=== PATIENT | male | born 1965 | race Caucasian/White ===

== ENCOUNTER → 2016-09-24 | Outpatient (CLI) | payer BC, OTHER ==
[~2016-09-24] VITALS: Ht 182.9 cm; Wt 119.1 kg
[~2016-09-24] MED LIST: ACET-1138 PO; ACET325T82; AMAN100T PO; AMB5 PO; BUPR-79 PO; CALC-393 PO; CARB25TA12 PO; CARB25TA12 SL; CARB50TA3 PO; CHOL1CHW10 PO; CLC100 PO; CLON0.5T3 PO; CLON1TAB3 PO; DIPH25CA50 PO; DLCS PR; DULO60CA44 PO; ENTA200T PO; FESO4TAB PO; MOMLX PO; MULT-589 PO; PRT40 PO; RXC5 PO; SYM100 PO; [UNRECOGNIZED DRUG - CODE] PO
[2016-09-24 11:28] VITALS: BP 143/88; PULSE 101; Ht 182.9 cm; Wt 119.1 kg
== END | disposition home or self-care (01) ==
LOC: C.NEUR 10:52
PROVIDERS: ATTEND Internal Medicine Pulmonary Disease
DX: G47.30 Sleep apnea, unspecified (principal); G20 Parkinson's disease; G47.61 Periodic limb movement disorder

== ENCOUNTER → 2016-09-26 | Outpatient (CLI) | payer BC ==
--- NOTE | 2016-09-26 15:22 | DIAGNOSTIC IMAGING REPORT ---
ULTRASOUND LEFT VENOUS DOPP LOWER EXT UNILAT CLINICAL HISTORY: ECCHYMOSIS EDEMA COMPARISON STUDY: No previous studies for comparison. FINDINGS: Real-time and color flow Doppler imaging were performed. Flow was seen within the femoral, popliteal and calf veins with no intraluminal thrombus demonstrated. The saphenous vein is patent. Multiple patent varicosities were visualized. IMPRESSION: No evidence of left lower extremity DVT. Electronically signed by: Toribio Bernal M.D. 09/26/2016 3:20 PM
[2016-09-26 16:57] LABS: BASO % 1.1 %; BASO ABS # 0.07 K/uL (0-0.2); COMPLETE YES; HEMATOCRIT 41.7 % (42-52); IG% 0.2 %; LYMPH % 19.9 %; LYMPH ABS # 1.24 K/uL (1.2-3.4); MEAN CORPUSCULAR HEMOGLOBIN 30.8 pg (25-34); MEAN CORPUSCULAR HGB CONC 33.8 g/dl (32-36); MEAN PLATELET VOLUME 9.4 fL (7.4-10.4); MONO % 9.1 %; NEUT % 64.7 %; PLATELET COUNT 279 K/uL (130-400); RED BLOOD COUNT 4.58 M/uL (4.7-6.1); WHITE BLOOD COUNT 6.24 K/uL (4.8-10.8)
[2016-09-26 17:22] LABS: BLOOD UREA NITROGEN 14 mg/dl (7-18); CALCIUM 8.8 mg/dl (8.5-10.1); CARBON DIOXIDE 27 mmol/L (21-32); CHLORIDE 106 mmol/L (98-107); CREATININE 0.77 mg/dl (0.60-1.40); GLUCOSE 87 mg/dl (70-99); SODIUM 141 mmol/L (136-145)
== END | disposition home or self-care (01) ==
LOC: C.ULTRBC 14:44
PROVIDERS: ATTEND Internal Medicine Geriatric Medicine
DX: R58 Hemorrhage, not elsewhere classified (principal); E55.9 Vitamin D deficiency, unspecified

== ENCOUNTER 2016-12-04 21:02 | Emergency (ER) | payer BC, OTHER ==
[~2016-12-04 21:02] MED LIST changes: -ACET325T82; +BND25X PO; -CALC-393 PO; -CHOL1CHW10 PO; -CLON1TAB3 PO; -DIPH25CA50 PO; -FESO4TAB PO; -[UNRECOGNIZED DRUG - CODE] PO
[2016-12-04 21:12] VITALS: TEMP 37.1; Ht 180.3 cm
[2016-12-04] MEDS ORDERED: CLON1TAB3 PO (21:48)
[2016-12-04] MEDS ORDERED: [UNRECOGNIZED DRUG - CODE] PO (21:48)
[2016-12-04] MEDS ORDERED: FESO4TAB PO (21:48)
[2016-12-04] MEDS ORDERED: CHOL1CHW10 PO (21:48)
[2016-12-04] MEDS ORDERED: CALC-393 PO (21:48)
[2016-12-04 21:53] LABS: URINE APPEARANCE CLOUDY (CLEAR); URINE BILIRUBIN NEG (NEG); URINE COLOR DK YELLOW; URINE EPITHELIAL CELL AUTO 20-30 /lpf (0-5); URINE NITRITE NEG (NEG); URINE SPECIFIC GRAVITY 1.029 (1.000-1.030); UROBILINOGEN NEG (NEG)
[2016-12-04 21:55] LABS: MANUAL MICROSCOPIC REQUIRED? NO; REVIEW REQ? YES
[2016-12-04 22:02] LABS: URINE MUCUS PRESENT (NONE PRSENT)
[2016-12-04 22:17] LABS: BENZODIAZEPINE, URINE NEG (NEG); COCAINE,URINE NEG (NEG); PHENCYCLIDINE, URINE NEG (NEG)
[2016-12-04 22:19] LABS: BASO ABS # 0.08 K/uL (0-0.2); COMPLETE YES; EOS % 2.8 %; HEMATOCRIT 44.1 % (42-52); IG% 0.2 %; LYMPH % 14.5 %; LYMPH ABS # 1.18 K/uL (1.2-3.4); MEAN CELL VOLUME 91.7 fL (80-100); MEAN CORPUSCULAR HEMOGLOBIN 30.1 pg (25-34); MEAN CORPUSCULAR HGB CONC 32.9 g/dl (32-36); MEAN PLATELET VOLUME 9.8 fL (7.4-10.4); MONO % 8.1 %; NEUT % 73.4 %; PLATELET COUNT 261 K/uL (130-400); RED BLOOD COUNT 4.81 M/uL (4.7-6.1); WHITE BLOOD COUNT 8.11 K/uL (4.8-10.8)
[2016-12-04 22:41] LABS: ALT/SGPT 10 U/L (12-78); BLOOD UREA NITROGEN 18 mg/dl (7-18); BUN/CREATININE RATIO 17.6 (10-20); CALCIUM 8.7 mg/dl (8.5-10.1); CARBON DIOXIDE 24 mmol/L (21-32); CHLORIDE 107 mmol/L (98-107); GLUCOSE 116 mg/dl (70-99); POTASSIUM 3.9 mmol/L (3.5-5.1); SODIUM 141 mmol/L (136-145)
[2016-12-04 22:52] LABS: ALKALINE PHOSPHATASE 63 U/L (45-117); AST/SGOT 24 U/L (15-37)
[2016-12-04 22:55] LABS: ACETAMINOPHEN < 2 ug/ml (10-30)
--- NOTE | 2016-12-04 23:47 | EMERGENCY ROOM VISIT NOTE ---
History Report prepared by Lavern: Dahlia Pope Under the Supervision of: Dr. Laney Nicolas D.O. First contact with patient: 21:16 Chief Complaint: MENTAL HEALTH EVALUATION Stated Complaint: MENTAL HEALTH ISSUES History of Present Illness The patient is a 51 year old male who presents to the Emergency Room with complaints of worsening mental health issues starting 4 days ago. He has Parkinson's disease. He has depression and anxiety and takes medications. He has been under increased stress recently, which makes him more depressed. He began having mental health problems after his Parkinson's diagnosis 13 years ago. He has previously been hospitalized 3 times for suicidal ideation. His last inpatient stay for psychiatric issues was 3.5 years ago. He reports that he was angry at himself and considered hurting himself, but he has never hurt himself before. He does fall often, but his reports that his falls have become more frequent and severe than before, leading to more injury. She also reports that he pretended to take pills and hid them under his pillow, which is behavior he has not exhibited before. They do not have a firearm at home, but he has also made threats about a gun. He is diaphoretic, but states that that is normal. He denies any abdominal pain, chest pain, nausea, vomiting, urinary symptoms, appetite loss, or changes in bowel movements. He goes to therapy weekly, but has not gone in 3 weeks. Source of History: patient, spouse/significant other Onset: 4 days ago Position: other (global) Timing: other (persistent) Associated Symptoms: + diaphoresis, No abdominal pain, No chest pain, No nausea, No urinary symptoms, No vomiting Note: Pt denies decrease in appetite or changes in bowel movement. Review of Systems See HPI for pertinent positives & negatives. A total of 10 systems reviewed and were otherwise negative. Past Medical & Surgical Medical Problems: (1) Bipol I, Rec Epis (Or Current) Depressed, Unspecified (2) DJD of left shoulder (3) Hypertension Nos (4) Parkinson disease Family History Diabetes mellitus Heart disease Hypertension Kidney disease Kidney stones Social History Smoking Status: Never Smoker Alcohol Use: none Drug Use: none Marital Status: Housing Status: lives with family, lives with significant other Occupation Status: disabled Current/Historical Medications Scheduled Amantadine Hcl (Symmetrel), 100 MG PO BID Bupropion (Wellbutrin Sr), 150 MG PO QAM Calcium Carbonate (Calcium), 600 MG PO QAM Carbidopa/Levodopa (Sinemet 25MG/100MG), 1 TAB SL QID Carbidopa/Levodopa (Sinemet Cr 50MG/200MG), 1 TAB PO QID Cholecalciferol (Vitamin D3), 1,000 UNIT PO QAM Clonazepam (Klonopin), 1 MG PO HS Duloxetine Hcl (Cymbalta), 60 MG PO QAM Entacapone (Comtan), 200 MG PO QID Fesoterodine Fumarate (Toviaz), 4 MG PO BID Multivitamins (Daily Paulette), 1 TAB PO DAILY Allergies Coded Allergies: Morphine (Verified Allergy, Mild, Itching, 12/04/16) Physical Exam Vital Signs Date Time Temp Pulse Resp B/P Pulse Ox O2 Delivery O2 Flow Rate FiO2 12/04/16 22:49 102 22 113/67 92 Room Air 12/04/16 21:12 37.1 118 18 126/78 92 Room Air Physical Exam General: Tearful, tremulous with Parkinson's disease. HEENT: Head - normocephalic and atraumatic Pupils are equal, round, and reactive to light. Extraocular eye muscles are intact, and sclera are anicteric. Nose - moist nasal mucosa without discharge. Mouth - moist buccal mucosa. Oropharynx is nonerythematous and there is no tonsillar exudate or edema noted. Neck: Supple; no JVD, nuchal rigidity, cervical lymphadenopathy. Heart: Regular rate and rhythm. There is a normal S1 and S2 with no murmurs, clicks, or gallops appreciated. Lungs: Clear to auscultation bilaterally with no wheezes, rales, or rhonchi. Abdomen: Soft, completely nontender, nondistended, with good bowel sounds. There are no palpable pulsatile masses or hepatosplenomegaly. There is no guarding, rigidity, or rebound noted. Extremities: No evidence of cyanosis, clubbing, or edema. There are easily palpable peripheral pulses. Skin: warm and diaphoretic with good turgor and no rashes. Psych: depressed and making suicidal threats to family. Medical Decision & Procedures Laboratory Results 12/04/16 21:56 Red Blood Count 4.81, Mean Corpuscular Volume 91.7, Mean Corpuscular Hemoglobin 30.1, Mean Corpuscular Hemoglobin Concent 32.9, Mean Platelet Volume 9.8, Neutrophils (%) (Auto) 73.4, Lymphocytes (%) (Auto) 14.5, Monocytes (%) (Auto) 8.1, Eosinophils (%) (Auto) 2.8, Basophils (%) (Auto) 1.0, Neutrophils # (Auto) 5.94, Lymphocytes # (Auto) 1.18, Monocytes # (Auto) 0.66, Eosinophils # (Auto) 0.23, Basophils # (Auto) 0.08 12/04/16 21:56 Test 12/04/16 21:20 12/04/16 21:56 Urine Color DK YELLOW Urine Appearance CLOUDY (CLEAR) Urine pH 5.0 (4.5-7.5) Urine Specific [place] 1.029 (1.000-1.030) Urine Protein NEG (NEG) Urine Glucose (UA) NEG (NEG) Urine Ketones TRACE (NEG) Urine Occult Blood NEG (NEG) Urine Nitrite NEG (NEG) Urine Bilirubin NEG (NEG) Urine Urobilinogen NEG (NEG) Urine Leukocyte Esterase NEG (NEG) Urine WBC (Auto) 1-5 /hpf (0-5) Urine RBC (Auto) 0-4 /hpf (0-4) Urine Hyaline Casts (Auto) 5-10 /lpf (0-5) Urine Epithelial Cells (Auto) 20-30 /lpf (0-5) Urine Bacteria (Auto) NEG (NEG) Urine Crystals CALCIUM OXALATE (NONE Urine Mucus PRESENT (NONE PRSENT) Urine Opiates Screen NEG (NEG) Urine Methadone, Qualitative NEG (NEG) Urine Barbiturates NEG (NEG) Urine Phencyclidine (PCP) Level NEG (NEG) Ur Amphetamine/Methamphetamine NEG (NEG) MDMA (Ecstasy) Screen POS (NEG) Urine Benzodiazepines Screen NEG (NEG) Urine Cocaine Metabolite NEG (NEG) Urine Marijuana (THC) NEG (NEG) White Blood Count 8.11 K/uL (4.8-10.8) Red Blood Count 4.81 M/uL (4.7-6.1) Hemoglobin 14.5 g/dL (14.0-18.0) Hematocrit 44.1 % (42-52) Mean Corpuscular Volume 91.7 fL (80-100) Mean Corpuscular Hemoglobin 30.1 pg (25-34) Mean Corpuscular Hemoglobin Concent 32.9 g/dl (32-36) Platelet Count 261 K/uL (130-400) Mean Platelet Volume 9.8 fL (7.4-10.4) Neutrophils (%) (Auto) 73.4 % Lymphocytes (%) (Auto) 14.5 % Monocytes (%) (Auto) 8.1 % Eosinophils (%) (Auto) 2.8 % Basophils (%) (Auto) 1.0 % Neutrophils # (Auto) 5.94 K/uL (1.4-6.5) Lymphocytes # (Auto) 1.18 K/uL (1.2-3.4) Monocytes # (Auto) 0.66 K/uL (0.11-0.59) Eosinophils # (Auto) 0.23 K/uL (0-0.5) Basophils # (Auto) 0.08 K/uL (0-0.2) RDW Standard Deviation 47.6 fL (36.4-46.3) RDW Coefficient of Variation 14.1 % (11.5-14.5) Immature Granulocyte % (Auto) 0.2 % Immature Granulocyte # (Auto) 0.02 K/uL (0.00-0.02) Anion Gap 10.0 mmol/L (3-11) Estimated GFR () 100.6 Estimated GFR (Non- 86.8 BUN/Creatinine Ratio 17.6 (10-20) Calcium Level 8.7 mg/dl (8.5-10.1) Total Bilirubin 0.4 mg/dl (0.2-1) Direct Bilirubin 0.1 mg/dl (0-0.2) Aspartate Amino Transf (AST/SGOT) 24 U/L (15-37) Alanine Aminotransferase (ALT/SGPT) 10 U/L (12-78) Alkaline Phosphatase 63 U/L (45-117) Total Protein 7.1 gm/dl (6.4-8.2) Albumin 3.4 gm/dl (3.4-5.0) Thyroid Stimulating Hormone (TSH) 1.280 uIu/ml (0.300-4.500) Salicylates Level 3.8 mg/dl (2.8-20) Acetaminophen Level < 2 ug/ml (10-30) Laboratory results per my review. ED Course 2120: The patient was evaluated in room A8. A complete history and physical examination were performed. Nursing notes and previous electronic medical records were reviewed. Labs were drawn as above. The patient was also evaluated by the ED psychiatric block and case maker. 2306: I reevaluated the patient. The market relationship manager talked to the patient. Mobile crisis will come to do an evaluation because there are no beds available here. When he heard that there were no beds, he expressed a desire to go home. The convinced him to stay here in the emergency department to have the formal evaluation done and possible placement at another facility. The patient was cooperative throughout his stay. 2345: the patient is resting comfortably at this time. He will be signed out to Dr. Elise at change of shift. Medical Decision The patient is a 51 year old male who presents to the ED with mental health issues. Differential diagnosis includes worsening depression, suicidal ideation , thought disorder. Labs: normal WBC count, stable H&H, normal THS and LFTs, normal renal function, glucose 116, aspirin 3.8, Tylenol <2, tox screen positive for MDMA. Urinalysis positive for trace ketones, mucus and calcium oxylate crystals. This is a 51-year-old male patient with a history of Parkinson's disease who presents to the emergency department with his with complaints of suicidal ideation. The patient has been making suicidal statements to the family. He does not believe that he has the intent to act upon these because of his face. However, the states that she is somewhat concerned about his situation believes that he needs inpatient psychiatric care to get help. [facility] will evaluate the patient and helped determine if he requires inpatient psychiatric care. Final disposition will be determined by Dr. Elise. Impression Primary Impression: Suicidal ideation Scribe Attestation The scribe's documentation has been prepared under my direction and personally reviewed by me in its entirety. I confirm that the note above accurately reflects all work, treatment, procedures, and medical decision making performed by me. Departure Information Referrals Yanick Lara M.D. (PCP) Patient Instructions My [facility]
[2016-12-05] MEDS ORDERED: ACET325T82 (00:42)
[2016-12-05] MEDS ORDERED: CLONAZEPAM 1 MG TAB PO STA (01:02)
[2016-12-05] MEDS ORDERED: CLONAZEPAM 0.5 MG TAB PO SCH (01:30)
--- NOTE | 2016-12-05 02:05 | EMERGENCY ROOM VISIT NOTE ---
ED Visit Note First contact with patient: 23:42 Patient signed over to me pending disposition from crisis counselor. Patient contracts for safety. The family will take the patient home and will follow up with outpatient crisis evaluation. Patient will be discharged 205am ' Disposition is to home Diagnosis is depression Discharged stable
[2016-12-05 02:10] VITALS: BP 119/79; PULSE 97; O2SAT 93
[2016-12-05] MEDS ORDERED: CARBIDOPA/LEVODOPA 50/200MG EXT REL TAB PO SCH (09:00)
[2016-12-05] MEDS ORDERED: CARBIDOPA/LEVODOPA 25/100MG TAB PO SCH (09:00)
== END 2016-12-05 02:14 | disposition home or self-care (01) ==
LOC: C.EDB 21:04 → C.EDA 12-05 02:14
DX: R45.851 Suicidal ideations (principal); F32.9 Major depressive disorder, single episode, unspecified; I10 Essential (primary) hypertension; G20 Parkinson's disease; F31.9 Bipolar disorder, unspecified; Z79.899 Other long term (current) drug therapy; Z88.5 Allergy status to narcotic agent; Z83.3 Family history of diabetes mellitus; Z82.49 Family history of ischemic heart disease and other diseases of the circulatory system

== ENCOUNTER → 2017-10-07 | Outpatient (CLI) | payer OTHER, MEDICARE ==
[~2017-10-07] MED LIST changes: -ACET-1138 PO; -AMB5 PO; -BND25X PO; +CALC-393 PO; -CARB25TA12 PO; +CHOL1CHW10 PO; -CLC100 PO; -DLCS PR; +FESO4TAB PO; -MOMLX PO; -PRT40 PO; -RXC5 PO; -SYM100 PO
== END | disposition home or self-care (01) ==
LOC: C.RDSM 13:40
PROVIDERS: ATTEND Family Medicine Sports Medicine
DX: M25.511 Pain in right shoulder (principal)

== ENCOUNTER 2019-09-09 10:03 | Inpatient (IN) ==
[2019-08-26 15:45] LABS: Basophils # (auto) 0.07 K/uL (0-0.2); Eosinophils % (auto) 4.4 %; Hematocrit (blood only) 46.1 % (42-52); Hemoglobin 15.1 g/dL (14.0-18.0); Immature Granulocytes # (auto) 0.02 K/uL (0.00-0.02); Immature Granulocytes % (auto) 0.3 %; Lymphocytes % (auto) 17.5 %; Mean Corpuscular Hemoglobin 30.8 pg (25-34); Mean Corpuscular Hgb Conc 32.8 g/dL (32-36); Mean Corpuscular Volume 94.1 fL (80-100); Mean Platelet Volume 9.2 fL (7.4-10.4); Monocytes # (auto) 0.54 K/uL (0.11-0.59); Monocytes % (auto) 7.9 %; Neutrophils # (auto) 4.71 K/uL (1.4-6.5); Neutrophils % (auto) 68.9 %; Platelet Count 236 K/uL (130-400); RDW Standard Deviation 47.6 fL (36.4-46.3); White Blood Count 6.84 K/uL (4.8-10.8)
--- NOTE | 2019-08-26 15:46 | XRay Report ---
XR chest 2V PA/lateral HISTORY: 54 years-old Male Z01.818 PREOP preoperative exam. No acute chest complaints COMPARISON: Chest radiograph 02/08/2016 and 02/21/2018 TECHNIQUE: PA and lateral views of the chest FINDINGS: Cardiomediastinal and hilar silhouettes are within normal limits. Bilateral stimulators with electrod es are noted projecting superiorly along the neck, outside the [id number]. Bilateral shoulder arth roplasties. Degenerative changes of the spine. No pneumothorax, pleural effusion, focal airspace cons olidation or overt pulmonary edema. Moderate gaseous distention of the stomach. IMPRESSION: No acute process. The above report was generated using voice recognition software. It may contain grammatical, syntax o r spelling errors. Electronically signed by: Guy Branham M.D. 08/26/2019 3:45 PM
[2019-08-26 15:57] LABS: Partial Thromboplastin Time 28.2 Seconds (21.0-31.0); Prothrombin Time 10.5 Seconds (9.0-12.0)
[2019-08-26 16:04] LABS: Albumin Level 3.6 gm/dl (3.4-5.0); BUN Creatinine Ratio 25.8 (10-20); Blood Urea Nitrogen 21 mg/dl (7-18); C Reactive Protein 1.26 mg/dl (0-0.29); Calcium 9.2 mg/dl (8.5-10.1); Carbon Dioxide 24 mmol/L (21-32); Chloride 106 mmol/L (98-107); Est GFR (African American) 115.6; Est GFR (Non-African American) 99.8; Glucose 84 mg/dl (70-99); Potassium 3.9 mmol/L (3.5-5.1); Sodium 136 mmol/L (136-145)
[2019-08-26 16:38] LABS: Appearance Urine Clear (Clear); Bilirubin Urine Negative (Negative); Blood Urine Negative (Negative); Color Urine Dark Yellow; Glucose Urine UA Negative (Negative); Ketones Urine Trace (Negative); Leukocyte Esterase Urine Negative (Negative); Nitrite Urine Negative (Negative); Protein Urine Negative (Negative); Specific Gravity Urine 1.021 (1.000-1.030); Urobilinogen Urine Negative (Negative); pH Urine 5.5 (4.5-7.5)
[2019-08-27 06:04] LABS: Estimated Average Glucose 114 mg/dl; Hemoglobin A1C 5.6 % (4.5-5.6)
--- NOTE | 2019-08-31 11:06 | PAT Medication Instructions ---
Medication Instructions Date of Service August 31, 2019 Home Medications amantadine HCl 100 mg tablet 100 mg PO BID bupropion HCl 150 mg tablet,12 hr sustained-release 150 mg PO QAM carbidopa 25 mg-levodopa 100 mg tablet 1 tab PO QID carbidopa ER 50 mg-levodopa 200 mg tablet,extended release 1 tab PO QID entacapone 200 mg tablet 200 mg PO QID duloxetine 60 mg capsule,delayed release 90 mg PO QAM carbidopa-levodopa 1 tab PO QID PRN loratadine [Claritin] 10 mg PO QAM solifenacin [Vesicare] 10 mg PO QPM ASK your prescriber and surgeon entacapone 200 mg tablet 200 mg PO QID DO NOT take the morning of surgery loratadine [Claritin] 10 mg PO QAM Take morning of surgery With a small sip of water, OTHERWISE NOTHING TO EAT OR DRINK AFTER MIDNIGHT: amantadine HCl 100 mg tablet 100 mg PO BID bupropion HCl 150 mg tablet,12 hr sustained-release 150 mg PO QAM carbidopa 25 mg-levodopa 100 mg tablet 1 tab PO QID carbidopa ER 50 mg-levodopa 200 mg tablet,extended release 1 tab PO QID duloxetine 60 mg capsule,delayed release 90 mg PO QAM carbidopa-levodopa 1 tab PO QID PRN (if needed) Take evening before surgery amantadine HCl 100 mg tablet 100 mg PO BID carbidopa 25 mg-levodopa 100 mg tablet 1 tab PO QID carbidopa ER 50 mg-levodopa 200 mg tablet,extended release 1 tab PO QID carbidopa-levodopa 1 tab PO QID PRN (if needed) solifenacin [Vesicare] 10 mg PO QPM Other Notes If you have any questions please call us at [phone] or [phone] or [phone] or [phone]
--- NOTE | 2019-08-31 14:01 | Anesthesiology Consultation ---
Date of Service August 31, 2019 Assessment & Plan (1) Encounter for pre-operative examination: - Deep brain stimulator: Previous left TKA revision done 04/11/15 at [facility] under SAB/patient did have deep brain stimulator at this time as well (SAB x 1 at L3- L4 at [facility]). For most recent surgery/right shoulder hemiarthroplasty done 03/10/18 at [facility], [employer] rep turned off device prior to surgery. Discussed with Dr. Balderas): will have [employer] rep present to turn off device prior to knee revision/patient aware to bring remote AM DOS. OR made aware of the above. - Medication instructions: Patient takes entacapone (comtan) for parkinson's (COMT inhibitor/Synldpes-S-Talwcqqkdukytvvnm Inhibitor). Patient continued medication perioperatively with prior knee replacement under SAB and partial shoulder replacement under GA at [facility]. Medication reviewed with Dr. Mcallister/Dr. Balderas as medication shows potential for issues of hypertensive response when continued if ephedrine/vasoactive medications given perioperatively in previous case studies. Given patient had taken medication perioperatively previously without issue, will defer preop medication instructions to the prescriber (neurology: Dr. Josie Back/[facility]). Patient advised to contact neurologist to discuss preop medication recommendations. - S/P right shoulder hemiarthroplasty: 03/10/18: MAC#4, ETT 7.5 at [facility]. Per anesthesia report, Patient had emesis, oropharyngeal suctioned and patient intubated with #4 MAC (7.5 ETT). Tube suctioned/small amount yellow liquid. Tube was secured. Stomach suctioned and small amount (5-10) cc orange/red liquid. Per port-op anesthesia progress note: "Anesthetic Complications: no major complications apparent" - PCP: 08/24/19: 06/2019 EKG reviewed and feel no significant changes compared to previous. "Using the revised cardiac index, he is at low risk for adverse outcome with non-cardiac surgery. He is acceptable risk for surgery. Perioperative pulmonary risk factors are low to moderate - higher risk due to Parkinson's disease." Chart Review Chart Review: Acceptable Risk for Surgery and Patient seen in Pre Admission T esting Teaching & Discussion Pre-Anesthesia Teaching/Discussion Notes: Instructed NPO after midnight before surgery,except medications with 15 cc of water. Medication instructions provided according to the PAT guidelines. History Surgery Operation Date: 09/09/19 11:30 Proposed Procedures p Left Total Knee Revision Arthroplasty - Ray Child MD Height/Weight Height: 6 ft Weight: 120.202 kg (*per verbal from patient/wheelchair bound*) Allergies Allergy/AdvReac Type Severity Reaction Status Date / Time morphine Allergy Mild Itching Verified 08/28/19 15:20 Medications Home Medications Medication Instructions Recorded Confirmed Last Taken amantadine HCl 100 mg tablet 100 mg PO BID 06/30/19 08/28/19 Unknown bupropion HCl 150 mg tablet,12 hr 150 mg PO QAM ea 06/30/19 08/28/19 Unknown sustained-release carbidopa 25 mg-levodopa 100 mg 1 tab PO QID 06/30/19 08/28/19 Unknown tablet carbidopa ER 50 mg-levodopa 200 mg 1 tab PO QID 06/30/19 08/28/19 Unknown tablet,extended release entacapone 200 mg tablet 200 mg PO QID 06/30/19 08/28/19 Unknown duloxetine 60 mg capsule,delayed 90 mg PO QAM cap 08/24/19 08/28/19 Unknown release carbidopa-levodopa 1 tab PO QID PRN 08/28/19 08/28/19 Unknown loratadine [Claritin] 10 mg PO QAM 08/28/19 08/28/19 Unknown solifenacin [Vesicare] 10 mg PO QPM 08/28/19 08/28/19 Unknown Past Medical History Medical History Anxiety Depression Hearing deficit TEJON left ear Osteoarthritis Parkinson disease s/p deep brain stimulator Sleep apnea does not tolerate device Urinary incontinence Venous stasis of both lower extremities Exercise / Class Metabolic Activity IV < 2 Limit ADL/Bedbound Past Family History Family History Grandmother Family history of diabetes mellitus Past Surgical History Surgical History History of appendectomy History of carpal tunnel release History of colonoscopy History of foot surgery RECONSTRUCTION - RT History of left knee replacement History of revision of total knee arthroplasty LEFT History of shoulder surgery LEFT X 2; RT X 1 S/P deep brain stimulator placement Past Anesthesia History No Family Hx of Anesthesia Complications and Other S/P right shoulder hemiarthroplasty: 03/10/18: MAC#4, ETT 7.5 at [facility]. Per anesthesia report, Patient had emesis, oropharyngeal suctioned and patient intubated with #4 MAC (7.5 ETT). Tube suctioned/small amount yellow liquid. Tube was secured. Stomach suctioned and small amount (5-10) cc orange/red liquid. Per port-op anesthesia progress note: "Anesthetic Complications: no major complications apparent" History of PONV No Hx of PONV and Hx of Motion Sickness (occasional) Social History Smoking Status: Never smoker Do You Dip or Chew Tobacco: No Hx Alcohol Use: No Hx Substance Use: No substance use type: marijuana Substance Use Type Other:: MEDICAL MARIJUANA CARD ([facility] PROTOCOL) Last Used Substance Other:: 6-7 MONTHS AGO Review of Systems Patient denies chest pain, shortness of breath, cough, wheezing, palpitations. Physical Exam Vital Signs VITALS BP 121/79 P 92 TEMP 98.3 SP02 93%RA RESP 20 PHYSICAL Full neck and c-spine range of motion. Full TMJ range of motion. TMD 3.5 finger breaths Mallampati Score 3 Dentition: missing molars Lungs: clear throughout to auscultation Cardiac: regular rate and rhythm, no murmurs noted Spine: normal Carotid arteries: negative bruit + sitting comfortably in wheelchair Testing Laboratory Results 08/26/19 15:22 08/26/19 15:22 PT 10.5 Seconds (9.0-12.0) 08/26/19 15:22 INR 1.0 (0.9-1.1) 08/26/19 15:22 APTT 28.2 Seconds (21.0-31.0) 08/26/19 15:22 Hemoglobin A1c 5.6 % (4.5-5.6) 08/26/19 15:22 Urine Color Dark Yellow 08/26/19 15:22 Urine Appearance Clear (Clear) 08/26/19 15:22 Urine pH 5.5 (4.5-7.5) 08/26/19 15:22 Ur Specific [place] 1.021 (1.000-1.030) 08/26/19 15:22 Urine Protein Negative (Negative) 08/26/19 15:22 Urine Glucose (UA) Negative (Negative) 08/26/19 15:22 Urine Ketones Trace (Negative) H 08/26/19 15:22 Urine Nitrite Negative (Negative) 08/26/19 15:22 Ur Leukocyte Esterase Negative (Negative) 08/26/19 15:22 Urine WBC (Auto) Not Reportable 08/26/19 15:22 Urine RBC (Auto) Not Reportable 08/26/19 15:22 U Hyaline Cast (Auto) Not Reportable 08/26/19 15:22 U Epithel Cells (Auto) Not Reportable 08/26/19 15:22 Urine Bacteria (Auto) Not Reportable 08/26/19 15:22 Blood Type A Positive 08/26/19 15:22 Antibody Screen NEGATIVE 08/26/19 15:22 Electrocardiogram Date: 06/30/19 SR at 88bpm. Possible LAE. Inferior AZ, probably old. Poor data quality (+ deep brain stimulator) Chest X-Ray Date: 08/26/19 Cardiomediastinal and hilar silhouettes are within normal limits. Bilateral stimulators with electrodes are noted projecting superiorly along the neck, outs kayla the [id number]. Bilateral shoulder arthroplasties. Degenerative changes of the spine. No pneumothorax, pleural effusion, focal airspace consolidation or overt pulmonary edema. Moderate gaseous distention of the stomach. No acute process.
--- NOTE | 2019-09-08 18:29 | History and Physical Report ---
DATE OF ADMISSION: 09/09/2019 CHIEF COMPLAINT: Chronic left knee pain. HISTORY OF PRESENT ILLNESS: This is a 54-year-old male patient of Dr. Child'dung complaining of chronic left knee pain, longstanding, now progressively getting worse. The patient had a total knee replacement on the same side on the left in 2014. A bone scan revealed a patella dislocation and fracture as well as x-rays revealed a patella dislocation fracture. Blood work was obtained; it was negative for any type of infection. The patient wishes to proceed with a left total knee revision, primarily patellar revision. PAST MEDICAL HISTORY: Sleep apnea, peripheral neuropathy, cerebral palsy. FAMILY HISTORY: Noncontributory. REVIEW OF SYSTEMS: Chronic left knee pain status post left total knee arthroplasty. Otherwise, denies any shortness of breath, chest pain, nausea, vomiting or any other joint complaints. PAST SURGICAL HISTORY: 1. Appendectomy. 2. Neurostimulators, multiple 3. Left shoulder. 4. Right foot. 5. Again multiple battery replacements for neuro stimulators. 6. Right carpal tunnel syndrome. ALLERGIES: Will be presented on admission. MEDICATIONS: 1. Carbidopa/levodopa extended release 50/200 4 times daily. 2. Carbidopa/levodopa 25/100 four times daily. 3. Comtan 200 mg 4 times daily. 4. Amantadine 2 times daily. 5. Cymbalta 90 mg daily. 6. Wellbutrin 150 mg daily. 7. Claritin as needed. PHYSICAL EXAMINATION: GENERAL: Well-developed, well-nourished 54-year-old male in no acute distress. He is alert and oriented x3 and pleasant. HEENT: Normocephalic, atraumatic. Extraocular motions are intact. Pupils are equal and reactive to light. HEART: Regular rate and rhythm, no murmurs appreciated. LUNGS: Clear. ABDOMEN: Soft and nontender. EXTREMITIES: Right knee range of motion limited to 0-130. He has pain with passive range of motion. He has a well-healed incision from previous surgery. No effusion. DIAGNOSES: Left knee loosening total knee arthroplasty primarily patella. He also has a history of sleep apnea, anxiety, peripheral neuropathy, cerebral palsy. PLAN: The patient was advised of his diagnosis. Indications, risks, benefits, postop course have all been reviewed. The patient wished to proceed with a left total knee revision of a total knee arthroplasty primarily patella. Necessary consent forms, preoperative testing and clearances will be obtained.
[~2019-09-09 10:03] MED LIST changes: +ACETAMINOPHEN 500 MG TAB PO SCH; -AMAN100T PO; +BUPIVACAINE 0.5 % 5 MG/1 ML PF 10ML VIAL ONE; -BUPR-79 PO; -CALC-393 PO; -CARB25TA12 SL; -CARB50TA3 PO; +CEFAZOLIN 3000MG 72.5 ML IV SCH; -CHOL1CHW10 PO; -CLON0.5T3 PO; +CeleBREX 200 MG CAP PO SCH; -DULO60CA44 PO; -ENTA200T PO; +FAMOTIDINE 20 MG TAB PO SCH; -FESO4TAB PO; +GABAPENTIN 300 MG CAP PO SCH; +LR 500ML BOLUS, THEN 15ML/HR IV SCH; +METOCLOPRAMIDE HCL 10 MG TABLET PO SCH; -MULT-589 PO; +ROPIVACAINE 0.5% 5 MG/ML 30 ML VIAL ONE; +ROPIVACAINE 0.5% HCL/PF 150 MG, BUPIVACAINE 0.5% MPF 30 ML, EPINEPHrine 30MG/30ML (OR U... INSTIL SCH; +TRANEXAMIC ACID 1,000 MG **IV Intra-op IV SCH; +TRANEXAMIC ACID 1,000 MG **IV Pre-op IV SCH; +dexAMETHasone 4 MG TAB PO SCH
[2019-09-09] MEDS ORDERED: TRANEXAMIC ACID / 0.7% NACL 1000MG/100ML BAG IV ONE (11:21)
[2019-09-09] MEDS ORDERED: MIDAZOLAM HCL 1 MG/ML 2ML VIAL ONE ×2 (11:43→12:10)
[2019-09-09] MEDS ORDERED: fentaNYL citrate 100 MCG/2 ML VIAL ONE (11:43)
[2019-09-09] MEDS ORDERED: ORTHO JOINT ANESTHETIC ONE (12:42)
[2019-09-09] MEDS ORDERED: BACITRACIN INJ 50,000 UNIT VIAL ONE (12:42)
[2019-09-09] MEDS ORDERED: ePHEDrine sulfate 50 MG/ML AMP IV PRN (12:58)
[2019-09-09] MEDS ORDERED: ATROPINE SULFATE 0.1 MG/ML 10ML SYR IV PRN (12:58)
--- NOTE | 2019-09-09 13:12 | History & Physical Bridge Note ---
Date of Service September 09, 2019 History & Physical Bridge Note I have examined the patient, reviewed the History & Physical and in the interval since the performance of the History & Physical I have noted the following changes of clinical significance: no changes noted
[2019-09-09] MEDS ORDERED: KETAMINE HCL INJ 50 MG/ML 10 ML VIAL ONE (13:54)
[2019-09-09] MEDS ORDERED: ONDANSETRON INJ 2 MG/ML 2 ML VIAL ONE (14:26)
[2019-09-09] MEDS ORDERED: GLYCOPYRROLATE 0.2 MG/ML VIAL ONE (14:26)
[2019-09-09] MEDS ORDERED: LIDOCAINE HCL 2% 2 ML VIAL/AMP(20MG/ML) INFIL ONE (14:26)
[2019-09-09] MEDS ORDERED: PROPOFOL IV EMULSION 10 MG/ML 20 ML VIAL IV ONE ×2 (14:26→15:47)
[2019-09-09] MEDS ORDERED: PHENYLEPHRINE HCL 10 MG/ML VIAL ONE (14:27)
[2019-09-09] MEDS ORDERED: PHENYLEPHRINE 100MCG/ML 5ML SYR ONE (14:27)
--- NOTE | 2019-09-09 16:21 | Post Operative Brief Note ---
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 I identified the patient and participated in the time-out.: Yes Procedure Operation Date: 09/09/19 12:15 Actual Procedures p Left patella revision, Excision of heterotropic bone and patella bone fragments, VMO advancement , and lateral release, synovectomy, application superficial wound VAC (Left) - Ray Child MD Surgeon Ray Child MD It Support Specialist JOSELIN Taylor Estimated Blood Loss 10 Findings Consistent with Post-Op Diagnosis Specimens Bone fragments, patella component, synovium, culture Drains Hemovac Drain Anesthesia Type MAC Spinal Regional Complications none Disposition Accompanied Patient To Recovery: No Disposition: Recovery Room Overlapping Procedure I was immediately available: during the entire case.
--- NOTE | 2019-09-09 16:54 | Operative Report ---
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 I identified the patient and participated in the time-out.: Yes Procedure Operation Date: 09/09/19 12:15 Actual Procedures p Left patella revision, Excision of heterotropic bone , VMO advancement , and lateral release, synovectomy (Left), application of superficial wound VAC- Ray Child MD Surgeon Ray Child MD Miner Assistant JOSELIN Taylor Estimated Blood Loss 10 Findings Consistent with Post-Op Diagnosis Specimens Swabs for culture, synovium for pathology, bone fragments, patella component. Drains 2 Hemovac Anesthesia Type MAC Spinal Regional Complications none Disposition Accompanied Patient To Recovery: No Disposition: Recovery Room Indications 54-year-old male with history of left total knee replacement by Dr. Tran postjono perative patella dislocation and subsequently went on to fragment his patella the patella component became loose and migrated proximal into Cuello patella pouch and patient's had chronic extensor lag and disability. Patient does have a bone fragment centrally in the groove of the femoral component but there is a large fragment laterally lateral retinacular lateral gutter area and multiple other smaller fragments of heterotopic bone. Alpha defensin and testing cultures all negative. Patient has significant Parkinson's disease but quite functional with a brain stimulator. Patient is done well with bilateral shoulder replacements despite Parkinson's. Description of Procedure Patient was taken to the operating room the size under spinal MAC regional anesthetic. Pneumatic tourniquet was placed by his left upper thigh. Thigh was moderately obese. Patient's incision from previous surgery was chronically widened and has some scar tissue. Passive knee motion 0 through 150 degrees. Mild MCL laxity. Large effusion. No erythema. The leg was sterilely prepped and draped with ChloraPrep. The leg was elevated exsanguinated Esmarch bandage and pneumatic tourniquet was raised to 350 mmHg. Longitudinal incision was made through his previous scar and extended slightly proximally more for exposure and suprapatellar pouch. The scarred subcutaneous fat was elevated with flaps off of the extensor mechanism. Medial retinacular VMO type repair area was significantly attenuated but there is still continuity of tissue. Proximal and distal to that area there was good retinacular and quad tendon repair. There was permanent suture material from prior surgery. I made a curvilinear incision through the VMO attenuated tissue extending up into the mid third of the quadriceps tendon and down to the medial tibial tubercle there was very thick scar tissue. Upon entering the joint there was noted to be chronic synovitis with large fronds of inflamed synovial tissue. The polyethylene patella head wear to the patella component was walled off and synovial scar tissue high in the suprapatellar pouch. There was a central patella fragment in the patella tendon and attached to the quad tendon still which was 26 mm wide by 15 mm thick by 35 mm superior to inferior. I felt this fragment was just large enough to do a revision with a symmetrical patella component of small size. Previous knee replacement was a Hernadez & Nephew journey type knee replacement. Previous patella was oval. There was heterotopic bone very large fragment or fracture piece of the patella which was scarred in the lateral retinacular area. There is a very large piece about 35 mm x 25 mm oval irregular piece of bone. The tibial polyethylene was intact there was a constrained component. The tibial and femoral components were both stable. First a thorough electrocautery synovectomy was performed removing all the inflamed synovial tissue throughout the knee. The patella loose component was removed. After measuring the patella bone component I did a slight subperiosteal release along the lateral side and after removing all scar tissue around the patella piece we used the oscillating saw to flatten out the surface try to maintain least 12-13 mm of bone on the patella piece. The large piece of bone in the lateral gutter retinacular area was shelled out from the soft tissue and removed completely along with several other pieces of heterotopic bone. A 26 mm patella component Hernadez & Nephew journey patella was utilized. The guide for the peg holes was adjusted into appropriate position and the drill holes are made into the sclerotic hard bone. Trial was placed. The VMO had to be advanced and a lateral release had to be performed to allow the patella tracked centrally. With a lateral release I tried maintain as much synovium as possible within this central area the synovium had to be released for appropriate tracking. The trial was removed and the knee was copiously irrigated with the pulsed lavage antibiotic solution with bacitracin. The patella was cemented with Simplex cement. After cement cured we used a Betadine soak for 3 minutes while the orthomix was injected into the soft tissues. After copious irrigation 2 Hemovac drains were brought out laterally. The VMO was advanced about 15 mm over the quad tendon and patella using [id number] #2 FiberWire sutures as well as interrupted #1 Vicryl sutures. Good repair was obtained and the patella tracked completely centrally and there is no tension on repair with 0 to 90 degrees range of motion. The skin was then closed with interrupted 2-0 Vicryl sutures and the Alexa superficial wound VAC was applied, sterile dressings and a knee immobilizer in full extension. The patient tolerated the procedure well. JOSELIN Taylor was my administrative sales assistant. He assisted in prepping ,draping ,soft tissue retraction, leg positioning , instrument management and assisted in subcutaneous and skin closure and applied superficial wound VAC will participate in postop care the patient. Thank you I attest to the content of the Intraoperative Record and any orders documented therein. Any exceptions are noted below.
--- NOTE | 2019-09-09 16:54 | Anesthesiology Progress Note ---
Date of Service September 09, 2019 Anesthesia Post Procedure Vital Signs Vital Signs: Temp Pulse Pulse Resp BP BP Pulse Ox 09/09/19 16:45 91 H 16 101/75 93 09/09/19 16:35 94 H 16 110/74 95 09/09/19 16:27 99.7 F H 97 H 16 131/69 98 09/09/19 10:40 99.0 F 88 20 162/90 H 94 Transfer of Care Handoff Completed per policy Notes Mental Status: alert / awake / arousable and participated in evaluation Patient Amnestic to Procedure: Yes Nausea / Vomiting: adequately controlled Pain: adequately controlled Airway Patency, RR, SpO2: stable & adequate BP & HR: stable & adequate Hydration State: stable & adequate Neuraxial Anesthesia: was administered and sensory block is resolving Anesthetic Complications: no major complications apparent and Pt Satisfied with anesthetic care
--- NOTE | 2019-09-09 16:57 | XRay Report ---
XR knee LT 1 or 2V routine CLINICAL HISTORY: Postoperative evaluation. COMPARISON: Left knee radiographs May 22, 2015. FINDINGS: Evaluation is suboptimal given difficulty positioning. Alignment of the left knee arthropl asty is anatomic. There is no periprosthetic fracture or unexpected radiopaque foreign body. Drains a nd skin randy are noted. IMPRESSION: Left knee arthroplasty. No periprosthetic fracture or unexpected radiopaque foreign body. ACT 112: Negative or not required by law. Electronically signed by: Kendall Tello M.D. 09/09/2019 4:56 PM
[2019-09-09] MEDS ORDERED: CETIRIZINE HCL 10 MG TABLET PO PRN (17:41)
[2019-09-09] MEDS ORDERED: CARBIDOPA/LEVODOPA 25/100MG TAB PO PRN (17:41)
[2019-09-09] MEDS ORDERED: HYDROmorphone INJ 0.5 MG/0.5 ML SYR IV PRN (17:41)
[2019-09-09] MEDS ORDERED: MAGNESIUM HYDROXIDE SUSP 30 ML UDC PO PRN (17:41)
[2019-09-09] MEDS ORDERED: NALOXONE HCL 0.4 MG/1 ML VIAL/CARP IV PRN (17:41)
[2019-09-09] MEDS ORDERED: ONDANSETRON INJ 2 MG/ML 2 ML VIAL IV PRN (17:41)
[2019-09-09] MEDS ORDERED: bisacodyL 10 MG SUPP PR PRN (17:41)
[2019-09-09] MEDS: SODIUM CHLORIDE 0.9% 1000ML 1,000 ML IV SCH (18:08)
[2019-09-09] MEDS: ENTACAPONE 200 MG TAB PO SCH ×2 (18:54→21:16)
[2019-09-09] MEDS: CARBIDOPA/LEVODOPA 25/100MG TAB PO SCH ×2 (18:55→21:16)
[2019-09-09] MEDS: CARBIDOPA/LEVODOPA 50/200MG EXT REL TAB PO SCH ×2 (18:55→21:16)
--- NOTE | 2019-09-09 20:08 | Hospitalist Consultation ---
Date of Consultation September 09, 2019 Assessment & Plan (1) History of left knee replacement: Mr. Knox is a 54 year old male with a past medical history of Parkinson's disease, overactive bladder, depression, seasonal allergies and SMITH who underwent a left knee revision arthroplasty with Dr. Child today due to longstanding left knee pain. s/p left knee revision arthroplasty -management per ortho -pain well controlled w/current regimen -bowel regimen already ordered -10mg Xarelto to start tomorrow AM for DVT Prophylaxis, SCDs on right leg -CBC and BMP ordered for tomorrow AM Parkinson's Disease -STN-DBS in place -continue home amantadine, sinemet, and entacapone Overactive Bladder -Solifenacin non-formulary, continue on discharge Depression/Anxiety -continue home bupropion and duloxetine SMITH -patient has a history of sleep apnea, however is intolerant to CPAP Hx of Allergies -continue home claritin Code status: FULL DVT Prophylaxis: Per ortho, Xarelto 10mg daily and SCDs Disposition: remains on med/surg. Thank you for involving us in the care of Mr. Knox. Please do not hesitate to call with questions or concerns. (2) Post-operative state: (3) Depression: (4) Anxiety: (5) Parkinson disease: Supervising Physician Co-Signing Physician Notes Patient seen and examined, chart reviewed, case discussed with Dr. Whelan and I agree with her assessment and plan as documented above. Briefly, patient is a 54yo C male with h/o PD s/p revision of left knee for ongoing pain. Surgery well tolerated. Patient doing well. Home medications have been resumed. On exam he is afebrile, HD stable, NAD +S1/S2, regular, no m/r/g Lungs- CTA Abd - +BS Ext - dressing in place, c/d/i Labs and images reviewed Plan as above. Xarelto to be resumed tomorrow History of Present Illness Reason for Consultation: Post operative medical management Requesting Physician: Dr. Child Attending Physician: Dr. Adams History of Present Illness Mr. Knox is a 54 year old male with a past medical history of Parkinson's disease, overactive bladder, depression, and SMITH who underwent a left knee revision arthroplasty with Dr. Child today due to longstanding left knee pain. He states that this is his 2nd revision of his left knee, as his bone scan revealed he had a patella dislocation and fracture. He reports he currently feels well. He states the pain in his left knee is minimal at rest, but sharp if he tries to move it. He denies any fever, chills, chest pain, or shortness of breath. Last BM was this AM prior to his surgery. He did have an episode of urinary incontinence after returning to the med/surg floor, however he does state he has a history of the same, for which he takes vesicare. With regards to his Parkinson's disease, he follows with [facility] neurology and has had b/l STN DBS placed, which he reports improved his symptoms. Allergies Allergy/AdvReac Type Severity Reaction Status Date / Time morphine Allergy Mild Itching Verified 09/09/19 10:27 Home Medications Home Medications Medication Instructions Recorded Confirmed Type amantadine HCl 100 mg tablet 100 mg PO BID 06/30/19 09/09/19 History bupropion HCl 150 mg tablet,12 hr 150 mg PO QAM ea 06/30/19 09/09/19 History sustained-release carbidopa 25 mg-levodopa 100 mg 1 tab PO QID 06/30/19 09/09/19 History tablet carbidopa ER 50 mg-levodopa 200 mg 1 tab PO QID 06/30/19 09/09/19 History tablet,extended release entacapone 200 mg tablet 200 mg PO QID 06/30/19 09/09/19 History duloxetine 60 mg capsule,delayed 90 mg PO QAM cap 08/24/19 09/09/19 History release carbidopa-levodopa 1 tab PO QID PRN 08/28/19 09/09/19 History loratadine [Claritin] 10 mg PO QAM 08/28/19 09/09/19 History solifenacin [Vesicare] 10 mg PO QPM 08/28/19 09/09/19 History acetaminophen [Tylenol Arthritis 650 mg PO Q12H PRN 09/09/19 09/09/19 History Pain] cetirizine [Zyrtec] 10 mg PO DAILY PRN 09/09/19 09/09/19 History Patient History Medical History Anxiety Depression Hearing deficit NINILCHIK left ear Osteoarthritis Parkinson disease s/p deep brain stimulator Sleep apnea does not tolerate device Urinary incontinence Venous stasis of both lower extremities Surgical History History of appendectomy History of carpal tunnel release History of colonoscopy History of foot surgery RECONSTRUCTION - RT History of left knee replacement History of revision of total knee arthroplasty LEFT History of shoulder surgery LEFT X 2; RT X 1 S/P deep brain stimulator placement Family History Grandmother Family history of diabetes mellitus Social History Preferred Language: Wolof Communication Ability: Effective Consultant Teacher Required: No Beliefs That Will Affect Care: Uatsdin Uatsdin Beliefs: SABIANISM Current Living Situation: Spouse Other Information That Helps Us Care for You: No Feels Safe at Home: Yes Safety Concerns: Feels Safe At This Time Smoking Status: Never smoker Do You Dip or Chew Tobacco: No ; Second Hand Exposure: No ; Hx Alcohol Use: No Hx Substance Use: No Review of Systems Constitutional: no fever, no chills and no anorexia Respiratory: no cough, no dyspnea and no wheezing Cardiovascular: no chest pain, no palpitations and no edema Gastrointestinal: no abdominal pain, no nausea, no vomiting and no change in bowel habits Genitourinary: + urinary incontinence; no dysuria Physical Exam Constitutional: WD/WN, vitals as above + well hydrated; no acute distress Eyes: PERRL, conjunctivae normal, anicteric sclerae Respiratory: normal respiratory effort, lungs clear to auscultation Cardiovascular: RRR, no murmur, no edema Chest (Breasts): Additional Comments: b/l batteries in place subcutaneously over anterior chest. Site appears clean and dry. Gastrointestinal (Abdomen): Percussion/Palpation: abdomen soft; abdomen nontender, no guarding and abdomen not rigid Musculoskeletal: Left leg in brace. Sensation present in toes, able to wiggle toes. Cap refill <2 sec Right leg in SCDs Skin: no rashes, warm and dry Neurologic: PERRL, EOMI, accommodation nl, no face palsy, no dysarthria Psychiatric: A+Ox3, euthymic affect Results & Data Vital Signs (Past 12 Hours) Vital Signs Temp Pulse Pulse Pulse Resp BP BP 09/09/19 19:22 36.5 C 95 H 18 121/79 09/09/19 18:50 36.8 C 89 18 101/67 09/09/19 18:18 36.6 C 89 18 131/84 09/09/19 18:00 18 119/80 09/09/19 17:20 36.7 C 93 H 16 123/72 09/09/19 17:05 37.2 C 92 H 18 102/74 09/09/19 16:55 37.2 C 92 H 16 108/84 09/09/19 16:45 91 H 16 101/75 09/09/19 16:35 94 H 16 110/74 09/09/19 16:27 37.6 C H 97 H 16 131/69 09/09/19 10:40 37.2 C 88 20 162/90 H Pulse Ox 09/09/19 19:22 94 09/09/19 18:50 96 09/09/19 18:18 94 09/09/19 18:00 95 09/09/19 17:20 93 09/09/19 17:05 95 09/09/19 16:55 94 09/09/19 16:45 93 09/09/19 16:35 95 09/09/19 16:27 98 09/09/19 10:40 94 Resident Activity Tracking Resident Involvement: Resident Care Provided Care Provided: Adult Hospital Medicine
[2019-09-09] MEDS: DOCUSATE SODIUM 100 MG CAP PO SCH (21:16)
[2019-09-09] MEDS: SENNA 8.6 MG TAB PO SCH (21:16)
[2019-09-09] MEDS: AMANTADINE HCL 100 MG CAPSULE PO SCH (21:17)
[2019-09-09] MEDS: CEFAZOLIN 2000MG 2,000 MG/15 ML SYR IV SCH (21:19)
[2019-09-09] MEDS: ACETAMINOPHEN 500 MG TAB PO SCH (21:19)
[2019-09-09] MEDS: OXYCODONE HCL IR 5 MG TAB (IMMEDIATE RELEASE) PO PRN (23:54)
[2019-09-10] MEDS: SODIUM CHLORIDE 0.9% 1000ML 1,000 ML IV SCH (03:45)
--- NOTE | 2019-09-10 04:48 | Billing Data ---
Date of Service September 09, 2019 Coding Level of Care Code 90622 Inpt Consult Level 3
[2019-09-10] MEDS: CEFAZOLIN 2000MG 2,000 MG/15 ML SYR IV SCH ×2 (05:37→06:36)
[2019-09-10] MEDS: ACETAMINOPHEN 500 MG TAB PO SCH ×3 (05:37→21:17)
[2019-09-10 07:12] LABS: Hematocrit (blood only) 41.1 % (42-52); Hemoglobin 13.5 g/dL (14.0-18.0); Mean Corpuscular Hemoglobin 30.2 pg (25-34); Mean Corpuscular Hgb Conc 32.8 g/dL (32-36); Mean Corpuscular Volume 91.9 fL (80-100); Mean Platelet Volume 9.5 fL (7.4-10.4); Platelet Count 231 K/uL (130-400); RDW Coefficient of Variation 13.8 % (11.5-14.5); RDW Standard Deviation 46.8 fL (36.4-46.3); Red Blood Count 4.47 M/uL (4.7-6.1); White Blood Count 11.71 K/uL (4.8-10.8)
[2019-09-10 07:42] LABS: Calcium 8.2 mg/dl (8.5-10.1); Creatinine Clr Calc Pharmacy 116.9 ml/min; Est GFR (African American) 103.4; Est GFR (Non-African American) 89.3; Potassium 3.9 mmol/L (3.5-5.1)
[2019-09-10] MEDS ORDERED: BuPROPion XL 150 MG TABCR PO SCH (09:00)
--- NOTE | 2019-09-10 09:25 | Orthopedic Progress Note ---
Date of Service September 10, 2019 Assessment & Plan (1) History of left knee replacement: POD #1 Left Knee revision patella component TKA, synovectomy, lateral release, VMO advancement PT/ OT- [place] brace ROM 0-45 NWB, Locked at zero w WB, WBAT. DVT proph- Xarelto D/C plans- Rehab/ SNF As per medicine. Subjective POD #1, Feeling well. Denies SOB, CP, N/V. Pain controlled well. Wishes rehab/ SNF placement. Physical Exam Physical Exam: Left knee dressings/ brace c/d/i. Toes/ ankle mobile. No calf tenderness. A&Ox3. Results & Data Vital Signs (Past 12 Hours) Vital Signs Temp Pulse Resp BP Pulse Ox 09/10/19 03:58 36.5 C 90 18 128/71 91 09/09/19 23:12 36.8 C 87 18 123/74 94
[2019-09-10] MEDS: DOCUSATE SODIUM 100 MG CAP PO SCH ×2 (09:58→21:17)
[2019-09-10] MEDS: LORATADINE 10 MG TAB PO SCH (09:58)
[2019-09-10] MEDS: ENTACAPONE 200 MG TAB PO SCH ×4 (09:59→21:17)
[2019-09-10] MEDS: MULTIVITAMIN TAB PO SCH (09:59)
[2019-09-10] MEDS: DULOXETINE HCL 30 MG CAP PO SCH (09:59)
[2019-09-10] MEDS: CARBIDOPA/LEVODOPA 25/100MG TAB PO SCH ×4 (09:59→21:17)
[2019-09-10] MEDS: AMANTADINE HCL 100 MG CAPSULE PO SCH ×2 (10:00→21:17)
[2019-09-10] MEDS: RIVAROXABAN 10 MG TABLET PO SCH (10:00)
[2019-09-10] MEDS: CARBIDOPA/LEVODOPA 50/200MG EXT REL TAB PO SCH ×4 (10:00→21:17)
--- NOTE | 2019-09-10 14:19 | Hospitalist Progress Note ---
Date of Service September 10, 2019 Assessment & Plan (1) History of left knee replacement: * POD #1 s/p LEFT revision arthroplasty with Dr. Child. EBL 10mL. Pre-op h/h 15.1/46.1. * Pain management/bowel regimen/PT/OT/DVT proph per primary * Drain removed this morning -- output 315mL * H/h today 13.5/41.1 -- secondary to surgery/dilution from IVF. WBC 11.7k today -- did receive 4mg dexamethasone pre-op -- patient remains afebrile, no s/sx of infection * Management per ortho * Monitor CBC (2) Post-operative state: * As above (3) Depression: * Continue home duloxetine * Per patient, he has not taken bupropion in some time -- ok to d/c (4) Anxiety: * As above -- continue home duloxetine (5) Parkinson disease: * Stable * STN-DBS in place -- placed >10 years ago * continue home amantadine, sinemet, and entacapone (6) Urinary incontinence: * Patient without complaints of incontinence. Voiding in urinal without difficulty * Vesicare not on formulary -- ok to hold while inpatient unless patient with concerns --> want to avoid sedation with alternative agents oxybutynin/tolterodine given patient to participate in therapy and possible d/c to [facility] (7) Sleep apnea: * patient has a history of sleep apnea, however is intolerant to CPAP --?could he tolerate nasal pillow -- will re-address tomorrow (8) Acute blood loss anemia: * As above -- secondary to surgery/drain output/dilution from IVF (9) DVT prophylaxis: * Per primary -- Xarelto * SCD, Ezequiel sierra Thank you for allowing medicine team to participate in the care of Mr. Knox. Medicine will follow along. Dispo: patient from home -- wishes to go to [facility] for inpatient rehab (concerns about release to see [employer] while at rehab...?) -- possible discharge tomorrow per primary team Supervising Physician Co-Signing Physician Notes PA Supervision Note: I did not personally see or examine the patient today, but I verified all ignacio points of JOSELIN Arreaga's assessment and plan with the following exceptions/additions: None Subjective Patient evaluated up in chair this afternoon. Patient denies need for any pain medication, as pain is tolerable. Patient tolerating regular diet without difficulty or dysphagia. Appetite good. Passing gas, but no BM. Voiding in urinal. Hopeful for d/c to [facility] for rehab. Only concern patient brings up today is that he would like to be allowed to leave inpatient rehab for a short period of time in order to watch the [employer] movie coming out tomorrow. Otherwise no other concerns at this time. Review of Systems Review of Systems: All systems reviewed & are unremarkable except as noted in HPI & below Constitutional: no fever and no chills Ear, Nose, Mouth, Throat: no sore throat and no dysphagia Respiratory: no cough and no dyspnea Cardiovascular: no chest pain, no palpitations and no edema Gastrointestinal: no abdominal pain, no nausea and no vomiting Genitourinary: no dysuria and no hematuria Musculoskeletal: no myalgia and no muscle weakness Integumentary: no rash and no lesions Physical Exam Physical Exam: Neurologic PERRL, EOMI, accommodation nl, no face palsy, no dysarthria Psychiatric A+Ox3, euthymic affect Constitutional: WD/WN, vitals as above no acute distress Eyes: + anicteric sclerae and PERRL Neck: trachea midline, no thyromegaly Respiratory: normal respiratory effort, lungs clear to auscultation Cardiovascular: RRR, no murmur, no edema Vessels: no JVD Extremities: normal capillary refill; no edema Chest (Breasts): Additional Comments: SQ devices b/l anterior chest wall Gastrointestinal (Abdomen): normal bowel sounds, soft, nontender, no hepatosp lenomegaly Musculoskeletal: Head/Neck/Chest: normocephalic and head atraumatic Brace to left leg NVI, adelso to wiggle toes/ankle 2+ dp/pt pulses b/l LE Skin: NAVNEET to left knee-- sanguinous saturated approx 3.5 cm diameter at site of drain removal No evidence of infection, purulent drainage No calf tenderness Neurologic: awake Motor/Sensory: + tremor Psychiatric: Orientation: alert and oriented x 3 Results & Data Vital Signs (Past 12 Hours) Vital Signs Temp Pulse Resp BP Pulse Ox 09/10/19 12:24 36.5 C 98 H 18 142/82 H 94 09/10/19 03:58 36.5 C 90 18 128/71 91 Laboratory Results 09/10/19 09/10/19 Range/Units 07:00 07:00 WBC 11.71 H (4.8-10.8) K/uL RBC 4.47 L (4.7-6.1) M/uL Hgb 13.5 L (14.0-18.0) g/dL Hct 41.1 L (42-52) % MCV 91.9 (80-100) fL MCH 30.2 (25-34) pg MCHC 32.8 (32-36) g/dL RDW Std Deviation 46.8 H (36.4-46.3) fL RDW Coeff of Travis 13.8 (11.5-14.5) % Plt Count 231 (130-400) K/uL MPV 9.5 (7.4-10.4) fL Sodium 137 (136-145) mmol/L Potassium 3.9 (3.5-5.1) mmol/L Chloride 107 (98-107) mmol/L Carbon Dioxide 25 (21-32) mmol/L Anion Gap 5.0 (3-11) BUN 16 (7-18) mg/dl Creatinine 0.96 (0.6-1.4) mg/dl Est Cr Clr Drug Dosing 116.9 ml/min Est GFR ( Amer) 103.4 Est GFR (Non-Af Amer) 89.3 BUN/Creatinine Ratio 17.0 (10-20) Glucose 121 H (70-99) mg/dl Calcium 8.2 L (8.5-10.1) mg/dl PG Care Time/CCT Total # of Minutes Spent Total Time Spent with Patient: Total time spent is greater than 50% in coordination of care (as documented) at patient's floor/unit and/or counseling patient:
[2019-09-10] MEDS: OXYCODONE HCL IR 5 MG TAB (IMMEDIATE RELEASE) PO PRN (16:33)
[2019-09-10] MEDS: SENNA 8.6 MG TAB PO SCH (21:17)
[2019-09-11] MEDS: ACETAMINOPHEN 500 MG TAB PO SCH ×3 (06:19→21:14)
[2019-09-11 07:23] LABS: Hematocrit (blood only) 38.5 % (42-52); Hemoglobin 12.5 g/dL (14.0-18.0); Mean Corpuscular Hemoglobin 30.1 pg (25-34); Mean Corpuscular Hgb Conc 32.5 g/dL (32-36); Mean Corpuscular Volume 92.8 fL (80-100); Mean Platelet Volume 9.5 fL (7.4-10.4); Platelet Count 220 K/uL (130-400); RDW Standard Deviation 47.3 fL (36.4-46.3); Red Blood Count 4.15 M/uL (4.7-6.1); White Blood Count 9.89 K/uL (4.8-10.8)
[2019-09-11 07:56] LABS: BUN Creatinine Ratio 24.3 (10-20); Calcium 8.2 mg/dl (8.5-10.1); Creatinine Clr Calc Pharmacy 133.6 ml/min; Est GFR (Non-African American) 99.3; Potassium 3.7 mmol/L (3.5-5.1)
[2019-09-11] MEDS: RIVAROXABAN 10 MG TABLET PO SCH (08:23)
[2019-09-11] MEDS: DOCUSATE SODIUM 100 MG CAP PO SCH ×2 (08:23→21:15)
[2019-09-11] MEDS: AMANTADINE HCL 100 MG CAPSULE PO SCH ×2 (08:24→21:15)
[2019-09-11] MEDS: MULTIVITAMIN TAB PO SCH (08:24)
[2019-09-11] MEDS: DULOXETINE HCL 30 MG CAP PO SCH (08:24)
[2019-09-11] MEDS: CARBIDOPA/LEVODOPA 50/200MG EXT REL TAB PO SCH ×4 (08:24→21:15)
[2019-09-11] MEDS: LORATADINE 10 MG TAB PO SCH (08:24)
[2019-09-11] MEDS: ENTACAPONE 200 MG TAB PO SCH ×4 (08:25→21:15)
[2019-09-11] MEDS: CARBIDOPA/LEVODOPA 25/100MG TAB PO SCH ×4 (08:26→21:15)
[2019-09-11] MEDS: OXYCODONE HCL IR 5 MG TAB (IMMEDIATE RELEASE) PO PRN (08:51)
--- NOTE | 2019-09-11 10:21 | Orthopedic Progress Note ---
Date of Service September 11, 2019 Assessment & Plan (1) History of left knee replacement: POD #2 Left Knee revision patella component TKA, synovectomy, lateral release, VMO advancement PT/ OT- [place] brace ROM 0-45 NWB, Locked at zero w WB, WBAT. Brace was applied and fitted to patient by me. DVT proph- Xarelto D/C plans- Rehab/ SNF per SS. As per medicine. Disposition is still pending acceptance to either [facility] or SNF Subjective POD #2, Feeling well. Denies SOB, CP, N/V. Pain controlled well. Wishes rehab/ SNF placement. Brace and/ or immobilizer were not on leg. Physical Exam 2 Physical Exam: Left knee prevena wound vac was bleeding through. No calf tenderness. Toes/ ankle mobile. A&Ox3. Results & Data Vital Signs (Past 12 Hours) Vital Signs Temp Pulse Resp BP BP Pulse Ox 09/11/19 07:32 36.7 C 83 17 143/79 H 98 09/10/19 22:55 36.7 C 93 H 20 123/77 94
--- NOTE | 2019-09-11 14:08 | Psychiatric Consultation ---
Date of Consultation September 11, 2019 Impression / Recommendations Impression 54-year-old male admitted medically on 09/08/2019, with planned operative procedure to occur on 09/09/2019. Patient is now recovering from surgical revision of left knee prosthetic, due to mechanical loosening. Psychiatric consultation was requested to evaluate the patient for reports of exacerbated anxiety. It was reported that patient's clonazepam and Adderall had been tapered to discontinuation about 2 months ago, which was believed to be associated with increased anxious symptoms. Patient is a rather limited historian, and it would be beneficial to gather collateral information from his as well as other outpatient providers. Psychiatric hospitalizations from our unit in 2010 and 2012 were reviewed. At those times, patient was diagnosed with major depressive disorder, and even carried a diagnosis of Parkinson's disease at that time. Although hospital documentation indicates that patient tolerated medication adjustments, patient is rather hesitant about medications as "I never found a medication that I liked." This provider attempted to review several medications with the patient, all of which he declined with somewhat vague concerns reported. Due to reports of activation and concerns for bipolar presentation on various antidepressant agents, it would be concerning to further titrate duloxetine due to concerns for destabilization of mood. Patient is unwilling for further titration regardless. Quetiapine was offered to the patient, who reports side effects with the medication in the past, though cannot clearly describe what these may have been. Until further information can be gathered, would suggest utilization of low-dose risperidone (0.5mg BID prn) off label for treatment of anxiety, as he is indicating that more appropriate agents have not been effective for him in the past. Would suggest utilization of the medication only as needed, and we will plan to refer patient for outpatient psychiatric follow-up. Patient denies suicidal ideation, homicidal ideation, signs of acute psychosis, and other acute safety concerns. At this time, there is no indication that inpatient psychiatric treatment is warranted. Would suggest discharge planning per primary team, with further psychiatric evaluation on an outpatient basis. Dr. Jose Rendon was directly involved in review and discussion of the patient's case and participated in medical decision making regarding treatment recommendations. Risk Factors Assessment Do You Have Access To A Gun?: No Psych History Identifying Data 54-year-old male admitted medically on 09/08/19 for chronic knee pain with planned surgical revision of left knee prosthetic. Psychiatric consultation was requested to evaluate patient for increased anxiety, reportedly having been tapered off clonazepam about 2 months prior to this admission. Chief Complaint "Oh I'm feeling fine. I was here to get my knee fixed." History of Present Illness Al Knox is a 54-year-old male admitted medically on 09/08/2019 for chronic knee pain, having been admitted for surgical revision for mechanical loosening of internal left knee prosthetic. Pt also has a longstanding diagnosis of Parkinson's disease. Psychiatric consultation was requested to evaluate the patient for worsening anxiety, reportedly having been tapered off of his clonazepam and Adderall about 2 months ago. Patient's case was reviewed and discussed with psychiatric nurse liaison and supervising psychiatrist. Patient was cooperative with psychiatric evaluation, though history with past medication trials and response to various agents is rather limited. Overall, patient admits to increase in anxiety within the past several weeks. He states "the anxiety hits and weird little places, like when I wake up, or when I am sitting down." Patient reports associated symptoms of shortness of breath, and a "hollow feeling" in his chest. Patient states "it feels like a pinball machine, like I am just being hit in different directions." Patient reports exacerbation of anxiety symptoms about 3 times a week, without clear cause. 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 He states that it has been observed that he has had increased spending, has "drawn over every wall in our house", "spends all of our money on wine" during these phases. Patient states that overall there are no acute concerns. He denies suicidal ideation, thoughts to physically harm himself, or homicidal ideation. Patient denies history of auditory or visual hallucinations, or other signs of acute psychosis. Patient denies significant safety concerns, and at this time believes that he is being discharged to [facility] once insurance has been arranged. Patient does verbalize an interest in an outpatient psychiatric prescriber as well as a therapist. He is agreeable with medication adjustments, although he does state "I have been on a lot, and I have never found a medication that I like." He denies other specific needs from our service at this time. Past Psychiatric History Outpatient Services: PCP manages psychiatric medications Previous Psych Admissions: Admitted to [facility] - 2011 & 2012. Reported admitted to [facility]. Do You Have Access To A Gun?: No History of Previous Suicide Attempt: No Past Medication Trials: Per patient reports: 1. Zoloft 2. Mirapex 3. Trazodone 4. Paxil 5. Prozac 6. Lexapro 7. Cymbalta 8. Wellbutrin 9. Seroquel 10.Adderall 11.Klonopin Allergies Allergy/AdvReac Type Severity Reaction Status Date / Time morphine Allergy Mild Itching Verified 09/09/19 10:27 Home Medications Home Medications Medication Instructions Recorded Confirmed Type amantadine HCl 100 mg tablet 100 mg PO BID 06/30/19 09/09/19 History bupropion HCl 150 mg tablet,12 hr 150 mg PO QAM ea 06/30/19 09/09/19 History sustained-release carbidopa 25 mg-levodopa 100 mg 1 tab PO QID 06/30/19 09/09/19 History tablet carbidopa ER 50 mg-levodopa 200 mg 1 tab PO QID 06/30/19 09/09/19 History tablet,extended release entacapone 200 mg tablet 200 mg PO QID 06/30/19 09/09/19 History duloxetine 60 mg capsule,delayed 90 mg PO QAM cap 08/24/19 09/09/19 History release carbidopa-levodopa 1 tab PO QID PRN 08/28/19 09/09/19 History loratadine [Claritin] 10 mg PO QAM 08/28/19 09/09/19 History solifenacin [Vesicare] 10 mg PO QPM 08/28/19 09/09/19 History acetaminophen [Tylenol Arthritis 650 mg PO Q12H PRN 09/09/19 09/09/19 History Pain] cetirizine [Zyrtec] 10 mg PO DAILY PRN 09/09/19 09/09/19 History Family History Reports father was diagnosed with depression. Reports grandfather with alcoholism. Substance Abuse History Pt denies significant alcohol consumption. Denies use of illicit substances. 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) Marital Status: Number Of Children: 2 children Beliefs That Will Affect Care: Spiritual History of Legal Problems: Denies Psychological Trauma History Comment: Denies Patient History Medical History Anxiety Depression Hearing deficit [place] left ear Osteoarthritis Parkinson disease s/p deep brain stimulator Sleep apnea does not tolerate device Urinary incontinence Venous stasis of both lower extremities Surgical History History of appendectomy History of carpal tunnel release History of colonoscopy History of foot surgery RECONSTRUCTION - RT History of left knee replacement History of revision of total knee arthroplasty LEFT History of shoulder surgery LEFT X 2; RT X 1 S/P deep brain stimulator placement Family History Grandmother Family history of diabetes mellitus Social History Preferred Language: Upper Sorbian Communication Ability: Effective Field Agronomist Required: No Beliefs That Will Affect Care: Mormon Mormon Beliefs: PRESYBETERIAN marital status: Current Living Situation: Spouse Other Information That Helps Us Care for You: No Feels Safe at Home: Yes Safety Concerns: Feels Safe At This Time Smoking Status: Never smoker Do You Dip or Chew Tobacco: No ; Second Hand Exposure: No ; Hx Alcohol Use: No Hx Substance Use: No Physical Exam Psychiatric: Orientation: alert, oriented x 3 and cooperative Apperance: appropriately dressed (in hospital gown), appropriately groomed and appeared stated age Eye Contact: good eye contact Motor Behavior: + psychomotor agitation (appearing restless) Speech: + abnormal rate/rhythm/volume of speech (speech is rapid and rather muffled/slurred; unintelligible at times) Affect: euthymic affect; no anxious affect Mood: + anxious mood (denies significant concerns presently, states "the anxiety has been higher") Thought Process: goal directed thought process, clear/coherent thought process (though is a rather poor historian) and thought association intact Thought Content: reality based without delusions; no hopelessness Suicidal Thoughts: denies suicidal thoughts Homicidal Thoughts: denies homicidal thoughts Hallucinations: no auditory hallucinations and no visual hallucinations Cognition: attention grossly intact and language grossly intact Insight: + limited insight Judgement: + fair judgement Vital Signs (Past 24 Hours): Last Vital Signs Temp 36.7 C 09/11/19 07:32 Pulse 83 09/11/19 07:32 Resp 17 09/11/19 07:32 BP 143/79 H 09/11/19 07:32 Pulse Ox 98 09/11/19 07:32 Review of Systems Constitutional: denied Cardiovascular: denied Respiratory: denied Gastrointestinal: denied Neurological: denied Musculoskeletal: reports left knee pain, s/p surgical procedure Psychiatric: denies symptoms other than stated above Total of at least 10 systems reviewed, pertinent positives as above and in HPI. Results & Data Medications Administered Acetaminophen (Tylenol) 1,000 mg PO Q8 [facility] Stop: 10/09/19 21:59 Last Admin: 09/11/19 12:51 Dose: 1,000 mg Documented by: [id number] Admin: 09/11/19 06:19 Dose: 1,000 mg Documented by: [id number] Admin: 09/10/19 21:17 Dose: 1,000 mg Documented by: [id number] Admin: 09/10/19 13:26 Dose: 1,000 mg Documented by: [id number] Admin: 09/10/19 05:37 Dose: 1,000 mg Documented by: [id number] Admin: 09/09/19 21:19 Dose: 1,000 mg Documented by: [id number] Amantadine HCl (Symmetrel) 100 mg PO BID [facility] Stop: 10/09/19 20:59 Last Admin: 09/11/19 08:24 Dose: 100 mg Documented by: [id number] Admin: 09/10/19 21:17 Dose: 100 mg Documented by: [id number] Admin: 09/10/19 10:00 Dose: 100 mg Documented by: [id number] Admin: 09/09/19 21:17 Dose: 100 mg Documented by: [id number] Carbidopa/Levodopa (Sinemet Cr 50/200mg) 1 tab PO QID [facility] Stop: 10/09/19 17:59 Last Admin: 09/11/19 12:51 Dose: 1 tab Documented by: [id number] Admin: 09/11/19 08:24 Dose: 1 tab Documented by: [id number] Admin: 09/10/19 21:17 Dose: 1 tab Documented by: [id number] Admin: 09/10/19 16:31 Dose: 1 tab Documented by: [id number] Admin: 09/10/19 12:05 Dose: 1 tab Documented by: [id number] Admin: 09/10/19 10:00 Dose: 1 tab Documented by: [id number] Admin: 09/09/19 21:16 Dose: 1 tab Documented by: [id number] Admin: 09/09/19 18:55 Dose: 1 tab Documented by: [id number] Carbidopa/Levodopa (Sinemet 25/100 Mg) 1 tab PO QID [facility] Stop: 10/09/19 17:59 Last Admin: 09/11/19 12:51 Dose: 1 tab Documented by: [id number] Admin: 09/11/19 08:26 Dose: 1 tab Documented by: [id number] Admin: 09/10/19 21:17 Dose: 1 tab Documented by: [id number] Admin: 09/10/19 16:31 Dose: 1 tab Documented by: [id number] Admin: 09/10/19 12:05 Dose: 1 tab Documented by: [id number] Admin: 09/10/19 09:59 Dose: 1 tab Documented by: [id number] Admin: 09/09/19 21:16 Dose: 1 tab Documented by: [id number] Admin: 09/09/19 18:55 Dose: 1 tab Documented by: [id number] Carbidopa/Levodopa (Sinemet 25/100 Mg) 1 tab PO QID PRN PRN Reason: PARKINSONS Stop: 10/09/19 17:40 Last Admin: 09/10/19 00:27 Dose: 1 tab Documented by: [id number] Docusate Sodium (Colace) 100 mg PO BID [facility] Stop: 10/09/19 20:59 Last Admin: 09/11/19 08:23 Dose: 100 mg Documented by: [id number] Admin: 09/10/19 21:17 Dose: 100 mg Documented by: [id number] Admin: 09/10/19 09:58 Dose: 100 mg Documented by: [id number] Admin: 09/09/19 21:16 Dose: 100 mg Documented by: [id number] Duloxetine HCl (Cymbalta) 90 mg PO QAM [facility] Stop: 10/10/19 08:59 Last Admin: 09/11/19 08:24 Dose: 90 mg Documented by: [id number] Admin: 09/10/19 09:59 Dose: 90 mg Documented by: [id number] Entacapone (Comtan) 200 mg PO QID [facility] Stop: 10/09/19 17:59 Last Admin: 09/11/19 12:51 Dose: 200 mg Documented by: [id number] Admin: 09/11/19 08:25 Dose: 200 mg Documented by: [id number] Admin: 09/10/19 21:17 Dose: 200 mg Documented by: [id number] Admin: 09/10/19 16:31 Dose: 200 mg Documented by: [id number] Admin: 09/10/19 12:04 Dose: 200 mg Documented by: [id number] Admin: 09/10/19 09:59 Dose: 200 mg Documented by: [id number] Admin: 09/09/19 21:16 Dose: 200 mg Documented by: [id number] Admin: 09/09/19 18:54 Dose: 200 mg Documented by: [id number] [facility]atad[facility] (Claritin) [facility] Stop: 10/10/19 08:59 Last Admin: 09/11/19 08:24 Dose: 10 mg Documented by: [id number] Admin: 09/10/19 09:58 Dose: 10 mg Documented by: [id number] Multivitamins (Multivitamin Tab) 1 [facility] Stop: 10/10/19 08:59 Last Admin: 09/11/19 08:24 Dose: 1 tab Documented by: [id number] Admin: 09/10/19 09:59 Dose: 1 tab Documented by: [id number] Oxycodone HCl (Roxicodone Immediate Rel) 5 - 10 mg PO Q4H PRN PRN Reason: Pain Stop: 09/23/19 17:40 Last Admin: 09/11/19 08:51 Dose: 5 mg Documented by: [id number] Admin: 09/10/19 16:33 Dose: 5 mg Documented by: [id number] Admin: 09/09/19 23:54 Dose: 5 mg Documented by: [id number] Rivaroxaban (Xarelto) 10 mg PO DAILY [facility] Stop: 10/10/19 08:59 Last Admin: 09/11/19 08:23 Dose: 10 mg Documented by: [id number] Admin: 09/10/19 10:00 Dose: 10 mg Documented by: [id number] Sennosides (Senokot) 17.2 mg PO [facility] Stop: 10/09/19 20:59 Last Admin: 09/10/19 21:17 Dose: 17.2 mg Documented by: [id number] Admin: 09/09/19 21:16 Dose: 17.2 mg Documented by: [id number] Coding Level of Care Code 49512 U Intl Hosp Care Lvl 3
[2019-09-11] MEDS ORDERED: risperiDONE 0.5 MG TABLET PO PRN (17:04)
--- NOTE | 2019-09-11 18:04 | Hospitalist Progress Note ---
Date of Service September 11, 2019 Assessment & Plan (1) History of left knee replacement: * POD #2 s/p LEFT revision arthroplasty with Dr. Child. EBL 10mL. Pre-op h/h 15.1/46.1. * Pain management/bowel regimen/PT/OT/DVT proph per primary * Drain removed 09/10 -- output 315mL * H/h today 12.5/38.5 -- secondary to surgery/dilution from IVF as well as continued drainage from site. WBC down to 9.8k today * Management per ortho * Monitor CBC (2) Post-operative state: * As above (3) Anxiety: * continue home duloxetine * Consult psych -- appreciate input -- recent inpatient psychiatric stay [facility] for Klonopin OD * TSH checked -- wnl at 2.360 (4) Depression: * As above * Continue home duloxetine * Per patient, he has not taken bupropion in some time -- ok to d/c (5) Parkinson disease: * Stable * STN-DBS in place -- placed >10 years ago * continue home amantadine, sinemet, and entacapone (6) Urinary incontinence: * Patient without complaints of incontinence. Voiding in urinal without difficulty * Vesicare not on formulary -- ok to hold while inpatient unless patient with concerns (7) Sleep apnea: * patient has a history of sleep apnea, however is intolerant to CPAP (8) Acute blood loss anemia: * As above -- secondary to surgery/drainage/dilution from IVF (9) DVT prophylaxis: * Per primary -- Xarelto * SCD, Ezequiel sierra Thank you for allowing medicine team to participate in the care of Mr. Knox. Medicine will follow along. Dispo: patient from home -- wishes to go to [facility] for inpatient rehab -- discharge per primary team Supervising Physician Co-Signing Physician Notes PA Supervision Note: I did not personally see or examine the patient today, but I verified all ignacio points of JOSELIN Arreaga's assessment and plan with the following exceptions/additions: None Subjective Patient evaluated this morning. Increased anxiety. States he had a panic attack this morning and that his daughter was brought in last night for intractable vomiting. [place] like a hollow sensation in his chest and that he was unable to move air. States that he had previously been on klonopin until recently. Confirms recent inpatient psych stay for "putting 10 Klonopin on tongue but not swallowing". Denies any current SI, but states he has a lot of stressors going on at home. States his parents do not believe he and his are able to manage their house. Would like to speak to [facility]. Tried zoloft and prozac in the past without success. States he was on adderrall and klonopin prior to most recent inpatient psychiatric stay, and was discontinue over the course of three days. Would like to be provided with other options and is agreeable for psych evaluation. He states he gets frustrated because he "doesn't think anyone is listening to him" over the past several months. With regarding to knee, patient denies any increased pain. States there has been several saturated bandages and that he was seen by ortho this morning. Tolerating diet without difficulty. +BM. Voiding without difficulty, and states his normal amount. Denies any fever, chills, chest pain, abdominal pain, n/v/d, dysuria. Review of Systems Review of Systems: All systems reviewed & are unremarkable except as noted in HPI & below no fever and no chills no sore throat and no dysphagia no cough no chest pain, no palpitations and no edema no abdominal pain, no nausea and no vomiting no dysuria and no hematuria no myalgia and no muscle weakness no rash and no lesions +panic attack + anxiety Physical Exam Constitutional: WD/WN, vitals as above no acute distress Eyes: + anicteric sclerae and PERRL Neck: trachea midline, no thyromegaly Respiratory: normal respiratory effort, lungs clear to auscultation Cardiovascular: RRR, no murmur, no edema Vessels: no JVD Extremities: normal capillary refill; no edema Chest (Breasts): Additional Comments: battery packs to bilateral anterior chest Gastrointestinal (Abdomen): normal bowel sounds, soft, nontender, no hepatosplenomegaly Musculoskeletal: Head/Neck/Chest: normocephalic and head atraumatic dressing to left knee, bloody drainage present Skin: no rashes, warm and dry Neurologic: awake Motor/Sensory: + tremor Psychiatric: Orientation: alert and oriented x 3 Affect: + anxious affect Results & Data Vital Signs (Past 12 Hours) Vital Signs Temp Pulse Resp BP BP Pulse Ox 09/11/19 15:26 36.5 C 88 19 149/81 H 94 09/11/19 07:32 36.7 C 83 17 143/79 H 98 Laboratory Results 09/11/19 09/11/19 09/11/19 Range/Units 07:00 07:00 07:00 WBC 9.89 (4.8-10.8) K/uL RBC 4.15 L (4.7-6.1) M/uL Hgb 12.5 L (14.0-18.0) g/dL Hct 38.5 L (42-52) % MCV 92.8 (80-100) fL MCH 30.1 (25-34) pg MCHC 32.5 (32-36) g/dL RDW Std Deviation 47.3 H (36.4-46.3) fL RDW Coeff of Travis 14.0 (11.5-14.5) % Plt Count 220 (130-400) K/uL MPV 9.5 (7.4-10.4) fL Sodium 141 (136-145) mmol/L Potassium 3.7 (3.5-5.1) mmol/L Chloride 112 H (98-107) mmol/L Carbon Dioxide 27 (21-32) mmol/L Anion Gap 3.0 (3-11) BUN 21 H (7-18) mg/dl Creatinine 0.84 (0.6-1.4) mg/dl Est Cr Clr Drug Dosing 133.6 ml/min Est GFR ( Amer) 115.0 Est GFR (Non-Af Amer) 99.3 BUN/Creatinine Ratio 24.3 H (10-20) Glucose 86 (70-99) mg/dl Calcium 8.2 L (8.5-10.1) mg/dl TSH 2.360 (0.300-4.500) uIu/ml Crossmatch 09/09/19 Range/Units 10:42 WBC (4.8-10.8) K/uL RBC (4.7-6.1) M/uL Hgb (14.0-18.0) g/dL Hct (42-52) % MCV (80-100) fL MCH (25-34) pg MCHC (32-36) g/dL RDW Std Deviation (36.4-46.3) fL RDW Coeff of Travis (11.5-14.5) % Plt Count (130-400) K/uL MPV (7.4-10.4) fL Sodium (136-145) mmol/L Potassium (3.5-5.1) mmol/L Chloride (98-107) mmol/L Carbon Dioxide (21-32) mmol/L Anion Gap (3-11) BUN (7-18) mg/dl Creatinine (0.6-1.4) mg/dl Est Cr Clr Drug Dosing ml/min Est GFR ( Amer) Est GFR (Non-Af Amer) BUN/Creatinine Ratio (10-20) Glucose (70-99) mg/dl Calcium (8.5-10.1) mg/dl TSH (0.300-4.500) uIu/ml Crossmatch See Detail PG Care Time/CCT Total # of Minutes Spent Total Time Spent with Patient: Total time spent is greater than 50% in coordination of care (as documented) at patient's floor/unit and/or counseling patient:
[2019-09-11] MEDS: SENNA 8.6 MG TAB PO SCH (21:15)
[2019-09-12] MEDS: OXYCODONE HCL IR 5 MG TAB (IMMEDIATE RELEASE) PO PRN (04:57)
[2019-09-12] MEDS: ACETAMINOPHEN 500 MG TAB PO SCH (06:00)
[2019-09-12 07:42] LABS: Hematocrit (blood only) 37.3 % (42-52); Mean Corpuscular Hemoglobin 30.2 pg (25-34); Mean Corpuscular Hgb Conc 32.2 g/dL (32-36); Mean Corpuscular Volume 93.7 fL (80-100); Mean Platelet Volume 9.4 fL (7.4-10.4); Platelet Count 215 K/uL (130-400); RDW Coefficient of Variation 13.7 % (11.5-14.5); RDW Standard Deviation 47.2 fL (36.4-46.3); Red Blood Count 3.98 M/uL (4.7-6.1); White Blood Count 8.53 K/uL (4.8-10.8)
--- NOTE | 2019-09-12 07:59 | Orthopedic Progress Note ---
Date of Service September 12, 2019 Assessment & Plan (1) Recurrent dislocation of left patella: POD #3 s/p Left patella revision, Excision of heterotropic bone , VMO advancement , and lateral release, synovectomy (Left), application of superficial wound VAC PT/ OT- Carol brace ROM 0-45 NWB, Locked at zero w WB, WBAT. Brace in place today DVT proph- Xarelto D/C plans- [facility] today. 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 Denies SOB, CP, N/V. Pain controlled well. Feels he would be ready to go to rehab today. Physical Exam Constitutional: WD/WN, vitals as above no acute distress Musculoskeletal: Knee: + surgical incision (left knee: incision well approximated. Katherine in place. ) and + limited ROM of knee (left knee); knee normal to inspection, no deformity, no skin erythema and no ecchymosis Left knee: T scope brace in place. Results & Data Vital Signs (Past 12 Hours) Vital Signs Temp Pulse Resp BP Pulse Ox 09/11/ 23:40 36.8 C 88 18 143/89 H 91
[2019-09-12 08:00] LABS: Calcium 8.1 mg/dl (8.5-10.1); Creatinine Clr Calc Pharmacy 127.5 ml/min; Est GFR (African American) 112.9; Est GFR (Non-African American) 97.4; Potassium 3.9 mmol/L (3.5-5.1)
--- NOTE | 2019-09-12 08:17 | Communication Note ---
Date of Service: September 12, 2019 54-year-old male admitted medically on 09/08/2019, with planned operative procedure to occur on 09/09/2019. Patient is now recovering from surgical r evision of left knee prosthetic, due to mechanical loosening. Psychiatric consultation was requested to evaluate the patient for reports of exacerbated anxiety. It was reported that patient's clonazepam and Adderall had been tapered to discontinuation about 2 months ago, which was believed to be associated with increased anxious symptoms. Pt was seen for initial psychiatric consultation on 09/11/19. Not formally seen in follow-up today, but his case was reviewed with psychiatric nurse liaison and supervising psychiatrist during morning report. Available psychiatric information is rather limited as most recent documentation is from 2013. As we continue to gather information from prior documentation and outpatient supports, we have attempted to offer prn medication that may be helpful to manage anxiety symptoms. Quetiapine was initially suggested to the patient, who verbalized adverse effects with the medication in the past. Low-dose risperidone was then added for acute anxiety d uring admission while collateral information was being obtained. Upon further review today, we would suggest utilization of buspirone for management of anxiety - as it does not appear from 2013 records that patient has taken the medication in the past. Will initiate the medication at 5mg TID, with titration on an outpatient basis to effective dosing based on tolerability.
[2019-09-12] MEDS: RIVAROXABAN 10 MG TABLET PO SCH (08:26)
[2019-09-12] MEDS: DULOXETINE HCL 30 MG CAP PO SCH (08:27)
[2019-09-12] MEDS: MULTIVITAMIN TAB PO SCH (08:27)
[2019-09-12] MEDS: CARBIDOPA/LEVODOPA 50/200MG EXT REL TAB PO SCH ×2 (08:27→12:28)
[2019-09-12] MEDS: LORATADINE 10 MG TAB PO SCH (08:27)
[2019-09-12] MEDS: DOCUSATE SODIUM 100 MG CAP PO SCH (08:27)
[2019-09-12] MEDS: CARBIDOPA/LEVODOPA 25/100MG TAB PO SCH ×2 (08:27→12:29)
[2019-09-12] MEDS: ENTACAPONE 200 MG TAB PO SCH ×2 (08:27→12:29)
[2019-09-12] MEDS: AMANTADINE HCL 100 MG CAPSULE PO SCH (08:28)
--- NOTE | 2019-09-12 13:38 | Hospitalist Progress Note ---
Date of Service September 12, 2019 Assessment & Plan (1) History of left knee replacement: * POD #3 s/p LEFT revision arthroplasty with Dr. Child. EBL 10mL. Pre-op h/h 15.1/46.1. * Pain management/bowel regimen/PT/OT/DVT proph per primary * H/h today 12.5/38.5 -- secondary to surgery/dilution from IVF as well as continued drainage from site. WBC down to 8.5k today * Management per ortho * Patient mildly HTN last evening/this morning -- likely secondary to pain/some component of anxiety, but will give 1x amlodipine -- if not resolved, could consider adding low dose diuretic, but would defer to PCP -- possible addition of anxiolytic with outpatient psych * Note--> patient did not receive dose of amlodipine prior to being discharged by nursing (2) Post-operative state: * As above (3) Anxiety: * continue home duloxetine * Consult psych -- appreciate input -- recent inpatient psychiatric stay [facility] for Yehuda OD -- they will arrange outpatient follow up * TSH checked -- wnl at 2.360 (4) Depression: * As above * Continue home duloxetine * Per patient, he has not taken bupropion in some time -- ok to d/c (5) Parkinson disease: * Stable * STN-DBS in place -- placed >10 years ago * continue home amantadine, sinemet, and entacapone (6) Urinary incontinence: * Patient without complaints of incontinence. Voiding in urinal without difficulty * Vesicare not on formulary -- ok to hold while inpatient unless patient with concerns (7) Sleep apnea: * patient has a history of sleep apnea, however is intolerant to CPAP -- likely contributing to elevated BP -- could benefit from nasal pillows -- follow up with PCP (8) Acute blood loss anemia: * As above -- secondary to surgery/drainage/dilution from IVF (9) DVT prophylaxis: * Per primary -- Xarelto * Ezequiel SO Dispo: d/c to [facility] this afternoon per primary Supervising Physician Co-Signing Physician Notes PA Supervision Note: I did not personally see or examine the patient today, but I verified all ignacio points of JOSELIN Arreaga's assessment and plan with the following exceptions/additions: It appears that psychiatry recommended the addition of buspirone 5 mg p.o. 3 times daily to the patient's medication list for his anxiety on the day of discharge. Unfortunately, this recommendation was not added to the medication list prior to discharge. Also of importance, the patient was discontinued from bupropion while he was here as he was not taking this prior to admission and it was mistakenly placed on his home medication reconciliation list. This also should be discontinued at the rehab facility. I will forward a copy of these recommendations to [facility] and follow-up on it tomorrow so that they have the proper medication list. Subjective Patient evaluated this morning. Doing well. Minimal knee pain. Bleeding decreased. Appreciated discussion with psych yesterday and willing to follow up with outpatient psych for further treatment. Denies any shortness of breath or "hollow" feeling in his chest that he had felt yesterday. No further panic attacks outside of isolated incident yesterday. Eating without difficulty. Voiding without difficulty. Moving bowels. Plans for discharge this afternoon to [facility]. Review of Systems Review of Systems: no fever and no chills no sore throat and no dysphagia no cough no chest pain, no palpitations and no edema no abdominal pain, no nausea and no vomiting no dysuria and no hematuria no myalgia and no muscle weakness no rash and no lesions Physical Exam Constitutional: WD/WN, vitals as above no acute distress Eyes: + anicteric sclerae and PERRL Neck: trachea midline, no thyromegaly Respiratory: normal respiratory effort, lungs clear to auscultation Cardiovascular: RRR, no murmur, no edema Vessels: no JVD Extremities: normal capillary refill; no edema Gastrointestinal (Abdomen): normal bowel sounds, soft, nontender, no hepatosplenomegaly Musculoskeletal: Head/Neck/Chest: normocephalic and head atraumatic Skin: no rashes, warm and dry Neurologic: awake Motor/Sensory: + tremor Psychiatric: Orientation: alert and oriented x 3 Results & Data Vital Signs (Past 12 Hours) Vital Signs Temp Pulse Pulse Pulse Resp BP BP 09/12/19 10:34 36.7 C 93 H 81 89 16 149/81 H 155/75 H 09/12/19 09:44 36.7 C 93 H 81 89 16 149/81 H 155/75 H 09/12/19 07:31 36.7 C 81 16 155/75 H Pulse Ox 09/12/19 10:34 97 09/12/19 09:44 97 09/12/19 07:31 97 Laboratory Results 09/12/19 09/12/19 09/11/19 Range/Units 07:16 07:16 19:29 WBC 8.53 (4.8-10.8) K/uL RBC 3.98 L (4.7-6.1) M/uL Hgb 12.0 L (14.0-18.0) g/dL Hct 37.3 L (42-52) % MCV 93.7 (80-100) fL MCH 30.2 (25-34) pg MCHC 32.2 (32-36) g/dL RDW Std Deviation 47.2 H (36.4-46.3) fL RDW Coeff of Travis 13.7 (11.5-14.5) % Plt Count 215 (130-400) K/uL MPV 9.4 (7.4-10.4) fL Sodium 141 (136-145) mmol/L Potassium 3.9 (3.5-5.1) mmol/L Chloride 108 H (98-107) mmol/L Carbon Dioxide 30 (21-32) mmol/L Anion Gap 3.0 (3-11) BUN 19 H (7-18) mg/dl Creatinine 0.88 (0.6-1.4) mg/dl Est Cr Clr Drug Dosing 127.5 ml/min Est GFR ( Amer) 112.9 Est GFR (Non-Af Amer) 97.4 BUN/Creatinine Ratio 21.0 H (10-20) Glucose 86 (70-99) mg/dl POC Glucose 109 H (70-99) Calcium 8.1 L (8.5-10.1) mg/dl TSH (0.300-4.500) uIu/ml Specimen Hemolysis 09/11/19 Range/Units 07:00 WBC (4.8-10.8) K/uL RBC (4.7-6.1) M/uL Hgb (14.0-18.0) g/dL Hct (42-52) % MCV (80-100) fL MCH (25-34) pg MCHC (32-36) g/dL RDW Std Deviation (36.4-46.3) fL RDW Coeff of Travis (11.5-14.5) % Plt Count (130-400) K/uL MPV (7.4-10.4) fL Sodium (136-145) mmol/L Potassium (3.5-5.1) mmol/L Chloride (98-107) mmol/L Carbon Dioxide (21-32) mmol/L Anion Gap (3-11) BUN (7-18) mg/dl Creatinine (0.6-1.4) mg/dl Est Cr Clr Drug Dosing ml/min Est GFR ( Amer) Est GFR (Non-Af Amer) BUN/Creatinine Ratio (10-20) Glucose (70-99) mg/dl POC Glucose (70-99) Calcium (8.5-10.1) mg/dl TSH 2.360 (0.300-4.500) uIu/ml Specimen Hemolysis PG Care Time/CCT Total # of Minutes Spent Total Time Spent with Patient: Total time spent is greater than 50% in coordination of care (as documented) at patient's floor/unit and/or counseling patient:
[2019-09-12] MEDS ORDERED: AMLODIPINE BESYLATE 5 MG TAB PO ONE (13:41)
== END 2019-09-12 13:30 | DRG 467 ==
LOC: ASU 10:03 → 3W 16:31

== ENCOUNTER 2020-01-21 09:49 | Inpatient (IN) ==
[2020-01-21] MEDS ORDERED: ACETAMINOPHEN 325 MG TAB PO PRN (10:19)
[2020-01-21] MEDS ORDERED: OXYCODONE/ACETAMINOPHEN 5mg/325mg TAB PO PRN (10:19)
[2020-01-21] MEDS ORDERED: VANCOMYCIN CONSULT ACTIVE PRN (10:29)
[2020-01-21] MEDS ORDERED: PATIENT'S HEIGHT AND/OR WEIGHT NEEDED SCH (11:45)
--- NOTE | 2020-01-21 12:05 | History and Physical Report ---
DATE OF ADMISSION: 01/21/2020 NOTICE TO RECEIVING REPUBLICAN/AGENCY This information is strictly Confidential and protected under [place] law. [place] law prohibits you from making any further disclosure of this information unless further disclosure is expressly permitted by the written consent of the person to whom it pertains or is authorized by law. A general authorization for the release of medical or other information is not sufficient for this purpose. Hospital accepts no responsibility if the information is made available to any other person, INCLUDING THE PATIENT. CHIEF COMPLAINT: Increased left knee pain and swelling. HISTORY OF PRESENT ILLNESS: This is a 54-year-old male patient of Dr. Child'dung complaining of a 2 to 3-day history of increased left knee pain and swelling. He states that he did bump his knee; however, this was unwitnessed. He did sustain approximately 2 scratches over the knee area anteriorly. These are healing and scarring over per history by his . Initially, they appeared to look like the top of a pimple, it was pus filled. This was approximately 2 days ago. The patient's then proceeded to give the patient 3 doses of Keflex that were at their home. This was not directed by our office. He presents today in the office for evaluation. The patient has a history of a left total knee replacement in 2015 and then a revision of the patella in 2019 of the same knee. PAST MEDICAL HISTORY: Snoring, anxiety, depression, peripheral neuropathy, Parkinson's disease. SOCIAL HISTORY: Nonsmoker, nondrinker, lives at home with his . FAMILY HISTORY: Noncontributory. REVIEW OF SYSTEMS: Increased left knee pain and swelling, decreased ambulation. Otherwise, denies any shortness of breath, chest pain, nausea, vomiting or any other joint complaints. PAST SURGICAL HISTORY: Appendectomy, neurostimulator placement, left shoulder surgery, right foot surgery, multiple battery replacements for this neurostimulator, left knee total knee arthroplasty and a revision, left shoulder, right carpal tunnel, right shoulder, left carpal tunnel. MEDICATIONS: Carbidopa/levodopa 50/200 four times daily, Carbidopa/levodopa 25/100 four times daily, Comtan 200 mg 4 times daily, amantadine 100 mg twice daily, Cymbalta 30 mg daily, Claritin as needed and VESIcare as needed. ALLERGIES: INCLUDE MORPHINE, BUSPAR, HALDOL, MIRAPEX, SEROQUEL. Please note the patient may not have any anxiety or depression medications without a neurologist's consult. PHYSICAL EXAMINATION: GENERAL: Well-developed, well-nourished 54-year-old male. He is in no acute distress other than some anxiety. He is alert and oriented x3. He has the usual presentation of Parkinson's tremor which is at baseline and controlled at this point. HEENT: Normocephalic, atraumatic. Extraocular motions are intact. Pupils are equal and reactive to light. HEART: Regular rate and rhythm, no murmurs are appreciated. LUNGS: Clear. ABDOMEN: Soft and nontender. Bowel sounds present. EXTREMITIES: Left knee has a large effusion. There are two small 1-inch cuts very superficial around the anterior knee. These are scabbed over. There is no drainage. There are no open wounds. There is only mild pinkness, no johny cellulitis. He has no calf tenderness. Range of motion he gets to about 45 degrees of extension and about 60 degrees of flexion. He only has mid range of motion at this point. Ankle and toes are mobile. DIAGNOSES: Increased left knee pain and swelling, possible infection s/p TKA and revision. He has a history of snoring, anxiety, depression, peripheral neuropathy, Parkinson's disease. PLAN: The patient will be direct admitted to the hospital. Aspirate from the office today was very cloudy. We got about 120 mL of aspirate from his knee today. We will admit him to the hospital. We will send the specimen for cultures and Gram stain. We will do the usual admitting orders with consults to medicine, infectious disease and neurology. The patient will get the typical blood work including blood cultures. After blood work is done we will start him on vancomycin every 12 hours per pharmacy dosing. Pain medications as needed. Activities as tolerated. Pending cultures and Gram stain the patient may need a left knee I&D with poly exchange per Dr. Child. We will follow with him in the hospital. VENESSA
[2020-01-21 12:56] LABS: Basophils # (auto) 0.03 K/uL (0-0.2); Basophils % (auto) 0.3 %; Eosinophils # (auto) 0.04 K/uL (0-0.5); Eosinophils % (auto) 0.4 %; Hematocrit (blood only) 37.3 % (42-52); Hemoglobin 12.5 g/dL (14.0-18.0); Immature Granulocytes # (auto) 0.02 K/uL (0.00-0.02); Immature Granulocytes % (auto) 0.2 %; Lymphocytes % (auto) 5.8 %; Mean Corpuscular Hemoglobin 29.2 pg (25-34); Mean Corpuscular Hgb Conc 33.5 g/dL (32-36); Mean Corpuscular Volume 87.1 fL (80-100); Mean Platelet Volume 9.5 fL (7.4-10.4); Monocytes # (auto) 1.07 K/uL (0.11-0.59); Monocytes % (auto) 10.3 %; Neutrophils # (auto) 8.58 K/uL (1.4-6.5); Platelet Count 247 K/uL (130-400); RDW Coefficient of Variation 14.6 % (11.5-14.5); RDW Standard Deviation 46.7 fL (36.4-46.3); Red Blood Count 4.28 M/uL (4.7-6.1); White Blood Count 10.34 K/uL (4.8-10.8)
[2020-01-21 13:15] LABS: BUN Creatinine Ratio 15.1 (10-20); Calcium 8.5 mg/dl (8.5-10.1); Creatinine Clr Calc Pharmacy 130.6 ml/min; Est GFR (Non-African American) 99.3; Potassium 3.4 mmol/L (3.5-5.1)
[2020-01-21] MEDS ORDERED: VANCOMYCIN HCL 2,500 MG in SODIUM CHLORIDE 0.9% 500 ML IV ONE (13:15)
[2020-01-21 13:23] LABS: C Reactive Protein 33.7 mg/dl (0-0.29)
[2020-01-21 13:46] LABS: Appearance Synovial Fluid CLOUDY; Color Synovial Fluid YELLOW; Mononuclear WBC Synovial 5.4 %; Polynuclear WBC Synovial 94.6 %; RBC Synovial Fluid (A) 56000 /uL; Source Synovial Fluid KNEE; WBC Synovial Fluid (A) 150194 /ul (0-200)
[2020-01-21] MEDS: SODIUM CHLORIDE 0.9% 1000ML 1,000 ML IV SCH (13:47)
--- NOTE | 2020-01-21 13:54 | Consultation ---
Date of Consultation January 21, 2020 Assessment & Plan (1) Infection of prosthetic left knee joint: Plan is for I&D of the knee Continue IV vancomycin as started by surgical team Mr. Knox is unable to ambulate so his activity tolerance is unknown. He does not have a cardiac history. His RCRI is 3.9%. Would recommend CXR given his wheezing though his lung sounds were pretty clear and EKG if not already obtained. Will replace his potassium today. (2) Anxiety: Continue home duloxetine (3) Depression: As above (4) Parkinson disease: continue home amantadine, sinemet, and entacapone (5) Hypokalemia: Will give 40 mEq po potassium Supervising Physician Co-Signing Physician Notes Attending Attestation & Consult Note: Pt seen/examined, chart reviewed, care plan d/w SHACKLER Josie Lara. I agree w/ the ignacio components of her documentation. 54yo male with PD with deep brain stimulator - prior h/o left TKR, followed by extensive left knee surgery in 08/2019 for patella loosening and hardware issues - presents as direct admission for left septic knee. Gram stain from arthrocentesis with [facility]. During my assessment he only c/o left knee pain. Due to his PD it is difficult to obtain history. PMH, PSH, allergies, meds, sochx, famhx - reviewed vitals - tachy, no fever gen - NAD, PD involuntary movements/tremors neck - no JVD heart - tachy, s1 s2 lungs - CTA b/l, slight crackles bases abd - mildly distended, BS+, NT musculo - left knee with severe/large joint effusion, tender to palpation, very hot to touch and erythematous A/P: 1. septic left knee - 2nd to GPC - await final culture results; agree with IV vanco; follow blood cultures. IV fluids and supportive care. To OR in am for I/D, washout. 2. tachycardia - on previous admission also had tachycardia. This may be 2nd to SIRS. I do not see a recent echo - would obtain one during this admission to ensure intact EF, etc. TSH 09/2019 was normal thus no hyperthyroid state. 3. PD - cont home meds. Etienne Alva MD History of Present Illness Mr. Knox was directly admitted from [facility] for an infected left knee. He is currently feeling well, no complaints beyond some tolerable pain and severe swelling and erythema in the knee. He is also wheezing as he moves around which he says is normal for him. He does not feel short of breath. He denies aches, chills, fever, cough, chest pain, palpitations, n/v/d, dysuria, or hesitancy. Attending Physician: Ray Child MD Allergies Allergy/AdvReac Type Severity Reaction Status Date / Time morphine Allergy Mild Itching Verified 11/24/19 10:22 buspirone [From BuSpar] AdvReac Severe Verified 11/24/19 10:22 haloperidol [From Haldol] AdvReac Severe Verified 11/24/19 10:22 pramipexole [From Mirapex] AdvReac Severe Verified 11/24/19 10:22 quetiapine [From Seroquel] AdvReac Severe Verified 11/24/19 10:22 Home Medications Home Medications Medication Instructions Recorded Confirmed Type amantadine HCl 100 mg tablet 100 mg PO BID 06/30/19 01/21/20 History carbidopa 25 mg-levodopa 100 mg 1 tab PO QID 06/30/19 01/21/20 History tablet carbidopa ER 50 mg-levodopa 200 mg 1 tab PO QID 06/30/19 01/21/20 History tablet,extended release entacapone 200 mg tablet 200 mg PO QID 06/30/19 01/21/20 History carbidopa-levodopa 1 tab PO QID PRN 08/28/19 01/21/20 History solifenacin [Vesicare] 10 mg PO QPM 08/28/19 01/21/20 History acetaminophen 1,000 mg PO Q8 #100 tab 09/12/19 01/21/20 Rx duloxetine 30 mg capsule,delayed 30 mg PO DAILY 11/24/19 01/21/20 History release Patient History Medical History Anxiety Depression Hearing deficit [place] left ear Osteoarthritis Parkinson disease s/p deep brain stimulator Recurrent dislocation of left patella Sleep apnea does not tolerate device Urinary incontinence Venous stasis of both lower extremities Vitamin D deficiency (Inactive) Surgical History (Updated 12/21/19 @ 09:06 by Caron J. 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 Beliefs That Will Affect Care: None marital status: Current Living Situation: Spouse Other Information That Helps Us Care for You: No Feels Safe at Home: Yes Safety Concerns: Feels Safe At This Time Smoking Status: Never smoker Second Hand Exposure: No ; Hx Alcohol Use: No Hx Substance Use: Yes substance use type: marijuana Substance Use Type Other:: medical marijuana Last Used Substance Other:: patient states years since use Review of Systems Review of Systems: All systems reviewed & are unremarkable except as noted in HPI & below Physical Exam Physical Exam: General: no distress Eyes: normal inspection, PERLL Respiratory: chest non tender, clear to auscultation, normal breath sounds, no respiratory distress, no accessory muscle use Cardiac: regular rate and rhythm, no rub or gallop, no murmur, edematous left knee, no jvd GI/: active bowel sounds, no abd pain or tenderness, soft, non distended Extremities: normal range of motion, normal strength, non tender Neuro:oriented x 3, moves all extremities, involuntary Parkinsons motions in all limbs Psych: alert, normal mood and affect Skin: normal color, dry, erythema left knee Results & Data ([facility]) Vital Signs (Past 12 Hours) Vital Signs Temp Pulse Resp BP Pulse Ox 01/21/20 12:50 37.3 C 109 H 17 104/70 90 PG Care Time/CCT Total # of Minutes Spent Total Time Spent with Patient: Total time spent is greater than 50% in coordination of care (as documented) at patient's floor/unit and/or counseling patient: Coding Level of Care Code 49575 Inpt Consult Level 4 Diagnoses Infection of prosthetic left knee joint T84.54XA Anxiety F41.9 Depression F32.9 Parkinson disease G20 Hypokalemia E87.6
--- NOTE | 2020-01-21 14:02 | Pharmacy Report ---
Pharmacy Abx Initial Consult - Date of Service January 21, 2020 - Pharmacy Dosing Scope Date of Consult: 01/20 Consultation requested by: Kane OLIVERA Pharmacy is consulted to initiate vancomycin IV/PO dosing therapy, order appropriate labs and adjust drug dose/frequency. - Subjective The patient is a 54 year old M admitted on 01/21/20 11:23. - Objective Height: 6 ft Weight: 113.126 kg Vital Signs (Past 12hrs): Vital Signs Temp Pulse Resp BP Pulse Ox 01/21/20 12:50 37.3 C 109 H 17 104/70 90 Lab Results (24hrs): Laboratory Tests (24 Hours) 01/21/20 01/21/20 01/21/20 12:27 12:27 12:27 WBC 10.34 Neut # (Auto) 8.58 H ESR > 90 H Creatinine 0.84 Est Cr Clr Drug Dosing 130.6 C-Reactive Protein 33.70 H Micro Results: 01/21/20 11:45 Gram Stain - Final Knee,Left Aerobic and Anaerobic Culture - Pending 01/21/20 12:18 Aerobic Blood Culture - Pending Blood Anaerobic Blood Culture - Pending 01/21/20 12:30 Aerobic Blood Culture - Pending Blood Anaerobic Blood Culture - Pending - Risk Factors for Resistance * Antimicrobial use within the last 90 days- keflex - Assessment & Plan Assessment Patient with increased left knee pain/swelling - concern for infection. Therefore started on vancomycin empirically. Blood cultures and knee cultures are pending. Plan Vancomycin IV * Vancomycin 2500 mg x 1 given (~22 mg/kg) * Patient not candidate for vancomycin dosing nomogram due to weight >100 kg, therefore started on maintenance dose of vancomycin 1500 mg iv q 8 hrs (~13 mg/kg) based upon kinetics * Estimated kinetics: t1/2~ 8 hrs, ke~0.09 hr-1, CrCl >100 * Will plan to obtain a trough prior to the 1400 dose tomorrow to ensure therapeutic - note, level drawn before steady state to assess for accumulation with medication Pharmacy will continue to follow and will adjust dose/frequency as necessary. Thank you.
[2020-01-21] MEDS ORDERED: POTASSIUM CHLORIDE 20 MEQ TABCR PO STA (14:03)
[2020-01-21] MEDS ORDERED: CARBIDOPA/LEVODOPA 25/100MG TAB PO PRN ×2 (14:03→20:26)
--- NOTE | 2020-01-21 14:19 | XRay Report ---
XR chest 2V PA/lateral CLINICAL HISTORY: Preoperative chest COMPARISON STUDY: 10/12/2019 FINDINGS: The cardiac and mediastinal contours are normal. There is no evidence of focal pulmonary co nsolidation. There is no evidence of failure. No pleural effusions are visualized.[There is slight in terstitial prominence, finding which is likely chronic. There are bilateral shoulder hemiarthroplasti es. There are bilateral brain stimulators. IMPRESSION: No active disease in the chest. ACT 112: Negative or not required by law. Electronically signed by: Toribio Bernal M.D. 01/21/2020 2:18 PM
[2020-01-21 14:21] LABS: Creatinine Clr Calc Pharmacy 137.1 ml/min; Est GFR (African American) 117.4; Est GFR (Non-African American) 101.3
--- NOTE | 2020-01-21 14:58 | Electrocardiogram Report ---
Test Reason : Blood Pressure : / mmHG Vent. Rate : 109 BPM Atrial Rate : 109 BPM P-R Int : 128 ms QRS Dur : 094 ms QT Int : 340 ms P-R-T Axes : 034 002 043 degrees QTc Int : 457 ms Poor data quality, interpretation may be adversely affected Sinus tachycardia Nonspecific ST and T wave abnormality Abnormal ECG When compared with ECG of 12-OCT-2019 11:08, No significant change was found Confirmed by Brad Oh ([id number]) on 01/21/2020 2:57:45 PM Referred By: Ray Child Confirmed By:Brad Oh
[2020-01-21] MEDS ORDERED: CARBIDOPA/LEVODOPA 25/100MG TAB PO SCH (17:00)
[2020-01-21] MEDS: VESICARE~ORDER AWAITING ACTION SCH (17:06)
[2020-01-21] MEDS: CARBIDOPA/LEVODOPA 50/200MG EXT REL TAB PO SCH ×2 (17:09→21:12)
[2020-01-21] MEDS: ENTACAPONE 200 MG TAB PO SCH ×2 (17:10→21:12)
[2020-01-21] MEDS ORDERED: VANCOMYCIN HCL 1,000 MG in SODIUM CHLORIDE 0.9% 250 ML IV SCH (18:00)
[2020-01-21] MEDS: CARBIDOPA/LEVODOPA 25/100MG TAB PO SCH (21:10)
[2020-01-21] MEDS: AMANTADINE HCL 100 MG CAPSULE PO SCH (21:12)
[2020-01-21] MEDS ORDERED: ACETAMINOPHEN 500 MG TAB PO SCH (22:00)
[2020-01-21 22:32] LABS: Appearance Urine Cloudy (Clear); Bacteria Urine Automated Negative (Negative); Blood Urine Trace (Negative); Color Urine Dark Yellow; Epithelial Cell Urine Auto 20-30 /lpf (0-5); Glucose Urine UA Negative (Negative); Ketones Urine 1+ (Negative); Leukocyte Esterase Urine Trace (Negative); Nitrite Urine Positive (Negative); Protein Urine 2+ (Negative); Specific Gravity Urine 1.041 (1.000-1.030); Urobilinogen Urine Positive (Negative); pH Urine 5.5 (4.5-7.5)
[2020-01-21 22:33] LABS: Bilirubin Urine Negative (Negative); Ictotest Urine Negative (Negative)
[2020-01-21] MEDS: VANCOMYCIN HCL 1,500 MG in SODIUM CHLORIDE 0.9% 500 ML IV SCH (22:54)
[2020-01-22] MEDS: VESICARE~ORDER AWAITING ACTION SCH ×3 (00:07→20:43)
[2020-01-22] MEDS: SODIUM CHLORIDE 0.9% 1000ML 1,000 ML IV SCH ×3 (04:44→21:00)
[2020-01-22] MEDS: VANCOMYCIN HCL 1,500 MG in SODIUM CHLORIDE 0.9% 500 ML IV SCH ×2 (05:39→18:06)
[2020-01-22 06:35] LABS: Creatinine Clr Calc Pharmacy 171.3 ml/min; Est GFR (African American) 128.7
[2020-01-22] MEDS: ENTACAPONE 200 MG TAB PO SCH ×4 (07:24→21:56)
[2020-01-22] MEDS: CARBIDOPA/LEVODOPA 25/100MG TAB PO SCH ×4 (07:25→23:31)
--- NOTE | 2020-01-22 07:30 | Anesthesiology Consultation ---
Date of Service January 22, 2020 Assessment & Plan (1) Encounter for pre-operative examination: Chart Review Chart Review: Acceptable Risk for Surgery Consults Requested none ASA ASA3 Proposed Anesthesia Anesthesia Type: General Risk / Benefits Reviewed With: PT / POA / Parent / Guardian, Accepts Plan and Informed Consent Obtained Additional Notes Patient and have lost their deep brain stimulator remote. [employer] rep is not in hospital at this time. Patient with infected knee that requires IandD under anesthesia. Knee replacement was done 1 year ago with deep brain stimulator on and without any complications. I called and spoke with Wiley from [employer]. Per Wiley, there is virtually 0 concern with damage to the device if it is left on and the procedure is below the clavicle. Will proceed with device on (bovi pad to be placed on opposite leg per [employer]) and will provide Wiley's number to the patients so that they can get their remote replaced to avoid this concern in the future. History Surgery Operation Date: 01/22/20 07:00 Proposed Procedures p Left Knee Irrigation and Debridement with Poly Exchange - Ray Child MD Height/Weight Height: 6 ft Weight: 113.126 kg Allergies Allergy/AdvReac Type Severity Reaction Status Date / Time morphine Allergy Mild Itching Verified 11/24/19 10:22 buspirone [From BuSpar] AdvReac Severe Verified 11/24/19 10:22 haloperidol [From Haldol] AdvReac Severe Verified 11/24/19 10:22 pramipexole [From Mirapex] AdvReac Severe Verified 11/24/19 10:22 quetiapine [From Seroquel] AdvReac Severe Verified 11/24/19 10:22 Medications Home Medications Medication Instructions Recorded Confirmed Last Taken amantadine HCl 100 mg tablet 100 mg PO BID 06/30/19 01/21/20 01/21/20 carbidopa 25 mg-levodopa 100 mg 1 tab PO QID 06/30/19 01/21/20 01/21/20 tablet carbidopa ER 50 mg-levodopa 200 mg 1 tab PO QID 06/30/19 01/21/20 01/21/20 tablet,extended release entacapone 200 mg tablet 200 mg PO QID 06/30/19 01/21/20 01/21/20 carbidopa-levodopa 1 tab PO QID PRN 08/28/19 01/21/20 01/20/20 solifenacin [Vesicare] 10 mg PO QPM 08/28/19 01/21/20 01/20/20 acetaminophen 1,000 mg PO Q8 #100 tab 09/12/19 01/21/20 01/20/20 duloxetine 30 mg capsule,delayed 30 mg PO DAILY 11/24/19 01/21/20 01/21/20 release Active Medications Generic Name Dose Route Start Last Admin Trade Name Freq PRN Reason Stop Dose Admin Acetaminophen 650 mg 01/21/20 10:01/21/20 14:22 Tylenol PO 02/20/20 10:18 650 mg Q6H PRN Administration Fever or Headache Amantadine HCl 100 mg 01/21/20 21:00 01/21/20 21:12 Symmetrel PO 02/20/20 20:59 100 mg BID RENAN Administration Carbidopa/Levodopa 1 tab 01/21/20 21:00 01/22/20 07:25 Sinemet 25/100 Mg PO 02/20/20 20:59 1 tab QID RENAN Administration Entacapone 200 mg 01/21/20 17:00 01/22/20 07:24 Comtan PO 02/20/20 16:59 200 mg QID RENAN Administration Sodium Chloride 1,000 mls @ 80 mls/hr 01/21/20 10:30 01/22/20 05:39 Nss 1000ml IV 02/20/20 10:29 0 mls/hr .[id number] RENAN Infusion Vancomycin HCl 1,500 mg/ 530 mls @ 200 mls/hr 01/21/20 22:00 01/22/20 05:39 Sodium Chloride IV 03/03/20 21:59 200 mls/hr Q8H RENAN Administration Miscellaneous 1 ea 01/21/20 15:00 01/22/20 00:07 Order Awaiting Action N/A 02/20/20 14:59 Not Given QS RENAN Oxycodone/Acetaminophen 1 - 2 tab 01/21/20 10:19 01/21/20 23:51 Percocet 5mg/325mg PO 02/04/20 10:18 1 tab Q4H PRN Administration Pain NPO Date Last Intake of Fluids: 01/22/20 Time Last Intake of Fluids: 07:00 Date Last Intake of Solids: 01/21/20 Time Last Intake of Solids: 17:30 Past Medical History Medical History Anxiety Depression 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 Osteoarthritis Parkinson disease s/p deep brain stimulator Recurrent dislocation of left patella Sleep apnea does not tolerate device Urinary incontinence Venous stasis of both lower extremities Vitamin D deficiency (Inactive) Exercise / Class Metabolic Activity IV < 2 Limit ADL/Bedbound Past Family History Family History Grandmother Family history of diabetes mellitus Father Hypertension Past Surgical History Surgical History History of appendectomy History of carpal tunnel release History of colonoscopy History of foot surgery RECONSTRUCTION - RT History of left knee replacement History of revision of total knee arthroplasty LEFT History of shoulder surgery LEFT X 2; RT X 1 S/P deep brain stimulator placement Past Anesthesia History No Hx of Anesthesia Complications History of PONV No Hx of PONV Social History Smoking Status: Never smoker Hx Alcohol Use: No Hx Substance Use: Yes substance use type: marijuana Substance Use Type Other:: medical marijuana Last Used Substance Other:: patient states years since use Physical Exam Vital Signs Last Vital Signs Temp 37.3 C 01/22/20 08:20 Pulse 102 H 01/22/20 08:20 Resp 20 01/22/20 08:20 BP 153/92 H 01/22/20 08:20 Pulse Ox 94 01/22/20 08:20 Constitutional + obese ENMT Mouth: no TMJ abnormality and oral opening not small Thyromental Distance: > or= 3.5 Finger Breadths Mallampati Class: IV Neck normal visual inspection, + short neck and + thick neck; neck extension not limited Respiratory normal respiratory effort Auscultation: lungs clear to auscultation bilaterally Cardiovascular Rate/Rhythm: regular rate and regular rhythm Heart Sounds: no murmur Neurologic moves all extremities Psychiatric Orientation: alert and oriented x 3 Testing Laboratory Results 01/21/20 12:27 01/22/20 05:07 Urine Color Dark Yellow 01/21/20 22:23 Urine Appearance Cloudy (Clear) A 01/21/20 22:23 Urine pH 5.5 (4.5-7.5) 01/21/20 22:23 Ur Specific [place] 1.041 (1.000-1.030) H 01/21/20 22:23 Urine Protein 2+ (Negative) H 01/21/20 22:23 Urine Glucose (UA) Negative (Negative) 01/21/20 22:23 Urine Ketones 1+ (Negative) H 01/21/20 22:23 Urine Nitrite Positive (Negative) A 01/21/20 22:23 Ur Leukocyte Esterase Trace (Negative) H 01/21/20 22:23 Urine WBC (Auto) 1-5 /hpf (0-5) 01/21/20 22:23 Urine RBC (Auto) 5-10 /hpf (0-4) H 01/21/20 22:23 U Hyaline Cast (Auto) 10-30 /lpf (0-5) H 01/21/20 22:23 U Epithel Cells (Auto) 20-30 /lpf (0-5) H 01/21/20 22:23 Urine Bacteria (Auto) Negative (Negative) 01/21/20 22:23 Blood Type A Positive 01/21/20 12:30 Antibody Screen NEGATIVE 01/21/20 12:30 01/21/20 11:45 Gram Stain - Final Knee,Left Aerobic and Anaerobic Culture - Preliminary Staphylococcus aureus Electrocardiogram Date: 01/21/20 Findings: + ST @ (109) Nonspecific ST and T wave abnormality, When compared with ECG of 12-OCT-2019 11:08, No significant change was found
[2020-01-22] MEDS ORDERED: BACITRACIN INJ 50,000 UNIT VIAL ONE ×3 (07:39→10:04)
[2020-01-22] MEDS ORDERED: VANCOMYCIN HCL 1000MG/20ML VIAL ONE (08:13)
[2020-01-22] MEDS ORDERED: fentaNYL citrate 100 MCG/2 ML VIAL ONE ×4 (08:35→12:43)
[2020-01-22] MEDS ORDERED: MIDAZOLAM HCL 1 MG/ML 2ML VIAL ONE (08:35)
--- NOTE | 2020-01-22 08:40 | Orthopedic Progress Note ---
Date of Service January 22, 2020 Assessment & Plan (1) Infection of prosthetic left knee joint: acute infection5 days of symptoms,patella loose again with fragmentation patella likely avn. plan i&d poly exchange tibia and excision patella poly antibiotic beads wound vac Admission and Anticipated Discharge Date Admission Date: January 21, 2020 Subjective no c/o Review of Systems Review of Systems: no new findings Physical Exam Physical Exam: erythema faint diffuse pink knee large effusion small skin separation anterior knee but no drainage from it Results & Data ([facility]) Vital Signs (Past 12 Hours) Vital Signs Temp Pulse Resp BP BP Pulse Ox 01/22/20 08:20 37.3 C 102 H 20 153/92 H 94 01/22/20 07:25 37.1 C 105 H 20 143/77 H 98 01/21/20 23:40 37.1 C 107 H 16 155/90 H 95
[2020-01-22] MEDS ORDERED: ONDANSETRON INJ 2 MG/ML 2 ML VIAL IV PRN ×2 (09:06→14:24)
[2020-01-22] MEDS ORDERED: ATROPINE SULFATE 0.1 MG/ML 10ML SYR IV PRN (09:06)
[2020-01-22] MEDS ORDERED: ePHEDrine sulfate 50 MG/ML AMP IV PRN (09:06)
[2020-01-22] MEDS ORDERED: fentaNYL citrate 100 MCG/2 ML VIAL IV PRN ×2 (09:06→13:13)
[2020-01-22 09:10] LABS: Basophils # (auto) 0.03 K/uL (0-0.2); Basophils % (auto) 0.3 %; Eosinophils # (auto) 0.15 K/uL (0-0.5); Eosinophils % (auto) 1.5 %; Hemoglobin 11.3 g/dL (14.0-18.0); Immature Granulocytes # (auto) 0.03 K/uL (0.00-0.02); Immature Granulocytes % (auto) 0.3 %; Mean Corpuscular Hemoglobin 29.6 pg (25-34); Mean Corpuscular Hgb Conc 33.2 g/dL (32-36); Mean Platelet Volume 9.5 fL (7.4-10.4); Neutrophils # (auto) 7.62 K/uL (1.4-6.5); Neutrophils % (auto) 75.9 %; Platelet Count 277 K/uL (130-400); RDW Coefficient of Variation 14.7 % (11.5-14.5); RDW Standard Deviation 48.2 fL (36.4-46.3); Red Blood Count 3.82 M/uL (4.7-6.1); White Blood Count 10.03 K/uL (4.8-10.8)
[2020-01-22 09:25] LABS: BUN Creatinine Ratio 19.5 (10-20); Calcium 8.2 mg/dl (8.5-10.1); Creatinine Clr Calc Pharmacy 171.3 ml/min; Est GFR (African American) 128.7; Potassium 3.5 mmol/L (3.5-5.1)
[2020-01-22] MEDS ORDERED: PROPOFOL IV EMULSION 10 MG/ML 20 ML VIAL IV ONE (09:35)
[2020-01-22] MEDS ORDERED: LIDOCAINE HCL 2% 2 ML VIAL/AMP(20MG/ML) INFIL ONE (09:35)
[2020-01-22] MEDS ORDERED: ACETAMINOPHEN 1000 MG/100 ML IV IV ONE (09:47)
[2020-01-22] MEDS ORDERED: ONDANSETRON INJ 2 MG/ML 2 ML VIAL ONE (10:39)
--- NOTE | 2020-01-22 11:57 | Post Operative Brief Note ---
Immediate Post Op Note v1 Date of Surgery January 22, 2020 Pre & Post Diagnosis Operation Date: 01/22/20 07:00 Pre-Op Diagnosis: Infection of prosthetic left knee joint, patella loosening avascular necrosis patella Post-Op Diagnosis: Infection of prosthetic left knee joint, same I identified the patient and participated in the time-out.: Yes Procedure Operation Date: 01/22/20 07:00 Actual Procedures p Left Knee Incision and Drainage, Irrigation and Debridment with Tibial Polyethylne Exchange, Excision of Loose Patella polyethylene, Patellectomy, placement of antibiotic Beads closure over drains and superficial wound VAC application (Left) - Ray Child MD Surgeon Ray Child MD Top Polisher Alberto OLIVERA Estimated Blood Loss 25 Findings Consistent with Post-Op Diagnosis Specimens Cultures x2 and patella bone fragments and polyethylene patella and tibia Drains Hemovac Drain Anesthesia Type General Complications none Disposition Accompanied Patient To Recovery: No Disposition: Recovery Room Overlapping Procedure I was immediately available: during the entire case.
[2020-01-22] MEDS ORDERED: HYDROmorphone INJ 1 MG/ML SYRINGE IV PRN (13:13)
[2020-01-22] MEDS ORDERED: HYDROmorphone INJ 1 MG/ML SYRINGE ONE (13:15)
[2020-01-22] MEDS ORDERED: VANCOMYCIN TROUGH ONE (13:30)
--- NOTE | 2020-01-22 13:35 | XRay Report ---
XR knee LT 1 or 2V routine CLINICAL HISTORY: Surgical Post Op COMPARISON STUDY: Left knee 09/09/2019. FINDINGS: Skin randy and surgical drains are in place. There is a left total knee arthroplasty. The hardware appears intact. Interval placement of multiple antibiotic beads seen within the left knee j oint. No fracture or dislocation. IMPRESSION: Postoperative changes consistent with antibiotic bead placement within the left knee keshav nt. ACT 112: Negative or not required by law. Electronically signed by: Vikram Gutierrez M.D. 01/22/2020 1:34 PM
--- NOTE | 2020-01-22 13:41 | Infectious Disease Consult ---
Date of Consultation January 22, 2020 Assessment & Plan (1) Infection of prosthetic left knee joint: Initial cultures growing S. aurues, OR cultures done, pending. Will continue vanco for now pending additional culture data, will likely need 6 weeks IV abx, final recs will depend on culture results. History of Present Illness Attending Physician: Ray Child MD pt admitted with left knee pain, swelling, wound after outpatient trauma.h/o tkr in 1014 with revision in 2019. 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 evaluated by ortho, knee aspirated, 150,194 wbc, 95% N, culture growing S. aureus. He is on vanco and tolerating well. afebrile. wbc 10. ESR >90. OR currently. creat 0.64 Allergies Allergy/AdvReac Type Severity Reaction Status Date / Time morphine Allergy Mild Itching Verified 11/24/19 10:22 buspirone [From BuSpar] AdvReac Severe Verified 11/24/19 10:22 haloperidol [From Haldol] AdvReac Severe Verified 11/24/19 10:22 pramipexole [From Mirapex] AdvReac Severe Verified 11/24/19 10:22 quetiapine [From Seroquel] AdvReac Severe Verified 11/24/19 10:22 Home Medications Home Medications Medication Instructions Recorded Confirmed Type amantadine HCl 100 mg tablet 100 mg PO BID 06/30/19 01/21/20 History carbidopa 25 mg-levodopa 100 mg 1 tab PO QID 06/30/19 01/21/20 History tablet carbidopa ER 50 mg-levodopa 200 mg 1 tab PO QID 06/30/19 01/21/20 History tablet,extended release entacapone 200 mg tablet 200 mg PO QID 06/30/19 01/21/20 History carbidopa-levodopa 1 tab PO QID PRN 08/28/19 01/21/20 History solifenacin [Vesicare] 10 mg PO QPM 08/28/19 01/21/20 History acetaminophen 1,000 mg PO Q8 #100 tab 09/12/19 01/21/20 Rx duloxetine 30 mg capsule,delayed 30 mg PO DAILY 11/24/19 01/21/20 History release Patient History Medical History Anxiety Depression 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 Osteoarthritis Parkinson disease s/p deep brain stimulator Recurrent dislocation of left patella Sleep apnea does not tolerate device Urinary incontinence Venous stasis of both lower extremities Vitamin D deficiency (Inactive) Surgical History History of appendectomy History of carpal tunnel release History of colonoscopy History of foot surgery RECONSTRUCTION - RT History of left knee replacement History of revision of total knee arthroplasty LEFT History of shoulder surgery LEFT X 2; RT X 1 S/P deep brain stimulator placement Family History Grandmother Family history of diabetes mellitus Father Hypertension Social History Preferred Language: Frisian Communication Ability: Effective Pesticide Applicator Required: No Beliefs That Will Affect Care: None marital status: Current Living Situation: Spouse Other Information That Helps Us Care for You: No Feels Safe at Home: Yes Safety Concerns: Feels Safe At This Time Smoking Status: Never smoker Second Hand Exposure: No ; Hx Alcohol Use: No Hx Substance Use: Yes substance use type: marijuana Substance Use Type Other:: medical marijuana Last Used Substance Other:: patient states years since use Review of Systems Review of Systems: per H&P Results & Data ([facility] [place]) Vital Signs (Past 12 Hours) Vital Signs Temp Pulse Pulse Resp BP Pulse Ox 01/22/20 13:35 36.7 C 94 H 16 158/89 H 97 01/22/20 13:25 36.7 C 96 H 16 141/91 H 99 01/22/20 13:15 98 H 22 148/112 H 98 01/22/20 13:05 100 H 28 H 140/118 H 10 L 01/22/20 12:55 95 H 10 L 179/106 H 95 01/22/20 12:45 100 H 30 H 139/90 100 01/22/20 12:35 36.4 C L 99 H 20 171/80 H 100 01/22/20 08:20 37.3 C 102 H 20 153/92 H 94 01/22/20 07:25 37.1 C 105 H 20 143/77 H 98 Laboratory Results Microbiology 01/22/20 09:57 Knee,Left Gram Stain - Final 01/21/20 11:45 Knee,Left Gram Stain - Final 01/21/20 11:45 Knee,Left Aerobic and Anaerobic Culture - Preliminary Staphylococcus aureus PG Care Time/CCT Total # of Minutes Spent Total Time Spent with Patient: Total time spent is greater than 50% in coordination of care (as documented) at patient's floor/unit and/or counseling patient: Coding Level of Care Code 52442 Inpt Consult Level 2 Diagnoses Infection of prosthetic left knee joint T84.54XA
[2020-01-22] MEDS ORDERED: HYDROmorphone INJ 0.5 MG/0.5 ML SYR IV PRN (14:24)
[2020-01-22] MEDS ORDERED: bisacodyL 10 MG SUPP PR PRN (14:24)
[2020-01-22] MEDS ORDERED: NALOXONE HCL 0.4 MG/1 ML VIAL/CARP IV PRN (14:24)
[2020-01-22] MEDS: CARBIDOPA/LEVODOPA 50/200MG EXT REL TAB PO SCH ×3 (14:43→21:56)
[2020-01-22] MEDS: DULOXETINE HCL 30 MG CAP PO SCH (14:43)
[2020-01-22] MEDS: AMANTADINE HCL 100 MG CAPSULE PO SCH ×2 (14:44→21:56)
--- NOTE | 2020-01-22 14:44 | Anesthesiology Progress Note ---
Date of Service January 22, 2020 Anesthesia Post Procedure Vital Signs Vital Signs: Temp Pulse Pulse Resp BP BP Pulse Ox 01/22/20 14:24 98 H 20 157/84 H 97 01/22/20 13:45 36.7 C 103 H 19 155/92 H 98 01/22/20 13:35 36.7 C 94 H 16 158/89 H 97 01/22/20 13:25 36.7 C 96 H 16 141/91 H 99 01/22/20 13:15 98 H 22 148/112 H 98 01/22/20 13:05 100 H 28 H 140/118 H 10 L 01/22/20 12:55 95 H 10 L 179/106 H 95 01/22/20 12:45 100 H 30 H 139/90 100 01/22/20 12:35 36.4 C L 99 H 20 171/80 H 100 01/22/20 08:20 37.3 C 102 H 20 153/92 H 94 01/22/20 07:25 37.1 C 105 H 20 143/77 H 98 01/21/20 23:40 37.1 C 107 H 16 155/90 H 95 01/21/20 14:54 37 C 112 H 20 146/87 H 94 Pain Intensity Left Knee: Pain Intensity: 3 Transfer of Care Handoff Completed per policy Notes Mental Status: alert / awake / arousable and participated in evaluation Patient Amnestic to Procedure: Yes Nausea / Vomiting: adequately controlled Pain: adequately controlled Airway Patency, RR, SpO2: stable & adequate BP & HR: stable & adequate Hydration State: stable & adequate Anesthetic Complications: no major complications apparent and Pt Satisfied with anesthetic care Notes: Prior to surgical procedure, patient was noted to be tachypnic and diaphoretic. In post op, patient was back to preoperative baseline, but still slightly tachypnic. Ordered overnight continuous pulse oximetry so that patient could be observed more closely overnight.
--- NOTE | 2020-01-22 15:05 | Pharmacy Report ---
Pharmacy Abx Dose Short Note - Date of Service January 22, 2020 - Assessment & Plan Assessment 54 year old M receiving vancomycin for infection of prosthetic left knee joint Day # 2 of antimicrobial therapy. Plan Vancomycin * Trough level came back at ~14.4 mcg/ml (goal 15-20 mcg/ml). Note, level drawn before steady state, anticipate level likely higher * Due to increased BMI, feel that patient will likely accumulate vancomycin * Will plan to adjust vancomycin to 1500 mg iv q 10 hrs to maintain trough ~15- 20 mcg/ml * Will plan to recheck level prior to the 2000 dose tomorrow to ensure therapeutic * Cultures still pending at this time - may be able to deescalate when cx return Pharmacy will continue to follow and will adjust dose/frequency as necessary. Thank you.
--- NOTE | 2020-01-22 15:34 | Hospitalist Progress Note ---
Date of Service January 22, 2020 Assessment & Plan (1) Infection of prosthetic left knee joint: S/p Left Knee Incision and Drainage, Irrigation and Debridment with Tibial Polyethylne Exchange, Excision of Loose Patella polyethylene, Patellectomy, placement of antibiotic Beads closure over drains and superficial wound VAC application (Left) Continue IV vancomycin as started by surgical team, adjustments per infectious disease (2) Anxiety: Continue home duloxetine (3) Depression: As above (4) Parkinson disease: continue home amantadine, sinemet, and entacapone (5) Hypokalemia: Resolved Admission and Anticipated Discharge Date Admission Date: January 21, 2020 Subjective Mr. Knox is post left knee I&D. He is quite drowsy, oriented but his speech is more garbled than his baseline. He denies any discomfort. He is able to follow commands and answer orientation questions. ROS Constitutional: no chills, aches, sweats or fever Respiratory: no sob,cough, sputum, or wheezing Cardiac: no chest pain, palpitations, edema, orthopnea or lightheadedness GI: no abdominal pain, nausea, vomiting, diarrhea or constipation : no dysuria or hesitancy Extremities: no joint pain or weakness Skin: no rash All other systems reviewed and negative Physical Exam Physical Exam: General: no distress Eyes: normal inspection, PERLL Respiratory: chest non tender, clear to auscultation, normal breath sounds, no respiratory distress, no accessory muscle use Cardiac: regular rate and rhythm, no rub or gallop, no murmur, no edema, no jvd GI/: active bowel sounds, no abd pain or tenderness, soft, non distended Extremities: normal range of motion, normal strength, non tender Neuro/Psych: drowsy and oriented x 3, CN II - XII intact, garbled/slurred speech Skin: normal color, dry Results & Data Results & Data ([facility]) Vital Signs (Past 12 Hours) Vital Signs Temp Pulse Pulse Resp BP Pulse Ox 01/22/20 15:12 37 C 96 H 16 147/92 H 98 01/22/20 14:24 98 H 20 157/84 H 97 01/22/20 13:45 36.7 C 103 H 19 155/92 H 98 01/22/20 13:35 36.7 C 94 H 16 158/89 H 97 01/22/20 13:25 36.7 C 96 H 16 141/91 H 99 01/22/20 13:15 98 H 22 148/112 H 98 01/22/20 13:05 100 H 28 H 140/118 H 10 L 01/22/20 12:55 95 H 10 L 179/106 H 95 01/22/20 12:45 100 H 30 H 139/90 100 01/22/20 12:35 36.4 C L 99 H 20 171/80 H 100 01/22/20 08:20 37.3 C 102 H 20 153/92 H 94 01/22/20 07:25 37.1 C 105 H 20 143/77 H 98 PG Care Time/CCT Total # of Minutes Spent Total Time Spent with Patient: Total time spent is greater than 50% in coordination of care (as documented) at patient's floor/unit and/or counseling patient: Coding Level of Care Code 83619 Subseq Hosp Care Lvl 2 Diagnoses Infection of prosthetic left knee joint T84.54XA Anxiety F41.9 Depression F32.9 Parkinson disease G20 Hypokalemia E87.6
--- NOTE | 2020-01-22 15:48 | Operative Report (OR) ---
DATE OF OPERATION: 01/22/2020 INDICATION FOR PROCEDURE: The patient is a 54-year-old male with long history of left knee problems, status post total knee replacement. He has advanced Parkinson's disease with a deep brain stimulator and gait issues. The patient's index surgery was a total knee replacement with Dr. Tran in 2014 and 2015. He had extensor mechanism disruption and required a polyethylene exchange of the tibial component. 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 Due to continued dysfunction and poor ability to walk and chronic pain, synovitis and loose patellar component, they chose to proceed with removing the loose patellar component and either placement of titanium patella or revision patella. At the time of surgery in 08/2019, he had enough patella remaining to place a 26 mm symmetrical patella component. His postoperative course was complicated by mental status changes due to his Parkinson's. This required some prolonged rehabilitation. Then, he was doing okay, walking with assistance. Five days prior to this dictation approximately, he fell out of bed where he had some type of injury trying to get into his wheelchair as he was next to his wheelchair at the base of his bed. He was brought in by his with a laceration across his knee. It appeared to be superficial; it was treated conservatively by the family. I think his knee became more progressively swollen, red and a knee aspiration by my physician phlebotomist lab assistant, JOSELIN Taylor demonstrated cloudy fluid with a greater than 150,000 white blood cells, positive gram-positive cocci on Gram stain and elevated C-reactive protein and erythrocyte sedimentation rate with high normal white blood cell count. 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 PROCEDURE: Left knee incision, drainage, irrigation, debridement, tibial polyethylene exchange and excision of loose patella polyethylene component and a patellectomy including placement of antibiotic beads and closure over drains and a superficial wound VAC application. SURGEON: Ray Child MD. BUSINESS SUPPORT COORDINATOR: JOSELIN Downing. ANESTHESIA: General. ESTIMATED BLOOD LOSS: 25 mL. SPECIMENS: Cultures x2 patellar bone fragments and patella and tibial polyethylene. DRAINS: 2 Hemovacs. COMPLICATIONS: None. OPERATIVE PROCEDURE: The patient taken to the operating room, anesthetized under general anesthetic. Precautions were taken due to COVID-19, prolonging the procedure with 20 minutes waiting before and after intubation contributing to OR time. His left lower extremity had a pneumatic tourniquet placed above the left upper thigh and left lower extremity exam demonstrated he had an abrasion over the anterior knee with no deep drainage, so it was not clearly a sinus tract, but may be some superficial necrosis right over the thin scar in the anterior knee right over the patellar area. There was some sloughing, superficial skin in that area. There was some erythema around the knee and a large effusion. There was good passive range of motion. The leg was sterilely prepped and draped using Betadine scrub and paint. The leg was then elevated. No Esmarch was used. The pneumatic tourniquet was raised to 325 mmHg. An incision was made for the anterior incision through the previous scar, extended slightly proximal and distal, lengthening the incision slightly. Some of the small area of necrotic skin in the area of the laceration was debrided. Upon entering the prepatellar bursa, there was johny purulent fluid consistent with infection. On further dissection into the subcutaneous tissues and raising some subcutaneous flaps, area of the lateral release had an open area about 5 cm and about 3 cm wide entered right into the joint. The area of the vastus medialis oblique advancement demonstrated complete healing of that part of the repair with all sutures intact. Quad tendon mechanism was all intact down to the tibial tubercle. Patella was loosened and the patella was fragmented. Deep cultures were obtained x2. Copious irrigation was performed. Then, the Versajet from [employer] was used to debride the necrotic soft tissues in the subcutaneous and over the fascia. The incision was carried along the medial aspect of the tibial tubercle to the medial retinaculum up into the mid quadriceps tendon. The FiberWire permanent sutures were all removed in the area of closure. The patella component was easily removed as it was grossly loose. The patellar fragments looked to be sclerotic and suggested AVN, and there were several large pieces of the patella noted. Further irrigation was performed with pulsatile lavage antibiotic solution at this time to a total of 6 liters. The Versajet was then used and electrocautery synovectomy was performed and the tibial polyethylene was removed easily with an osteotome and a tenaculum. The tibial polyethylene had a little bit of plastic deformation of the post, otherwise was intact. The patella polyethylene that was removed was completely intact and normal, but loosened from the cement. The Versajet was then used intraarticularly after we did an electrocautery synovectomy. The posterior capsular synovium was partially resected and irrigated copiously. The patellectomy was then performed removing the fragment of patella component, shelling them out from the quadriceps tendon and extensor mechanism tissue leaving that all intact. Trial reduction was performed and we upsized the tibial polyethylene to a 13 posterior stabilized 9 mm thickness. It was a size 6, 13 mm thickness posterior stabilized constrained trial tibial component that was placed and this had good stability through full range of motion. The trial was removed and further irrigation was performed. After 12 liters of irrigation were used, the 2 drains were brought out laterally and the final tibial component was placed, which will be a size 6, 13 mm thickness constrained posterior stabilized Hernadez [employer] left tibial polyethylene. The knee was reduced. The drains were adjusted into the lateral gutter and then the antibiotic beads were placed. Antibiotic beads were Stimulan beads mixed with vancomycin, 10 mL. Then, the quadriceps tendon and medial retinaculum were closed with interrupted [id number] #1 antibiotic resistant Vicryl sutures. Then, the lateral release area was able to be closed completely with interrupted [id number] antibiotic resistant #1 Vicryl sutures. The knee was taken through range of motion and there was 110 degrees of flexion without any tension on the repair. The subcutaneous tissue was then closed with interrupted 2-0 Vicryl sutures. Skin was closed with randy. I did check the drains for mobility and one of the drains appeared to be captured so we had to reopen a small area of the incision, go down to the lateral release incision and released the one suture that was capturing the drain. Verified that the drain was mobile and then repaired the lateral retinacular area again, carefully assessed the drain to be mobile. I repaired the small area of subcutaneous tissue that was reopened with a [id number] 2-0 antibiotic resistant Vicryl and then the skin was reclosed with randy in that area. A Prevena superficial wound VAC was applied. The patient had about 25 mL of blood loss. He tolerated the procedure well. TOURNIQUET TIME: 2 hours. JOSELIN Downing was the wheelchair van operator first responder; he functioned as wheelchair van operator first responder for the entire procedure. He assisted in patient positioning, assisted in leg positioning, soft tissue retraction, assisted in the closure of the deep tissue and subcutaneous and skin, and applied the superficial wound VAC. I attest to the content of the Intraoperative Record and any orders documented therein. Any exception s are noted below.
[2020-01-22] MEDS: ACETAMINOPHEN 500 MG TAB PO SCH ×2 (17:59→21:57)
[2020-01-22] MEDS ORDERED: Nursing to Pharmacy Communication ONE (18:12)
[2020-01-22] MEDS: SENNA 8.6 MG TAB PO SCH (20:50)
[2020-01-22] MEDS: DOCUSATE SODIUM 100 MG CAP PO SCH (20:50)
[2020-01-22] MEDS: OXYCODONE HCL IR 5 MG TAB (IMMEDIATE RELEASE) PO PRN (21:00)
[2020-01-23] MEDS: VESICARE~ORDER AWAITING ACTION SCH ×3 (00:13→22:53)
[2020-01-23] MEDS: VANCOMYCIN HCL 1,500 MG in SODIUM CHLORIDE 0.9% 500 ML IV SCH ×3 (04:07→21:42)
[2020-01-23 05:08] LABS: Hematocrit (blood only) 33.2 % (42-52); Hemoglobin 10.8 g/dL (14.0-18.0); Mean Corpuscular Hemoglobin 29.1 pg (25-34); Mean Corpuscular Hgb Conc 32.5 g/dL (32-36); Mean Corpuscular Volume 89.5 fL (80-100); Mean Platelet Volume 8.8 fL (7.4-10.4); Platelet Count 261 K/uL (130-400); RDW Coefficient of Variation 14.8 % (11.5-14.5); RDW Standard Deviation 48.2 fL (36.4-46.3); Red Blood Count 3.71 M/uL (4.7-6.1); White Blood Count 10.15 K/uL (4.8-10.8)
[2020-01-23 05:36] LABS: BUN Creatinine Ratio 16.6 (10-20); Calcium 8.4 mg/dl (8.5-10.1); Creatinine Clr Calc Pharmacy 182.8 ml/min; Est GFR (African American) 132.1; Potassium 3.5 mmol/L (3.5-5.1)
[2020-01-23] MEDS: OXYCODONE HCL IR 5 MG TAB (IMMEDIATE RELEASE) PO PRN (05:57)
[2020-01-23] MEDS: ACETAMINOPHEN 500 MG TAB PO SCH ×3 (05:58→21:01)
[2020-01-23] MEDS: CARBIDOPA/LEVODOPA 25/100MG TAB PO SCH ×4 (07:16→21:00)
[2020-01-23] MEDS: ENTACAPONE 200 MG TAB PO SCH ×4 (07:16→21:01)
[2020-01-23] MEDS: CARBIDOPA/LEVODOPA 50/200MG EXT REL TAB PO SCH ×4 (07:16→21:00)
[2020-01-23] MEDS: SODIUM CHLORIDE 0.9% 1000ML 1,000 ML IV SCH (07:19)
--- NOTE | 2020-01-23 08:06 | Orthopedic Progress Note ---
Date of Service January 23, 2020 Assessment & Plan (1) Infection of prosthetic left knee joint: POD #1 s/p Left Knee I&D with Tibial Polyethylne Exchange, Excision of Loose Patella, Patellectomy, Antibiotic Beads PT/OT- WBAT with immobilizer ID consult- Initial cultures growing S. aurues, awaiting OR cultures. Will continue vanco for now pending additional culture data, will likely need 6 weeks IV abx, final recs will depend on culture results. Admission and Anticipated Discharge Date Admission Date: January 21, 2020 Subjective POD #1 s/p Left Knee Incision and Drainage, Irrigation and Debridement with Tibial Polyethylne Exchange, Excision of Loose Patella, Patellectomy, Antibiotic Beads Review of Systems Constitutional: no fever, no chills and no sweats Respiratory: no cough and no dyspnea Cardiovascular: no chest pain and no dyspnea Gastrointestinal: no abdominal pain, no nausea and no vomiting Physical Exam Physical Exam: Vital Signs Temp 36.6 C 01/23/20 07:38 Pulse 92 H 01/23/20 07:38 Resp 30 H 01/23/20 07:38 BP 109/68 01/23/20 07:38 Pulse Ox 95 01/23/20 07:38 Intake & Output 01/22/20 01/23/20 01/23/20 18:59 06:59 18:59 Intake Total 1830 / 3601.667 1771.667 / 3601.66 7 533.333 / 533.333 Output Total 185 / 770 585 / 770 Balance 1645 / 2831.667 1186.667 / 2831.66 7 533.333 / 533.333 Weight 113.126 kg Intake: IV 530 / 2422.833 5522.667 / 1776.66 7 533.333 / 533.333 Nss 1000ML 1,0 00 ml @ 100 mls/ 716.667 / 716.667 3.333 / 3.333 hr IV .Q10H SC H Rx#:[id number] Vancomycin HCl 1,500 mg In Nss 530 / 1060 530 / 1060 530 / 530 500 ml @ 200 m ls/hr IV Q10H RENAN Rx#:[id number] IV Perioperative 1300 / 1300 Oral 525 / 525 Output: Urine 150 / 625 475 / 625 Estimated Blood Loss 25 / 25 Drain Output 10 / 120 110 / 120 Left Knee Hemo vac #1 110 / 120 Other: # Unmeasured Voi ds 1 Constitutional: WD/WN, vitals as above no acute distress Musculoskeletal: Left Leg: NVDI, calf SNT, negative toñito sign. DP palpable, able to wiggle toes/ankle movement without difficulty. dressing clean dry and intact. Results & Data ([facility]) Vital Signs (Past 12 Hours) Vital Signs Temp Pulse Resp BP Pulse Ox 01/23/20 07:38 36.6 C 92 H 30 H 109/68 95 01/23/20 06:30 28 H 01/23/20 03:54 36.8 C 91 H 36 H 127/77 94 01/22/20 23:03 36.8 C 98 H 24 136/78 93 Laboratory Results Laboratory Results WBC 10.15 K/uL (4.8-10.8) 01/23/20 04:50 RBC 3.71 M/uL (4.7-6.1) L 01/23/20 04:50 Hgb 10.8 g/dL (14.0-18.0) L 01/23/20 04:50 Hct 33.2 % (42-52) L 01/23/20 04:50 MCV 89.5 fL (80-100) 01/23/20 04:50 MCH 29.1 pg (25-34) 01/23/20 04:50 MCHC 32.5 g/dL (32-36) 01/23/20 04:50 RDW Std Deviation 48.2 fL (36.4-46.3) H 01/23/20 04:50 RDW Coeff of Travis 14.8 % (11.5-14.5) H 01/23/20 04:50 Plt Count 261 K/uL (130-400) 01/23/20 04:50 MPV 8.8 fL (7.4-10.4) 01/23/20 04:50 Immature Gran % (Auto) 0.3 % 01/22/20 05:07 Neut % (Auto) 75.9 % 01/22/20 05:07 Lymph % (Auto) 8.0 % 01/22/20 05:07 Gates % (Auto) 14.0 % 01/22/20 05:07 Eos % (Auto) 1.5 % 01/22/20 05:07 Baso % (Auto) 0.3 % 01/22/20 05:07 Immature Gran # (Auto) 0.03 K/uL (0.00-0.02) H 01/22/20 05:07 Neut # (Auto) 7.62 K/uL (1.4-6.5) H 01/22/20 05:07 Lymph # (Auto) 0.80 K/uL (1.2-3.4) L 01/22/20 05:07 Gates # (Auto) 1.40 K/uL (0.11-0.59) H 01/22/20 05:07 Eos # (Auto) 0.15 K/uL (0-0.5) 01/22/20 05:07 Baso # (Auto) 0.03 K/uL (0-0.2) 01/22/20 05:07 ESR > 90 mm/hr (0-14) H 01/21/20 12:27 Sodium 137 mmol/L (136-145) 01/23/20 04:50 Potassium 3.5 mmol/L (3.5-5.1) 01/23/20 04:50 Chloride 106 mmol/L (98-107) 01/23/20 04:50 Carbon Dioxide 25 mmol/L (21-32) 01/23/20 04:50 Anion Gap 6.0 (3-11) 01/23/20 04:50 BUN 10 mg/dl (7-18) 01/23/20 04:50 Creatinine 0.60 mg/dl (0.6-1.4) 01/23/20 04:50 Est Cr Clr Drug Dosing 182.8 ml/min 01/23/20 04:50 Est GFR ( Amer) 132.1 01/23/20 04:50 Est GFR (Non-Af Amer) 114.0 01/23/20 04:50 BUN/Creatinine Ratio 16.6 (10-20) 01/23/20 04:50 Glucose 95 mg/dl (70-99) 01/23/20 04:50 POC Glucose 92 mg/dl (70-99) 01/22/20 08:47 Calcium 8.4 mg/dl (8.5-10.1) L 01/23/20 04:50 C-Reactive Protein 33.70 mg/dl (0-0.29) H 01/21/20 12:27 Urine Color Dark Yellow 01/21/20 22:23 Urine Appearance Cloudy (Clear) A 01/21/20 22: Urine pH 5.5 (4.5-7.5) 01/21/20 22:23 Ur Specific Issue 1.041 (1.000-1.030) H 01/21/20 22:23 Urine Protein 2+ (Negative) H 01/21/20 22:23 Urine Glucose (UA) Negative (Negative) 01/21/20 22:23 Urine Ketones 1+ (Negative) H 01/21/20 22:23 Urine Blood Trace (Negative) H 01/21/20 22:23 Urine Nitrite Positive (Negative) A 01/21/20 22: Urine Bilirubin Negative (Negative) 01/21/20 22: Urine Urobilinogen Positive (Negative) H 01/21/20 22:23 Ur Leukocyte Esterase Trace (Negative) H 01/21/20 22:23 Urine WBC (Auto) 1-5 /hpf (0-5) 01/21/20 22:23 Urine RBC (Auto) 5-10 /hpf (0-4) H 01/21/20 22:23 U Hyaline Cast (Auto) 10-30 /lpf (0-5) H 01/21/20 22:23 U Epithel Cells (Auto) 20-30 /lpf (0-5) H 01/21/20 22:23 Urine Bacteria (Auto) Negative (Negative) 01/21/20 22:23 Synovial Source KNEE 01/21/20 11:45 Synovial Color YELLOW 01/21/20 11:45 Synovial Appearance CLOUDY 01/21/20 11:45 Synovial WBC 127780 /ul (0-200) H 01/21/20 11:45 Synovial RBC 73974 /uL 01/21/20 11:45 Synovial Polynuclear % 94.6 % 01/21/20 11:45 Synovial Mononuclear % 5.4 % 01/21/20 11:45 Synovial Crystals 01/21/20 11:45 Vancomycin Trough 14.4 mcg/ml (See Comment) 01/22/20 14:07 Blood Type A Positive 01/21/20 12:30 Antibody Screen NEGATIVE 01/21/20 12:30
[2020-01-23] MEDS: AMANTADINE HCL 100 MG CAPSULE PO SCH ×2 (09:00→21:01)
[2020-01-23] MEDS: MULTIVITAMIN TAB PO SCH (09:00)
[2020-01-23] MEDS: DULOXETINE HCL 30 MG CAP PO SCH (09:00)
[2020-01-23] MEDS: DOCUSATE SODIUM 100 MG CAP PO SCH ×2 (09:00→21:01)
--- NOTE | 2020-01-23 09:17 | Neurology Consultation ---
Date of Consultation January 23, 2020 Assessment & Plan (1) Parkinson disease: This patient was diagnosed with Parkinson's disease at the age of 29 which according to the patient initially affected his right upper extremity. His condition has been progressive and he reports undergoing placement of bilateral DBS 10 years ago at [facility]. He continues to follow periodically with his neurologist at [facility] and has not required any recent adjustments to his medication regimen. As far as I can gather from interviewing and examining the patient this morning, his current Parkinson's disease medication regimen is appropriate and does not require any adjusting at this time. He does not appear to have any signs or symptoms suggestive of psychosis or Parkinson's associated hallucinations. He does not report any significant problem with his mood such as escalating depression or anxiety at this time. His behavior appears appropriate. This patient should continue to follow with his neurologist at [facility] as he indicates he has been following with her about once every 6 months for several years. It does not sound like his DBS device has required any adjusting recently. He reports that he had his batteries replaced this past fall. We do not typically adjust DBS devices in our local neurology clinic due to low patient volumes for this particular service. Please contact me if you have any questions regarding the management of this patient's Parkinson's disease in the context of his current hospitalization. Thank you for allowing me to participate in this patient's care. History of Present Illness Reason for Consultation: Assistance with Parkinson's disease medication management Requesting Physician: Kane Davey Attending Physician: Ray Child MD History of Present Illness The patient is a 54-year-old right-handed male who was admitted to the [facility] on January 20 for surgical treatment of an infected prosthetic left knee joint. He underwent surgical treatment yesterday with Dr. Child. There were no complications. This patient's past medical history is notable for Parkinson's disease diagnosed at a relatively young age. The patient indicates that his initial symptoms consisted of tremor and abnormal movement of the right upper extremity that began at age 29. His handwriting was notably affected. His motor symptoms subsequently generalized and affected his gait and balance. He reports that he underwent placement of a bilateral DBS device at [facility] 10 years ago. He has been following with a neurologist at [facility] for many years. He is also prescribed Sinemet, Comtan, and amantadine. He reports that his Parkinson's disease medication regimen has not required adjustment in quite some time. Records from his treating neurologist at [facility] are not available. The patient was seen in the [facility] emergency department on October 12, 2019, 1 month after undergoing surgical revision of a left total knee arthroplasty that was initially placed in 2014. The emergency record department at that time indicates that the patient had been exhibiting an altered mental status for about 1 month characterized by nightmares and hallucinations. The record also indicates he had been treated with Haldol to potentially address this issue. While in the emergency department at that time he was exhibiting worsening Parkinson's type movements and was increasingly agitated. Looks like he required escalating dosages of sedatives and ultimately required mechanical ventilation for airway protection. The record also indicates he was transferred to [facility] at that time for further evaluation and management with neurology at that institution, possibly in a neuro critical care setting. With this history in mind, it looks like neurology was consulted during this most recent hospitalization for repeat surgical revision to the left knee in anticipation of any potential neurological complications that may arise in the context of his Parkinson's disease in the perioperative/postsurgical timeframe. I had attempted to see this patient during rounds yesterday morning. However, he had already been taken to the operating room at that time and I was unable to see him until 1 day postop, this morning. I do note that the patient was seen by the internal medicine/hospitalist service prior to his surgical procedure yesterday. His outpatient Parkinson's disease medication regimen has been continued. At this time, the patient was sitting up in bed comfortably. After identifying myself as a neurologist who had been consulted to potentially assist with his management, the patient indicated that he was doing fine. He inform me that everything was going well with his Parkinson's and he did not have any specific concerns. His speech is somewhat hypophonic and dysarthric sounding which according to the patient has been a chronic issue, potentially related to his DBS placement many years ago. He denies experiencing any hallucinations recently. And in speaking with the patient further, it does not sound like non- distressing visual hallucinations have been a significant feature of his Parkinson's disease. The patient also denies experiencing any significant difficulty with orthostatic dizziness or restless leg syndrome in the context of his Parkinson's disease which was diagnosed 25 years ago. He has many books at bedside and denies experiencing any significant difficulty with memory or overall cognitive functioning. The patient was seen by psychiatry at [facility] on September 11, 2019 for assistance in management of anxiety. The consultation report describes previous admissions to behavioral health many years ago at [facility] as well as at [facility]. It does not look like a specific psychiatric diagnosis was provided in that psychiatric consult although there is mention of major depression and possibly medication induced bipolar type symptoms in the patient provided history at that time. Currently, the patient denies any significant problem with his mood. He denies any feelings of depression, anxiety, or hallucinations. Allergies Allergy/AdvReac Type Severity Reaction Status Date / Time morphine Allergy Mild Itching Verified 11/24/19 10:22 buspirone [From BuSpar] AdvReac Severe Verified 11/24/19 10:22 haloperidol [From Haldol] AdvReac Severe Verified 11/24/19 10:22 pramipexole [From Mirapex] AdvReac Severe Verified 11/24/19 10:22 quetiapine [From Seroquel] AdvReac Severe Verified 11/24/19 10:22 Home Medications Home Medications Medication Instructions Recorded Confirmed Type amantadine HCl 100 mg tablet 100 mg PO BID 06/30/19 01/21/20 History carbidopa 25 mg-levodopa 100 mg 1 tab PO QID 06/30/19 01/21/20 History tablet carbidopa ER 50 mg-levodopa 200 mg 1 tab PO QID 06/30/19 01/21/20 History tablet,extended release entacapone 200 mg tablet 200 mg PO QID 06/30/19 01/21/20 History carbidopa-levodopa 1 tab PO QID PRN 08/28/19 01/21/20 History solifenacin [Vesicare] 10 mg PO QPM 08/28/19 01/21/20 History acetaminophen 1,000 mg PO Q8 #100 tab 09/12/19 01/21/20 Rx duloxetine 30 mg capsule,delayed 30 mg PO DAILY 11/24/19 01/21/20 History release Patient History Medical History Anxiety Depression Hearing deficit KOTLIK left ear Osteoarthritis Parkinson disease s/p deep brain stimulator Recurrent dislocation of left patella Sleep apnea does not tolerate device Urinary incontinence Venous stasis of both lower extremities Vitamin D deficiency (Inactive) Surgical History History of appendectomy History of carpal tunnel release History of colonoscopy History of foot surgery RECONSTRUCTION - RT History of left knee replacement History of revision of total knee arthroplasty LEFT History of shoulder surgery LEFT X 2; RT X 1 S/P deep brain stimulator placement Family History Grandmother Family history of diabetes mellitus Father Hypertension Social History Preferred Language: Omani Communication Ability: Impaired Multiple Slide Operator Required: No Beliefs That Will Affect Care: None marital status: Current Living Situation: Spouse Other Information That Helps Us Care for You: No Feels Safe at Home: Yes Safety Concerns: Feels Safe At This Time Smoking Status: Never smoker Second Hand Exposure: No ; Hx Alcohol Use: No Hx Substance Use: Yes substance use type: marijuana Substance Use Type Other:: medical marijuana Last Used Substance Other:: patient states years since use Review of Systems Constitutional: no fever and no chills Eyes: no blind spots and no diplopia Ear, Nose, Mouth, Throat: no hearing loss Respiratory: no cough and no dyspnea Cardiovascular: no chest pain and no palpitations Gastrointestinal: no nausea and no vomiting Genitourinary: no dysuria Musculoskeletal: no myalgia Integumentary: no rash and no lesions Neurologic: as per Subjective / HPI Psychiatric: no depression and no anxiety Hematologic / Lymphatic: no easy bleeding and no easy bruising Exam (Neuro) Physical Exam: Patient is a well-developed, well-nourished elderly male. He is alert and fully oriented. Recent and remote memory intact. Attention and concentration normal. Patient is able to name objects and repeat phrases. His speech is mildly hypophonic and dysarthric. No stuttering. Patient exhibits an age-appropriate fund of knowledge and normal comprehension of vocabulary. Vis ual gillis full to confrontation. Visual acuity normal. Pupils equal round react to light and accommodation. Eye movements normal. There is no nystagmus, ptosis, or ophthalmoplegia. Facial sensation intact. There is no facial droop or weakness. Hearing intact. Palate elevates to midline. Shoulder shrug intact. Tongue protrudes to midline. Sensation intact all modalities in all 4 limbs. Deep tendon reflexes intact and symmetrical for the arms and legs although unable to assess the left patellar reflex due to postsurgical dressings. Plantar responses downgoing bilaterally. There is no dysdiadochokinesia or dysmetria with the arms bilaterally. No difficulty with [id number] on the right. Unable to test [id number] in the left due to postoperative immobilization. Direct ophthalmoscopic examination deferred due to requirement to wear facial in the context of the COVID-19 pandemic. Carotid pulses normal bilaterally, no bruits to auscultation. Gait and station cannot be tested. Patient exhibits normal muscle strength and tone for the arms and right leg. Unable to test the left leg due to postsurgical immobilization. There is no rigidity. There is no atrophy. The patient does have mild dyskinetic posturing of both hands and impaired facility of movement of the hands bilaterally as well. There are no perioral dyskinesias or tardive dyskinetic type movements of the facial musculature. Results & Data ([facility]) Vital Signs (Past 12 Hours) Vital Signs Temp Pulse Resp BP Pulse Ox 01/23/20 07:38 36.6 C 92 H 30 H 109/68 95 01/23/20 06:30 28 H 01/23/20 03:54 36.8 C 91 H 36 H 127/77 94 01/22/20 23:03 36.8 C 98 H 24 136/78 93 Coding Level of Care Code 58186 Initial Inpt Care Lvl 2 Diagnoses Parkinson disease G20
--- NOTE | 2020-01-23 13:10 | Anesthesiology Progress Note ---
Date of Service January 23, 2020 Anesthesia Post Procedure Vital Signs Vital Signs: Temp Pulse Pulse Resp BP Pulse Ox 01/23/20 07:38 36.6 C 92 H 30 H 109/68 95 01/23/20 06:30 28 H 01/23/20 03:54 36.8 C 91 H 36 H 127/77 94 01/22/20 23:03 36.8 C 98 H 24 136/78 93 01/22/20 20:00 36.6 C 94 H 16 149/89 H 99 01/22/20 17:13 36.4 C L 95 H 16 153/100 H 100 01/22/20 15:12 37 C 96 H 16 147/92 H 98 01/22/20 14:24 98 H 20 157/84 H 97 01/22/20 14:05 36.7 C 97 H 18 152/86 H 97 01/22/20 13:45 36.7 C 103 H 19 155/92 H 98 01/22/20 13:35 36.7 C 94 H 16 158/89 H 97 01/22/20 13:25 36.7 C 96 H 16 141/91 H 99 01/22/20 13:15 98 H 22 148/112 H 98 Pain Intensity Left Knee: Pain Intensity: 7 Transfer of Care Handoff Completed per policy Notes Mental Status: see notes below Patient Amnestic to Procedure: Yes Nausea / Vomiting: adequately controlled Pain: adequately controlled Airway Patency, RR, SpO2: stable & adequate BP & HR: stable & adequate Hydration State: stable & adequate Anesthetic Complications: no major complications apparent Notes: Pt sleeping comfortably in his room.
[2020-01-23] MEDS ORDERED: VANCOMYCIN TROUGH ONE (13:30)
[2020-01-23] MEDS: ENOXAPARIN INJ 40 MG/0.4 ML SYR SQ SCH (13:59)
--- NOTE | 2020-01-23 14:38 | Pharmacy Report ---
Pharmacy Abx Dose Short Note - Date of Service January 23, 2020 - Assessment & Plan Assessment 54 year old M receiving Vancomycin for treatment of L prosthetic joint infection * Day #3 of antimicrobial therapy * L knee culture from 01/20 grew MRSA (Vanc ELISEO = 1). Repeat culture from 01/21 growing S. aureus. Sensitivities pending. * Will recommend to switch patient to daptomycin tomorrow to facilitate discharge. Plan Vancomycin * Trough level of 12.0 mcg/mL is subtherapeutic * Change back to 1500 mg IV every 8 hours given subtherapeutic trough and improvement in renal function * Goal trough level: 15 to 20 mcg/mL * Trough level ordered for: 01/24 @ 0530 prior to 4th dose to represent steady state levels. Pharmacy will continue to follow and will adjust dose/frequency as necessary. Thank you.
--- NOTE | 2020-01-23 15:21 | Hospitalist Progress Note ---
Date of Service January 23, 2020 Assessment & Plan (1) Infection of prosthetic left knee joint: S/p Left Knee Incision and Drainage, Irrigation and Debridment with Tibial Polyethylne Exchange, Excision of Loose Patella polyethylene, Patellectomy, placement of antibiotic Beads closure over drains and superficial wound VAC application (Left) Continue IV vancomycin, culture growing MRSA ID plans for 6 weeks of IV antibiotics will need PICC line will need to determine if he can do home antibiotics vs short term rehab/SNF stay (2) Anxiety: Continue home duloxetine (3) Depression: As above (4) Parkinson disease: continue home amantadine, sinemet, and entacapone yesterday he was a little slow to respond but now improved on his medications (5) Hypokalemia: Resolved (6) Acute blood loss anemia: due to surgery Hb down to 10.8 Admission and Anticipated Discharge Date Admission Date: January 21, 2020 Subjective patient much more alert, sitting up in a chair no fever, has some pain in left knee but not too back no dyspnea, no chest pain/pressure, no nausea eating well reviewed cultures, growing MRSA from the knee, blood cultures negative WBC normal, Hb is 10.8, BMP normal, vanco trough is 12, pharmacy managing Review of Systems Review of Systems: All systems reviewed & are unremarkable except as noted in HPI & below Constitutional: no fever, no chills and no sweats Respiratory: no cough and no dyspnea Cardiovascular: no chest pain and no edema Gastrointestinal: no abdominal pain, no nausea, no vomiting, no constipation and no diarrhea/loose stools Musculoskeletal: + joint pain (left knee) and + swelling (left knee) Physical Exam Constitutional: WD/WN, vitals as above Eyes: PERRL, conjunctivae normal, anicteric sclerae ENMT: external ear and nose normal, oropharynx normal Neck: trachea midline, no thyromegaly Respiratory: normal respiratory effort, lungs clear to auscultation Cardiovascular: RRR, no murmur, no edema Gastrointestinal (Abdomen): normal bowel sounds, soft, nontender, no hepatosplenomegaly Musculoskeletal: Head/Neck/Chest: normocephalic and head atraumatic Extremities: + limited ROM of extremities and + abnormal strength; + extremities abnormal to inspection (left knee swollen, wrapped) Skin: no rashes, warm and dry Neurologic: normal touch/pain/proprioception, CN's II-XI intact bilaterally, deep tendon reflexes 2+ bilaterally and awake; no focal motor deficits and not confused Motor/Sensory: + tremor Psychiatric: A+Ox3, euthymic affect Lymphatic: no cervical or axillary lymphadenopathy Results & Data Results & Data ([facility]) Vital Signs (Past 12 Hours) Vital Signs Temp Pulse Resp BP Pulse Ox 01/23/20 15:05 36.9 C 93 H 25 H 150/79 H 93 01/23/20 07:38 36.6 C 92 H 30 H 109/68 95 01/23/20 06:30 28 H 01/23/20 03:54 36.8 C 91 H 36 H 127/77 94 Laboratory Results Laboratory Results - last 24 hr 01/23/20 01/23/20 01/23/20 04:50 04:50 13:42 WBC 10.15 RBC 3.71 L Hgb 10.8 L Hct 33.2 L MCV 89.5 MCH 29.1 MCHC 32.5 RDW Std Deviation 48.2 H RDW Coeff of Travis 14.8 H Plt Count 261 MPV 8.8 Sodium 137 Potassium 3.5 Chloride 106 Carbon Dioxide 25 Anion Gap 6.0 BUN 10 Creatinine 0.60 Est Cr Clr Drug Dosing 182.8 Est GFR ( Amer) 132.1 Est GFR (Non-Af Amer) 114.0 BUN/Creatinine Ratio 16.6 Glucose 95 Calcium 8.4 L Vancomycin Trough 12.0 Medications Administered Current Inpatient Medications Acetaminophen (Tylenol) 1,000 mg PO Q8 [facility] Stop: 02/21/20 14:23 Last Admin: 01/23/20 13:59 Dose: 1,000 mg Documented by: Amantadine HCl (Symmetrel) 100 mg PO BID [facility] Stop: 02/20/20 20:59 Last Admin: 01/23/20 09:00 Dose: 100 mg Documented by: Bisacodyl (Dulcolax) 10 mg NE DAILY PRN PRN Reason: Constipation Stop: 02/21/20 14:23 Carbidopa/Levodopa (Sinemet 25/100 Mg) 1 tab PO 0700,1000,1700,2200 PRN; Protocol PRN Reason: PARKINSONS Stop: 02/21/20 21:59 Carbidopa/Levodopa (Sinemet 25/100 Mg) 1 tab PO 0700,1000,1700,2200 [facility]; Protocol Stop: 02/21/20 21:59 Last Admin: 01/23/20 10:56 Dose: 1 tab Documented by: Carbidopa/Levodopa (Sinemet Cr 50/200mg) 1 tab PO 0700,1000,1700,2200 [facility] Stop: 02/21/20 21:59 Last Admin: 01/23/20 10:56 Dose: 1 tab Documented by: Diphenhydramine HCl (Benadryl Capsule) 25 mg PO Q8H PRN PRN Reason: Itching Stop: 02/20/20 10:18 Docusate Sodium (Colace) 100 mg PO BID [facility] Stop: 02/21/20 20:59 Last Admin: 01/23/20 09:00 Dose: 100 mg Documented by: Duloxetine HCl (Cymbalta) 30 mg PO DAILY [facility] Stop: 02/21/20 08:59 Last Admin: 01/23/20 09:00 Dose: 30 mg Documented by: Enoxaparin Sodium (Lovenox) 40 mg SQ QAM [facility] Stop: 02/22/20 13:44 Last Admin: 01/23/20 13:59 Dose: 40 mg Documented by: Entacapone (Comtan) 200 mg PO 0700,1000,1700,2200 [facility] Stop: 02/21/20 21:59 Last Admin: 01/23/20 10:56 Dose: 200 mg Documented by: Hydromorphone HCl (Dilaudid) 0.5 mg IV Q4H PRN PRN Reason: Pain or Pre PT Stop: 02/05/20 14:23 Vancomycin HCl 1,500 mg/ (Sodium Chloride) 530 mls @ 200 mls/hr IV Q8H [facility] Stop: 03/05/20 01:59 Magnesium Hydroxide (Milk Of Magnesia) 30 ml PO Q6H PRN PRN Reason: Constipation Stop: 02/21/20 14:23 Miscellaneous (Order Awaiting Action) 1 ea N/A QS [facility] Stop: 02/20/20 14:59 Last Admin: 01/23/20 07:31 Dose: Not Given Documented by: Miscellaneous Information (Consult) 1 ea N/A UD PRN PRN Reason: Consult Stop: 02/20/20 10:28 Multivitamins (Multivitamin Tab) 1 tab PO QAM [facility] Stop: 02/22/20 08:59 Last Admin: 01/23/20 09:00 Dose: 1 tab Documented by: Naloxone HCl (Narcan) 0.1 mg IV Q5M PRN PRN Reason: Oversedation/Resp Depression Stop: 02/21/20 14:23 Ondansetron HCl (Zofran) 4 mg IV Q6H PRN PRN Reason: Nausea And Vomiting Stop: 02/21/20 14:23 Oxycodone HCl (Roxicodone Immediate Rel) 5 - 10 mg PO Q4H PRN PRN Reason: Pain or Pre PT Stop: 02/05/20 14:23 Last Admin: 01/23/20 05:57 Dose: 5 mg Documented by: Sennosides (Senokot) 17.2 mg PO HS [facility] Stop: 02/21/20 20:59 Last Admin: 01/22/20 20:50 Dose: 17.2 mg Documented by: PG Care Time/CCT Total # of Minutes Spent Total Time Spent with Patient: Total time spent is greater than 50% in coordination of care (as documented) at patient's floor/unit and/or counseling patient: Coding Level of Care Code 59940 Subseq Hosp Care Lvl 2 Diagnoses Infection of prosthetic left knee joint T84.54XA Anxiety F41.9 Depression F32.9 Parkinson disease G20 Hypokalemia E87.6 Acute blood loss anemia D62
[2020-01-23] MEDS: SENNA 8.6 MG TAB PO SCH (21:01)
[2020-01-24] MEDS: VESICARE~ORDER AWAITING ACTION SCH ×3 (00:20→17:57)
[2020-01-24 04:41] LABS: Basophils # (auto) 0.05 K/uL (0-0.2); Basophils % (auto) 0.5 %; Eosinophils # (auto) 0.44 K/uL (0-0.5); Eosinophils % (auto) 4.7 %; Hematocrit (blood only) 33.5 % (42-52); Hemoglobin 10.9 g/dL (14.0-18.0); Immature Granulocytes # (auto) 0.03 K/uL (0.00-0.02); Immature Granulocytes % (auto) 0.3 %; Lymphocytes # (auto) 0.94 K/uL (1.2-3.4); Lymphocytes % (auto) 10.1 %; Mean Corpuscular Hgb Conc 32.5 g/dL (32-36); Mean Corpuscular Volume 89.1 fL (80-100); Mean Platelet Volume 8.5 fL (7.4-10.4); Monocytes # (auto) 0.89 K/uL (0.11-0.59); Monocytes % (auto) 9.6 %; Neutrophils # (auto) 6.96 K/uL (1.4-6.5); Neutrophils % (auto) 74.8 %; Platelet Count 300 K/uL (130-400); RDW Coefficient of Variation 14.9 % (11.5-14.5); RDW Standard Deviation 48.4 fL (36.4-46.3); Red Blood Count 3.76 M/uL (4.7-6.1); White Blood Count 9.31 K/uL (4.8-10.8)
[2020-01-24 05:03] LABS: Creatinine Clr Calc Pharmacy 192.4 ml/min; Est GFR (African American) 134.9; Est GFR (Non-African American) 116.4
[2020-01-24] MEDS: VANCOMYCIN HCL 1,500 MG in SODIUM CHLORIDE 0.9% 500 ML IV SCH (05:58)
[2020-01-24] MEDS: ENTACAPONE 200 MG TAB PO SCH ×4 (06:04→21:04)
[2020-01-24] MEDS: CARBIDOPA/LEVODOPA 50/200MG EXT REL TAB PO SCH ×4 (06:04→21:04)
[2020-01-24] MEDS: CARBIDOPA/LEVODOPA 25/100MG TAB PO SCH ×4 (06:04→21:05)
[2020-01-24] MEDS: ACETAMINOPHEN 500 MG TAB PO SCH ×3 (06:04→21:04)
--- NOTE | 2020-01-24 06:17 | Orthopedic Progress Note ---
Date of Service January 24, 2020 Assessment & Plan (1) Infection of prosthetic left knee joint: POD #2 s/p Left Knee I&D with Tibial Polyethylne Exchange, Excision of Loose Patella, Patellectomy, Antibiotic Beads PT/OT- WBAT with immobilizer ID consult- Initial cultures growing S. aurues, awaiting OR cultures. likely switch to Dapto for easier dosing at home. hemovac drain came out last evening, patients legs were restless and loss suction. Prevena reinforced and currently holding suction. Admission and Anticipated Discharge Date Admission Date: January 21, 2020 Subjective POD #2 Review of Systems Constitutional: no fever and no chills Cardiovascular: no chest pain, no dyspnea and no orthopnea Gastrointestinal: no nausea and no vomiting Physical Exam Physical Exam: Vital Signs Temp 36.6 C 01/23/20 23:55 Pulse 101 H 01/23/20 23:55 Resp 30 H 01/23/20 23:55 BP 144/79 H 01/23/20 23:55 Pulse Ox 92 01/23/20 23:55 Intake & Output 01/23/20 01/23/20 01/24/20 06:59 18:59 06:59 Intake Total 1771.667 / 3601.66 7 1063.333 / 1693.33 3 630 / 1693.333 Output Total 585 / 770 200 / 350 150 / 350 Balance 1186.667 / 2831.66 7 863.333 / 1343.333 480 / 1343.333 Intake: IV 1246.667 / 1776.66 7 1063.333 / 1593.33 3 530 / 1593.333 Nss 1000ML 1,0 00 ml @ 100 mls/ 716.667 / 716.667 3.333 / 3.333 hr IV .Q10H SC H Rx#:[id number] Vancomycin HCl 1,500 mg In Nss 530 / 1060 1060 / 1590 530 / 1590 500 ml @ 200 m ls/hr IV Q8H RENAN Rx#:[id number] Oral 525 / 525 100 / 100 Output: Urine 475 / 625 50 / 50 Drain Output 110 / 120 150 / 300 150 / 300 Left Knee Hemo vac #1 110 / 120 150 / 300 150 / 300 Other: # Unmeasured Voi ds 1 3 1 Constitutional: WD/WN, vitals as above no acute distress Musculoskeletal: prevena was not holding suction, dressing was taken down, the top part of the prevena was damp and not holding suction, it was reinforced and currently functioning well. Results & Data ([facility]) Vital Signs (Past 12 Hours) Vital Signs Temp Pulse Resp BP Pulse Ox 01/23/20 23:55 36.6 C 101 H 30 H 144/79 H 92 Laboratory Results Laboratory Results WBC 9.31 K/uL (4.8-10.8) 01/24/20 04:29 RBC 3.76 M/uL (4.7-6.1) L 01/24/20 04:29 Hgb 10.9 g/dL (14.0-18.0) L 01/24/20 04:29 Hct 33.5 % (42-52) L 01/24/20 04:29 MCV 89.1 fL (80-100) 01/24/20 04:29 MCH 29.0 pg (25-34) 01/24/20 04:29 MCHC 32.5 g/dL (32-36) 01/24/20 04:29 RDW Std Deviation 48.4 fL (36.4-46.3) H 01/24/20 04:29 RDW Coeff of Travis 14.9 % (11.5-14.5) H 01/24/20 04:29 Plt Count 300 K/uL (130-400) 01/24/20 04:29 MPV 8.5 fL (7.4-10.4) 01/24/20 04:29 Immature Gran % (Auto) 0.3 % 01/24/20 04:29 Neut % (Auto) 74.8 % 01/24/20 04:29 Lymph % (Auto) 10.1 % 01/24/20 04:29 Sully % (Auto) 9.6 % 01/24/20 04:29 Eos % (Auto) 4.7 % 01/24/20 04:29 Baso % (Auto) 0.5 % 01/24/20 04:29 Immature Gran # (Auto) 0.03 K/uL (0.00-0.02) H 01/24/20 04:29 Neut # (Auto) 6.96 K/uL (1.4-6.5) H 01/24/20 04:29 Lymph # (Auto) 0.94 K/uL (1.2-3.4) L 01/24/20 04:29 Sully # (Auto) 0.89 K/uL (0.11-0.59) H 01/24/20 04:29 Eos # (Auto) 0.44 K/uL (0-0.5) 01/24/20 04:29 Baso # (Auto) 0.05 K/uL (0-0.2) 01/24/20 04:29 ESR > 90 mm/hr (0-14) H 01/21/20 12:27 Sodium 137 mmol/L (136-145) 01/23/20 04:50 Potassium 3.5 mmol/L (3.5-5.1) 01/23/20 04:50 Chloride 106 mmol/L (98-107) 01/23/20 04:50 Carbon Dioxide 25 mmol/L (21-32) 01/23/20 04:50 Anion Gap 6.0 (3-11) 01/23/20 04:50 BUN 10 mg/dl (7-18) 01/23/20 04:50 Creatinine 0.57 mg/dl (0.6-1.4) L 01/24/20 04:29 Est Cr Clr Drug Dosing 192.4 ml/min 01/24/20 04:29 Est GFR ( Amer) 134.9 01/24/20 04:29 Est GFR (Non-Af Amer) 116.4 01/24/20 04:29 BUN/Creatinine Ratio 16.6 (10-20) 01/23/20 04:50 Glucose 95 mg/dl (70-99) 01/23/20 04:50 POC Glucose 92 mg/dl (70-99) 01/22/20 08:47 Calcium 8.4 mg/dl (8.5-10.1) L 01/23/20 04:50 C-Reactive Protein 33.70 mg/dl (0-0.29) H 01/21/20 12:27 Urine Color Dark Yellow 01/21/20 22:23 Urine Appearance Cloudy (Clear) A 01/21/20 22:23 Urine pH 5.5 (4.5-7.5) 01/21/20 22:23 Ur Specific [place] 1.041 (1.000-1.030) H 01/21/20 22:23 Urine Protein 2+ (Negative) H 01/21/20 22:23 Urine Glucose (UA) Negative (Negative) 01/21/20 22:23 Urine Ketones 1+ (Negative) H 01/21/20 22:23 Urine Blood Trace (Negative) H 01/21/20 22:23 Urine Nitrite Positive (Negative) A 01/21/20 22:23 Urine Bilirubin Negative (Negative) 01/21/20 22:23 Urine Urobilinogen Positive (Negative) H 01/21/20 22:23 Ur Leukocyte Esterase Trace (Negative) H 01/21/20 22:23 Urine WBC (Auto) 1-5 /hpf (0-5) 01/21/20 22:23 Urine RBC (Auto) 5-10 /hpf (0-4) H 01/21/20 22:23 U Hyaline Cast (Auto) 10-30 /lpf (0-5) H 01/21/20 22:23 U Epithel Cells (Auto) 20-30 /lpf (0-5) H 01/21/20 22:23 Urine Bacteria (Auto) Negative (Negative) 01/21/20 22:23 Synovial Source KNEE 01/21/20 11:45 Synovial Color YELLOW 01/21/20 11:45 Synovial Appearance CLOUDY 01/21/20 11:45 Synovial WBC 106048 /ul (0-200) H 01/21/20 11:45 Synovial RBC 47217 /uL 01/21/20 11:45 Synovial Polynuclear % 94.6 % 01/21/20 11:45 Synovial Mononuclear % 5.4 % 01/21/20 11:45 Synovial Crystals 01/21/20 11:45 Vancomycin Trough 12.0 mcg/ml (See Comment) 01/23/20 13:42 Blood Type A Positive 01/21/20 12:30 Antibody Screen NEGATIVE 01/21/20 12:30
[2020-01-24] MEDS: AMANTADINE HCL 100 MG CAPSULE PO SCH ×2 (08:46→21:04)
[2020-01-24] MEDS: DULOXETINE HCL 30 MG CAP PO SCH (08:46)
[2020-01-24] MEDS: ENOXAPARIN INJ 40 MG/0.4 ML SYR SQ SCH (08:46)
[2020-01-24] MEDS: DOCUSATE SODIUM 100 MG CAP PO SCH ×2 (08:46→21:04)
[2020-01-24] MEDS: MULTIVITAMIN TAB PO SCH (08:47)
--- NOTE | 2020-01-24 09:24 | Hospitalist Progress Note ---
Date of Service January 24, 2020 Assessment & Plan (1) Infection of prosthetic left knee joint: S/p Left Knee Incision and Drainage, Irrigation and Debridment with Tibial Polyethylne Exchange, Excision of Loose Patella polyethylene, Patellectomy, placement of antibiotic Beads closure over drains and superficial wound VAC application (Left) Continue IV vancomycin initial culture from 01/20 with MRSA and then surgical culture with MRSA ID plans for 6 weeks of IV antibiotics consented for PICC today, will get it later will need to determine if he can do home antibiotics vs short term rehab/SNF stay await final recommendations from ID tomorrow (2) Anxiety: Continue home duloxetine patient's mood is stable had some anxiety last night, concerned about his care, but much better now (3) Depression: As above (4) Parkinson disease: continue home amantadine, sinemet, and entacapone seen by Dr. Vasquez, he feels that he is at baseline has a history of bilateral DBS can follow up with [facility] neurology he had a BM yesterday (5) Hypokalemia: Resolved (6) Acute blood loss anemia: due to surgery Hb stable today at 10.9, no further signs of blood loss Admission and Anticipated Discharge Date Admission Date: January 21, 2020 Subjective patient doing well this morning, no distress ate his entire breakfast, he had a BM yesterday no chest pain, no dyspnea, no cough, no fever/chills left knee pain is well controlled discussed need for PICC line, he signed consent reviewed labs, WBC normal, Hb stable, Cr normal continue on Vancomycin with pharmacy dosing discussed with the patient that he will either need home IV or will need to go to SNF, depends often on insurance and his mobility Review of Systems Review of Systems: All systems reviewed & are unremarkable except as noted in HPI & below Physical Exam Constitutional: WD/WN, vitals as above Eyes: PERRL, conjunctivae normal, anicteric sclerae ENMT: external ear and nose normal, oropharynx normal Neck: trachea midline, no thyromegaly Respiratory: normal respiratory effort, lungs clear to auscultation Cardiovascular: RRR, no murmur, no edema Gastrointestinal (Abdomen): normal bowel sounds, soft, nontender, no hepatosplenomegaly Musculoskeletal: Head/Neck/Chest: normocephalic and head atraumatic Extremities: + limited ROM of extremities and + abnormal strength; + extremities abnormal to inspection (left knee swollen, wrapped) Skin: no rashes, warm and dry Neurologic: normal touch/pain/proprioception, CN's II-XI intact bilaterally, deep tendon reflexes 2+ bilaterally and awake; no focal motor deficits and not confused Motor/Sensory: + tremor Psychiatric: A+Ox3, euthymic affect Lymphatic: no cervical or axillary lymphadenopathy Results & Data Results & Data ([facility]) Vital Signs (Past 12 Hours) Vital Signs Temp Pulse Resp BP Pulse Ox 01/24/20 08:18 36.9 C 102 H 32 H 151/80 H 96 01/23/20 23:55 36.6 C 101 H 30 H 144/79 H 92 Laboratory Results Laboratory Results - last 24 hr 01/23/20 01/24/20 01/24/20 13:42 04:29 04:29 WBC 9.31 RBC 3.76 L Hgb 10.9 L Hct 33.5 L MCV 89.1 MCH 29.0 MCHC 32.5 RDW Std Deviation 48.4 H RDW Coeff of Travis 14.9 H Plt Count 300 MPV 8.5 Immature Gran % (Auto) 0.3 Neut % (Auto) 74.8 Lymph % (Auto) 10.1 [place] % (Auto) 9.6 Eos % (Auto) 4.7 Baso % (Auto) 0.5 Immature Gran # (Auto) 0.03 H Neut # (Auto) 6.96 H Lymph # (Auto) 0.94 L [place] # (Auto) 0.89 H Eos # (Auto) 0.44 Baso # (Auto) 0.05 Creatinine 0.57 L Est Cr Clr Drug Dosing 192.4 Est GFR ( Amer) 134.9 Est GFR (Non-Af Amer) 116.4 Vancomycin Trough 12.0 Medications Administered Current Inpatient Medications Acetaminophen (Tylenol) 1,000 mg PO Q8 [facility] Stop: 02/21/20 14:23 Last Admin: 01/24/20 06:04 Dose: 1,000 mg Documented by: Amantadine HCl (Symmetrel) 100 mg PO BID [facility] Stop: 02/20/20 20:59 Last Admin: 01/24/20 08:46 Dose: 100 mg Documented by: Bisacodyl (Dulcolax) 10 mg FL DAILY PRN PRN Reason: Constipation Stop: 02/21/20 14:23 Carbidopa/Levodopa (Sinemet 25/100 Mg) 1 tab PO 0700,1000,1700,2200 PRN; Protocol PRN Reason: PARKINSONS Stop: 02/21/20 21:59 Carbidopa/Levodopa (Sinemet 25/100 Mg) 1 tab PO 0700,1000,1700,2200 [facility]; Protocol Stop: 02/21/20 21:59 Last Admin: 01/24/20 06:04 Dose: 1 tab Documented by: Carbidopa/Levodopa (Sinemet Cr 50/200mg) 1 tab PO 0700,1000,1700,2200 [facility] Stop: 02/21/20 21:59 Last Admin: 01/24/20 06:04 Dose: 1 tab Documented by: Diphenhydramine HCl (Benadryl Capsule) 25 mg PO Q8H PRN PRN Reason: Itching Stop: 02/20/20 10:18 Docusate Sodium (Colace) 100 mg PO BID [facility] Stop: 02/21/20 20:59 Last Admin: 01/24/20 08:46 Dose: 100 mg Documented by: Duloxetine HCl (Cymbalta) 30 mg PO DAILY [facility] Stop: 02/21/20 08:59 Last Admin: 01/24/20 08:46 Dose: 30 mg Documented by: Enoxaparin Sodium (Lovenox) 40 mg SQ QAM [facility] Stop: 02/22/20 13:44 Last Admin: 01/24/20 08:46 Dose: 40 mg Documented by: Entacapone (Comtan) 200 mg PO 0700,1000,1700,2200 [facility] Stop: 02/21/20 21:59 Last Admin: 01/24/20 06:04 Dose: 200 mg Documented by: Hydromorphone HCl (Dilaudid) 0.5 mg IV Q4H PRN PRN Reason: Pain or Pre PT Stop: 02/05/20 14:23 Vancomycin HCl 1,500 mg/ (Sodium Chloride) 530 mls @ 200 mls/hr IV Q8H [facility] Stop: 03/05/20 01:59 Last Infusion: 01/24/20 08:20 Dose: 0 mls/hr Documented by: Magnesium Hydroxide (Milk Of Magnesia) 30 ml PO Q6H PRN PRN Reason: Constipation Stop: 02/21/20 14:23 Miscellaneous (Order Awaiting Action) 1 ea N/A QS [facility] Stop: 02/20/20 14:59 Last Admin: 01/24/20 08:46 Dose: Not Given Documented by: Miscellaneous Information (Consult) 1 ea N/A UD PRN PRN Reason: Consult Stop: 02/20/20 10:28 Multivitamins (Multivitamin Tab) 1 tab PO QAM [facility] Stop: 02/22/20 08:59 Last Admin: 01/24/20 08:47 Dose: 1 tab Documented by: Naloxone HCl (Narcan) 0.1 mg IV Q5M PRN PRN Reason: Oversedation/Resp Depression Stop: 02/21/20 14:23 Ondansetron HCl (Zofran) 4 mg IV Q6H PRN PRN Reason: Nausea And Vomiting Stop: 02/21/20 14:23 Oxycodone HCl (Roxicodone Immediate Rel) 5 - 10 mg PO Q4H PRN PRN Reason: Pain or Pre PT Stop: 02/05/20 14:23 Last Admin: 01/23/20 05:57 Dose: 5 mg Documented by: Sennosides (Senokot) 17.2 mg PO HS [facility] Stop: 02/21/20 20:59 Last Admin: 01/23/20 21:01 Dose: 17.2 mg Documented by: PG Care Time/CCT Total # of Minutes Spent Total Time Spent with Patient: Total time spent is greater than 50% in coordination of care (as documented) at patient's floor/unit and/or counseling patient: Coding Level of Care Code 45036 Subseq Hosp Care Lvl 2 Diagnoses Infection of prosthetic left knee joint T84.54XA Anxiety F41.9 Depression F32.9 Parkinson disease G20 Hypokalemia E87.6 Acute blood loss anemia D62
[2020-01-24] MEDS ORDERED: HEPARIN 100 UNIT/ML 5ML FLUSH FLUSH PRN (10:47)
[2020-01-24] MEDS: DAPTOmycin 475 MG in SYRINGE 0 ML IV SCH (14:14)
[2020-01-24 16:48] LABS: Appearance Urine Clear (Clear); Bilirubin Urine Negative (Negative); Blood Urine Negative (Negative); Color Urine Dark Yellow; Glucose Urine UA Negative (Negative); Ketones Urine Trace (Negative); Leukocyte Esterase Urine Negative (Negative); Nitrite Urine Negative (Negative); Protein Urine Negative (Negative); Specific Gravity Urine 1.022 (1.000-1.030); Urobilinogen Urine Negative (Negative)
[2020-01-24] MEDS: CEFEPIME 1,000 MG in SYRINGE 0 ML IV SCH (18:27)
[2020-01-24] MEDS: SENNA 8.6 MG TAB PO SCH (21:04)
[2020-01-25] MEDS: VESICARE~ORDER AWAITING ACTION SCH ×3 (01:43→15:34)
[2020-01-25] MEDS: CARBIDOPA/LEVODOPA 25/100MG TAB PO PRN (01:57)
[2020-01-25] MEDS: CEFEPIME 1,000 MG in SYRINGE 0 ML IV SCH (05:09)
[2020-01-25] MEDS: ACETAMINOPHEN 500 MG TAB PO SCH ×3 (05:09→21:30)
[2020-01-25] MEDS ORDERED: VANCOMYCIN TROUGH ONE (05:30)
[2020-01-25] MEDS: CARBIDOPA/LEVODOPA 25/100MG TAB PO SCH ×4 (06:54→21:32)
[2020-01-25] MEDS: CARBIDOPA/LEVODOPA 50/200MG EXT REL TAB PO SCH ×4 (06:54→21:30)
[2020-01-25] MEDS: ENTACAPONE 200 MG TAB PO SCH ×4 (06:55→21:33)
[2020-01-25] MEDS: AMANTADINE HCL 100 MG CAPSULE PO SCH ×2 (09:07→21:31)
[2020-01-25] MEDS: DOCUSATE SODIUM 100 MG CAP PO SCH ×2 (09:07→21:31)
[2020-01-25] MEDS: MULTIVITAMIN TAB PO SCH (09:08)
[2020-01-25] MEDS: ENOXAPARIN INJ 40 MG/0.4 ML SYR SQ SCH (09:08)
[2020-01-25] MEDS: DULOXETINE HCL 30 MG CAP PO SCH (09:08)
--- NOTE | 2020-01-25 09:37 | Orthopedic Progress Note ---
Date of Service January 25, 2020 Assessment & Plan (1) Infection of prosthetic left knee joint: Postop day 3 status post incision drainage irrigation debridement patellectomy excision polyethylene patella component and tibial polyethylene exchange. Patient had compromised skin at the time of surgery in this area necrosis. There is some potential for this to heal by secondary intention but likely will be prolonged healing process. At this time continue on appropriate IV antibiotics and frequent dressing changes. Possible reapplication of the wound VAC if continues have marked drainage. Dressing changes 3 times daily for now. Continue knee immobilizer to help stabilize wound even when patient is in bed. 0 to 90 degrees range of motion only in PT. Will need rehab or [facility] facility type treatment upon discharge. Admission and Anticipated Discharge Date Admission Date: January 21, 2020 Subjective Patient feels knee step does have any pain no complaints otherwise Review of Systems Review of Systems: Mental status stable alert oriented Physical Exam Physical Exam: Left knee with central skin necrosis area of 2-1/2 x 2 cm full- thickness skin loss with loss of fixation of 3 of the randy. No knee effusion. Drains have all been removed including superficial wound VAC which was not holding suction. Results & Data ([facility]) Vital Signs (Past 12 Hours) Vital Signs Temp Pulse Resp BP Pulse Ox 01/25/20 07:16 36.8 C 88 20 151/86 H 93 01/24/20 22:55 36.8 C 95 H 18 128/86 92
--- NOTE | 2020-01-25 10:41 | Infectious Disease Progress Nt ---
Date of Service January 25, 2020 Assessment & Plan (1) Infection of prosthetic left knee joint: cultures growing MRSA. Will continue dapto, will need 6 weeek IV abx, will need weekly cbc, cmp, esr, cpk while on dapto. will stop cefepime. Pt will need alternative ID provider post d/c as I will be leaving area. Admission and Anticipated Discharge Date Admission Date: January 21, 2020 Subjective pt remains on broad spectrum abx, tolerating well. aspiration and OR cultures growing MRSA. remains afebrile. wbc 9 (5/3), creat 0.5. UA negative. blood cultures negative. Results & Data ([facility]) Vital Signs (Past 12 Hours) Vital Signs Temp Pulse Resp BP Pulse Ox 01/25/20 07:16 36.8 C 88 20 151/86 H 93 01/24/20 22:55 36.8 C 95 H 18 128/86 92 Laboratory Results Microbiology 01/22/20 09:57 Knee,Left Gram Stain - Final 01/22/20 09:57 Knee,Left Aerobic and Anaerobic Culture - Preliminary Staph aureus MRSA 01/21/20 12:30 Blood Aerobic Blood Culture - Preliminary No growth in Aerobic bottle after 48 hours. 01/21/20 12:30 Blood Anaerobic Blood Culture - Preliminary No growth in Anaerobic bottle after 48 hours. 01/21/20 12:18 Blood Aerobic Blood Culture - Preliminary No growth in Aerobic bottle after 48 hours. 01/21/20 12:18 Blood Anaerobic Blood Culture - Preliminary No growth in Anaerobic bottle after 48 hours. 01/21/20 11:45 Knee,Left Gram Stain - Final 01/21/20 11:45 Knee,Left Aerobic and Anaerobic Culture - Preliminary Staph aureus MRSA PG Care Time/CCT Total # of Minutes Spent Total Time Spent with Patient: Total time spent is greater than 50% in coordination of care (as documented) at patient's floor/unit and/or counseling patient: Coding Level of Care Code 74533 Subseq Hosp Care Lvl 1 Diagnoses Infection of prosthetic left knee joint T84.54XA
--- NOTE | 2020-01-25 12:04 | Hospitalist Progress Note ---
Date of Service January 25, 2020 Assessment & Plan (1) Infection of prosthetic left knee joint: S/p Left Knee Incision and Drainage, Irrigation and Debridment with Tibial Polyethylne Exchange, Excision of Loose Patella polyethylene, Patellectomy, placement of antibiotic Beads closure over drains and superficial wound VAC application (Left) Continue IV Dapto and dc Cefepime today as per ID recs--> continue for 6 weeks total - needs weekly CBC, CMP, CPK, ESR,CRP while on abx PICC in place RUE initial culture from 01/20 with MRSA and then surgical culture with MRSA resistance to clinda, erythromycin, and of course, oxacillin -having some drainage from knee after slightly opened up from a fall onto his knees yesterday as per RN -dressing changes tid, wear knee immobilizer when in bed PT/OT needs rehab F/u with Ortho as they see fit (2) Anxiety: Continue home duloxetine Very anxious today secondary to encephalopathy worsening underlying Psych issues Discussed with --> absolutely no Haldol or meds to be given unless checked with her and Neuro - requested a Zoom meeting which was helpful at calming him down and a Psych consult for therapy (3) Depression: As above (4) Parkinson disease: continue home amantadine, sinemet, and entacapone seen by Dr. Vasquez, he feels that he is at baseline has a history of bilateral DBS can follow up with [facility] neurology -no BM in several days-advised bowel regimen to RN-use prns (5) Hypokalemia: Resolved (6) Acute blood loss anemia: due to surgery Hb stable at 10.9, no further signs of blood loss -follow CBC in AM (7) Acute encephalopathy: secondary to infection in setting of underlying Parkinson's and Psychiatric issues -see plan as above DVT proph-Lovenox Dispo-to rehab hopefully tomorrow or when ok with Ortho Hospitalist service will follow along due to ongoing anxiety, Parkinson's, and encephalopathy Admission and Anticipated Discharge Date Admission Date: January 21, 2020 Subjective Patient remains still somewhat confused which is a decrease from his baseline mental status as per his . He is able to follow directions. His speech is garbled and rapid which his reports does usually get worse when he is confused. He was able to slow down his speech when I asked him to. He had urinated on the floor when I walked in the room. He has not had a bowel movement in several days. He denies any chest pain or shortness of breath, no abdominal pain. I discussed his care with his on the phone for 17 minutes. Review of Systems Review of Systems: All systems reviewed & are unremarkable except as noted in HPI & below Physical Exam Constitutional: WD/WN, vitals as above Eyes: + anicteric sclerae Neck: trachea midline, no thyromegaly Respiratory: normal respiratory effort, lungs clear to auscultation Cardiovascular: RRR, no murmur, no edema Chest (Breasts): Chest: normal inspection of chest Gastrointestinal (Abdomen): normal bowel sounds, soft, nontender, no h epatosplenomegaly Musculoskeletal: Extremities: + extremities abnormal to inspection (Left knee with dressing and Carlos wrap in place with knee immobilizer), no cyanosis and no clubbing Skin: no rashes, warm and dry Neurologic: moves all extremities, awake and + confused; no focal motor deficits Speech / Cognition: + abnormal speech Psychiatric: Orientation: alert and cooperative Speech: + pressured speech Lymphatic: no lymphedema Results & Data Results & Data ([facility]) Vital Signs (Past 12 Hours) Vital Signs Temp Pulse Resp BP Pulse Ox 01/25/20 07:16 36.8 C 88 20 151/86 H 93 Laboratory Results Wound culture with MRSA Urine culture-no growth PG Care Time/CCT Total # of Minutes Spent Total Time Spent with Patient: Total time spent is greater than 50% in coordination of care (as documented) at patient's floor/unit and/or counseling patient: Coding Level of Care Code 80092 Subseq Hosp Care Lvl 3 Diagnoses Infection of prosthetic left knee joint T84.54XA Anxiety F41.9 Depression F32.9 Parkinson disease G20 Hypokalemia E87.6 Acute blood loss anemia D62 Acute encephalopathy G93.40
[2020-01-25] MEDS: DAPTOmycin 475 MG in SYRINGE 0 ML IV SCH (13:37)
[2020-01-25] MEDS: MAGNESIUM HYDROXIDE SUSP 30 ML UDC PO PRN (13:55)
[2020-01-25] MEDS: SENNA 8.6 MG TAB PO SCH (21:31)
[2020-01-26] MEDS: VESICARE~ORDER AWAITING ACTION SCH ×3 (00:28→17:32)
[2020-01-26 05:16] LABS: Basophils # (auto) 0.05 K/uL (0-0.2); Basophils % (auto) 0.5 %; Eosinophils # (auto) 0.38 K/uL (0-0.5); Eosinophils % (auto) 3.6 %; Hematocrit (blood only) 36.4 % (42-52); Hemoglobin 11.7 g/dL (14.0-18.0); Immature Granulocytes # (auto) 0.04 K/uL (0.00-0.02); Immature Granulocytes % (auto) 0.4 %; Lymphocytes # (auto) 1.17 K/uL (1.2-3.4); Mean Corpuscular Hemoglobin 29.1 pg (25-34); Mean Corpuscular Hgb Conc 32.1 g/dL (32-36); Mean Corpuscular Volume 90.5 fL (80-100); Mean Platelet Volume 8.2 fL (7.4-10.4); Monocytes # (auto) 0.59 K/uL (0.11-0.59); Monocytes % (auto) 5.5 %; Neutrophils # (auto) 8.42 K/uL (1.4-6.5); Platelet Count 380 K/uL (130-400); RDW Coefficient of Variation 14.7 % (11.5-14.5); RDW Standard Deviation 48.4 fL (36.4-46.3); Red Blood Count 4.02 M/uL (4.7-6.1); White Blood Count 10.65 K/uL (4.8-10.8)
[2020-01-26 05:34] LABS: Albumin Level 2.4 gm/dl (3.4-5.0); BUN Creatinine Ratio 16.1 (10-20); Bilirubin Direct 0.2 mg/dl (0-0.2); Calcium 8.3 mg/dl (8.5-10.1); Creatinine Clr Calc Pharmacy 154.5 ml/min; Est GFR (African American) 123.3; Est GFR (Non-African American) 106.4; Potassium 3.6 mmol/L (3.5-5.1)
[2020-01-26 05:37] LABS: Bilirubin,Total 0.4 mg/dl (0.2-1); C Reactive Protein 11.7 mg/dl (0-0.29); Total Protein 6.8 gm/dl (6.4-8.2)
[2020-01-26] MEDS: ACETAMINOPHEN 500 MG TAB PO SCH ×3 (05:45→21:52)
[2020-01-26] MEDS: ENTACAPONE 200 MG TAB PO SCH ×4 (06:14→21:51)
[2020-01-26] MEDS: CARBIDOPA/LEVODOPA 50/200MG EXT REL TAB PO SCH ×4 (06:14→21:51)
[2020-01-26] MEDS: CARBIDOPA/LEVODOPA 25/100MG TAB PO SCH ×4 (06:14→21:51)
[2020-01-26] MEDS: AMANTADINE HCL 100 MG CAPSULE PO SCH ×2 (10:11→21:50)
[2020-01-26] MEDS: MULTIVITAMIN TAB PO SCH (10:11)
[2020-01-26] MEDS: DOCUSATE SODIUM 100 MG CAP PO SCH ×2 (10:11→21:50)
[2020-01-26] MEDS: CARBIDOPA/LEVODOPA 25/100MG TAB PO PRN (10:12)
[2020-01-26] MEDS: DULOXETINE HCL 30 MG CAP PO SCH (10:12)
--- NOTE | 2020-01-26 10:12 | Orthopedic Progress Note ---
Date of Service January 26, 2020 Assessment & Plan (1) Infection of prosthetic left knee joint: Postop day 3 status post incision drainage irrigation debridement patellectomy excision polyethylene patella component and tibial polyethylene exchange. -Patient had compromised skin at the time of surgery in this area necrosis. There is some potential for this to heal by secondary intention but likely will be prolonged healing process. -At this time continue on appropriate IV antibiotics and frequent dressing changes. Dressing changes 3 times daily for now. -Continue knee immobilizer to help stabilize wound even when patient is in bed. 0 to 90 degrees range of motion only in PT. -Will need rehab or senior care facility type treatment upon discharge. -Wound care team consulted for possibility of wound VAC placement. We will see what the recommendations are today. Admission and Anticipated Discharge Date Admission Date: January 21, 2020 Subjective Patient currently lying jail between prone and on his side in his bed. He was sleeping initially but is arousable. Patient understands questions and is difficult to understand with his replies. No apparent discomfort at this time. Pain appears to be controlled. Physical Exam Physical Exam: Dressing is intact. Immobilizer noted. Results & Data ([facility]) Vital Signs (Past 12 Hours) Vital Signs Temp Pulse Pulse Resp BP BP Pulse Ox 01/26/20 07:17 36.7 C 91 H 20 139/83 98 01/25/20 23:15 36.7 C 88 16 161/98 H 94 Diagnostic Findings Name: LEVON SAMANIEGO Acct: [id number] Status: [place] 1965 [facility] [place] 01/21/20 Age: 54 Sex: M Dis Date: Loc: Medical/Surgical/Ortho 3 [facility]/Bed: E300-1 Spec: [id number] Collected: 01/22/20 Received: 01/22/[address]: Ray Child M.D. Source: Knee,Left OV Order: Ordered: Aer/Cynthia Cult/Sm Comments: Reason for Exam left knee incision and drainage, poly exchange Procedure Result Verified Site Gram Stain Final 01/22/20-1044 Gram Stain Result Many Polys No Organisms Seen Aero/Cynthia Cult Preliminary 01/26/200847 Organism 1 Staph aureus MRSA Quantity Few Sens Sensitivities to Follow No Anaerobes Isolated No Anaerobes Isolated MRSA RX M.I.C. --- --------- Clindamycin R <=0.5 Daptomycin S <=0.5 Erythromycin R >4 Oxacillin R >2 Rifampin S <=1 Tetracycline S <=4 Trimeth/Sulfa S <=0.5/9.5 Vancomycin S 2 S = SENSITIVE I = INTERMEDIATE R = RESISTANT
[2020-01-26] MEDS: ENOXAPARIN INJ 40 MG/0.4 ML SYR SQ SCH (10:15)
--- NOTE | 2020-01-26 11:35 | Psychiatric Consultation ---
Date of Consultation January 26, 2020 Impression / Recommendations Impression Dr. Micaela Alexandre was directly involved in review and discussion of the patient's case and participated in medical decision making regarding treatment recommendations. RECOMMENDATIONS: 01/25 - Pt reports feeling as though anxiety is situational and related to his hospitalization specifically. Anxiety is calmed by phone calls to , watching TV, and conversations with staff. - Given complexities of patient's medical diagnoses and neurological history - it seems reasonable to utilize therapeutic treatment for anxiety as opposed to adjusting medications at this time. Coping strategies were reviewed and discussed. It is certainly possible to further titrate his dose of duloxetine if increased anxiety is prolonged or should worsen significantly. Documentation suggests these changes should be reviewed with his neurologist, but again there is no acute indication to titrate the medication at this time. - Staff can offer assistance with anxiety by offering Zoom meeting with patient's , suggesting distraction techniques, or engaging the patient in conversation about the anxiety/stress. Our staff will continue to round on patient and offer support during the remainder of his hospitalization. - At this time, patient is declining referrals for outpatient therapy or outpatient psychiatry. He verbalizes desire to continue to receive prescriptions through his PCP. Pt encouraged to inform our team if he should change his mind. - Appreciate the opportunity to participate in the care of this patient. Please reach out to our team with any additional questions or updates. (1) Anxiety: (2) Parkinson disease: (3) Infection of prosthetic left knee joint: Risk Factors Assessment Do You Have Access To A Gun?: No Psych History Identifying Data 54-year-old male admitted medically on 01/21/2020 after presenting with increased left knee pain and swelling - s/p left TKA in 2014 and revision of the patella in 2019. Pt was admitted by orthopedic service and hospitalist service was consulted for assistance with management of infection of prosthetic left knee join, Parkinson disease, and hypokalemia. Psychiatric consultation was requested to evaluate patient for anxiety. Chief Complaint "Oh, things are definitely better at this point." History of Present Illness Al Knox is a 54-year-old male admitted medically on 01/21/2020 upon direct admission from [facility] for infection of his left knee. Pt is s/p left TKA in 2015, with revision of the patella in 2019. PMH is also significant for Parkinson's disease, urinary incontinence, anxiety, and depression. It is reported Hospitalist service was consulted for assistance with management. Our service was consulted to evaluate patient for anxiety. Pt was last seen on our consult service in 2019 for similar concerns. Pt is cooperative with psychiatric consultation. He is awake and alert, pleasant in conversation. Pt states that he presented to the hospital due to worsening knee pain, but states "things are definitely better at this point." Pt admits to increased anxiety, but does feel it is primarily related to his hospitalization. Pt denies increased anxiety or worsening depressive symptoms prior to his hospitalization. At one point, patient states "I don't know how you all hold it together." Pt does imply that restrictions related to COVID-19 have been influencing his anxiety as well - but does admit to feeling more calm when he is able to speak to his via Zoom. Pt denies SI/HI and other safety concerns at this time. According to the patient, he and his PCP had been taking efforts to reduce the patient's dose of duloxetine. Pt's perception is "things had just been going well, I think we were just stopping it." Pt denies any concerns related to this change. While the patient reports willingness to titrate the dose, he is also agreeable with utilizing coping strategies for the time being. Pt is able to discuss coping strategies including sleep, watching tv, and calling "trusted friends." Pt declines offer to make referrals for outpatient therapy and psychiatry - stating "I'm comfortable with what I currently have." Past Psychiatric History Current Psychiatric Diagnosis: Unspecified anxiety and depression Outpatient Services: PCP manages psychiatric medications. Previous Psych Admissions: Ad[facility] - 2010 and 2012. Reported admission to [facility]. Do You Have Access To A Gun?: No History of Previous Suicide Attempt: No Past Medication Trials: Per 08/2019 Psychiatric Consultation: 1. Zoloft 2. Mirapex 3. Trazodone 4. Paxil 5. Prozac 6. Lexapro 7. Cymbalta 8. Wellbutrin 9. Seroquel 10.Adderall 11.Klonopin Allergies Allergy/AdvReac Type Severity Reaction Status Date / Time morphine Allergy Mild Itching Verified 11/24/19 10:22 buspirone [From BuSpar] AdvReac Severe Verified 11/24/19 10:22 haloperidol [From Haldol] AdvReac Severe Verified 11/24/19 10:22 pramipexole [From Mirapex] AdvReac Severe Verified 11/24/19 10:22 quetiapine [From Seroquel] AdvReac Severe Verified 11/24/19 10:22 Home Medications Home Medications Medication Instructions Recorded Confirmed Type amantadine HCl 100 mg tablet 100 mg PO BID 06/30/19 01/21/20 History carbidopa 25 mg-levodopa 100 mg 1 tab PO QID 06/30/19 01/21/20 History tablet carbidopa ER 50 mg-levodopa 200 mg 1 tab PO QID 06/30/19 01/21/20 History tablet,extended release entacapone 200 mg tablet 200 mg PO QID 06/30/19 01/21/20 History carbidopa-levodopa 1 tab PO QID PRN 08/28/19 01/21/20 History solifenacin [Vesicare] 10 mg PO QPM 08/28/19 01/21/20 History acetaminophen 1,000 mg PO Q8 #100 tab 09/12/19 01/21/20 Rx duloxetine 30 mg capsule,delayed 30 mg PO DAILY 11/24/19 01/21/20 History release Family History Reports father with depression and grandfather with alcoholism. Substance Abuse History Pt denies significant alcohol consumption or use of illicit substances. 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) Marital Status: (to , Milagros) Number Of Children: 2 children Beliefs That Will Affect Care: Spiritual History of Legal Problems: Denied Psychological Trauma History Comment: Denied Patient History Medical History Anxiety Depression Hearing deficit RESIGHINI left ear Osteoarthritis Parkinson disease s/p deep brain stimulator Recurrent dislocation of left patella Sleep apnea does not tolerate device Urinary incontinence Venous stasis of both lower extremities Vitamin D deficiency (Inactive) Surgical History History of appendectomy History of carpal tunnel release History of colonoscopy History of foot surgery RECONSTRUCTION - RT History of left knee replacement History of revision of total knee arthroplasty LEFT History of shoulder surgery LEFT X 2; RT X 1 S/P deep brain stimulator placement Family History Grandmother Family history of diabetes mellitus Father Hypertension Social History Preferred Language: Kinyarwanda Communication Ability: Impaired 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 Architect Required: No Beliefs That Will Affect Care: Spiritual marital status: Current Living Situation: Spouse Other Information That Helps Us Care for You: No Feels Safe at Home: Yes Safety Concerns: Feels Safe At This Time Smoking Status: Never smoker Second Hand Exposure: No ; Hx Alcohol Use: No Hx Substance Use: Yes substance use type: marijuana Substance Use Type Other:: medical marijuana Last Used Substance Other:: patient states years since use Physical Exam Psychiatric: Orientation: alert, oriented x 3 and cooperative Apperance: appropriately dressed and + disheveled Obese-appearing male, seated on edge of bed in no acute distress. Pt is appropriately dressed for setting, wearing hospital gown. Although level of hygiene appears adequate, patient appears mildly disheveled with unkempt hair and stubble on face. Eye Contact: + fair eye contact Motor Behavior: + tremor (full body) Speech: + abnormal rate/rhythm/volume of speech (dysarthric speech, muffled and difficult to understand at times) Affect: + blunted affect Mood: + anxious mood ("I think [the anxiety] is highly related to being in the hospital"); no depressed mood Thought Process: goal directed thought process, clear/coherent thought process and thought association intact Thought Content: reality based without delusions; no hopelessness Suicidal Thoughts: denies suicidal thoughts and denies suicidal intent Homicidal Thoughts: denies homicidal thoughts Hallucinations: no auditory hallucinations and no visual hallucinations Cognition: recent memory grossly intact and attention grossly intact Estimated Intelligence: consistent with education level Insight: + fair insight Judgement: + fair judgement Vital Signs (Past 24 Hours): Last Vital Signs Temp 36.7 C 01/26/20 07:17 Pulse 91 H 01/26/20 07:17 Resp 20 01/26/20 07:17 BP 139/83 01/26/20 07:17 Pulse Ox 98 01/26/20 07:17 Review of Systems Constitutional: reports intermittent difficulty with sleep Cardiovascular: denied Respiratory: denied Gastrointestinal: denied Neurological: denied Psychiatric: denies symptoms other than stated above Total of at least 10 systems reviewed, pertinent positives as above and in HPI. Results & Data (PSY) Medications Administered Acetaminophen (Tylenol) 1,000 mg PO Q8 RENAN Stop: 02/21/20 14:23 Last Admin: 01/26/20 05:45 Dose: 1,000 mg Documented by: [id number] Admin: 01/25/20 21:30 Dose: 1,000 mg Documented by: [id number] Admin: 01/25/20 13:38 Dose: Not Given Documented by: [id number] Admin: 01/25/20 05:09 Dose: 1,000 mg Documented by: [id number] Admin: 01/24/20 21:04 Dose: 1,000 mg Documented by: [id number] Admin: 01/24/20 14:14 Dose: Not Given Documented by: [id number] Admin: 01/24/20 06:04 Dose: 1,000 mg Documented by: [id number] Admin: 01/23/20 21:01 Dose: 1,000 mg Documented by: [id number] Admin: 01/23/20 13:59 Dose: 1,000 mg Documented by: [id number] Admin: 01/23/20 05:58 Dose: 1,000 mg Documented by: [id number] Admin: 01/22/20 21:57 Dose: 1,000 mg Documented by: [id number] Admin: 01/22/20 17:59 Dose: 1,000 mg Documented by: [id number] Amantadine HCl (Symmetrel) 100 mg PO BID RENAN Stop: 02/20/20 20:59 Last Admin: 01/26/20 10:11 Dose: 100 mg Documented by: [id number] Admin: 01/25/20 21:31 Dose: 100 mg Documented by: [id number] Admin: 01/25/20 09:07 Dose: 100 mg Documented by: [id number] Admin: 01/24/20 21:04 Dose: 100 mg Documented by: [id number] Admin: 01/24/20 08:46 Dose: 100 mg Documented by: [id number] Admin: 01/23/20 21:01 Dose: 100 mg Documented by: [id number] Admin: 01/23/20 09:00 Dose: 100 mg Documented by: [id number] Admin: 01/22/20 21:56 Dose: 100 mg Documented by: [id number] Admin: 01/22/20 14:44 Dose: 100 mg Documented by: [id number] Admin: 01/21/20 21:12 Dose: 100 mg Documented by: [id number] Carbidopa/Levodopa (Sinemet 25/100 Mg) 1 tab PO 0700,1000,1700,2200 PRN; Protocol PRN Reason: PARKINSONS Stop: 02/21/20 21:59 Last Admin: 01/26/20 10:12 Dose: 1 tab Documented by: [id number] Admin: 01/25/20 01:57 Dose: 1 tab Documented by: [id number] Carbidopa/Levodopa (Sinemet 25/100 Mg) 1 tab PO 0700,1000,1700,2200 RENAN; Protocol Stop: 02/21/20 21:59 Last Admin: 01/26/20 10:10 Dose: 1 tab Documented by: [id number] Admin: 01/26/20 06:14 Dose: 1 tab Documented by: [id number] Admin: 01/25/20 21:32 Dose: 1 tab Documented by: [id number] Admin: 01/25/20 18:15 Dose: 1 tab Documented by: [id number] Admin: 01/25/20 10:15 Dose: 1 tab Documented by: [id number] Admin: 01/25/20 06:54 Dose: 1 tab Documented by: [id number] Admin: 01/24/20 21:05 Dose: 1 tab Documented by: [id number] Admin: 01/24/20 17:56 Dose: 1 tab Documented by: [id number] Admin: 01/24/20 10:12 Dose: 1 tab Documented by: [id number] Admin: 01/24/20 06:04 Dose: 1 tab Documented by: [id number] Admin: 01/23/20 21:00 Dose: 1 tab Documented by: [id number] Admin: 01/23/20 17:26 Dose: 1 tab Documented by: [id number] Admin: 01/23/20 10:56 Dose: 1 tab Documented by: [id number] Admin: 01/23/20 07:16 Dose: 1 tab Documented by: [id number] Admin: 01/22/20 23:31 Dose: 1 tab Documented by: [id number] Carbidopa/Levodopa (Sinemet Cr 50/200mg) 1 tab PO 0700,1000,1700,2200 RENAN Stop: 02/21/20 21:59 Last Admin: 01/26/20 10:11 Dose: 1 tab Documented by: [id number] Admin: 01/26/20 06:14 Dose: 1 tab Documented by: [id number] Admin: 01/25/20 21:30 Dose: 1 tab Documented by: [id number] Admin: 01/25/20 18:14 Dose: 1 tab Documented by: [id number] Admin: 01/25/20 10:14 Dose: 1 tab Documented by: [id number] Admin: 01/25/20 06:54 Dose: 1 tab Documented by: [id number] Admin: 01/24/20 21:04 Dose: 1 tab Documented by: [id number] Admin: 01/24/20 17:57 Dose: 1 tab Documented by: [id number] Admin: 01/24/20 10:11 Dose: 1 tab Documented by: [id number] Admin: 01/24/20 06:04 Dose: 1 tab Documented by: [id number] Admin: 01/23/20 21:00 Dose: 1 tab Documented by: [id number] Admin: 01/23/20 17:27 Dose: 1 tab Documented by: [id number] Admin: 01/23/20 10:56 Dose: 1 tab Documented by: [id number] Admin: 01/23/20 07:16 Dose: 1 tab Documented by: [id number] Admin: 01/22/20 21:56 Dose: 1 tab Documented by: [id number] Docusate Sodium (Colace) 100 mg PO BID RENAN Stop: 02/21/20 20:59 Last Admin: 01/26/20 10:11 Dose: 100 mg Documented by: [id number] Admin: 01/25/20 21:31 Dose: 100 mg Documented by: [id number] Admin: 01/25/20 09:07 Dose: 100 mg Documented by: [id number] Admin: 01/24/20 21:04 Dose: 100 mg Documented by: [id number] Admin: 01/24/20 08:46 Dose: 100 mg Documented by: [id number] Admin: 01/23/20 21:01 Dose: 100 mg Documented by: [id number] Admin: 01/23/20 09:00 Dose: 100 mg Documented by: [id number] Admin: 01/22/20 20:50 Dose: 100 mg Documented by: [id number] Duloxetine HCl (Cymbalta) 30 mg PO DAILY RENAN Stop: 02/21/20 08:59 Last Admin: 01/26/20 10:12 Dose: 30 mg Documented by: [id number] Admin: 01/25/20 09:08 Dose: 30 mg Documented by: [id number] Admin: 01/24/20 08:46 Dose: 30 mg Documented by: [id number] Admin: 01/23/20 09:00 Dose: 30 mg Documented by: [id number] Admin: 01/22/20 14:43 Dose: 30 mg Documented by: [id number] Enoxaparin Sodium (Lovenox) 40 mg SQ QAM RENAN Stop: 02/22/20 13:44 Last Admin: 01/26/20 10:15 Dose: Not Given Documented by: [id number] Admin: 01/25/20 09:08 Dose: 40 mg Documented by: [id number] Admin: 01/24/20 08:46 Dose: 40 mg Documented by: [id number] Admin: 01/23/20 13:59 Dose: 40 mg Documented by: [id number] Entacapone (Comtan) 200 mg PO 0700,1000,1700,2200 RENAN Stop: 02/21/20 21:59 Last Admin: 01/26/20 10:11 Dose: 200 mg Documented by: [id number] Admin: 01/26/20 06:14 Dose: 200 mg Documented by: [id number] Admin: 01/25/20 21:33 Dose: 200 mg Documented by: [id number] Admin: 01/25/20 18:14 Dose: 200 mg Documented by: [id number] Admin: 01/25/20 10:15 Dose: 200 mg Documented by: [id number] Admin: 01/25/20 06:55 Dose: 200 mg Documented by: [id number] Admin: 01/24/20 21:04 Dose: 200 mg Documented by: [id number] Admin: 01/24/20 17:56 Dose: 200 mg Documented by: [id number] Admin: 01/24/20 10:11 Dose: 200 mg Documented by: [id number] Admin: 01/24/20 06:04 Dose: 200 mg Documented by: [id number] Admin: 01/23/20 21:01 Dose: 200 mg Documented by: [id number] Admin: 01/23/20 17:27 Dose: 200 mg Documented by: [id number] Admin: 01/23/20 10:56 Dose: 200 mg Documented by: [id number] Admin: 01/23/20 07:16 Dose: 200 mg Documented by: [id number] Admin: 01/22/20 21:56 Dose: 200 mg Documented by: [id number] Heparin Sodium (Beef Lung) (Heparin Sod 10 Unit/Ml Flush) 5 ml FLUSH PRN PRN PRN Reason: Flush Stop: 02/23/20 11:08 Last Admin: 01/26/20 04:58 Dose: 5 ml Documented by: [id number] Admin: 01/25/20 13:38 Dose: 5 ml Documented by: [id number] Admin: 01/25/20 11:45 Dose: 5 ml Documented by: [id number] Admin: 01/25/20 05:09 Dose: 5 ml Documented by: [id number] Admin: 01/25/20 02:50 Dose: 5 ml Documented by: [id number] Admin: 01/24/20 18:28 Dose: 5 ml Documented by: [id number] Admin: 01/24/20 14:15 Dose: 5 ml Documented by: [id number] Admin: 01/24/20 11:34 Dose: 5 ml Documented by: [id number] Daptomycin 475 mg/ Syringe 9.5 mls @ 0 mls/min IV Q24H RENAN; Protocol Stop: 03/06/20 13:59 Last Admin: 01/25/20 13:37 Dose: 1 mls/min Documented by: [id number] Admin: 01/24/20 14:14 Dose: 1 mls/min Documented by: [id number] Magnesium Hydroxide (Milk Of Magnesia) 30 ml PO Q6H PRN PRN Reason: Constipation Stop: 02/21/20 14:23 Last Admin: 01/25/20 13:55 Dose: 30 ml Documented by: [id number] Miscellaneous (Order Awaiting Action) 1 ea N/A QS RENAN Stop: 02/20/20 14:59 Last Admin: 01/26/20 10:12 Dose: 1 ea Documented by: [id number] Admin: 01/26/20 00:28 Dose: Not Given Documented by: [id number] Admin: 01/25/20 15:34 Dose: Not Given Documented by: [id number] Admin: 01/25/20 09:08 Dose: Not Given Documented by: [id number] Admin: 01/25/20 01:43 Dose: Not Given Documented by: [id number] Admin: 01/24/20 17:57 Dose: Not Given Documented by: [id number] Admin: 01/24/20 08:46 Dose: Not Given Documented by: [id number] Admin: 01/24/20 00:20 Dose: Not Given Documented by: [id number] Admin: 01/23/20 22:53 Dose: Not Given Documented by: [id number] Admin: 01/23/20 07:31 Dose: Not Given Documented by: [id number] Admin: 01/23/20 00:13 Dose: Not Given Documented by: [id number] Admin: 01/22/20 20:43 Dose: Not Given Documented by: [id number] Admin: 01/22/20 19:09 Dose: Not Given Documented by: [id number] Admin: 01/22/20 00:07 Dose: Not Given Documented by: [id number] Admin: 01/21/20 17:06 Dose: Not Given Documented by: [id number] Admin: 01/21/20 17:06 Dose: Not Given Documented by: [id number] Multivitamins (Multivitamin Tab) 1 tab PO QA RENAN Stop: 02/22/20 08:59 Last Admin: 01/26/20 10:11 Dose: 1 tab Documented by: [id number] Admin: 01/25/20 09:08 Dose: 1 tab Documented by: [id number] Admin: 01/24/20 08:47 Dose: 1 tab Documented by: [id number] Admin: 01/23/20 09:00 Dose: 1 tab Documented by: [id number] Oxycodone HCl (Roxicodone Immediate Rel) 5 - 10 mg PO Q4H PRN PRN Reason: Pain or Pre PT Stop: 02/05/20 14:23 Last Admin: 01/23/20 05:57 Dose: 5 mg Documented by: [id number] Admin: 01/22/20 21:00 Dose: 5 mg Documented by: [id number] Sennosides (Senokot) 17.2 mg PO HS RENAN Stop: 02/21/20 20:59 Last Admin: 01/25/20 21:31 Dose: 17.2 mg Documented by: [id number] Admin: 01/24/20 21:04 Dose: 17.2 mg Documented by: [id number] Admin: 01/23/20 21:01 Dose: 17.2 mg Documented by: [id number] Admin: 01/22/20 20:50 Dose: 17.2 mg Documented by: [id number] Coding Level of Care Code 55754 B[facility] Intl Hosp Care Lvl 2 Diagnoses Anxiety F41.9 Parkinson disease G20 Infection of prosthetic left knee joint T84.54XA
[2020-01-26] MEDS: DAPTOmycin 475 MG in SYRINGE 0 ML IV SCH (13:39)
--- NOTE | 2020-01-26 21:22 | Hospitalist Progress Note ---
Date of Service January 26, 2020 Assessment & Plan (1) Infection of prosthetic left knee joint: S/p Left Knee Incision and Drainage, Irrigation and Debridment with Tibial Polyethylne Exchange, Excision of Loose Patella polyethylene, Patellectomy, placement of antibiotic Beads closure over drains and superficial wound VAC application (Left) ESR and CRP continue to be quite elevated however CRP trending downward to 11.7 while ESR remains greater than 90 Is afebrile CPK normal at 121 and remains on daptomycin initial culture from 01/20 with MRSA and then surgical culture with MRSA resistance to clinda, erythromycin, and of course, oxacillin -having some drainage from knee after slightly opened up from a fall onto his knees yesterday as per RN Continue IV Dapto as per ID recs--> continue for 6 weeks total - needs weekly CBC, CMP, CPK, ESR,CRP while on abx PICC in place RUE -dressing changes tid, wear knee immobilizer when in bed -He may be fitted for a wound VAC as per nursing report-defer to orthopedic surgery for management of this PT/OT needs rehab F/u with Ortho as they see fit (2) Anxiety: Continue home duloxetine Very anxious here secondary to encephalopathy worsening underlying Psych issues- much improved today Discussed with --> absolutely no Haldol or meds to be given unless checked with her and Neuro -has been having Zoom meetings and phone calls with his which was helpful at calming him down and a Psych consult for therapy Overall much improved (3) Depression: As above (4) Parkinson disease: continue home amantadine, sinemet, and entacapone seen by Dr. Vasquez, he feels that he is at baseline has a history of bilateral DBS can follow up with [facility] neurology -Has now had a bowel movement, continue bowel regimen (5) Hypokalemia: Resolved (6) Acute blood loss anemia: due to surgery Hb stable to improved at 11.7, no further signs of blood loss (7) Acute encephalopathy: secondary to infection in setting of underlying Parkinson's and Psychiatric issues Much improved DVT proph-Lovenox Dispo-to rehab when ok with Ortho Hospitalist service will sign off at this time as pt is improving and awaiting placement Admission and Anticipated Discharge Date Admission Date: January 21, 2020 Subjective Pt MUCH improved today from mental status standpoint.Denies any pain in his knee. Denies chest pain, denies SOB. No nausea and is eating today. Review of Systems Review of Systems: All systems reviewed & are unremarkable except as noted in HPI & below Physical Exam Constitutional: WD/WN, vitals as above Eyes: + anicteric sclerae Neck: trachea midline, no thyromegaly Respiratory: normal respiratory effort, lungs clear to auscultation Cardiovascular: RRR, no murmur, no edema Chest (Breasts): Chest: normal inspection of chest Gastrointestinal (Abdomen): normal bowel sounds, soft, nontender, no hepatosplenomegaly Musculoskeletal: Extremities: + extremities abnormal to inspection (Left knee with dressing and Carlos wrap in place with knee immobilizer), no cyanosis and no clubbing Skin: no rashes, warm and dry Neurologic: moves all extremities and awake; no focal motor deficits Speech / Cognition: + abnormal speech (Pressured speech but not as garbled) Psychiatric: Orientation: alert and cooperative Speech: + pressured speech Lymphatic: no lymphedema Results & Data Results & Data ([facility]) Vital Signs (Past 12 Hours) Vital Signs Temp Pulse Resp BP Pulse Ox 01/26/20 15:17 36.6 C 88 18 145/75 H 93 Laboratory Results Labs reviewed PG Care Time/CCT Total # of Minutes Spent Total Time Spent with Patient: Total time spent is greater than 50% in coordination of care (as documented) at patient's floor/unit and/or counseling patient: Coding Level of Care Code 27271 Subseq Hosp Care Lvl 2 Diagnoses Infection of prosthetic left knee joint T84.54XA Anxiety F41.9 Depression F32.9 Parkinson disease G20 Hypokalemia E87.6 Acute blood loss anemia D62 Acute encephalopathy G93.40
[2020-01-26] MEDS: SENNA 8.6 MG TAB PO SCH (21:50)
[2020-01-27] MEDS: VESICARE~ORDER AWAITING ACTION SCH ×4 (00:34→23:47)
[2020-01-27] MEDS: ACETAMINOPHEN 500 MG TAB PO SCH ×3 (06:20→21:13)
[2020-01-27] MEDS: ENTACAPONE 200 MG TAB PO SCH ×4 (06:20→21:14)
[2020-01-27] MEDS: CARBIDOPA/LEVODOPA 50/200MG EXT REL TAB PO SCH ×4 (06:20→21:15)
[2020-01-27] MEDS: CARBIDOPA/LEVODOPA 25/100MG TAB PO SCH ×4 (06:20→21:15)
[2020-01-27] MEDS: DULOXETINE HCL 30 MG CAP PO SCH (09:00)
[2020-01-27] MEDS: MULTIVITAMIN TAB PO SCH (09:00)
[2020-01-27] MEDS: AMANTADINE HCL 100 MG CAPSULE PO SCH ×2 (09:01→21:12)
[2020-01-27] MEDS: DOCUSATE SODIUM 100 MG CAP PO SCH ×2 (09:01→21:12)
[2020-01-27] MEDS: ENOXAPARIN INJ 40 MG/0.4 ML SYR SQ SCH (09:02)
--- NOTE | 2020-01-27 10:06 | Orthopedic Progress Note ---
Date of Service January 27, 2020 Assessment & Plan (1) Infection of prosthetic left knee joint: Postop day 4 status post incision drainage irrigation debridement patellectomy excision polyethylene patella component and tibial polyethylene exchange. -Patient had compromised skin at the time of surgery in this area necrosis/dehiscence. There is some potential for this to heal by secondary intention but likely will be prolonged healing process. -At this time continue on appropriate IV antibiotics and frequent dressing changes. Dressing changes 3 times daily for now. -Continue knee immobilizer to help stabilize wound even when patient is in bed. 0 to 90 degrees range of motion only in PT. -Will need rehab or fdc facility type treatment upon discharge. CM attempting to see if [facility] rehab facilitiy will be able to take him. -Wound care team applying wound vac presently. -Cultures growing MRSA. Currently on daptomycin. Admission and Anticipated Discharge Date Admission Date: January 21, 2020 Subjective Patient lying in bed. Awake and alert. Wound care team is present starting to apply wound VAC. No complaints at the present time. Patient appears comfortable. Physical Exam Physical Exam: On examining his wound over the left knee, he has obvious wound dehiscence due to previous infection and poor skin quality. 2 more randy had come loose and were removed by the wound care team. Rest the staple line is intact. Just area of dehiscence is approximately 1-1/2 cm in width. There is a small bridge of tissue that is held together with staple and then moves into small area of wound dehiscence below that. No purulent drainage. He does have some serous drainage noted. With the Stimulan beads that were implanted, we expect increased drainage from the wound itself. Results & Data ([facility]) Vital Signs (Past 12 Hours) Vital Signs Temp Pulse Pulse Resp BP Pulse Ox 01/27/20 07:35 36.4 C L 86 18 134/83 93 01/26/20 23:50 36.6 C 90 16 144/83 H 91
[2020-01-27] MEDS: DAPTOmycin 475 MG in SYRINGE 0 ML IV SCH (14:26)
--- NOTE | 2020-01-27 17:13 | Communication Note ---
Date of Service: January 27, 2020 requested I call her. I discussed her concerns that his mentation seemed off when she was on the phone with him today. Nursing reports however are that he is very appropriate, is actually urinating into a urinal instead of incontinence, and is oriented x 3. I did not see him today as he was improved yesterday and stable. inquired as to whether he had a UTI causing this. RN reported no foul smelling urine, pt not having abd pain, no frequency or urgency. He is afebrile. I explained his delirium is likely from ongoing bad knee infection, and likely some hospital delirium in setting of underlying neurological disorder, but that overall he is much improved from previous. No need to repeat another UA.
[2020-01-27] MEDS: CARBIDOPA/LEVODOPA 25/100MG TAB PO PRN (17:55)
[2020-01-27] MEDS: SENNA 8.6 MG TAB PO SCH (21:14)
[2020-01-28] MEDS: ACETAMINOPHEN 500 MG TAB PO SCH ×3 (06:12→21:50)
[2020-01-28] MEDS: CARBIDOPA/LEVODOPA 25/100MG TAB PO SCH ×4 (07:25→21:51)
[2020-01-28] MEDS: CARBIDOPA/LEVODOPA 50/200MG EXT REL TAB PO SCH ×4 (07:25→21:47)
[2020-01-28] MEDS: ENTACAPONE 200 MG TAB PO SCH ×4 (07:25→21:50)
[2020-01-28] MEDS: VESICARE~ORDER AWAITING ACTION SCH ×3 (07:26→23:35)
[2020-01-28] MEDS: MULTIVITAMIN TAB PO SCH (08:53)
[2020-01-28] MEDS: AMANTADINE HCL 100 MG CAPSULE PO SCH ×2 (08:53→21:49)
[2020-01-28] MEDS: DULOXETINE HCL 30 MG CAP PO SCH (08:53)
[2020-01-28] MEDS: ENOXAPARIN INJ 40 MG/0.4 ML SYR SQ SCH (08:53)
[2020-01-28] MEDS: DOCUSATE SODIUM 100 MG CAP PO SCH ×2 (08:54→21:56)
[2020-01-28 10:11] LABS: Basophils # (auto) 0.05 K/uL (0-0.2); Basophils % (auto) 0.6 %; Eosinophils # (auto) 0.44 K/uL (0-0.5); Eosinophils % (auto) 5.1 %; Hematocrit (blood only) 37.9 % (42-52); Hemoglobin 12.2 g/dL (14.0-18.0); Immature Granulocytes # (auto) 0.04 K/uL (0.00-0.02); Immature Granulocytes % (auto) 0.5 %; Lymphocytes # (auto) 1.04 K/uL (1.2-3.4); Lymphocytes % (auto) 12.1 %; Mean Corpuscular Hemoglobin 29.6 pg (25-34); Mean Corpuscular Hgb Conc 32.2 g/dL (32-36); Mean Platelet Volume 8.6 fL (7.4-10.4); Monocytes # (auto) 0.47 K/uL (0.11-0.59); Monocytes % (auto) 5.5 %; Neutrophils # (auto) 6.58 K/uL (1.4-6.5); Neutrophils % (auto) 76.2 %; Platelet Count 378 K/uL (130-400); RDW Standard Deviation 50.5 fL (36.4-46.3); Red Blood Count 4.12 M/uL (4.7-6.1); White Blood Count 8.62 K/uL (4.8-10.8)
--- NOTE | 2020-01-28 10:29 | Orthopedic Progress Note ---
Date of Service January 28, 2020 Assessment & Plan (1) Infection of prosthetic left knee joint: Postop day 4 status post incision drainage irrigation debridement patellectomy excision polyethylene patella component and tibial polyethylene exchange. -Patient had compromised skin at the time of surgery in this area necrosis/dehiscence. There is some potential for this to heal by secondary intention but likely will be prolonged healing process. -Continue knee immobilizer to help stabilize wound even when patient is in bed. 0 to 90 degrees range of motion only in PT. -Will need rehab facility. CM stated that [facility] is no longer an option. Attempting for rehab facilities at [facility] or a rehab facility in [place]. -Wound care team applying wound vac presently. -Cultures growing MRSA. Currently on daptomycin. -New disc and suction tubing applied to wound VAC. Plan for full change tomorrow. -Await input from neurology service Admission and Anticipated Discharge Date Admission Date: January 21, 2020 Subjective Postop day 5 status post I&D left septic TKA with polyethylene bearing change Received a qliq notification this morning from the nursing staff stating that the patient was very agitated and almost bit 1 of the nurses. They were attempting to assess his wound VAC and at the time the patient was combative. He apparently had grabbed the arms of 1 of the nursing staff and appeared to be ready to bite her. At that point in time, she pulled away and he grabbed the wound VAC tubing and pulled the wound VAC tubing with the disc on it completely from the wound VAC itself. I contacted Dr. Dennis about his agitation and also contacted Veronica Florian from wound care. Dr. Dennis is in the process of coming to see the patient and also consulting neurology. Veronica Florian is present to look at his wound VAC. Currently the patient is not agitated and follows commands well. Nursing staff states that he is in much better form now that he was a few hours earlier. Physical Exam Physical Exam: Immobilizer is removed. Patient has the wound VAC dressing still intact. No portion of the wound is showing at this time. The area around the wound VAC dressing is without erythema and swelling is minimal. Calves are soft and nontender. Patient is actively flexing and extending the knee at this time. He appears to be comfortable. Results & Data ([facility]) Vital Signs (Past 12 Hours) Vital Signs Temp Pulse Pulse Resp BP Pulse Ox 01/28/20 07:02 36.6 C 82 22 161/99 H 94 01/27/20 23:00 36.8 C 83 18 154/84 H 95
[2020-01-28 10:39] LABS: Albumin Level 2.5 gm/dl (3.4-5.0); BUN Creatinine Ratio 17.5 (10-20); Creatinine Clr Calc Pharmacy 148.2 ml/min; Est GFR (African American) 121.2; Est GFR (Non-African American) 104.6; Potassium 3.7 mmol/L (3.5-5.1)
[2020-01-28 10:50] LABS: Albumin Globulin Ratio 0.5 (0.9-2); Bilirubin,Total 0.3 mg/dl (0.2-1); C Reactive Protein 4.2 mg/dl (0-0.29); Globulin 4.6 gm/dl (2.5-4.0); Thyroid Stimulating Hormone 0.57 uIu/ml (0.300-4.500); Total Protein 7.1 gm/dl (6.4-8.2)
[2020-01-28] MEDS: DAPTOmycin 475 MG in SYRINGE 0 ML IV SCH (14:03)
--- NOTE | 2020-01-28 18:55 | Hospitalist Progress Note ---
Date of Service January 28, 2020 Assessment & Plan (1) Infection of prosthetic left knee joint: S/p Left Knee Incision and Drainage, Irrigation and Debridement with Tibial Polyethylene Exchange, Excision of Loose Patella polyethylene, Patellectomy, placement of antibiotic Beads closure over drains and superficial wound VAC application (Left) ESR and CRP continue to be quite elevated however CRP continues to be trending downward to 4 while ESR remains greater than 90 Remains afebrile, no leukocytosis Wound VAC in place CPK normal at 121 and remains on daptomycin initial culture from 01/20 with MRSA and then surgical culture with MRSA resistance to clinda, erythromycin, and of course, oxacillin Continue IV Dapto as per ID recs--> continue for 6 weeks total - needs weekly CBC, CMP, CPK, ESR,CRP while on abx PICC in place RUE PT/OT needs rehab F/u with Ortho as they see fit (2) Anxiety: Continue home duloxetine at 30 mg daily but could be increased as per as he has tolerated higher doses in the past Neurology suggested stopping duloxetine and trying sertraline instead, but the reports this did not help him in the past Continues to have waxing and waning delirium and variable levels of anxiety here secondary to encephalopathy, however is doing better today Discussed with --> absolutely no Haldol or meds to be given unless checked with her and Neuro -has been having Zoom meetings and phone calls with his which was helpful at calming him down and a Psych consult for therapy - is okay and he has tolerated low doses of Ativan in the past-we will order lorazepam 0.5 mg IV every 4 hours as needed severe agitation -We will give melatonin for sleep tonight to see if this helps during the day Overall much improved (3) Depression: As above (4) Parkinson disease: continue home amantadine, sinemet, and entacapone seen by Dr. Vasquez, he feels that he is at baseline has a history of bilateral DBS can follow up with [facility] neurology -continue bowel regimen -Start melatonin for sleep as above He likely has some sort of sleep disorder associated with his Parkinson's disease (5) Hypokalemia: Resolved (6) Acute blood loss anemia: due to surgery Hb stable to improved at 12, no further signs of blood loss (7) Acute encephalopathy: secondary to infection in setting of underlying Parkinson's and Psychiatric issues Overall improved in last few days but still with periods of delirium -Continue treatment as above DVT proph-Lovenox Dispo-to rehab when ok with Ortho Hospitalist service will follow along given ongoing encephalopathy Admission and Anticipated Discharge Date Admission Date: January 21, 2020 Subjective Patient was noted to be agitated and slightly aggressive with nurses this morning as per nursing notes, was trying to bite a nurse and was gripping the cord of his wound VAC and then ripped it off his knee. By midmorning he was doing much better after receiving his morning medications. When I saw him in the afternoon, he was very pleasant and his speech was the clearest I have heard yet. He was oriented to person place and time and was answering all questions appropriately. He denies any pain in the knee, no chest pain or shortness of breath, no abdominal pains. He has not moved his bowels again in a couple of days. He is eating his food. I did again discussed his care extensively with his on the phone. I also discussed his care with the neurologist who recommended sertraline for his continued agitation in an effort to avoid other things, however his stated that in the past he has done okay with low doses of Ativan as needed for agitation. She also reports that he is taken melatonin in the past for sleep. The patient noted that he has not been getting good sleep and perhaps he suggested that is why he is having delusional thoughts. again brings up the fact that she thinks he might have a UTI as a source of his waxing and waning delirium. I told her I would order it, but I did not see evidence that he had a UTI. I do believe his delirium is ongoing due to his significant left knee MRSA infection especially given that his inflammatory markers are still significantly elevated. Review of Systems Review of Systems: All systems reviewed & are unremarkable except as noted in HPI & below Physical Exam Constitutional: WD/WN, vitals as above Eyes: + anicteric sclerae ENMT: Ears: no hearing impairment Mouth: no oral mucosal abnormality Neck: trachea midline, no thyromegaly Respiratory: normal respiratory effort, lungs clear to auscultation Cardiovascular: RRR, no murmur, no edema Chest (Breasts): Chest: normal inspection of chest Gastrointestinal (Abdomen): normal bowel sounds, soft, nontender, no hepatosplenomegaly Musculoskeletal: Extremities: + extremities abnormal to inspection (Left knee with wound VAC and dressing in place), no cyanosis and no clubbing Skin: no rashes, warm and dry Neurologic: moves all extremities and awake; no focal motor deficits Speech / Cognition: + abnormal speech (Pressured speech but not as garbled) Psychiatric: Orientation: alert, oriented x 3 and cooperative; not guarded Speech: + pressured speech Lymphatic: no lymphedema Results & Data Results & Data ([facility]) Vital Signs (Past 12 Hours) Vital Signs Temp Pulse Pulse Resp BP Pulse Ox 01/28/20 15:11 36.8 C 80 16 130/79 92 01/28/20 07:02 36.6 C 82 22 161/99 H 94 Laboratory Results All labs reviewed PG Care Time/CCT Total # of Minutes Spent Total Time Spent with Patient: Total time spent is greater than 50% in coordination of care (as documented) at patient's floor/unit and/or counseling patient: 60 Coding Level of Care Code 37651 Subseq Hosp Care Lvl 3 Diagnoses Infection of prosthetic left knee joint T84.54XA Anxiety F41.9 Depression F32.9 Parkinson disease G20 Hypokalemia E87.6 Acute blood loss anemia D62 Acute encephalopathy G93.40
[2020-01-28] MEDS ORDERED: MELATONIN 3 MG TAB PO PRN (19:30)
[2020-01-28] MEDS ORDERED: LORazepam 0.5 MG/1 ML VIAL IV PRN (19:31)
[2020-01-28] MEDS: SENNA 8.6 MG TAB PO SCH (21:48)
[2020-01-29 05:09] LABS: Appearance Urine Clear (Clear); Bacteria Urine Automated Negative (Negative); Bilirubin Urine Negative (Negative); Blood Urine Negative (Negative); Cast Urine Automated 0 /lpf (0-5); Color Urine Dark Yellow; Epithelial Cell Urine Auto 20-30 /lpf (0-5); Glucose Urine UA Negative (Negative); Ketones Urine Trace (Negative); Leukocyte Esterase Urine Negative (Negative); Nitrite Urine Negative (Negative); Protein Urine Trace (Negative); RBC Urine Automated 0-4 /hpf (0-4); Specific Gravity Urine 1.028 (1.000-1.030); Urobilinogen Urine Negative (Negative)
[2020-01-29 05:58] LABS: Creatinine Clr Calc Pharmacy 152.3 ml/min; Est GFR (African American) 122.6; Est GFR (Non-African American) 105.8
[2020-01-29] MEDS: ACETAMINOPHEN 500 MG TAB PO SCH ×3 (06:14→22:21)
[2020-01-29] MEDS: CARBIDOPA/LEVODOPA 25/100MG TAB PO SCH ×4 (06:15→21:26)
[2020-01-29] MEDS: CARBIDOPA/LEVODOPA 50/200MG EXT REL TAB PO SCH ×4 (06:16→21:25)
[2020-01-29] MEDS: ENTACAPONE 200 MG TAB PO SCH ×4 (06:16→21:24)
[2020-01-29] MEDS: DULOXETINE HCL 30 MG CAP PO SCH (10:19)
[2020-01-29] MEDS: MULTIVITAMIN TAB PO SCH (10:19)
[2020-01-29] MEDS: AMANTADINE HCL 100 MG CAPSULE PO SCH ×2 (10:19→21:21)
--- NOTE | 2020-01-29 10:27 | Orthopedic Progress Note ---
Date of Service January 29, 2020 Assessment & Plan (1) Infection of prosthetic left knee joint: Postop day 5 status post incision drainage irrigation debridement patellectomy excision polyethylene patella component and tibial polyethylene exchange. -Patient had compromised skin at the time of surgery in this area necrosis/dehiscence. There is some potential for this to heal by secondary intention but likely will be prolonged healing process. -Continue knee immobilizer to help stabilize wound even when patient is in bed. 0 to 90 degrees range of motion only in PT. -Will need rehab facility. Attempting for rehab facilities at [facility] or a rehab facility in [place]. [facility] also a possible choice. -Cultures growing MRSA. Currently on daptomycin. -New wound vac put on. Change q72 hours. -Await input from neurology service Admission and Anticipated Discharge Date Admission Date: January 21, 2020 Subjective Pt somewhat somnolent currently. Wound Care team present and just finished changing wound vac. Discussed with Veronica Flroian. Patient continued to have serous drainage. A small pocket of serous drainage was found proximally. No purulent drainage noted and stated wound appeared unchanged compared to when dressing applied. Physical Exam Physical Exam: New wound vac applied by Wound Care Team. Immobilizer on. Calves soft, NT. Toes mobile. Results & Data ([facility]) Vital Signs (Past 12 Hours) Vital Signs Temp Pulse Resp BP Pulse Ox 01/29/20 07:53 37 C 79 20 124/79 93 01/28/20 23:09 36.8 C 87 18 144/85 H 92
[2020-01-29] MEDS: CARBIDOPA/LEVODOPA 25/100MG TAB PO PRN (12:28)
[2020-01-29] MEDS: DAPTOmycin 475 MG in SYRINGE 0 ML IV SCH (14:02)
[2020-01-29] MEDS: DOCUSATE SODIUM 100 MG CAP PO SCH ×2 (14:03→21:24)
[2020-01-29] MEDS: ENOXAPARIN INJ 40 MG/0.4 ML SYR SQ SCH (14:03)
[2020-01-29] MEDS: VESICARE~ORDER AWAITING ACTION SCH ×2 (14:04→17:31)
--- NOTE | 2020-01-29 15:42 | Hospitalist Progress Note ---
Date of Service January 29, 2020 Assessment & Plan (1) Infection of prosthetic left knee joint: S/p Left Knee Incision and Drainage, Irrigation and Debridement with Tibial Polyethylene Exchange, Excision of Loose Patella polyethylene, Patellectomy, placement of antibiotic Beads closure over drains and superficial wound VAC application (Left) ESR and CRP continue to be quite elevated however CRP continues to be trending downward to 4 while ESR remains greater than 90 Remains afebrile, no leukocytosis Wound VAC in place to be changed q72 hours CPK normal at 121 and remains on daptomycin initial culture from 01/20 with MRSA and then surgical culture with MRSA resistance to clinda, erythromycin, and of course, oxacillin Continue IV Dapto as per ID recs--> continue for 6 weeks total - needs weekly CBC, CMP, CPK, ESR,CRP while on abx PICC in place RUE PT/OT needs rehab F/u with Ortho as they see fit (2) Anxiety: Continue home duloxetine at 30 mg daily but could be increased as per as he has tolerated higher doses in the past Neurology suggested stopping duloxetine and trying sertraline instead, but the reports this did not help him in the past Continues to have waxing and waning delirium and variable levels of anxiety here secondary to encephalopathy, however is doing better the last 48 hours Discussed with --> absolutely no Haldol or meds to be given unless checked with her and Neuro -has been having Zoom meetings and phone calls with his which was helpful at calming him down and a Psych consult for therapy - is okay and he has tolerated low doses of Ativan in the past- lorazepam 0.5 mg IV every 4 hours as needed for severe agitation -added melatonin for sleep prn Overall much improved (3) Depression: As above (4) Parkinson disease: continue home amantadine, sinemet, and entacapone seen by Dr. Vasquez, he feels that he is at baseline has a history of bilateral DBS can follow up with [facility] neurology -continue bowel regimen-add on MOM x 1 and Miralax daily -Started melatonin for sleep as above He likely has some sort of sleep disorder associated with his Parkinson's disease (5) Hypokalemia: Resolved (6) Acute blood loss anemia: due to surgery Hb stable to improved at 12, no further signs of blood loss (7) Acute encephalopathy: secondary to infection in setting of underlying Parkinson's and Psychiatric issues Overall improved in last few days but still with periods of delirium however none in last 24 hours -Continue treatment as above DVT proph-Lovenox Dispo-to rehab when ok with Ortho Hospitalist service will follow along given ongoing encephalopathy Admission and Anticipated Discharge Date Admission Date: January 21, 2020 Subjective Pt reports feeling fine. He does not know if melatonin helped him sleep at all. He denies pain. Denies CP or SOB. RN reports he had a good day, was oriented, recognized her from last weekend, and no agitation at all today. He did get a bit tearful when I asked if he needed anything before I left the room and said he wanted to talk to his kids. Discussed his care with Ortho PA Pt declined to work with PT today Review of Systems Review of Systems: All systems reviewed & are unremarkable except as noted in HPI & below Physical Exam Constitutional: WD/WN, vitals as above Eyes: + anicteric sclerae ENMT: Ears: no hearing impairment Mouth: no oral mucosal abnormality Neck: trachea midline, no thyromegaly Respiratory: normal respiratory effort, lungs clear to auscultation Cardiovascular: RRR, no murmur, no edema Chest (Breasts): Chest: normal inspection of chest Gastrointestinal (Abdomen): normal bowel sounds, soft, nontender, no hepatosplenomegaly Musculoskeletal: Extremities: + extremities abnormal to inspection (Left knee with wound VAC and dressing in place), no cyanosis and no clubbing Skin: no rashes, warm and dry Neurologic: moves all extremities and awake; no focal motor deficits Speech / Cognition: + abnormal speech (Pressured speech but not as garbled) Psychiatric: Orientation: alert, oriented x 3 and cooperative; not guarded Speech: + pressured speech Lymphatic: no lymphedema Results & Data Results & Data ([facility]) Vital Signs (Past 12 Hours) Vital Signs Temp Pulse Resp BP Pulse Ox 01/29/20 07:53 37 C 79 20 124/79 93 Laboratory Results 01/29/20 01/29/20 Range/Units 04:53 04:53 Creatinine 0.72 (0.6-1.4) mg/dl Est Cr Clr Drug Dosing 152.3 ml/min Est GFR ( Amer) 122.6 Est GFR (Non-Af Amer) 105.8 Urine Color Dark Yellow Urine Appearance Clear (Clear) Urine pH 6.0 (4.5-7.5) Ur Specific [place] 1.028 (1.000-1.030) Urine Protein Trace H (Negative) Urine Glucose (UA) Negative (Negative) Urine Ketones Trace H (Negative) Urine Blood Negative (Negative) Urine Nitrite Negative (Negative) Urine Bilirubin Negative (Negative) Urine Urobilinogen Negative (Negative) Ur Leukocyte Esterase Negative (Negative) Urine WBC (Auto) 1-5 (0-5) /hpf Urine RBC (Auto) 0-4 (0-4) /hpf U Hyaline Cast (Auto) 0 (0-5) /lpf U Epithel Cells (Auto) 20-30 H (0-5) /lpf Urine Bacteria (Auto) Negative (Negative) PG Care Time/CCT Total # of Minutes Spent Total Time Spent with Patient: Total time spent is greater than 50% in coordination of care (as documented) at patient's floor/unit and/or counseling patient: Coding Level of Care Code 20554 Subseq Hosp Care Lvl 2 Diagnoses Infection of prosthetic left knee joint T84.54XA Anxiety F41.9 Depression F32.9 Parkinson disease G20 Hypokalemia E87.6 Acute blood loss anemia D62 Acute encephalopathy G93.40
[2020-01-29] MEDS ORDERED: MAGNESIUM HYDROXIDE SUSP 30 ML UDC PO ONE (15:44)
[2020-01-29] MEDS: SENNA 8.6 MG TAB PO SCH (21:21)
[2020-01-30] MEDS: VESICARE~ORDER AWAITING ACTION SCH ×3 (00:20→17:32)
[2020-01-30 06:04] LABS: Basophils # (auto) 0.04 K/uL (0-0.2); Basophils % (auto) 0.5 %; Eosinophils % (auto) 3.5 %; Hemoglobin 12.8 g/dL (14.0-18.0); Immature Granulocytes # (auto) 0.02 K/uL (0.00-0.02); Immature Granulocytes % (auto) 0.2 %; Lymphocytes # (auto) 1.27 K/uL (1.2-3.4); Lymphocytes % (auto) 14.9 %; Mean Corpuscular Hemoglobin 29.3 pg (25-34); Mean Corpuscular Volume 91.5 fL (80-100); Mean Platelet Volume 8.9 fL (7.4-10.4); Monocytes # (auto) 0.55 K/uL (0.11-0.59); Monocytes % (auto) 6.4 %; Neutrophils # (auto) 6.36 K/uL (1.4-6.5); Neutrophils % (auto) 74.5 %; Platelet Count 364 K/uL (130-400); RDW Standard Deviation 50.4 fL (36.4-46.3); Red Blood Count 4.37 M/uL (4.7-6.1); White Blood Count 8.54 K/uL (4.8-10.8)
[2020-01-30 06:21] LABS: Albumin Level 2.7 gm/dl (3.4-5.0); BUN Creatinine Ratio 20.6 (10-20); C Reactive Protein 2.46 mg/dl (0-0.29); Calcium 8.3 mg/dl (8.5-10.1); Creatinine Clr Calc Pharmacy 158.9 ml/min; Est GFR (African American) 124.7; Est GFR (Non-African American) 107.6; Potassium 3.7 mmol/L (3.5-5.1)
[2020-01-30 06:24] LABS: Albumin Globulin Ratio 0.6 (0.9-2); Bilirubin,Total 0.3 mg/dl (0.2-1); Globulin 4.6 gm/dl (2.5-4.0); Total Protein 7.3 gm/dl (6.4-8.2)
[2020-01-30] MEDS: ACETAMINOPHEN 500 MG TAB PO SCH ×3 (06:38→21:23)
[2020-01-30] MEDS: ENTACAPONE 200 MG TAB PO SCH ×4 (06:39→21:22)
[2020-01-30] MEDS: CARBIDOPA/LEVODOPA 50/200MG EXT REL TAB PO SCH ×4 (06:39→21:22)
[2020-01-30] MEDS: CARBIDOPA/LEVODOPA 25/100MG TAB PO SCH ×4 (06:40→21:25)
--- NOTE | 2020-01-30 10:11 | Orthopedic Progress Note ---
Date of Service January 30, 2020 Assessment & Plan (1) Infection of prosthetic left knee joint: Postop day 8 status post incision drainage irrigation debridement patellectomy excision polyethylene patella component and tibial polyethylene exchange. -Patient had compromised skin at the time of surgery in this area necrosis/dehiscence. There is some potential for this to heal by secondary intention but likely will be prolonged healing process. -Continue knee immobilizer to help stabilize wound even when patient is in bed. 0 to 90 degrees range of motion only in PT. -Will need rehab facility. Attempting for rehab facilities at [facility] or a rehab facility in [place]. [facility] also a possible choice. -Cultures growing MRSA. Currently on daptomycin. -Wound vac in place. Change q72 hours. -Await input from neurology service -Lovenox 40mg daily Admission and Anticipated Discharge Date Admission Date: January 21, 2020 Subjective Post Operative Progress Note Patient seen laying in bed, arousable to verbal stimulus, comfortable, denies complaints, pain well controlled, no acute issues. Review of Systems Review of Systems: All systems reviewed & are unremarkable except as noted in HPI & below Constitutional: as per Subjective / HPI Physical Exam Physical Exam: RLE NVSI +EHL/FHL/TA/GS SILT grossly, +2 DP pulse, compartments soft NT, dressing cdi. KI in place, Constitutional: WD/WN, vitals as above Results & Data ([facility]) Vital Signs (Past 12 Hours) Vital Signs Temp Pulse Resp BP BP Pulse Ox 01/30/20 07:27 36.5 C 80 16 131/84 94 01/30/20 03:01 36.7 C 100 H 18 131/81 93 01/29/20 23:26 36.7 C 86 18 138/94 92 Laboratory Results 01/30/20 01/30/20 01/30/20 Range/Units 05:28 05:28 05:28 WBC 8.54 (4.8-10.8) K/uL RBC 4.37 L (4.7-6.1) M/uL Hgb 12.8 L (14.0-18.0) g/dL Hct 40.0 L (42-52) % MCV 91.5 (80-100) fL MCH 29.3 (25-34) pg MCHC 32.0 (32-36) g/dL RDW Std Deviation 50.4 H (36.4-46.3) fL RDW Coeff of [place] 15.0 H (11.5-14.5) % Plt Count 364 (130-400) K/uL MPV 8.9 (7.4-10.4) fL Immature Gran % (Auto) 0.2 % Neut % (Auto) 74.5 % Lymph % (Auto) 14.9 % [place] % (Auto) 6.4 % Eos % (Auto) 3.5 % Baso % (Auto) 0.5 % Immature Gran # (Auto) 0.02 (0.00-0.02) K/uL Neut # (Auto) 6.36 (1.4-6.5) K/uL Lymph # (Auto) 1.27 (1.2-3.4) K/uL [place] # (Auto) 0.55 (0.11-0.59) K/uL Eos # (Auto) 0.30 (0-0.5) K/uL Baso # (Auto) 0.04 (0-0.2) K/uL ESR > 90 H (0-14) mm/hr Sodium 138 (136-145) mmol/L Potassium 3.7 (3.5-5.1) mmol/L Chloride 108 H (98-107) mmol/L Carbon Dioxide 26 (21-32) mmol/L Anion Gap 4.0 (3-11) BUN 14 (7-18) mg/dl Creatinine 0.69 (0.6-1.4) mg/dl Est Cr Clr Drug Dosing 158.9 ml/min Est GFR ( Amer) 124.7 Est GFR (Non-Af Amer) 107.6 BUN/Creatinine Ratio 20.6 H (10-20) Glucose 90 (70-99) mg/dl Calcium 8.3 L (8.5-10.1) mg/dl Total Bilirubin 0.3 (0.2-1) mg/dl AST 21 (15-37) U/L ALT 9 L (12-78) U/L Alkaline Phosphatase 45 (45-117) U/L C-Reactive Protein 2.46 H (0-0.29) mg/dl Total Protein 7.3 (6.4-8.2) gm/dl Albumin 2.7 L (3.4-5.0) gm/dl Globulin 4.6 H (2.5-4.0) gm/dl Albumin/Globulin Ratio 0.6 L (0.9-2)
[2020-01-30] MEDS: DULOXETINE HCL 30 MG CAP PO SCH (11:43)
[2020-01-30] MEDS: POLYETHYLENE (MIRALAX) 17 GM PACK PO SCH (11:43)
[2020-01-30] MEDS: AMANTADINE HCL 100 MG CAPSULE PO SCH ×2 (11:44→21:23)
[2020-01-30] MEDS: MULTIVITAMIN TAB PO SCH (11:44)
[2020-01-30] MEDS: DOCUSATE SODIUM 100 MG CAP PO SCH ×2 (11:44→21:22)
[2020-01-30] MEDS: ENOXAPARIN INJ 40 MG/0.4 ML SYR SQ SCH (11:46)
[2020-01-30] MEDS: DAPTOmycin 475 MG in SYRINGE 0 ML IV SCH (13:32)
[2020-01-30] MEDS: CARBIDOPA/LEVODOPA 25/100MG TAB PO PRN (14:20)
--- NOTE | 2020-01-30 14:30 | Hospitalist Progress Note ---
Date of Service January 30, 2020 Assessment & Plan (1) Infection of prosthetic left knee joint: S/p Left Knee Incision and Drainage, Irrigation and Debridement with Tibial Polyethylene Exchange, Excision of Loose Patella polyethylene, Patellectomy, placement of antibiotic Beads closure over drains and superficial wound VAC application (Left) on 01/22/2020 ESR and CRP continue to be quite elevated however CRP continues to be trending downward to 2 while ESR remains greater than 90-expect this will take many weeks on antibiotic therapy to return to normal Remains afebrile, no leukocytosis Wound VAC in place to be changed q72 hours CPK normal at 121 and remains on daptomycin initial culture from 01/20 with MRSA and then surgical culture with MRSA resistance to clinda, erythromycin, and of course, oxacillin Continue IV Dapto as per ID recs--> continue for 6 weeks total-stop date would be tentatively March 04 - needs weekly CBC, CMP, CPK, ESR,CRP while on abx PICC in place RUE PT/OT needs rehab F/u with Ortho as they see fit (2) Anxiety: Continue home duloxetine at 30 mg daily but could be increased as per as he has tolerated higher doses in the past Neurology suggested stopping duloxetine and trying sertraline instead, but the reports this did not help him in the past Was having waxing and waning delirium and variable levels of anxiety here secondary to encephalopathy, however is doing significantly better the last 72 hours, having his best day yet today on 01/29 Discussed previously with --> absolutely no Haldol or meds to be given unless checked with her and Neuro -has been having Zoom meetings and phone calls with his which was helpful at calming him down and a Psych consult for therapy - is okay and he has tolerated low doses of Ativan in the past- lorazepam 0.5 mg IV every 4 hours as needed for severe agitation-have not had to use this yet -added melatonin for sleep prn-he took 1 dose and did not seem to make a difference Overall much improved (3) Depression: As above (4) Parkinson disease: continue home amantadine, sinemet, and entacapone seen by Dr. Vasquez, he feels that he is at baseline has a history of bilateral DBS can follow up with [facility] neurology -continue bowel regimen-we will give another dose of MOM x 1 and continue Miralax daily, docusate twice daily -Started melatonin for sleep as above He likely has some sort of sleep disorder associated with his Parkinson's disease (5) Hypokalemia: Resolved (6) Acute blood loss anemia: due to surgery Hb stable to improved at 12, no further signs of blood loss (7) Acute encephalopathy: secondary to infection in setting of underlying Parkinson's and Psychiatric issues Significantly improved in last few days as above -Continue treatment as above DVT proph-Lovenox Dispo-to rehab when ok with Ortho Hospitalist service will sign off as he is much improved-please feel free to reconsult if new or acute issues arise Admission and Anticipated Discharge Date Admission Date: January 21, 2020 Subjective Patient having his best day yet of week. He has been calm today, no agitation. He is eating all his meals. He still has not moved his bowels in 4 days which is concerning him. He urinated in the urinal without spilling it which is an improvement for him. He is willing to work with physical therapy is in the room with him. He denies any chest pains or shortness of breath. He did not take any melatonin or Ativan in the last 48 hours. I called his and did not get an answer but left a voicemail with an update that his condition was improved. Review of Systems Review of Systems: All systems reviewed & are unremarkable except as noted in HPI & below Physical Exam Constitutional: WD/WN, vitals as above Eyes: + anicteric sclerae ENMT: Ears: no hearing impairment Mouth: no oral mucosal abnormality Neck: trachea midline, no thyromegaly Respiratory: normal respiratory effort, lungs clear to auscultation Cardiovascular: RRR, no murmur, no edema Chest (Breasts): Chest: normal inspection of chest Gastrointestinal (Abdomen): normal bowel sounds, soft, nontender, no hepatosplenomegaly Musculoskeletal: Extremities: + extremities abnormal to inspection (Left knee with wound VAC and dressing in place), no cyanosis and no clubbing Skin: no rashes, warm and dry Neurologic: moves all extremities and awake; no focal motor deficits Speech / Cognition: + abnormal speech (Pressured speech but not as garbled) Psychiatric: Orientation: alert, oriented x 3 and cooperative; not guarded Speech: + pressured speech Lymphatic: no lymphedema Results & Data Results & Data ([facility]) Vital Signs (Past 12 Hours) Vital Signs Temp Pulse Resp BP BP Pulse Ox 01/30/20 07:27 36.5 C 80 16 131/84 94 01/30/20 03:01 36.7 C 100 H 18 131/81 93 Laboratory Results 01/30/20 01/30/20 01/30/20 Range/Units 05:28 05:28 05:28 WBC 8.54 (4.8-10.8) K/uL RBC 4.37 L (4.7-6.1) M/uL Hgb 12.8 L (14.0-18.0) g/dL Hct 40.0 L (42-52) % MCV 91.5 (80-100) fL MCH 29.3 (25-34) pg MCHC 32.0 (32-36) g/dL RDW Std Deviation 50.4 H (36.4-46.3) fL RDW Coeff of Travis 15.0 H (11.5-14.5) % Plt Count 364 (130-400) K/uL MPV 8.9 (7.4-10.4) fL Immature Gran % (Auto) 0.2 % Neut % (Auto) 74.5 % Lymph % (Auto) 14.9 % Ob[place] % (Auto) 6.4 % Eos % (Auto) 3.5 % Baso % (Auto) 0.5 % Immature Gran # (Auto) 0.02 (0.00-0.02) K/uL Neut # (Auto) 6.36 (1.4-6.5) K/uL Lymph # (Auto) 1.27 (1.2-3.4) K/uL [place] # (Auto) 0.55 (0.11-0.59) K/uL Eos # (Auto) 0.30 (0-0.5) K/uL Baso # (Auto) 0.04 (0-0.2) K/uL ESR > 90 H (0-14) mm/hr Sodium 138 (136-145) mmol/L Potassium 3.7 (3.5-5.1) mmol/L Chloride 108 H (98-107) mmol/L Carbon Dioxide 26 (21-32) mmol/L Anion Gap 4.0 (3-11) BUN 14 (7-18) mg/dl Creatinine 0.69 (0.6-1.4) mg/dl Est Cr Clr Drug Dosing 158.9 ml/min Est GFR ( Amer) 124.7 Est GFR (Non-Af Amer) 107.6 BUN/Creatinine Ratio 20.6 H (10-20) Glucose 90 (70-99) mg/dl Calcium 8.3 L (8.5-10.1) mg/dl Total Bilirubin 0.3 (0.2-1) mg/dl AST 21 (15-37) U/L ALT 9 L (12-78) U/L Alkaline Phosphatase 45 (45-117) U/L C-Reactive Protein 2.46 H (0-0.29) mg/dl Total Protein 7.3 (6.4-8.2) gm/dl Albumin 2.7 L (3.4-5.0) gm/dl Globulin 4.6 H (2.5-4.0) gm/dl Albumin/Globulin Ratio 0.6 L (0.9-2) PG Care Time/CCT Total # of Minutes Spent Total Time Spent with Patient: Total time spent is greater than 50% in coordination of care (as documented) at patient's floor/unit and/or counseling patient: Coding Level of Care Code 20384 Subseq Hosp Care Lvl 2 Diagnoses Infection of prosthetic left knee joint T84.54XA Anxiety F41.9 Depression F32.9 Parkinson disease G20 Hypokalemia E87.6 Acute blood loss anemia D62 Acute encephalopathy G93.40
[2020-01-30] MEDS: MAGNESIUM HYDROXIDE SUSP 30 ML UDC PO PRN (15:11)
[2020-01-30] MEDS: SENNA 8.6 MG TAB PO SCH (21:23)
[2020-01-31] MEDS: VESICARE~ORDER AWAITING ACTION SCH ×3 (00:04→15:35)
[2020-01-31] MEDS: ENTACAPONE 200 MG TAB PO SCH ×4 (06:28→21:17)
[2020-01-31] MEDS: CARBIDOPA/LEVODOPA 50/200MG EXT REL TAB PO SCH ×4 (06:28→21:16)
[2020-01-31] MEDS: ACETAMINOPHEN 500 MG TAB PO SCH ×3 (06:28→21:17)
[2020-01-31] MEDS: CARBIDOPA/LEVODOPA 25/100MG TAB PO SCH ×4 (06:29→21:17)
[2020-01-31] MEDS: POLYETHYLENE (MIRALAX) 17 GM PACK PO SCH (08:35)
[2020-01-31] MEDS: DOCUSATE SODIUM 100 MG CAP PO SCH ×2 (08:36→21:15)
[2020-01-31] MEDS: DULOXETINE HCL 30 MG CAP PO SCH (08:37)
[2020-01-31] MEDS: MULTIVITAMIN TAB PO SCH (08:38)
[2020-01-31] MEDS: AMANTADINE HCL 100 MG CAPSULE PO SCH ×2 (08:38→21:15)
[2020-01-31] MEDS: ENOXAPARIN INJ 40 MG/0.4 ML SYR SQ SCH (08:39)
[2020-01-31] MEDS: DAPTOmycin 475 MG in SYRINGE 0 ML IV SCH (14:15)
--- NOTE | 2020-01-31 15:42 | Orthopedic Progress Note ---
Date of Service January 31, 2020 Assessment & Plan (1) Infection of prosthetic left knee joint: Postop day 9 status post incision drainage irrigation debridement patellectomy excision polyethylene patella component and tibial polyethylene exchange. -Patient had compromised skin at the time of surgery in this area necrosis/dehiscence. There is some potential for this to heal by secondary intention but likely will be prolonged healing process. -Continue knee immobilizer to help stabilize wound even when patient is in bed. 0 to 90 degrees range of motion only in PT. -Will need rehab facility. Attempting for rehab facilities at [facility] or a rehab facility in [place]. [facility] also a possible choice. -Cultures growing MRSA. Currently on daptomycin. -Wound vac in place. Change q72 hours. -Await input from neurology service -Lovenox 40mg daily Admission and Anticipated Discharge Date Admission Date: January 21, 2020 Subjective Post Operative Progress Note Patient seen sitting up in chair at bedside, comfortable, denies complaints, pain well controlled, no acute issues. Review of Systems Review of Systems: All systems reviewed & are unremarkable except as noted in HPI & below Constitutional: as per Subjective / HPI Physical Exam Physical Exam: LLE NVSI +EHL/FHL/TA/GS SILT grossly, +2 DP pulse, compartments soft NT, dressing cdi. Constitutional: WD/WN, vitals as above Results & Data ([facility]) Vital Signs (Past 12 Hours) Vital Signs Temp Pulse Resp BP Pulse Ox 01/31/20 15:20 36.5 C 85 16 121/74 94 01/31/20 07:15 36.8 C 76 16 104/67 92
[2020-01-31] MEDS: SENNA 8.6 MG TAB PO SCH (21:15)
[2020-02-01] MEDS: VESICARE~ORDER AWAITING ACTION SCH ×3 (01:10→16:41)
[2020-02-01] MEDS: ACETAMINOPHEN 500 MG TAB PO SCH ×3 (05:51→22:22)
[2020-02-01] MEDS: CARBIDOPA/LEVODOPA 25/100MG TAB PO SCH ×4 (06:02→22:20)
[2020-02-01] MEDS: ENTACAPONE 200 MG TAB PO SCH ×4 (06:02→22:20)
[2020-02-01] MEDS: CARBIDOPA/LEVODOPA 50/200MG EXT REL TAB PO SCH ×4 (06:02→22:20)
[2020-02-01 07:10] LABS: Creatinine Clr Calc Pharmacy 146.2 ml/min; Est GFR (African American) 120.5
[2020-02-01] MEDS: POLYETHYLENE (MIRALAX) 17 GM PACK PO SCH (08:59)
[2020-02-01] MEDS: DOCUSATE SODIUM 100 MG CAP PO SCH ×2 (09:00→20:44)
[2020-02-01] MEDS: DULOXETINE HCL 30 MG CAP PO SCH (09:00)
[2020-02-01] MEDS: MULTIVITAMIN TAB PO SCH (09:00)
[2020-02-01] MEDS: AMANTADINE HCL 100 MG CAPSULE PO SCH ×2 (09:01→20:45)
[2020-02-01] MEDS: ENOXAPARIN INJ 40 MG/0.4 ML SYR SQ SCH (09:02)
--- NOTE | 2020-02-01 12:10 | Orthopedic Progress Note ---
Date of Service February 01, 2020 Assessment & Plan (1) Infection of prosthetic left knee joint: Postop day 10 status post incision drainage irrigation debridement patellectomy excision polyethylene patella component and tibial polyethylene exchange. -Patient had compromised skin at the time of surgery in this area necrosis/dehiscence. There is some potential for this to heal by secondary intention but likely will be prolonged healing process. -Continue knee immobilizer to help stabilize wound even when patient is in bed. 0 to 90 degrees range of motion only in PT. -Will need rehab facility. Attempting for rehab facilities at [facility] or [facility] also a possible choice. Authorization is placed for both. -Cultures growing MRSA. Currently on daptomycin. -Wound vac in place. Change q72 hours. -Lovenox 40mg daily -Patient remaining stable and awaiting approval for rehab versus skilled facility. Admission and Anticipated Discharge Date Admission Date: January 21, 2020 Subjective Patient currently sitting up in bed. Nursing is present and states that he was up in his chair eating breakfast this morning. He is doing very well this morning and cognitive function is much better. Able to hold a conversation well this morning. Understands that we are continuing to put authorizations in for rehab and skilled facilities. Nursing states that the wound care team was in this morning and change the patient's wound VAC. Physical Exam Physical Exam: Wound VAC in place. Appears to be functioning well. Use of immobilizer continuing. Neurovascular appears intact. Actively moving the knee, ankles, and toes. Results & Data ([facility]) Vital Signs (Past 12 Hours) Vital Signs Temp Pulse Resp BP Pulse Ox 02/01/20 07:00 36.7 C 79 16 127/78 94
[2020-02-01] MEDS: DAPTOmycin 475 MG in SYRINGE 0 ML IV SCH (14:00)
[2020-02-01] MEDS: SENNA 8.6 MG TAB PO SCH (20:44)
[2020-02-02] MEDS: VESICARE~ORDER AWAITING ACTION SCH ×3 (00:40→16:17)
[2020-02-02] MEDS: ACETAMINOPHEN 500 MG TAB PO SCH ×3 (06:15→22:00)
[2020-02-02] MEDS: CARBIDOPA/LEVODOPA 25/100MG TAB PO SCH ×4 (06:16→22:00)
[2020-02-02] MEDS: CARBIDOPA/LEVODOPA 50/200MG EXT REL TAB PO SCH ×4 (06:16→22:01)
[2020-02-02] MEDS: ENTACAPONE 200 MG TAB PO SCH ×4 (06:16→22:01)
[2020-02-02] MEDS: MULTIVITAMIN TAB PO SCH (08:47)
[2020-02-02] MEDS: AMANTADINE HCL 100 MG CAPSULE PO SCH ×2 (08:47→20:34)
[2020-02-02] MEDS: DULOXETINE HCL 30 MG CAP PO SCH (08:47)
[2020-02-02] MEDS: ENOXAPARIN INJ 40 MG/0.4 ML SYR SQ SCH (08:48)
[2020-02-02] MEDS: POLYETHYLENE (MIRALAX) 17 GM PACK PO SCH (09:45)
[2020-02-02] MEDS: DOCUSATE SODIUM 100 MG CAP PO SCH ×2 (09:45→20:34)
[2020-02-02 12:20] LABS: Basophils # (auto) 0.06 K/uL (0-0.2); Basophils % (auto) 0.7 %; Eosinophils # (auto) 0.23 K/uL (0-0.5); Eosinophils % (auto) 2.5 %; Hematocrit (blood only) 41.8 % (42-52); Hemoglobin 13.6 g/dL (14.0-18.0); Immature Granulocytes # (auto) 0.02 K/uL (0.00-0.02); Immature Granulocytes % (auto) 0.2 %; Lymphocytes # (auto) 1.29 K/uL (1.2-3.4); Lymphocytes % (auto) 14.1 %; Mean Corpuscular Hemoglobin 30.1 pg (25-34); Mean Corpuscular Hgb Conc 32.5 g/dL (32-36); Mean Corpuscular Volume 92.5 fL (80-100); Mean Platelet Volume 9.2 fL (7.4-10.4); Monocytes # (auto) 0.56 K/uL (0.11-0.59); Monocytes % (auto) 6.1 %; Neutrophils # (auto) 6.99 K/uL (1.4-6.5); Neutrophils % (auto) 76.4 %; Platelet Count 437 K/uL (130-400); RDW Coefficient of Variation 15.2 % (11.5-14.5); RDW Standard Deviation 51.4 fL (36.4-46.3); Red Blood Count 4.52 M/uL (4.7-6.1); White Blood Count 9.15 K/uL (4.8-10.8)
[2020-02-02 12:34] LABS: BUN Creatinine Ratio 24.1 (10-20); Creatinine Clr Calc Pharmacy 150.2 ml/min; Est GFR (African American) 121.9; Est GFR (Non-African American) 105.2; Potassium 4.1 mmol/L (3.5-5.1)
--- NOTE | 2020-02-02 14:29 | Orthopedic Progress Note ---
Date of Service February 02, 2020 Assessment & Plan (1) Infection of prosthetic left knee joint: Postop day 11 status post incision drainage irrigation debridement patellectomy excision polyethylene patella component and tibial polyethylene exchange. -Patient had compromised skin at the time of surgery in this area necrosis/dehiscence. There is some potential for this to heal by secondary intention but likely will be prolonged healing process. -Continue knee immobilizer to help stabilize wound even when patient is in bed. 0 to 90 degrees range of motion only in PT. -Will need rehab facility. Attempting for rehab facilities at [facility] or [facility] also a possible choice. Authorization is placed for both. -Cultures growing MRSA. Currently on daptomycin. -Wound vac in place. Change q72 hours. -Lovenox 40mg daily -Patient remaining stable and awaiting approval for rehab versus skilled facility. Admission and Anticipated Discharge Date Admission Date: January 21, 2020 Subjective Post Operative Progress Note Patient seen sitting in chair at bedside, comfortable, denies complaints, pain well controlled, no acute issues. Review of Systems Review of Systems: All systems reviewed & are unremarkable except as noted in HPI & below Physical Exam Physical Exam: LLE NVSI +EHL/FHL/TA/GS SILT grossly, +2 DP pulse, compartments soft NT, dressing cdi. Wound vac and KI in place Constitutional: WD/WN, vitals as above Results & Data ([facility]) Vital Signs (Past 12 Hours) Vital Signs Temp Pulse Resp BP Pulse Ox 02/02/20 07:34 36.8 C 72 16 123/83 94 Laboratory Results 02/02/20 02/02/20 02/02/20 Range/Units 11:58 11:58 11:58 WBC 9.15 (4.8-10.8) K/uL RBC 4.52 L (4.7-6.1) M/uL Hgb 13.6 L (14.0-18.0) g/dL Hct 41.8 L (42-52) % MCV 92.5 (80-100) fL MCH 30.1 (25-34) pg MCHC 32.5 (32-36) g/dL RDW Std Deviation 51.4 H (36.4-46.3) fL RDW Coeff of Travis 15.2 H (11.5-14.5) % Plt Count 437 H (130-400) K/uL MPV 9.2 (7.4-10.4) fL Immature Gran % (Auto) 0.2 % Neut % (Auto) 76.4 % Lymph % (Auto) 14.1 % Thayer % (Auto) 6.1 % Eos % (Auto) 2.5 % Baso % (Auto) 0.7 % Immature Gran # (Auto) 0.02 (0.00-0.02) K/uL Neut # (Auto) 6.99 H (1.4-6.5) K/uL Lymph # (Auto) 1.29 (1.2-3.4) K/uL Thayer # (Auto) 0.56 (0.11-0.59) K/uL Eos # (Auto) 0.23 (0-0.5) K/uL Baso # (Auto) 0.06 (0-0.2) K/uL ESR > 90 H (0-14) mm/hr Sodium 138 (136-145) mmol/L Potassium 4.1 (3.5-5.1) mmol/L Chloride 106 (98-107) mmol/L Carbon Dioxide 27 (21-32) mmol/L Anion Gap 5.0 (3-11) BUN 18 (7-18) mg/dl Creatinine 0.73 (0.6-1.4) mg/dl Est Cr Clr Drug Dosing 150.2 ml/min Est GFR ( Amer) 121.9 Est GFR (Non-Af Amer) 105.2 BUN/Creatinine Ratio 24.1 H (10-20) Glucose 101 H (70-99) mg/dl Calcium 9.0 (8.5-10.1) mg/dl
[2020-02-02] MEDS: DAPTOmycin 475 MG in SYRINGE 0 ML IV SCH (14:30)
[2020-02-02] MEDS: CARBIDOPA/LEVODOPA 25/100MG TAB PO PRN (14:31)
[2020-02-02] MEDS: SENNA 8.6 MG TAB PO SCH (20:34)
[2020-02-03] MEDS: VESICARE~ORDER AWAITING ACTION SCH ×4 (00:05→23:55)
[2020-02-03] MEDS: ACETAMINOPHEN 500 MG TAB PO SCH ×3 (06:31→20:57)
[2020-02-03] MEDS: CARBIDOPA/LEVODOPA 50/200MG EXT REL TAB PO SCH ×4 (06:32→20:37)
[2020-02-03] MEDS: ENTACAPONE 200 MG TAB PO SCH ×4 (06:32→20:36)
[2020-02-03] MEDS: CARBIDOPA/LEVODOPA 25/100MG TAB PO SCH ×4 (06:32→20:39)
[2020-02-03] MEDS: DULOXETINE HCL 30 MG CAP PO SCH (08:11)
[2020-02-03] MEDS: AMANTADINE HCL 100 MG CAPSULE PO SCH ×2 (08:11→20:37)
[2020-02-03] MEDS: ENOXAPARIN INJ 40 MG/0.4 ML SYR SQ SCH (08:12)
[2020-02-03] MEDS: MULTIVITAMIN TAB PO SCH (08:12)
--- NOTE | 2020-02-03 10:23 | Orthopedic Progress Note ---
Date of Service February 03, 2020 Assessment & Plan (1) Infection of prosthetic left knee joint: Postop day 12 status post incision drainage irrigation debridement patellectomy excision polyethylene patella component and tibial polyethylene exchange. -Patient had compromised skin at the time of surgery in this area necrosis/dehiscence. There is some potential for this to heal by secondary intention but likely will be prolonged healing process. -Case discussed with Dr. Child this morning. Wound discussed. Continue wound VAC at this time. -Change from immobilizer to hinged knee brace when patient is in bed locked in extension. 0 to 90 degrees range of motion only in PT or when sitting at the chair. -Will need rehab facility. Case management working on placement which is proving to be difficult. -COVID test ordered per requirements for sending patient to a rehab versus [place] facility. -Cultures growing MRSA. Currently on daptomycin. -Continue wound vac. Change q72 hours. -Lovenox 40mg daily -Patient remaining stable and awaiting approval for rehab versus skilled facility. Admission and Anticipated Discharge Date Admission Date: January 21, 2020 Subjective Patient awake and alert. Wound care nursing staff currently present removing the wound VAC. Continues to have moderate drainage noted in the canister. Pain control appears adequate. Patient was somewhat depressed this morning per nursing staff and someone from mental health staff was going to see the patient this morning. Currently he is not tearful as we talk about his wound. No complaints at this time. Physical Exam Physical Exam: Wound VAC has been removed. The area that is open has opened a little bit further into place where I knew it would. No purulent drainage. There is a good pink base to the wound. He does have some yellow slough at the distal portion of the open wound. Remainder of the staple line is intact proximally and distally. Results & Data ([facility]) Vital Signs (Past 12 Hours) Vital Signs Temp Pulse Resp BP Pulse Ox 02/03/20 07:30 36.8 C 86 16 127/74 92 02/02/20 22:52 36.8 C 87 16 129/75 95
[2020-02-03] MEDS: POLYETHYLENE (MIRALAX) 17 GM PACK PO SCH (10:32)
[2020-02-03] MEDS: DOCUSATE SODIUM 100 MG CAP PO SCH ×2 (10:32→20:42)
[2020-02-03] MEDS: DAPTOmycin 475 MG in SYRINGE 0 ML IV SCH (13:41)
[2020-02-03] MEDS: SENNA 8.6 MG TAB PO SCH (20:37)
[2020-02-04] MEDS: ACETAMINOPHEN 500 MG TAB PO SCH (05:24)
[2020-02-04] MEDS: CARBIDOPA/LEVODOPA 25/100MG TAB PO PRN (05:57)
[2020-02-04] MEDS: CARBIDOPA/LEVODOPA 25/100MG TAB PO SCH ×2 (05:58→08:41)
[2020-02-04] MEDS: ENTACAPONE 200 MG TAB PO SCH ×2 (05:58→08:41)
[2020-02-04] MEDS: CARBIDOPA/LEVODOPA 50/200MG EXT REL TAB PO SCH ×2 (05:59→08:41)
[2020-02-04 06:38] LABS: Creatinine Clr Calc Pharmacy 161.3 ml/min; Est GFR (African American) 125.5; Est GFR (Non-African American) 108.3
[2020-02-04] MEDS: AMANTADINE HCL 100 MG CAPSULE PO SCH (08:41)
[2020-02-04] MEDS: DOCUSATE SODIUM 100 MG CAP PO SCH (08:41)
[2020-02-04] MEDS: VESICARE~ORDER AWAITING ACTION SCH (08:42)
[2020-02-04] MEDS: DULOXETINE HCL 30 MG CAP PO SCH (08:42)
[2020-02-04] MEDS: MULTIVITAMIN TAB PO SCH (08:42)
[2020-02-04] MEDS: ENOXAPARIN INJ 40 MG/0.4 ML SYR SQ SCH (08:42)
[2020-02-04] MEDS: POLYETHYLENE (MIRALAX) 17 GM PACK PO SCH (09:12)
--- NOTE | 2020-02-04 10:10 | Orthopedic Progress Note ---
Date of Service February 04, 2020 Assessment & Plan (1) Infection of prosthetic left knee joint: Postop day 13 status post incision drainage irrigation debridement patellectomy excision polyethylene patella component and tibial polyethylene exchange. -Patient had compromised skin at the time of surgery in this area necrosis/dehiscence. There is some potential for this to heal by secondary intention but likely will be prolonged healing process. -Case discussed with Dr. Child this morning. Plan for patient to return to his office next Saturday for wound check and staple removal. -Hinged knee brace when patient is in bed locked in extension. 0 to 90 degrees range of motion only in PT or when sitting at the chair. -Will need rehab facility. Case management working on placement which is proving to be difficult. -COVID test ordered per requirements for sending patient to a rehab versus long-term facility. NEGATIVE. -Cultures growing MRSA. Currently on daptomycin. -Continue wound vac. Change q72 hours. -Lovenox 40mg daily for 2 more weeks -Patient remaining stable and awaiting approval for rehab versus skilled facility. Will draw CBC, BMP, and ESR today per Dr. Child's request for baseline labs at discharge. -Plan for discharge today to [facility] long-term facility. Admission and Anticipated Discharge Date Admission Date: January 21, 2020 Subjective Patient sitting up in chair. No complaints today. Comfortable. Pain controlled. Discussed that he would likely be going to long-term facility today. Patient was very happy to hear this. We talked about having him follow- up with Dr. Child next week for staple removal. Physical Exam Physical Exam: Wound VAC in place and functioning. No overt erythema around the edges of the wound VAC at this time. Continues to have some drainage in the collection unit. Patient actively flexing and extending the knee without difficulty. Hinged knee brace currently on. Neurovascular appears intact. Toes are mobile. Results & Data ([facility]) Vital Signs (Past 12 Hours) Vital Signs Temp Pulse Resp BP Pulse Ox 02/04/20 07:10 36.9 C 75 18 111/69 97 02/03/20 23:04 36.5 C 84 16 102/66 96
[2020-02-04 10:32] LABS: Basophils # (auto) 0.07 K/uL (0-0.2); Eosinophils # (auto) 0.27 K/uL (0-0.5); Hematocrit (blood only) 41.8 % (42-52); Hemoglobin 13.4 g/dL (14.0-18.0); Immature Granulocytes # (auto) 0.01 K/uL (0.00-0.02); Immature Granulocytes % (auto) 0.1 %; Lymphocytes # (auto) 0.86 K/uL (1.2-3.4); Lymphocytes % (auto) 12.8 %; Mean Corpuscular Hemoglobin 29.5 pg (25-34); Mean Corpuscular Hgb Conc 32.1 g/dL (32-36); Mean Corpuscular Volume 92.1 fL (80-100); Mean Platelet Volume 9.6 fL (7.4-10.4); Monocytes # (auto) 0.37 K/uL (0.11-0.59); Monocytes % (auto) 5.5 %; Neutrophils # (auto) 5.13 K/uL (1.4-6.5); Neutrophils % (auto) 76.6 %; Platelet Count 432 K/uL (130-400); RDW Coefficient of Variation 14.9 % (11.5-14.5); RDW Standard Deviation 50.4 fL (36.4-46.3); Red Blood Count 4.54 M/uL (4.7-6.1); White Blood Count 6.71 K/uL (4.8-10.8)
[2020-02-04 10:44] LABS: BUN Creatinine Ratio 20.8 (10-20); Calcium 8.8 mg/dl (8.5-10.1); Creatinine Clr Calc Pharmacy 140.6 ml/min; Est GFR (African American) 118.6; Est GFR (Non-African American) 102.3
--- NOTE | 2020-02-10 08:25 | Discharge Summary ---
Date of Service February 10, 2020 Discharge Data Allergies Allergy/AdvReac Type Severity Reaction Status Date / Time morphine Allergy Mild Itching Verified 11/24/19 10:22 buspirone [From BuSpar] AdvReac Severe Verified 11/24/19 10:22 haloperidol [From Haldol] AdvReac Severe Verified 11/24/19 10:22 pramipexole [From Mirapex] AdvReac Severe Verified 11/24/19 10:22 quetiapine [From Seroquel] AdvReac Severe Verified 11/24/19 10:22 Consultations 01/21/20 10:24 Consult Case Management - Discharge Planning Routine Consult Internal Medicine Routine 01/21/20 10:29 Consult Infectious Diseases Routine 01/21/20 10:44 Consult Neurology Routine 01/25/20 14:16 Consult Psychiatry Routine Procedures Performed Operation Date: 01/22/20 07:00 Actual Procedures p Left Knee Incision and Drainage, Irrigation and Debridment with Tibial Polyethylne Exchange, Excision of Loose Patella, Paddilectomy, Antibiotic Beads( Left) - Ray Child MD Discharge Plan Discharge Items Patient Disposition: Transfer Detention Fac Reason For Visit: INFECTED LEFT TOTAL KNEE Discharge Diagnosis: Infected left total knee arthroplasty Postoperative wound dehiscence Activity: Per Instructions section Weightbearing: Left weightbearing Weightbearing Comment: Weightbear as tolerated with brace on locked in extension. Non-emergency contact: Surgeon Call non-emergency contact if: your pain is not controlled, your temperature is above 101.5, your wound has increased redness and your wound has increased drainage Follow-up/Referrals: Jose Martin, [Primary Care Provider] - Diet: Regular Addtl Attending Provider Instructions: Patient may be weightbearing as tolerated on the left lower extremity with brace in place locked in extension. Brace can be unlocked for gentle range of motion with physical therapy and Occupational Therapy. Brace must left on any other time. It can be removed for dressing changes and checking on the wound VAC. Patient to have PT/OT protocols. Weightbearing as noted above with brace with gentle range of motion of the left knee. Wound care team to do wound VAC changes every 72 hours. Discontinue Lovenox in 2 weeks. Patient to receive daptomycin once daily for 4 weeks. Patient will need weekly labs drawn with copies sent to Dr. Webb and to Dr. Child Please call Dr. Webb's office (or Dr Child's office if Dr Webb not available) for any need for changes of antibiotics or concerns with the antibiotics the patient is receiving. *Follow-up with Dr Child next 02/09/20 at 12:10PM. (Pt must have a mask to come into the building.) Please call his office with any concerns of wound changes as well. [phone]* Addtl Brokerage Coordinator Provider Instructions: Continue IV Daptomycin x 4 weeks-through 03/05/20. Needs once weekly CBC, CMP, ESR, CRP, and CPK while on IV Daptomycin Continue all other medications from home as before. Pending Studies at Discharge: No Stand-Alone Forms: My [facility] Skilled Items Patient informed of condition?: Yes DNR: No Discharge Level of Care: Skilled Communicable Disease: Yes Discharge Prognosis: Stable Lines: PICC Urinary Catheter: No Medications and DC Order Prescriptions: New bisacodyl 10 mg Suppository 10 mg ND DAILY PRN (Reason: constipation) Qty: 5 RF: 0 enoxaparin 40 mg/0.4 mL Syringe 40 mg subcut QAM 28 Days Qty: 11.2 RF: 0 daptomycin 500 mg recon soln 475 mg IV DAILY Qty: 10 RF: 0 oxycodone 5 mg Tablet 5 mg PO Q4H MDD 6 tabs PRN (Reason: pain) Qty: 18 RF: 0 polyethylene glycol 3350 [Miralax] 17 gram Powder In Packet 17 g PO DAILY 10 Days Qty: 10 RF: 0 melatonin 3 mg Tablet 3 mg PO HS PRN (Reason: sleep) Qty: 10 RF: 0 Continued amantadine HCl 100 mg tablet 100 mg PO BID RF: 0 carbidopa-levodopa 25-100 mg tablet 1 tab PO QID RF: 0 carbidopa-levodopa 50-200 mg tablet extended release 1 tab PO QID RF: 0 entacapone [Comtan] 200 mg tablet 200 mg PO QID RF: 0 duloxetine [Cymbalta] 30 mg capsule,delayed release(DR/EC) 30 mg PO DAILY RF: 0 carbidopa-levodopa 25-100 mg Tablet 1 tab PO QID PRN (Reason: PARKINSONS) RF: 0 solifenacin [Vesicare] 10 mg tablet 10 mg PO QPM RF: 0 acetaminophen 500 mg Tablet 1,000 mg PO Q8 Qty: 100 RF: 0 Discharge Orders: Discharge Order (Routine); Ordered 02/04/20 Ordered By: Alberto Gold Admission Data Admit Date/Time: 01/21/20 11:23 Attending Provider: Ray Child Admit Provider: Ray Child Primary Care Provider: Jose Martin Other Providers: Marlena Dennis ; Kaye Webb ; Jose Vasquez ; Micaela Alexandre ; Lyndsey Olvera at [facility] Other Interventions: Discharge Summary Assessment (RN) Last Done: 02/04/20 10:47 DC Date/Time DO NOT enter until pt leaves facility: 02/04/20 12:22
--- NOTE | 2020-02-10 11:53 | Discharge Summary (DS) ---
DISCHARGE DIAGNOSIS: Septic left total knee arthroplasty. SECONDARY DIAGNOSES: Anxiety, depression, hearing loss in the left ear, osteoarthritis, Parkinson's disease, status post implantation of deep brain stimulator, sleep apnea, urinary incontinence, venous stasis, vitamin D deficiency. CONSULTS: LOUIS Monteiro; Yfn Alva MD. COMPLICATIONS: None. PROCEDURES: Left knee incision and drainage with debridement and tibial polyethylene bearing change, excision of loose patellar polyethylene patellectomy, placement of antibiotic beads and closure over drains, superficial wound VAC application by Dr. Child on 01/22/2020. BRIEF HISTORY: As dictated in the history and physical. HOSPITAL SUMMARY: The patient was admitted on the above-noted date and was then taken to the operating room on 01/22/2020 after medical clearance and had the above-noted procedure performed, which the patient tolerated well. Dr. Webb had been consulted from infectious disease and continued to follow the patient during his stay. Vancomycin was chosen initially, and a neurology consult has been placed as well due to the patient's Parkinson's disease. Dr. Vasquez had seen the patient and put in his consultation accordingly. On his first postoperative day, he was stable without complaints. Vital signs were stable and he was afebrile. Hemoglobin was 10.8, white count was 10.1, and he was started on PT and OT protocols with use of immobilizer for ambulation. Cultures were growing Staph aureus and we were awaiting final cultures. It was planned that he would likely need 6 weeks of IV antibiotics and a PICC line. By the second postoperative day, he was doing well that morning and had no distress, was eating well and moving his bowels. A PICC line consent had been obtained and PICC line was ordered, and he was continued on his IV antibiotics. By 01/25/2020, it was noted to be MRSA, and for proper coverage and ease of giving antibiotics in the outpatient setting, he was switched to daptomycin daily by Dr. Webb. Case management had been consulted to arrange for patient to go to a rehab type facility. The patient had developed some confusion. He was following directions. His speech was somewhat garbled and rapid. It was felt that his confusion was acute encephalopathy secondary to infection in the setting of underlying Parkinson's and psychiatric issues. A consult for psychiatry was placed and the patient was seen by Marlena Santamaria, of which she had placed her recommendations. Dr. Dennis continued to follow the patient through a portion near the end of his stay and continued to be in contact with the patient's on a regular basis. By 01/25, on his third postoperative day, I had seen the patient and he was sleeping but arousable. He was difficult to understand with his quick replies, but he appeared to have no discomfort and pain appeared to be controlled. His dressing was intact. The immobilizer was on and he was continued on his protocol. The patient had difficulty with keeping the immobilizer on with repetitive motion of flexion of his knee. The immobilizer would slide down and nursing had changed the dressing, it was noted that the patient had an area of a slight wound dehiscence with a few randy that had come out. Dr. Child had reviewed the wound and we had asked wound care to see the patient for the possibility of placing a wound VAC. The wound care team did examine the wound and it was found that he would be a candidate for wound VAC. By his fourth postoperative day, he was noted to have some serous drainage, but nothing purulent and the wound VAC was applied by the wound care team. By his fifth postoperative day, I had been notified by nursing staff that the patient had become somewhat combative earlier that morning to the point where he almost had bitten one of the nurses. Once they released him, he ended up tearing out his wound VAC tubing and the disc that was applied to the wound VAC itself. The dressing remained intact. I was met at the room with the wound care team and assessed the wound. The body of the wound vac had remained intact. No erythema around the wound edges. At that time, the patient was not combative and was not agitated and followed commands well, and nursing staff had stated he was much better from the time he was a few hours earlier. I discussed the case with Dr. Dennis who was going to see him as well. A new wound VAC disc was applied to the dressing and the VAC was restarted. The patient went through regular wound VAC changes during the week per wound care team and as his time progressed. The wound remained without significant erthema. The wound bed was pink with some slight slough at the distal end of the wound . He continued to have some serous drainage collected int the wound vac cannister. He became much more alert and oriented to the point that by 01/30/2020, the medicine service had signed off with plans to recheck the patient as needed. Case management was having difficulty getting placement for the patient, which took quite some time due to ambulatory status, and need for IV antibiotics. Some facilities were had no beds available at the time needed. However, he continued to remain stable through the rest of his stay, and a senior living facility was found that the patient's was agreeable to have him sent to for his initial therapy and treatment with antibiotics and PT before returning home. By 02/04/2020, he was sitting up in his chair. He had no complaints. He was comfortable. Pain was controlled. Discussed that he would likely be going to a senior living facility that day, he was very happy to hear this. We talked about him having follow up with Dr. Child in the following week for staple removal. His wound VAC was in place and functioning. He had no overt erythema around the edge of the wound VAC at that time and continued to have some drainage in the collection unit. The patient was actively flexing and extending the knee without difficulty, and his knee brace was currently on. Neurovascular appears intact. Toes were mobile. He was afebrile. Vital signs were stable. Plans were for a hinged knee brace to remain on when the patient was in bed locked in extension. He could unlock at 0-90 degrees of motion only in PT or when sitting at the chair. A COVID test for transferring the patient to a skilled facility was performed and was negative. He was thusly remaining stable and it was felt he could be transferred to a skilled facility, which was [facility] on 02/04/2020. For further review, please see chart. LABORATORY AND X-RAY DATA: As per chart. DISCHARGE INSTRUCTIONS: The patient was discharged to [facility] on 02/04/2020. Weightbearing as tolerated with brace on locked in extension. Call the surgeon if pain is not controlled, temperature above 101.5 or greater, if wound has increased redness or increased drainage. Regular diet. ADDITIONAL INSTRUCTIONS: The patient may be weightbearing as tolerated on the left lower extremity with brace in place, locked in extension. Brace can be unlocked for gentle range of motion with physical therapy and occupational therapy, bracing is to be left on at any other time and can be removed for dressing changes and checking on the wound VAC. The patient to have PT, OT protocols, weightbearing as noted above with a brace for gentle range of motion of the left knee. Wound care team to do wound VAC changes every 72 hours. Discontinue Lovenox in 2 weeks. The patient to receive daptomycin once daily for 4 weeks. The patient will need weekly labs drawn with copies sent to Dr. Webb and Dr. Child. Please call Dr. Webb's office or Dr. Child's office if Dr. Webb is not available for any need for changes of antibiotics or concerns with the antibiotics that the patient is receiving. Follow up with Dr. Child next 02/09/2020 at 12:10 p.m. The patient must have a mask to come into the building. Please call the office with any concerns of wound changes as well. Additional instructions from Dr. Webb showed the daptomycin through 03/05/2020 with weekly CBC, CMP, ESR, CRP and CPK while on IV daptomycin. DISCHARGE MEDICATIONS: Bisacodyl 10 mg W[place] daily, daptomycin 475 mg IV daily, enoxaparin 40 mg subcu q.a.m., melatonin 3 mg p.o. at bedtime, oxycodone 5 mg p.o. q.4 hours p.r.n., MiraLax 17 grams p.o. daily. Resume home meds as listed. MTDD
--- NOTE | 2020-02-11 06:13 | Coding Query ---
CODING QUERY To promote full compliance with coding requirements relating to patient care, provider participation is requested in all cases of label coder uncertainty. Please assist us with the question(s) below: Coding Question(s): There is documentation of, "It was felt that his confusion was acute encephalopathy secondary to infection in the setting of underlying Parkinson's and psychiatric issues" in the record and Discharge Summary. Please specify below, in your clinical opinion, regarding the Acute Encephalopathy. ( ) Acute Metabolic Encephalopathy ( ) Acute Encephalopathy, Unspecified ( x) Acute Encephalopathy, Other: Please Specify____parkinsons Physician's Response(s): Thank you Radha Kwong Principal Diagnosis: "that condition established after study, to be chiefly responsible for occasioning the admission of the patient to the hospital for care." Co-Existing Principal Diagnosis: "when two or more diagnoses equally meet the criteria for principal diagnosis as determined by the circumstances of admission, diagnostic work up, and/or therapy provided, and the Alphabetic Index, Tabular List, or another coding guideline does not provide sequencing direction, any one of the diagnoses may be sequenced first." "When the physician has documented what appears to be a current diagnosis in the body of the record, but has not included the diagnosis in the final diagnostic statement, the physician should be asked whether the diagnosis should be added." ([facility] 2 QTR90. p3-4) VENESSA
--- NOTE | 2020-02-11 06:26 | Coding Query ---
CODING QUERY To promote full compliance with coding requirements relating to patient care, provider participation is requested in all cases of brick layer uncertainty. Please assist us with the question(s) below: Coding Question(s): The Operative Report documents removal and replacement of the tibial polyethylene liner and removal of patella polyethylene liner and there is documentation that describes patellar component. Please clarify below, to be sure of correct coding of the procedure, regarding the tibial and patellar areas. TIBIAL area - please choose procedures that were performed: ( x ) Tibial Polyethylene Liner Removed ( x) New Tibial Polyethylene Liner Placed ( ) Tibial Component of the TKA Removed ( ) Tibial Component of the TKA Replaced with new one ( ) Other: Please Specify PATELLA area - please choose procedures that were performed: ( x ) Patella Polyethylene Liner Removed ( ) New Patella Polyethylene Liner Placed ( ) Patellar Component of the TKA Removed ( ) Patellar Component of the TKA Replaced with new one ( ) Loose Patella Bone fragments removed ( ) Other: Please Specify Physician's Response(s): Thank you Radha Kwong Principal Diagnosis: "that condition established after study, to be chiefly responsible for occasioning the admission of the patient to the hospital for care." Co-Existing Principal Diagnosis: "when two or more diagnoses equally meet the criteria for principal diagnosis as determined by the circumstances of admission, diagnostic work up, and/or therapy provided, and the Alphabetic Index, Tabular List, or another coding guideline does not provide sequencing direction, any one of the diagnoses may be sequenced first." "When the physician has documented what appears to be a current diagnosis in the body of the record, but has not included the diagnosis in the final diagnostic statement, the physician should be asked whether the diagnosis should be added." ([facility] 2 QTR90. p3-4) VENESSA
== END 2020-02-04 12:22 | DRG 486 ==
LOC: 3E 11:23

== ENCOUNTER 2022-06-10 21:52 | Inpatient (IN) ==
[2022-06-11 01:47] LABS: Basophils % (auto) 1.4 %; Eosinophils # (auto) 0.34 K/uL (0-0.50); Eosinophils % (auto) 4.6 %; Hematocrit (blood only) 40.8 % (40.1-51.0); Hemoglobin 13.1 g/dl (14.0-18.0); Immature Granulocytes # (auto) 0.02 K/uL (0.00-0.02); Immature Granulocytes % (auto) 0.3 %; Lymphocytes # (auto) 0.94 K/uL (1.2-3.4); Lymphocytes % (auto) 12.8 %; Mean Corpuscular Hemoglobin 29.5 pg (25.0-34.0); Mean Corpuscular Hgb Conc 32.1 g/dL (32.0-36.0); Mean Corpuscular Volume 91.9 fL (80.0-100.0); Mean Platelet Volume 9.6 fL (9.4-12.4); Monocytes # (auto) 0.62 K/uL (0.24-0.82); Monocytes % (auto) 8.5 %; Neutrophils # (auto) 5.31 K/uL (1.4-6.5); Neutrophils % (auto) 72.4 %; Platelet Count 243 K/uL (130-400); RDW Coefficient of Variation 13.7 % (11.5-14.5); RDW Standard Deviation 46.5 fL (36.4-46.3); Red Blood Count 4.44 M/uL (4.63-6.08); White Blood Count 7.33 K/ul (4.8-10.8)
[2022-06-11 01:59] LABS: INR 1.1 (0.9-1.1); Partial Thromboplastin Ratio 1.1; Partial Thromboplastin Time 29.1 Seconds (21.0-31.0); Prothrombin Time 11.2 Seconds (9.0-12.0)
[2022-06-11 02:10] LABS: Alanine Aminotransferase 3 U/L (7-52); Albumin Globulin Ratio 1.4 (0.9-2); Albumin Level 4.2 gm/dl (3.4-5.0); Alkaline Phosphatase 64 U/L (34-104); Anion Gap 9 (3-11); Aspartate Aminotransferase 15 U/L (13-39); Bilirubin,Total 0.8 mg/dl (0.2-1.0); Blood Urea Nitrogen 17 mg/dl (6-23); Calcium 9.3 mg/dl (8.5-10.1); Carbon Dioxide 24 mmol/L (21-32); Chloride 104 mmol/L (98-107); Est GFR (African American) 112.9 ml/min; Est GFR (Non-African American) 97.4 ml/min; Globulin 3.1 gm/dl (2.5-4.0); Glucose 80 mg/dl (70-99(Fasting)); Magnesium 2.3 mg/dl (1.7-2.4); Potassium 3.6 mmol/L (3.5-5.1); Sodium 137 mmol/L (136-145); Total Protein 7.3 gm/dl (6.0-8.3)
[2022-06-11 02:13] LABS: Troponin I High Sensitivity 4.8 pg/ml (0-20)
[2022-06-11 02:54] LABS: Appearance Urine Clear (Clear); Bacteria Urine Automated Negative (Negative); Blood Urine Negative (Negative); Color Urine Dark Yellow; Glucose Urine UA Negative (Negative); Ketones Urine 1+ (Negative); Leukocyte Esterase Urine Trace (Negative); Nitrite Urine Positive (Negative); Protein Urine Trace (Negative); RBC Urine Automated 0-4 /hpf (0-4); Specific Gravity Urine 1.036 (1.000-1.030); Urobilinogen Urine Negative (Negative); pH Urine 5.5 (4.5-7.5)
[2022-06-11 03:04] LABS: Bilirubin Urine 1+ (Negative)
[2022-06-11] MEDS ORDERED: diphenhydrAMINE 50 MG/ML VIAL IV STA (03:14)
[2022-06-11] MEDS ORDERED: ERYTHROMYCIN OP OINT 5 MG/GM 3.5 GM TUBE OP ONE (03:14)
[2022-06-11 03:36] LABS: Amphetamines+Metham, Urine Neg (Neg); Barbiturates, Urine Neg (Neg); Benzodiazepine, Urine Neg (Neg); Cocaine, Urine Neg (Neg); MDMA (Ecstacy), Urine Neg (Neg); Methadone, Urine Neg (Neg); Opiate, Urine Neg (Neg); Phencyclidine, Urine Neg (Neg)
[2022-06-11] MEDS ORDERED: MELATONIN 3 MG TAB PO STA (04:06)
[2022-06-11] MEDS ORDERED: LORazepam 2 MG/2 ML SYR IV STA ×2 (04:56→06:18)
[2022-06-11] MEDS ORDERED: cefTRIAXone SODIUM 2,000 MG/70 ML BAG IV STA (06:21)
--- NOTE | 2022-06-11 07:13 | CT Scan Report ---
HEAD CT NONCONTRAST CT DOSE: 1228.53 mGy.cm HISTORY: Altered mental status TECHNIQUE: Multiaxial CT images of the head were performed without the use of intravenous contrast. A utomated exposure control was utilized for this study. A dose lowering technique was utilized adheri ng to the principles of ALARA. Comparison: Head CT 10/12/2019. Findings: The paranasal sinuses and mastoid air cells are clear. The calvarium and skull base are int act. The ventricles and sulci are within normal limits. There is no mass, hematoma, midline shift, or acute infarct. The deep brain stimulator are in place and result in streak artifact. Impression: No significant change compared to the prior study. No acute intracranial abnormality. ACT 112: Negative or not required by law. Electronically signed by: Vikram Gutierrez M.D. 06/11/2022 7:10 AM
[2022-06-11] MEDS ORDERED: CARBIDOPA/LEVODOPA 25/100MG TAB PO SCH (09:00)
[2022-06-11] MEDS ORDERED: CARBIDOPA/LEVODOPA 50/200MG EXT REL TAB PO SCH (09:00)
[2022-06-11] MEDS ORDERED: ONDANSETRON INJ 2 MG/ML 2 ML VIAL IV PRN (09:56)
[2022-06-11] MEDS ORDERED: LORazepam 2 MG/2 ML SYR IV PRN (09:56)
[2022-06-11] MEDS ORDERED: ACETAMINOPHEN 500 MG TAB PO PRN (09:56)
[2022-06-11] MEDS ORDERED: LORazepam 1 MG in SYRINGE 0.5 ML IV PRN (10:22)
[2022-06-11] MEDS ORDERED: Patient's HEIGHT &/or WEIGHT Needed SCH (10:30)
--- NOTE | 2022-06-11 12:39 | Neurology Consultation ---
Date of Consultation June 11, 2022 Assessment & Plan (1) Encephalopathy: (2) Parkinson disease: (3) REM sleep behavior disorder: Plan 56-year-old male who was diagnosed with Parkinson's disease 26 years ago, at the age of 30. He underwent placement of bilateral DBS 12 years ago. His Parkinson's disease has been well controlled. He continues with Sinemet, amantadine, and entacapone as well. Patient's Parkinson's disease has been characterized by clumsiness of the right hand, rigidity, bradykinesia, and gait impairment. He has had some complications related to multiple left total knee arthroplasties as well which has affected his ambulatory function. According to his spouse, he is a total assist for ADLs. He also has symptoms suggestive of REM sleep behavior disorder which has been a chronic issue, and predates his diagnosis of Parkinson's disease. He is currently encephalopathic, in the context of a urinary tract infection. I do not suspect encephalitis, seizures, or stroke at this point in time. Would resume patient's Parkinson's medication regimen when he is able to reliably swallow and take pills. I would not recommend clonazepam or other pharmacologic intervention for REM sleep behavior disorder or nocturnal agitation at this point in time. He does use a melatonin/CBD gummy according to his spouse. I do not object to this particular treatment/remedy. May utilize as needed lorazepam for the time being, to address significant agitation, insomnia. Try to minimize usage of lorazepam, if possible, as this medication will likely contribute to encephalopathy. I did discuss the potential to utilize quetiapine in the event of significant n octurnal agitation. According to his spouse, quetiapine has caused significant agitation, for about 10 minutes or so, followed by fairly good sleep. She would not be completely averse to utilizing this type of medication, if necessary, depending on his clinical status going forward, but she would like to be notified in the event of any particular medication change. EEG to be completed this afternoon. I will review results when available. Again, my clinical suspicion for seizures is low. Continue with current medical management for urinary tract infection. Consider additional evaluation going forward as well, chest x-ray, cultures, etc. History of Present Illness Reason for Consultation: Change in mental status, Parkinson's disease Requesting Physician: Clifford Alvarado MD Attending Physician: Clifford Alvarado MD History of Present Illness The patient is a 56-year-old male who was diagnosed with Parkinson's disease 26 years ago, at the age of 30. He had presented with motor symptoms to the right hand, clumsiness, followed by rigidity, bradykinesia, and difficulty with balance. He did not display a classic pill-rolling resting tremor. He underwent bilateral DBS placement about 12 years ago which according to his spouse, resulted in significant improvement in his symptoms. He has continued with both instant and extended release Sinemet, Comtan, and amantadine. His Sinemet dosage was reduced after DBS placement. His medication regimen has not been adjusted in many years as his Parkinson's disease has been felt to be well controlled. He follows with Dr. Josie Back at the [facility] comprehensive movement disorder clinic. He has developed some additional difficulty with ambulation due to complications related to a left total knee arthroplasty requiring multiple revisions. He was seen by psychiatry during a hospitalization at [facility] in January 2020 for anxiety. According to his spouse, he has exhibited hallucinations previously that were felt to be related to an adverse reaction to BuSpar. He is currently admitted to the [facility] with a urinary tract infection. He has been persistently encephalopathic for the past few days. He is also exhibited significant movement and sleep, kicking type movement, mumbling, consistent with REM sleep behavior disorder. Spouse indicates that he has exhibited this type of behavior for at least as long as he has had Parkinson's disease. He has received lorazepam earlier this morning due to agitation. He is currently sonorous and unarousable. The above history was provided largely by his spouse, Milagros, over the telephone. I have also discussed his case with Dr. Alvarado, attending hospitalist. The patient did have a CT of the head completed earlier today which was negative for hemorrhage or acute process. There is artifact related to bilateral DBS placement. No significant change compared with the previous CT of the head done in September 2019. Urinalysis was suggestive of UTI. He is afebrile. He was given a dose of Rocephin. Allergies Allergy/AdvReac Type Severity Reaction Status Date / Time morphine Allergy Mild Itching Verified 12/26/20 22:02 buspirone [From BuSpar] AdvReac Severe SCHIZOPHRENIA Verified 12/26/20 22:02 LIKE ACTIONS haloperidol [From Haldol] AdvReac Severe CONTRAINDICATED Verified 12/26/20 22:02 IN PARKINSON'S DISEASE pramipexole [From Mirapex] AdvReac Severe BECAME OCD Verified 12/26/20 22:02 FOR WEEKS quetiapine [From Seroquel] AdvReac Severe PT BECAME Verified 12/26/20 22:02 VIOLENT THEN DEEP SLEEP Home Medications Medication Instructions Recorded Confirmed Type amantadine HCl 100 mg tablet 100 mg PO BID 06/30/19 06/11/22 History carbidopa 25 mg-levodopa 100 mg 1 tab PO QID 06/30/19 06/11/22 History tablet carbidopa ER 50 mg-levodopa 200 mg 1 tab PO QID 06/30/19 06/11/22 History tablet,extended release entacapone 200 mg tablet (Comtan) 200 mg PO QID 06/30/19 06/11/22 History carbidopa 25 mg-levodopa 100 mg 1 tab PO QID PRN PARKINSONS 08/28/19 06/11/22 History tablet solifenacin 10 mg tablet (Vesicare) 10 mg PO QAM 08/28/19 12/26/20 History acetaminophen 500 mg tablet 1,000 mg PO BID PRN Pain 04/29/20 06/11/22 History doxycycline hyclate 100 mg tablet 100 mg PO BID 04/29/20 06/11/22 History melatonin 5 mg capsule 5 mg PO HS PRN Sleep 04/29/20 12/26/20 History ibuprofen 200 mg tablet (Advil) 200 mg PO Q6H PRN Pain 07/15/20 06/11/22 History duloxetine 30 mg capsule,delayed 30 mg PO DAILY #30 caps 03/29/21 06/11/22 Rx release duloxetine 60 mg capsule,delayed 60 mg PO DAILY #30 caps 03/29/21 06/11/22 Rx release melatonin 3 mg tablet 6 - 9 mg PO HS PRN Sleep 06/11/22 06/11/22 History Patient History Medical History Anxiety Depression Hearing deficit Osteoarthritis Parkinson disease Sleep apnea Urinary incontinence Venous stasis of both lower extremities Vitamin D deficiency Surgical History History of appendectomy History of carpal tunnel release History of colonoscopy History of foot surgery History of left knee replacement History of revision of total knee arthroplasty History of shoulder surgery S/P deep brain stimulator placement (~2008) Family History Grandmother Family history of diabetes mellitus Father Hypertension Denies family history of Ovarian cancer Osteoporosis Myocardial infarction Breast cancer Colorectal cancer Cancer Social History Smoking Status: Never smoker Second Hand Exposure: No; Hx Alcohol Use: Yes Alcohol type: beer Hx Substance Use: No Preferred Language: German Communication Ability: Unable Visual Impairment: No Limitations Hearing Ability: Normal 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 Beliefs That Will Affect Care: None marital status: Current Living Situation: Spouse and Family Feels Safe at Home: Yes Safety Concerns: Feels Safe At This Time Assistive Devices: Brace/Splint/Immobilizer, Walker and Wheelchair Review of Systems Review of Systems: Unobtainable due to reduced consciousness Exam (Neuro) Constitutional: well developed and + altered mental status Eyes: + eyelid abnormality (Left, injected, edematous), + scleral abnormality (Left, injected), PERRL, EOM intact bilaterally and + pinpoint pupils Cardiovascular: Vessels: normal carotid upstroke; no carotid bruit Neurologic: Details: Limited neurological examination as patient is sonorous, unarousable. Does not withdraw or localize to painful stimulation. Pupils 2 mm, round and reactive to light. No gaze preference or nystagmus. There is no gross facial asymmetry or facial droop. Muscle tone is diffusely normal, no rigidity or spasticity. No resting tremor. Patient does exhibit occasional irregular kicking movements of the legs in the context of sleep. Deep tendon reflexes are diffusely diminished, plantar responses downgoing. Testing of strength, sensation, coordination, and gait cannot be completed in the context of patient's current mental status. Results & Data ([facility]) Vital Signs (Past 12 Hours) Vital Signs Temp Pulse Pulse Resp BP BP Pulse Ox 06/11/22 12:03 06/11/22 09:59 36.8 C 98 H 20 137/75 93 06/11/22 08:32 102 H 25 H 172/121 H 92 06/11/22 07:31 105 H 31 H 145/94 H 93 06/11/22 09:03 101 H 21 166/89 H 94 06/11/22 07:02 98 H 20 94 06/11/22 07:02 192/102 H 06/11/22 07:00 105 H 20 89 L 06/11/22 06:30 106 H 19 89 L 06/11/22 06:29 147/120 H 06/11/22 06:29 105 H 26 H 87 L 06/11/22 06:00 102 H 21 91 06/11/22 05:30 95 06/11/22 05:05 93 06/11/22 04:34 106 H 06/11/22 04:34 138/84 06/11/22 04:32 107 H 24 06/11/22 04:00 100 H 19 06/11/22 04:00 149/114 H 06/11/22 03:47 97 H 25 H 06/11/22 03:00 100 H 21 91 06/11/22 03:00 136/109 H 06/11/22 02:50 92 H 24 133/82 97 06/11/22 01:23 36.7 C 06/11/22 02:00 96 H 20 169/100 H 98 06/11/22 02:00 06/11/22 01:53 88 20 98 06/11/22 01:53 O2 Del Method O2 Flow Rate 06/11/22 12:03 Nasal Cannula 2 06/11/22 09:59 Oxymask 2 06/11/22 08:32 Room Air 06/11/22 07:31 06/11/22 09:03 Room Air 06/11/22 07:02 06/11/22 07:02 06/11/22 07:00 06/11/22 06:30 06/11/22 06:29 06/11/22 06:29 06/11/22 06:00 06/11/22 05:30 06/11/22 05:05 06/11/22 04:34 06/11/22 04:34 06/11/22 04:32 06/11/22 04:00 06/11/22 04:00 06/11/22 03:47 06/11/22 03:00 06/11/22 03:00 06/11/22 02:50 Room Air 06/11/22 01:23 06/11/22 02:00 Room Air 06/11/22 02:00 Room Air 06/11/22 01:53 Room Air 06/11/22 01:53 Room Air Laboratory Results WBC 7.33, hemoglobin 13.1, hematocrit 40.8, MCV 91.9, platelet count 243, sodium 137, potassium 3.6, BUN 17, creatinine 0.85, glucose 80, calcium 9.3, magnesium 2.3, AST 15, ALT 3, TSH 1.[address] of the head is as described in the history of present illness, I reviewed the images as well as the radiologist interpretation of this test. No hemorrhage or acute process, no hydrocephalus, artifact related to bilateral DBS noted. PG Care Time/CCT Total # of Minutes Spent Total Time Spent with Patient: Total time spent is greater than 50% in coordination of care (as documented) at patient's floor/unit and/or counseling patient: 80 minutes Coding Level of Care Code 79703 Initial Inpt Care Lvl 3 Diagnoses Encephalopathy G93.40 Parkinson disease G20 REM sleep behavior disorder G47.52
--- NOTE | 2022-06-11 13:01 | Electroencephalogram ---
EEG Procedure Note Date of Service June 11, 2022 Start / End Times Start Time: 12:31 PM End Time: 12:51 PM Referring Physician Clifford Alvarado History Encephalopathy, Parkinson's disease, urinary tract infection Home Medication List Medication Instructions Recorded Confirmed Type amantadine HCl 100 mg tablet 100 mg PO BID 06/30/19 06/11/22 History carbidopa 25 mg-levodopa 100 mg 1 tab PO QID 06/30/19 06/11/22 History tablet carbidopa ER 50 mg-levodopa 200 mg 1 tab PO QID 06/30/19 06/11/22 History tablet,extended release entacapone 200 mg tablet (Comtan) 200 mg PO QID 06/30/19 06/11/22 History carbidopa 25 mg-levodopa 100 mg 1 tab PO QID PRN PARKINSONS 08/28/19 06/11/22 History tablet solifenacin 10 mg tablet (Vesicare) 10 mg PO QAM 08/28/19 12/26/20 History acetaminophen 500 mg tablet 1,000 mg PO BID PRN Pain 04/29/20 06/11/22 History doxycycline hyclate 100 mg tablet 100 mg PO BID 04/29/20 06/11/22 History melatonin 5 mg capsule 5 mg PO HS PRN Sleep 04/29/20 12/26/20 History ibuprofen 200 mg tablet (Advil) 200 mg PO Q6H PRN Pain 07/15/20 06/11/22 History duloxetine 30 mg capsule,delayed 30 mg PO DAILY #30 caps 03/29/21 06/11/22 Rx release duloxetine 60 mg capsule,delayed 60 mg PO DAILY #30 caps 03/29/21 06/11/22 Rx release melatonin 3 mg tablet 6 - 9 mg PO HS PRN Sleep 06/11/22 06/11/22 History Inpatient Medication List Discontinued Medications Carbidopa/Levodopa (Carbidopa/Levodopa 50/200mg Ext Rel Tab) 1 tab PO QID RENAN Stop: 07/11/22 08:59 Last Admin: 06/11/22 06:52 Dose: 1 tab Documented By: CHRISTINE Carbidopa/Levodopa (Carbidopa/Levodopa 25/100mg Tab) 1 tab PO QID RENAN Stop: 07/11/22 08:59 Last Admin: 06/11/22 06:52 Dose: 1 tab Documented By: MWS Diphenhydramine HCl (Diphenhydramine 50 Mg/Ml Vial) 25 mg IV NOW STA Stop: 06/11/22 03:15 Last Admin: 06/11/22 03:21 Dose: 25 mg Documented By: CHRISTINE Erythromycin (Erythromycin Op Oint 5 Mg/Gm 3.5 Gm Tube) 1 appln OP NOW ONE Stop: 06/11/22 03:15 Last Admin: 06/11/22 03:21 Dose: 1 appln Documented By: CHRISTINE Ceftriaxone Sodium (Rocephin) 2,000 mg in 70 mls @ 140 mls/hr IV NOW STA Stop: 06/11/22 06:50 Last Infusion: 06/11/22 07:43 Dose: 0 mls/hr Documented By: Admin: 06/11/22 06:32 Dose: 140 mls/hr Documented By: CHRISTINE Lorazepam (Lorazepam 2 Mg/1 Ml Vial) 2 mg IV NOW STA; Protocol Stop: 06/11/22 04:57 Last Admin: 06/11/22 05:01 Dose: 2 mg Documented By: CHRISTINE Lorazepam (Lorazepam 2 Mg/1 Ml Vial) 2 mg IV NOW STA; Protocol Stop: 06/11/22 06:19 Last Admin: 06/11/22 06:27 Dose: 2 mg Documented By: CHRISTINE Melatonin (Melatonin 3 Mg Tab) 6 mg PO NOW STA Stop: 06/11/22 04:07 Last Admin: 06/11/22 04:42 Dose: 6 mg Documented By: CHRISTINE Description This is a 21 electrode EEG with a single channel dedicated to limited EKG. The electrodes were placed in accordance with the International 10-20 system. There is a posterior dominant rhythm of 12 Hz which is symmetrically distributed. There is a normal anterior to posterior organization. Photic stimulation is unremarkable. There is a symmetric frontal beta rhythm. There is admixed generalized polymorphic theta activity throughout the study. There is no focal slowing. There are no epileptiform abnormalities. Patient unable to follow commands for this EEG. Exhibited intermittent movement artifact throughout the study. Interpretation Abnormal awake/drowsy EEG revealing evidence of a mild to moderate nonspecific encephalopathy. No epileptiform abnormalities observed. [facility] EEG Procedure Codes Indication for Procedure (1) Encephalopathy: Neurology Neurology: 66195 EEG include record awake & drowsy
--- NOTE | 2022-06-11 13:16 | Electrocardiogram Report ---
Test Reason : Blood Pressure : / mmHG Vent. Rate : 090 BPM Atrial Rate : 090 BPM P-R Int : 160 ms QRS Dur : 092 ms QT Int : 372 ms P-R-T Axes : 046 -08 006 degrees QTc Int : 455 ms Poor data quality, interpretation may be adversely affected Sinus rhythm Inferior infarct , age undetermined Abnormal ECG When compared with ECG of 21-JAN-2020 11:51, No significant change Confirmed by Zander Tafoya ([id number]) on 06/11/2022 1:16:13 PM Referred By: REFERRED SELF Confirmed By:Zander Tafoya
[2022-06-11] MEDS: DULoxetine HCL 60 MG CAP PO SCH (14:11)
[2022-06-11] MEDS: AMANTADINE HCL 100 MG CAPSULE PO SCH (14:11)
[2022-06-11] MEDS: ENTACAPONE 200 MG TAB PO SCH ×3 (14:11→22:18)
[2022-06-11] MEDS: DULoxetine HCL 30 MG CAP PO SCH (14:11)
[2022-06-11] MEDS: CARBIDOPA/LEVODOPA 50/200MG EXT REL TAB PO SCH ×3 (14:11→20:56)
--- NOTE | 2022-06-11 14:32 | History & Physical Report ---
Date of Service June 11, 2022 Assessment & Plan (1) Encephalopathy: Plan: Presumed due to UTI as this is what reports previously. Will attempt to get CXR as well to help further r/o infectious causes. No neck stiffness, but would consider encephalitis/meningitis as well. Last occurrence was in 2019, and thought to be due to medication effects as well as possible UTI. EEG negative for seizure on 06/11. - Continue ceftriaxone - Follow urine and blood cxs - Can use Ativan and low-dose olanzapine PRN for agitation/restlessness (2) Parkinson disease: Plan: Diagnosed at 30 years old. Bilateral DBS implanted in 2009. - Continue home meds as able (3) REM sleep behavior disorder: Plan: Pre-dates his Parkinson's disease. With lots of movements, some shouting, and myoclonus during sleep. 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 Follows with [facility] ID. - Continue home duloxetine (5) Depression: Plan: Follows with [facility] Psychiatry. - Continue amantadine & duloxetine (6) Urinary incontinence: Plan: Follows with PCP for this. - Continue solifenacin as able (7) DVT prophylaxis: Plan: SCDs - Low DVT risk per admission calculator Admission and Anticipated Discharge Date Admission Date: June 11, 2022 History of Present Illness Primary Care Provider: Jose Martin DO 56yo M w/ hx of Parkinson's disease s/p DBS in 2009 who presents with altered mental status. The patient's provides the full history as he cannot respond to my questions. He was very agitated in the ER and was given Ativan 4 mg IV. The patient's notes that he is usually in a fairly good baseline of health and is responsive, recognizes and converses with family, and is up to date with current events such as [employer] football. However, over the last 2 weeks, she reports increasing periods of unresponsiveness. First, she notes that it was fairly transient (ie only 20-30 minutes). He would be unarousable. He has REM sleep disorder, so he does have a lot of movement and myoclonus while sleeping. He would have some mild confusion afterward, but appear to be mostly himself. However, over the last 2 weeks, it seems like these episodes have been more frequent, and longer in duration (last now several hours). He has also been more verbal and agitated with sleep, to the point where he is waking up his [id number] (the patient's 's mother). He was moved to a different room in the house to avoid this, but has fallen out of bed several times now as the new bed does not have guardrails. Additionally, he has been acting more odd, like asking to lie down on the floor when he knows that this is not a usual behavior for him. His reports he has not had any fevers, chills, sweats, or dysuria at home. In 2019, he came to the ER with a similar issue. The reports he was intubated for agitation at that time and flown to [facility] where he was intubated for about 24 hours, then extubated and gradually returned to himself. Reviewing that note, it appears it was thought to be from Buspar as well as duloxetine, with possible UTI contributing. Allergies Allergy/AdvReac Type Severity Reaction Status Date / Time morphine Allergy Mild Itching Verified 12/26/20 22:02 buspirone [From BuSpar] AdvReac Severe SCHIZOPHRENIA Verified 12/26/20 22:02 LIKE ACTIONS haloperidol [From Haldol] AdvReac Severe CONTRAINDICATED Verified 12/26/20 22:02 IN PARKINSON'S DISEASE pramipexole [From Mirapex] AdvReac Severe BECAME OCD Verified 12/26/20 22:02 FOR WEEKS quetiapine [From Seroquel] AdvReac Severe PT BECAME Verified 12/26/20 22:02 VIOLENT THEN DEEP SLEEP Home Medications Medication Instructions Recorded Confirmed Type amantadine HCl 100 mg tablet 100 mg PO BID 06/30/19 06/11/22 History carbidopa 25 mg-levodopa 100 mg 1 tab PO QID 06/30/19 06/11/22 History tablet carbidopa ER 50 mg-levodopa 200 mg 1 tab PO QID 06/30/19 06/11/22 History tablet,extended release entacapone 200 mg tablet (Comtan) 200 mg PO QID 06/30/19 06/11/22 History carbidopa 25 mg-levodopa 100 mg 1 tab PO QID PRN PARKINSONS 08/28/19 06/11/22 History tablet solifenacin 10 mg tablet (Vesicare) 10 mg PO QAM 08/28/19 12/26/20 History acetaminophen 500 mg tablet 1,000 mg PO BID PRN Pain 04/29/20 06/11/22 History doxycycline hyclate 100 mg tablet 100 mg PO BID 04/29/20 06/11/22 History melatonin 5 mg capsule 5 mg PO HS PRN Sleep 04/29/20 12/26/20 History ibuprofen 200 mg tablet (Advil) 200 mg PO Q6H PRN Pain 07/15/20 06/11/22 History duloxetine 30 mg capsule,delayed 30 mg PO DAILY #30 caps 03/29/21 06/11/22 Rx release duloxetine 60 mg capsule,delayed 60 mg PO DAILY #30 caps 03/29/21 06/11/22 Rx release melatonin 3 mg tablet 6 - 9 mg PO HS PRN Sleep 06/11/22 06/11/22 History Past Med/Surg History Medical History Anxiety Depression Hearing deficit CROW left ear Osteoarthritis Parkinson disease s/p deep brain stimulator. Dr. Linda Back, [facility] Sleep apnea does not tolerate device Urinary incontinence Managed at primary care Venous stasis of both lower extremities Vitamin D deficiency Surgical History History of appendectomy History of carpal tunnel release History of colonoscopy History of foot surgery RECONSTRUCTION - RT History of left knee replacement History of revision of total knee arthroplasty LEFT History of shoulder surgery LEFT X 2; RT X 1 S/P deep brain stimulator placement (~2008) Family History Grandmother Family history of diabetes mellitus Father Hypertension Denies family history of Ovarian cancer Osteoporosis Myocardial infarction Breast cancer Colorectal cancer Cancer Social History Smoking Status: Never smoker Second Hand Exposure: No; Hx Alcohol Use: Yes Alcohol type: beer Hx Substance Use: No Preferred Language: Bhutanese Communication Ability: Unable Visual Impairment: No Limitations Hearing Ability: Normal It Infrastructure Consultant Required: No Beliefs That Will Affect Care: None marital status: Current Living Situation: Spouse and Family Feels Safe at Home: Yes Safety Concerns: Feels Safe At This Time Assistive Devices: Brace/Splint/Immobilizer, Walker and Wheelchair Review of Systems Review of Systems: Unobtainable due to cognitive status and Unobtainable due to reduced consciousness Physical Exam Constitutional: + acute distress and + ill appearing Agitated and restless Eyes: no conjunctival abnormality and + EOM not intact (Not able to participate) ENMT: external ear and nose normal, oropharynx normal Neck: trachea midline, no thyromegaly normal visual inspection Respiratory: normal respiratory effort, lungs clear to auscultation no respiratory distress Cardiovascular: RRR, no murmur, no edema Gastrointestinal (Abdomen): Inspection/Auscultation: abdomen normal to inspection; abdomen not distended Musculoskeletal: no cyanosis or clubbing, extremities motor strength 5/5 Skin: no rashes, warm and dry Neurologic: moves all extremities, + confused and + obtunded Patient with significant thrashing and myoclonic jerks. Results & Data Results & Data ([facility]) Vital Signs (Past 12 Hours) Vital Signs Temp Pulse Pulse Resp BP BP Pulse Ox 06/11/22 12:03 06/11/22 09:59 36.8 C 98 H 20 137/75 93 06/11/22 08:32 102 H 25 H 172/121 H 92 06/11/22 07:31 105 H 31 H 145/94 H 93 06/11/22 09:03 101 H 21 166/89 H 94 06/11/22 07:02 98 H 20 94 06/11/22 07:02 192/102 H 06/11/22 07:00 105 H 20 89 L 06/11/22 06:30 106 H 19 89 L 06/11/22 06:29 147/120 H 06/11/22 06:29 105 H 26 H 87 L 06/11/22 06:00 102 H 21 91 06/11/22 05:30 95 06/11/22 05:05 93 06/11/22 04:34 106 H 06/11/22 04:34 138/84 06/11/22 04:32 107 H 24 06/11/22 04:00 100 H 19 06/11/22 04:00 149/114 H 06/11/22 03:47 97 H 25 H 06/11/22 03:00 100 H 21 91 06/11/22 03:00 136/109 H 06/11/22 02:50 92 H 24 133/82 97 O2 Del Method O2 Flow Rate 06/11/22 12:03 Nasal Cannula 2 06/11/22 09:59 Oxymask 2 06/11/22 08:32 Room Air 06/11/22 07:31 06/11/22 09:03 Room Air 06/11/22 07:02 06/11/22 07:02 06/11/22 07:00 06/11/22 06:30 06/11/22 06:29 06/11/22 06:29 06/11/22 06:00 06/11/22 05:30 06/11/22 05:05 06/11/22 04:34 06/11/22 04:34 06/11/22 04:32 06/11/22 04:00 06/11/22 04:00 06/11/22 03:47 06/11/22 03:00 06/11/22 03:00 06/11/22 02:50 Room Air Code Status & VTE Plan VTE Prophylaxis Plan VTE Prophylaxis will be ordered: Yes PG Care Time/CCT Total # of Minutes Spent Total Time Spent with Patient: Total time spent is greater than 50% in coordination of care (as documented) at patient's floor/unit and/or counseling patient: Coding Level of Care Code 92415 Initial Inpt Care Lvl 3 Diagnoses Encephalopathy G93.40 Parkinson disease G20 REM sleep behavior disorder G47.52 Infection of prosthetic left knee joint T84.54XA Depression F32.9 Urinary incontinence R32 DVT prophylaxis Z29.9
--- NOTE | 2022-06-11 16:27 | XRay Report ---
XR chest 1V portable CLINICAL HISTORY: Hypoxia, possible aspiration TECHNIQUE: Single frontal radiograph of the chest was obtained. Comparison: Comparison is made to chest radiograph 12/25/2019 FINDINGS: Battery-powered device is are seen. There are bilateral shoulder arthroplasties. The cardiomediastina l silhouette is normal. Lungs are underinflated but clear. No evidence of pleural effusion or pneumot horax. IMPRESSION: Lungs are underinflated but there is no airspace opacity to suggest aspiration. ACT 112: Negative or not required by law. Electronically signed by: Jmi Cox M.D. 06/11/2022 4:26 PM
[2022-06-11] MEDS: CARBIDOPA/LEVODOPA 25/100MG TAB PO SCH ×2 (16:49→22:18)
[2022-06-11] MEDS: DOXYCYCLINE HYCLATE 100 MG CAP PO SCH (16:49)
--- NOTE | 2022-06-11 19:00 | Emergency Department Note ---
Impression & Plan Altered mental status, Acute UTI, Conjunctivitis Admit to the hospitalist ED Provider Note NAME: LEVON SAMANIEGO AGE: 56 SEX: M ARRIVES VIA: Walk-In INFORMANT: Patient and his ED PROVIDER(S): Laney Nicolas DO CHIEF COMPLAINT: Altered mental status PLAN: [facility] MEDICAL DECISION MAKING: This is a 56-year-old male patient with Parkinson's disease who presents to the emergency department with his with an altered mental status. Patient has had significant sleep disturbance in the past couple weeks. Patient lost his glasses and has had some increasing psychosis possibly secondary to this. H owever the glasses were found and the psychosis and mental status changes have not improved. Of note, the patient does have a urinary tract infection. He was given a dose of Rocephin for this. The UTI could be contributing to his altered mental status as it has in the past. Patient became increasingly agitated here in the emergency department despite receiving doses of melatonin and Ativan. Dominga cobb has significant subconjunctival edema and scleral injection to the left eye which was treated with Benadryl here in the ER. The explains that this is happening repeatedly and more frequently over the past couple weeks. Also at this time it appears that the patient has developed an infection in that left eye. The patient is extremely unkempt as he has stool about his hands and feet. Patient went for CT scan of the brain which was unremarkable. Case was discussed with the [facility] Hospitalist and they will evaluate for further management. Triage Nursing notes reviewed and agree with them. Additional history obtained from the patient's is at the bedside Prior medical records reviewed Vital Signs: reviewed and unremarkable Differential diagnosis: Encephalopathy, UTI, exacerbation of Parkinson's disease, hyponatremia, hypoglycemia, acute thought disorder, worsening mood disorder, insomnia ER treatment provided: Erythromycin ointment to the left eye IV Benadryl IV Ativan x2 Oral melatonin IV ceftriaxone Diagnostics interpreted by me: ECG: Normal sinus rhythm at a rate of [address] segment elevation or signs of ischemia. There is no ectopy. Cardiac Monitoring: Normal sinus rhythm at a rate of 82 Laboratory studies: See below Imaging studies: Per stat rad CT head: No acute abnormality. The sensitivity of this evaluation is limited by the extensive streak artifact from the deep brain stimulators HPI: 56/M arrives for evaluation of disorientation. Patient presents to the emergency department with worsening altered mental status. The is concerned the patient has had worsening mental status changes over the past couple of weeks. She describes that the patient lost his glasses 2 weeks ago and began to have worsening psychosis. They found the glasses or got them repla jazmyne but the mental status changes did not improve. The patient has had increased loss of sleep which could be contributing to the mental status changes. Patient has significant edema and erythema to the left eye which has been happening more frequently and typically improves after taking Benadryl. Patient has had a history of urinary tract infection for which he has been on a couple of different antibiotics but has not yet been improving. ROS: See above HPI for pertinent positives & negatives. A total of 10 systems reviewed and were otherwise negative. PAST MEDICAL HISTORY:See Below PAST SURGICAL HISTORY:See Below FAMILY HISTORY:See Below SOCIAL HISTORY:See Below HOME MEDICATIONS:See list ALLERGIES:See list VITALS:See Below PHYSICAL EXAMINATION: HEENT: Head - normocephalic and atraumatic. Left eye significantly erythematous and edematous with subconjunctival edema. The right eyes normal. Nnose - moist nasal mucosa without discharge. Mouth - moist buccal mucosa. Oropharynx is nonerythematous and there is no tonsillar exudate or edema noted. Neck: Supple; no lymphadenopathy appreciated. Heart: Regular rate and rhythm. There is a normal S1 and S2 with no murmurs, clicks, or gallops appreciated. Lungs: Clear to auscultation bilaterally with no wheezes, rales, or rhonchi. Abdomen: Soft, completely nontender, nondistended, with good bowel sounds. There are no palpable pulsatile masses or hepatosplenomegaly. There is no guarding, rigidity, or rebound noted. Extremities: No evidence of cyanosis, clubbing, or edema. There are easily palpable peripheral pulses. Skin: warm and dry with good turgor and no rashes. Neuro: The patient will follow commands but it is very difficult to understand him when he tries to answer questions as he speaks so quickly. He is moving all 4 extremities. Muscle strength appears to be normal. ED COURSE: Times/Reassessments: 245: The patient was evaluated in room C 12. A complete history and physical was performed. An IV lock was initiated and labs were drawn as above. A urine specimen was obtained. An order was placed for continuous cardiac monitoring. The patient was in a normal sinus rhythm at a rate of 82. A twelve-lead EKG was obtained as described above. Erythromycin ointment was placed into the left eye. She was given a dose of IV Benadryl for the edema and erythema in the left eye. He was also given a dose of melatonin to help with his agitation but this was not helpful. Patient's agitation seem to increase. He was given a dose of IV Ativan. I reviewed some laboratory studies with the patient's . He remained agitated and was given a second dose of IV Ativan. Patient was noted to have a urinary tract infection was started on IV ceftriaxone. I discussed the case with the [facility] Hospitalist and they will evaluate for further management. Laney Nicolas, DO Past Med/Surg History Medical History Anxiety Depression Hearing deficit LUMMI left ear Osteoarthritis Parkinson disease s/p deep brain stimulator. Dr. Linda Back, [facility] Sleep apnea does not tolerate device Urinary incontinence Managed at primary care Venous stasis of both lower extremities Vitamin D deficiency Surgical History History of appendectomy History of carpal tunnel release History of colonoscopy History of foot surgery RECONSTRUCTION - RT History of left knee replacement History of revision of total knee arthroplasty LEFT History of shoulder surgery LEFT X 2; RT X 1 S/P deep brain stimulator placement (~2008) Family History Grandmother Family history of diabetes mellitus Father Hypertension Denies family history of Ovarian cancer Osteoporosis Myocardial infarction Breast cancer Colorectal cancer Cancer Social History Smoking Status: Never smoker Second Hand Exposure: No; Hx Alcohol Use: Yes Alcohol type: beer Hx Substance Use: No Preferred Language: Croatian Communication Ability: Unable Visual Impairment: No Limitations Hearing Ability: Normal Factory Representative Required: No Beliefs That Will Affect Care: None marital status: Current Living Situation: Spouse and Family Feels Safe at Home: Yes Safety Concerns: Feels Safe At This Time Assistive Devices: Bedside Commode, Scooter/Electric Scooter and Walker Allergies Allergies Allergy/AdvReac Type Severity Reaction Status Date / Time morphine Allergy Mild Itching Verified 12/26/20 22:02 buspirone [From BuSpar] AdvReac Severe SCHIZOPHRENIA Verified 12/26/20 22:02 LIKE ACTIONS haloperidol [From Haldol] AdvReac Severe CONTRAINDICATED Verified 12/26/20 22:02 IN PARKINSON'S DISEASE pramipexole [From Mirapex] AdvReac Severe BECAME OCD Verified 12/26/20 22:02 FOR WEEKS quetiapine [From Seroquel] AdvReac Severe PT BECAME Verified 12/26/20 22:02 VIOLENT THEN DEEP SLEEP Home Meds Home Medications Medication Instructions Recorded Confirmed amantadine HCl 100 mg tablet 100 mg PO BID 06/30/19 06/11/22 carbidopa 25 mg-levodopa 100 mg 1 tab PO QID 06/30/19 06/11/22 tablet carbidopa ER 50 mg-levodopa 200 mg 1 tab PO QID 06/30/19 06/11/22 tablet,extended release entacapone 200 mg tablet (Comtan) 200 mg PO QID 06/30/19 06/11/22 carbidopa 25 mg-levodopa 100 mg 1 tab PO QID PRN PARKINSONS 08/28/19 06/11/22 tablet solifenacin 10 mg tablet (Vesicare) 10 mg PO QAM 08/28/19 12/26/20 acetaminophen 500 mg tablet 1,000 mg PO BID PRN Pain 04/29/20 06/11/22 doxycycline hyclate 100 mg tablet 100 mg PO BID 04/29/20 06/11/22 melatonin 5 mg capsule 5 mg PO HS PRN Sleep 04/29/20 12/26/20 ibuprofen 200 mg tablet (Advil) 200 mg PO Q6H PRN Pain 07/15/20 06/11/22 melatonin 3 mg tablet 6 - 9 mg PO HS PRN Sleep 06/11/22 06/11/22 Previous Rx's Medication Instructions Recorded duloxetine 30 mg capsule,delayed 30 mg PO DAILY #30 caps 03/29/21 release duloxetine 60 mg capsule,delayed 60 mg PO DAILY #30 caps 03/29/21 release Results & Data (ED) Vital Signs Vital Signs - 24 hr 06/10/22 21:53 06/11/22 01:53 06/11/22 01:53 Temperature 36.4 C L Temperature Source Temporal Artery Scan Pulse Rate 90 88 Pulse Rate [Apical] Pulse Rate from SpO2 Sensor Pulse Rhythm [Apical] Pulse Strength [Apical] Respiratory Rate 20 20 Respiratory Effort / Characteristics Non-Labored Spontaneous Respiratory Depth Normal Respiratory Pattern Blood Pressure 119/52 L Blood Pressure [Right Arm] Blood Pressure Mean 74 Blood Pressure Mean [Right Arm] Blood Pressure Position [Right Arm] Pulse Oximetry 99 98 Oxygen Delivery Method Room Air Room Air Room Air Sepsis Recent Fever Within 48 Hours No Sepsis New/Unexplained Change in Mental Status N/A Sepsis Action Taken by Nursing No Action Required 06/11/22 02:00 06/11/22 02:00 06/11/22 01:23 Temperature 36.7 C Temperature Source Rectal Pulse Rate Pulse Rate [Apical] 96 H Pulse Rate from SpO2 Sensor Pulse Rhythm [Apical] Regular Pulse Strength [Apical] Normal Respiratory Rate 20 Respiratory Effort / Characteristics Non-Labored Respiratory Depth Normal Respiratory Pattern Regular Blood Pressure Blood Pressure [Right Arm] 169/100 H Blood Pressure Mean Blood Pressure Mean [Right Arm] 123 Blood Pressure Position [Right Arm] Lying Pulse Oximetry 98 Oxygen Delivery Method Room Air Room Air Sepsis Recent Fever Within 48 Hours Sepsis New/Unexplained Change in Mental Status Sepsis Action Taken by Nursing 06/11/22 02:50 06/11/22 03:00 06/11/22 03:00 Temperature Temperature Source Pulse Rate 100 H Pulse Rate [Apical] 92 H Pulse Rate from SpO2 Sensor 90 Pulse Rhythm [Apical] Regular Pulse Strength [Apical] Normal Respiratory Rate 24 21 Respiratory Effort / Characteristics Labored Respiratory Depth Shallow Respiratory Pattern Tachypnea Blood Pressure 136/109 H Blood Pressure [Right Arm] 133/82 Blood Pressure Mean 118 Blood Pressure Mean [Right Arm] 99 Blood Pressure Position [Right Arm] Lying Pulse Oximetry 97 91 Oxygen Delivery Method Room Air Sepsis Recent Fever Within 48 Hours Sepsis New/Unexplained Change in Mental Status Sepsis Action Taken by Nursing 06/11/22 03:47 06/11/22 04:00 06/11/22 04:00 Temperature Temperature Source Pulse Rate 97 H 100 H Pulse Rate [Apical] Pulse Rate from SpO2 Sensor Pulse Rhythm [Apical] Pulse Strength [Apical] Respiratory Rate 25 H 19 Respiratory Effort / Characteristics Respiratory Depth Respiratory Pattern Blood Pressure 149/114 H Blood Pressure [Right Arm] Blood Pressure Mean 125 Blood Pressure Mean [Right Arm] Blood Pressure Position [Right Arm] Pulse Oximetry Oxygen Delivery Method Sepsis Recent Fever Within 48 Hours Sepsis New/Unexplained Change in Mental Status Sepsis Action Taken by Nursing 06/11/22 04:32 06/11/22 04:34 06/11/22 04:34 Temperature Temperature Source Pulse Rate 107 H 106 H Pulse Rate [Apical] Pulse Rate from SpO2 Sensor Pulse Rhythm [Apical] Pulse Strength [Apical] Respiratory Rate 24 Respiratory Effort / Characteristics Respiratory Depth Respiratory Pattern Blood Pressure 138/84 Blood Pressure [Right Arm] Blood Pressure Mean 102 Blood Pressure Mean [Right Arm] Blood Pressure Position [Right Arm] Pulse Oximetry Oxygen Delivery Method Sepsis Recent Fever Within 48 Hours Sepsis New/Unexplained Change in Mental Status Sepsis Action Taken by Nursing 06/11/22 05:05 06/11/22 05:30 06/11/22 06:00 Temperature Temperature Source Pulse Rate 102 H Pulse Rate [Apical] Pulse Rate from SpO2 Sensor 105 H 106 H 101 H Pulse Rhythm [Apical] Pulse Strength [Apical] Respiratory Rate 21 Respiratory Effort / Characteristics Respiratory Depth Respiratory Pattern Blood Pressure Blood Pressure [Right Arm] Blood Pressure Mean Blood Pressure Mean [Right Arm] Blood Pressure Position [Right Arm] Pulse Oximetry 93 95 91 Oxygen Delivery Method Sepsis Recent Fever Within 48 Hours Sepsis New/Unexplained Change in Mental Status Sepsis Action Taken by Nursing 06/11/22 06:29 06/11/22 06:29 06/11/22 06:30 Temperature Temperature Source Pulse Rate 105 H 106 H Pulse Rate [Apical] Pulse Rate from SpO2 Sensor 105 H 106 H Pulse Rhythm [Apical] Pulse Strength [Apical] Respiratory Rate 26 H 19 Respiratory Effort / Characteristics Respiratory Depth Respiratory Pattern Blood Pressure 147/120 H Blood Pressure [Right Arm] Blood Pressure Mean 129 Blood Pressure Mean [Right Arm] Blood Pressure Position [Right Arm] Pulse Oximetry 87 L 89 L Oxygen Delivery Method Sepsis Recent Fever Within 48 Hours Sepsis New/Unexplained Change in Mental Status Sepsis Action Taken by Nursing 06/11/22 07:00 06/11/22 07:02 06/11/22 07:02 Temperature Temperature Source Pulse Rate 105 H 98 H Pulse Rate [Apical] Pulse Rate from SpO2 Sensor 103 H 101 H Pulse Rhythm [Apical] Pulse Strength [Apical] Respiratory Rate 20 20 Respiratory Effort / Characteristics Respiratory Depth Respiratory Pattern Blood Pressure 192/102 H Blood Pressure [Right Arm] Blood Pressure Mean 132 Blood Pressure Mean [Right Arm] Blood Pressure Position [Right Arm] Pulse Oximetry 89 L 94 Oxygen Delivery Method Sepsis Recent Fever Within 48 Hours Sepsis New/Unexplained Change in Mental Status Sepsis Action Taken by Nursing 06/11/22 07:31 Temperature Temperature Source Pulse Rate 105 H Pulse Rate [Apical] Pulse Rate from SpO2 Sensor 106 H Pulse Rhythm [Apical] Pulse Strength [Apical] Respiratory Rate 31 H Respiratory Effort / Characteristics Respiratory Depth Respiratory Pattern Blood Pressure 145/94 H Blood Pressure [Right Arm] Blood Pressure Mean 111 Blood Pressure Mean [Right Arm] Blood Pressure Position [Right Arm] Pulse Oximetry 93 Oxygen Delivery Method Sepsis Recent Fever Within 48 Hours Sepsis New/Unexplained Change in Mental Status Sepsis Action Taken by Nursing Laboratory Data Result diagrams: 06/12/22 05:48 06/12/22 05:48 Lab Results 06/11/22 06/11/22 06/11/22 Range/Units 01:31 01:31 01:31 WBC 7.33 (4.8-10.8) K/ul RBC 4.44 L (4.63-6.08) M/uL Hgb 13.1 L (14.0-18.0) g/dl Hct 40.8 (40.1-51.0) % MCV 91.9 (80.0-100.0) fL MCH 29.5 (25.0-34.0) pg MCHC 32.1 (32.0-36.0) g/dL RDW Std Deviation 46.5 H (36.4-46.3) fL RDW Coeff of Travis 13.7 (11.5-14.5) % Plt Count 243 (130-400) K/uL MPV 9.6 (9.4-12.4) fL Immature Gran % (Auto) 0.3 % Neut % (Auto) 72.4 % Lymph % (Auto) 12.8 % [place] % (Auto) 8.5 % Eos % (Auto) 4.6 % Baso % (Auto) 1.4 % Neut # (Auto) 5.31 (1.4-6.5) K/uL Lymph # (Auto) 0.94 L (1.2-3.4) K/uL [place] # (Auto) 0.62 (0.24-0.82) K/uL Eos # (Auto) 0.34 (0-0.50) K/uL Baso # (Auto) 0.10 (0-0.2) K/uL Immature Gran # (Auto) 0.02 (0.00-0.02) K/uL PT 11.2 (9.0-12.0) Seconds INR 1.1 (0.9-1.1) APTT 29.1 (21.0-31.0) Seconds PTT Ratio 1.1 Sodium 137 (136-145) mmol/L Potassium 3.6 (3.5-5.1) mmol/L Chloride 104 (98-107) mmol/L Carbon Dioxide 24 (21-32) mmol/L Anion Gap 9 (3-11) BUN 17 (6-23) mg/dl Creatinine 0.85 (0.6-1.4) mg/dl Est Cr Clr Drug Dosing Not Reportable Est GFR ( Amer) 112.9 ml/min Est GFR (Non-Af Amer) 97.4 ml/min BUN/Creatinine Ratio 20.0 (10-20) Glucose 80 (70-99(Fasting)) mg/dl POC Glucose (70-99) mg/dl Calcium 9.3 (8.5-10.1) mg/dl Magnesium 2.3 (1.7-2.4) mg/dl Total Bilirubin 0.8 (0.2-1.0) mg/dl AST 15 (13-39) U/L ALT 3 L (7-52) U/L Alkaline Phosphatase 64 (34-104) U/L Lactate Dehydrogenase (86-244) U/L Troponin I High Sens 4.8 (0-20) pg/ml Total Protein 7.3 (6.0-8.3) gm/dl Albumin 4.2 (3.4-5.0) gm/dl Globulin 3.1 (2.5-4.0) gm/dl Albumin/Globulin Ratio 1.4 (0.9-2) TSH (0.300-4.500) uIu/ml Urine Color Urine Appearance (Clear) Urine pH (4.5-7.5) Ur Specific [place] (1.000-1.030) Urine Protein (Negative) Urine Glucose (UA) (Negative) Urine Ketones (Negative) Urine Blood (Negative) Urine Nitrite (Negative) Urine Bilirubin (Negative) Urine Urobilinogen (Negative) Ur Leukocyte Esterase (Negative) Urine WBC (Auto) (0-5) /hpf Urine RBC (Auto) (0-4) /hpf U Hyaline Cast (Auto) (0-5) /lpf U Epithel Cells (Auto) (0-5) /lpf Urine Bacteria (Auto) (Negative) Urine Opiates Screen (Neg) Ur Methadone, Qual (Neg) Urine Barbiturates (Neg) Ur Phencyclidine (PCP) (Neg) U Amphetamin/Meth Scrn (Neg) MDMA (Ecstasy) Screen (Neg) U Benzodiazepines Scrn (Neg) Ur Cocaine Metabolite (Neg) U Marijuana (THC) Screen (Neg) SARS-CoV-2, RNA, NAAT (NEGATIVE) 06/11/22 06/11/22 06/11/22 Range/Units 01:31 01:31 01:35 WBC (4.8-10.8) K/ul RBC (4.63-6.08) M/uL Hgb (14.0-18.0) g/dl Hct (40.1-51.0) % MCV (80.0-100.0) fL MCH (25.0-34.0) pg MCHC (32.0-36.0) g/dL RDW Std Deviation (36.4-46.3) fL RDW Coeff of Travis (11.5-14.5) % Plt Count (130-400) K/uL MPV (9.4-12.4) fL Immature Gran % (Auto) % Neut % (Auto) % Lymph % (Auto) % [place] % (Auto) % Eos % (Auto) % Baso % (Auto) % Neut # (Auto) (1.4-6.5) K/uL Lymph # (Auto) (1.2-3.4) K/uL [place] # (Auto) (0.24-0.82) K/uL Eos # (Auto) (0-0.50) K/uL Baso # (Auto) (0-0.2) K/uL Immature Gran # (Auto) (0.00-0.02) K/uL PT (9.0-12.0) Seconds INR (0.9-1.1) APTT (21.0-31.0) Seconds PTT Ratio Sodium (136-145) mmol/L Potassium (3.5-5.1) mmol/L Chloride (98-107) mmol/L Carbon Dioxide (21-32) mmol/L Anion Gap (3-11) BUN (6-23) mg/dl Creatinine (0.6-1.4) mg/dl Est Cr Clr Drug Dosing Est GFR ( Amer) ml/min Est GFR (Non-Af Amer) ml/min BUN/Creatinine Ratio (10-20) Glucose (70-99(Fasting)) mg/dl POC Glucose 81 (70-99) mg/dl Calcium (8.5-10.1) mg/dl Magnesium (1.7-2.4) mg/dl Total Bilirubin (0.2-1.0) mg/dl AST (13-39) U/L ALT (7-52) U/L Alkaline Phosphatase (34-104) U/L Lactate Dehydrogenase 236 (86-244) U/L Troponin I High Sens (0-20) pg/ml Total Protein (6.0-8.3) gm/dl Albumin (3.4-5.0) gm/dl Globulin (2.5-4.0) gm/dl Albumin/Globulin Ratio (0.9-2) TSH 1.803 (0.300-4.500) uIu/ml Urine Color Urine Appearance (Clear) Urine pH (4.5-7.5) Ur Specific [place] (1.000-1.030) Urine Protein (Negative) Urine Glucose (UA) (Negative) Urine Ketones (Negative) Urine Blood (Negative) Urine Nitrite (Negative) Urine Bilirubin (Negative) Urine Urobilinogen (Negative) Ur Leukocyte Esterase (Negative) Urine WBC (Auto) (0-5) /hpf Urine RBC (Auto) (0-4) /hpf U Hyaline Cast (Auto) (0-5) /lpf U Epithel Cells (Auto) (0-5) /lpf Urine Bacteria (Auto) (Negative) Urine Opiates Screen (Neg) Ur Methadone, Qual (Neg) Urine Barbiturates (Neg) Ur Phencyclidine (PCP) (Neg) U Amphetamin/Meth Scrn (Neg) MDMA (Ecstasy) Screen (Neg) U Benzodiazepines Scrn (Neg) Ur Cocaine Metabolite (Neg) U Marijuana (THC) Screen (Neg) SARS-CoV-2, RNA, NAAT (NEGATIVE) 06/11/22 06/11/22 06/11/22 Range/Units 02:39 02:39 04:12 WBC (4.8-10.8) K/ul RBC (4.63-6.08) M/uL Hgb (14.0-18.0) g/dl Hct (40.1-51.0) % MCV (80.0-100.0) fL MCH (25.0-34.0) pg MCHC (32.0-36.0) g/dL RDW Std Deviation (36.4-46.3) fL RDW Coeff of Travis (11.5-14.5) % Plt Count (130-400) K/uL MPV (9.4-12.4) fL Immature Gran % (Auto) % Neut % (Auto) % Lymph % (Auto) % [place] % (Auto) % Eos % (Auto) % Baso % (Auto) % Neut # (Auto) (1.4-6.5) K/uL Lymph # (Auto) (1.2-3.4) K/uL [place] # (Auto) (0.24-0.82) K/uL Eos # (Auto) (0-0.50) K/uL Baso # (Auto) (0-0.2) K/uL Immature Gran # (Auto) (0.00-0.02) K/uL PT (9.0-12.0) Seconds INR (0.9-1.1) APTT (21.0-31.0) Seconds PTT Ratio Sodium (136-145) mmol/L Potassium (3.5-5.1) mmol/L Chloride (98-107) mmol/L Carbon Dioxide (21-32) mmol/L Anion Gap (3-11) BUN (6-23) mg/dl Creatinine (0.6-1.4) mg/dl Est Cr Clr Drug Dosing Est GFR ( Amer) ml/min Est GFR (Non-Af Amer) ml/min BUN/Creatinine Ratio (10-20) Glucose (70-99(Fasting)) mg/dl POC Glucose (70-99) mg/dl Calcium (8.5-10.1) mg/dl Magnesium (1.7-2.4) mg/dl Total Bilirubin (0.2-1.0) mg/dl AST (13-39) U/L ALT (7-52) U/L Alkaline Phosphatase (34-104) U/L Lactate Dehydrogenase (86-244) U/L Troponin I High Sens (0-20) pg/ml Total Protein (6.0-8.3) gm/dl Albumin (3.4-5.0) gm/dl Globulin (2.5-4.0) gm/dl Albumin/Globulin Ratio (0.9-2) TSH (0.300-4.500) uIu/ml Urine Color Dark Yellow Urine Appearance Clear (Clear) Urine pH 5.5 (4.5-7.5) Ur Specific [place] 1.036 H (1.000-1.030) Urine Protein Trace H (Negative) Urine Glucose (UA) Negative (Negative) Urine Ketones 1+ H (Negative) Urine Blood Negative (Negative) Urine Nitrite Positive A (Negative) Urine Bilirubin 1+ H (Negative) Urine Urobilinogen Negative (Negative) Ur Leukocyte Esterase Trace H (Negative) Urine WBC (Auto) 1-5 (0-5) /hpf Urine RBC (Auto) 0-4 (0-4) /hpf U Hyaline Cast (Auto) 5-10 H (0-5) /lpf U Epithel Cells (Auto) 10-20 H (0-5) /lpf Urine Bacteria (Auto) Negative (Negative) Urine Opiates Screen Neg (Neg) Ur Methadone, Qual Neg (Neg) Urine Barbiturates Neg (Neg) Ur Phencyclidine (PCP) Neg (Neg) U Amphetamin/Meth Scrn Neg (Neg) MDMA (Ecstasy) Screen Neg (Neg) U Benzodiazepines Scrn Neg (Neg) Ur Cocaine Metabolite Neg (Neg) U Marijuana (THC) Screen Pos H (Neg) SARS-CoV-2, RNA, NAAT NEGATIVE (NEGATIVE) Administered Medications Amantadine HCl (Amantadine Hcl 100 Mg Capsule) 100 mg PO 0700,1100 RENAN Stop: 07/11/22 10:59 Last Admin: 06/12/22 10:47 Dose: 100 mg Documented By: Admin: 06/12/22 06:43 Dose: 100 mg Documented By: Admin: 06/11/22 14:11 Dose: Not Given Documented By: MP Carbidopa/Levodopa (Carbidopa/Levodopa 50/200mg Ext Rel Tab) 1 tab PO 0700,1100,1600,2100 RENAN Stop: 07/11/22 08:59 Last Admin: 06/12/22 10:47 Dose: 1 tab Documented By: Admin: 06/12/22 06:44 Dose: 1 tab Documented By: Admin: 06/11/22 20:56 Dose: 1 tab Documented By: Admin: 06/11/22 16:49 Dose: Not Given Documented By: Admin: 06/11/22 14:11 Dose: Not Given Documented By: HENRY Carbidopa/Levodopa (Carbidopa/Levodopa 25/100mg Tab) 1 tab PO 0700,1000,1700,2200 RENAN Stop: 07/11/22 08:59 Last Admin: 06/12/22 09:26 Dose: 1 tab Documented By: Admin: 06/12/22 06:44 Dose: 1 tab Documented By: Admin: 06/11/22 22:18 Dose: 1 tab Documented By: Admin: 06/11/22 16:49 Dose: Not Given Documented By: HENRY Doxycycline Hyclate (Doxycycline Hyclate 100 Mg Cap) 100 mg PO BID@0700,1600 RENAN Stop: 07/11/22 15:59 Last Admin: 06/12/22 06:45 Dose: 100 mg Documented By: Admin: 06/11/22 16:49 Dose: Not Given Documented By: HENRY Duloxetine HCl (Duloxetine Hcl 30 Mg Cap) 30 mg PO DAILY RENAN Stop: 07/11/22 09:55 Last Admin: 06/12/22 09:25 Dose: 30 mg Documented By: Admin: 06/11/22 14:11 Dose: Not Given Documented By: HENRY Duloxetine HCl (Duloxetine Hcl 60 Mg Cap) 60 mg PO DAILY RENAN Stop: 07/11/22 09:55 Last Admin: 06/12/22 09:25 Dose: 60 mg Documented By: Admin: 06/11/22 14:11 Dose: Not Given Documented By: HENRY Entacapone (Entacapone 200 Mg Tab) 200 mg PO 0700,1000,1700,2200 RENAN Stop: 07/11/22 12:59 Last Admin: 06/12/22 10:46 Dose: 200 mg Documented By: Admin: 06/12/22 06:45 Dose: 200 mg Documented By: Admin: 06/11/22 22:18 Dose: 200 mg Documented By: Admin: 06/11/22 16:49 Dose: Not Given Documented By: Admin: 06/11/22 14:11 Dose: Not Given Documented By: HENRY Ceftriaxone Sodium 2,000 mg/ (Dextrose) 70 mls @ 140 mls/hr IV Q24H RENAN; Protocol Stop: 06/22/22 05:59 Last Infusion: 06/12/22 07:38 Dose: 0 mls/hr Documented By: Admin: 06/12/22 06:42 Dose: 140 mls/hr Documented By: ROSE Tobramycin/Dexamethasone (Tobramycin/Dexamethasone Oph Susp 2.5 Ml Btl) 5 drops OPL QID RENAN Stop: 06/19/22 08:59 Last Admin: 06/12/22 13:19 Dose: 5 drops Documented By: Admin: 06/12/22 10:46 Dose: 5 drops Documented By: DOMINGUEZ Discontinued Medications Carbidopa/Levodopa (Carbidopa/Levodopa 50/200mg Ext Rel Tab) 1 tab PO QID RENAN Stop: 07/11/22 08:59 Last Admin: 06/11/22 06:52 Dose: 1 tab Documented By: CHRISTINE Carbidopa/Levodopa (Carbidopa/Levodopa 25/100mg Tab) 1 tab PO QID RENAN Stop: 07/11/22 08:59 Last Admin: 06/11/22 06:52 Dose: 1 tab Documented By: CHRISTINE Diphenhydramine HCl (Diphenhydramine 50 Mg/Ml Vial) 25 mg IV NOW STA Stop: 06/11/22 03:15 Last Admin: 06/11/22 03:21 Dose: 25 mg Documented By: CHRISTINE Erythromycin (Erythromycin Op Oint 5 Mg/Gm 3.5 Gm Tube) 1 appln OP NOW ONE Stop: 06/11/22 03:15 Last Admin: 06/11/22 03:21 Dose: 1 appln Documented By: CHRISTINE Ceftriaxone Sodium (Rocephin) 2,000 mg in 70 mls @ 140 mls/hr IV NOW STA Stop: 06/11/22 06:50 Last Infusion: 06/11/22 07:43 Dose: 0 mls/hr Documented By: Admin: 06/11/22 06:32 Dose: 140 mls/hr Documented By: CHRISTINE Lorazepam (Lorazepam 2 Mg/1 Ml Vial) 2 mg IV NOW STA; Protocol Stop: 06/11/22 04:57 Last Admin: 06/11/22 05:01 Dose: 2 mg Documented By: CHRISTINE Lorazepam (Lorazepam 2 Mg/1 Ml Vial) 2 mg IV NOW STA; Protocol Stop: 06/11/22 06:19 Last Admin: 06/11/22 06:27 Dose: 2 mg Documented By: CHRISTINE Melatonin (Melatonin 3 Mg Tab) 6 mg PO NOW STA Stop: 06/11/22 04:07 Last Admin: 06/11/22 04:42 Dose: 6 mg Documented By: CHRISTINE Imaging Data Radiologist's Impression: Head CT 06/11/22 03:[address] DOSE: 1228.53 mGy.cm HISTORY: Altered mental status TECHNIQUE: Multiaxial CT images of the head were performed without the use of intravenous contrast. Automated exposure control was utilized for this study. A dose lowering technique was utilized adhering to the principles of ALARA. Comparison: Head CT 10/12/2019. Findings: The paranasal sinuses and mastoid air cells are clear. The calvarium and skull base are intact. The ventricles and sulci are within normal limits. There is no mass, hematoma, midline shift, or acute infarct. The deep brain stimulator are in place and result in streak artifact. Impression: No significant change compared to the prior study. No acute intracranial abn ormality. ACT 112: Negative or not required by law. Electronically signed by: Vikram Gutierrez M.D. 06/11/2022 7:10 AM Discharge Plan Visit Data Chief Complaint: Altered Mental Status Stated Complaint: PARKINSONS, ALTERED MENTAL STATUS, L EYE ISSUE ED Provider: Laney Nicolas Discharge Problem: Altered mental status, Acute UTI, Conjunctivitis Patient Disposition: Admitted As Inpatient Discharge Instructions Interventions: ED Discharge Assessment Last Done: 06/11/22 09:27 : Altered mental status Qualifiers: Altered mental status type: delirium Qualified Code(s): R41.0 - Disorientation, unspecified Conjunctivitis Qualifiers: Conjunctivitis type: acute Acute conjunctivitis type: bacterial Laterality: left Qualified Code(s): H10.32 - Unspecified acute conjunctivitis, left eye
[2022-06-12] MEDS ORDERED: cefTRIAXone SODIUM 1,000 MG in DEXTROSE 5% 50 ML IV SCH (06:00)
[2022-06-12 06:10] LABS: Hematocrit (blood only) 42.3 % (40.1-51.0); Hemoglobin 13.7 g/dl (14.0-18.0); Mean Corpuscular Hemoglobin 29.3 pg (25.0-34.0); Mean Corpuscular Hgb Conc 32.4 g/dL (32.0-36.0); Mean Corpuscular Volume 90.6 fL (80.0-100.0); Mean Platelet Volume 9.5 fL (9.4-12.4); Platelet Count 248 K/uL (130-400); RDW Coefficient of Variation 13.5 % (11.5-14.5); RDW Standard Deviation 45.3 fL (36.4-46.3); Red Blood Count 4.67 M/uL (4.63-6.08); White Blood Count 8.15 K/ul (4.8-10.8)
[2022-06-12 06:39] LABS: Calcium 9.1 mg/dl (8.5-10.1); Creatinine Clr Calc Pharmacy 139.9 ml/min; Est GFR (African American) 120.2 ml/min; Est GFR (Non-African American) 103.7 ml/min; Magnesium 2.3 mg/dl (1.7-2.4); Potassium 3.8 mmol/L (3.5-5.1)
[2022-06-12] MEDS: cefTRIAXone SODIUM 2,000 MG in DEXTROSE 5% 50 ML IV SCH (06:42)
[2022-06-12] MEDS: AMANTADINE HCL 100 MG CAPSULE PO SCH ×2 (06:43→10:47)
[2022-06-12] MEDS: CARBIDOPA/LEVODOPA 50/200MG EXT REL TAB PO SCH ×4 (06:44→20:53)
[2022-06-12] MEDS: CARBIDOPA/LEVODOPA 25/100MG TAB PO SCH ×4 (06:44→20:53)
[2022-06-12] MEDS: DOXYCYCLINE HYCLATE 100 MG CAP PO SCH ×2 (06:45→16:24)
[2022-06-12] MEDS: ENTACAPONE 200 MG TAB PO SCH ×4 (06:45→20:54)
[2022-06-12] MEDS: DULoxetine HCL 30 MG CAP PO SCH (09:25)
[2022-06-12] MEDS: DULoxetine HCL 60 MG CAP PO SCH (09:25)
[2022-06-12] MEDS: TOBRAMYCIN/DEXAMETHASONE OPH SUSP 2.5 ML BTL OPL SCH ×4 (10:46→20:54)
--- NOTE | 2022-06-12 11:43 | Hospitalist Progress Note ---
Date of Service June 12, 2022 Assessment & Plan (1) Encephalopathy: Plan: Metabolic encephalopathy in the setting of UTI. Presumed due to UTI as this is what reports previously. CXR on 06/11 was clear. No neck stiffness. Last occurrence was in 2019, and thought to be due to medication effects as well as possible UTI. EEG negative for seizure on 06/11. - Continue ceftriaxone - Follow urine and blood cxs - Can use Ativan and low-dose olanzapine PRN for agitation/restlessness - Improving today: Still with rapid speech, but actually alert and responding. (2) Parkinson disease: Plan: Diagnosed at 30 years old. Bilateral DBS implanted in 2009. - Continue home meds as able (3) REM sleep behavior disorder: Plan: Pre-dates his Parkinson's disease. With lots of movements, some shouting, and myoclonus during sleep. 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 Follows with [facility] ID. - Continue home doxycycline (5) Depression: Plan: Follows with [facility] Psychiatry. - Continue amantadine & duloxetine (6) Urinary incontinence: Plan: Follows with PCP for this. - Continue solifenacin as able (7) DVT prophylaxis: Plan: SCDs - Low DVT risk per admission calculator FULL CODE - Per discussion with . Admission and Anticipated Discharge Date Admission Date: June 11, 2022 Subjective Substantially improved today. Able to speak to me. Speaks quickly and sometimes unintelligibly, but overall, much better. Reports no fevers/chills, chest pain, shortness of breath, abdominal pain, nausea, or vomiting. Physical Exam Constitutional: + acute distress and + ill appearing Eyes: + eyelid abnormality (Lower eyelid edema) and + conjunctival abnormality (Scleral injection); + EOM not intact (Not able to participate) ENMT: external ear and nose normal, oropharynx normal Neck: trachea midline, no thyromegaly normal visual inspection Respiratory: normal respiratory effort, lungs clear to auscultation no respiratory distress Cardiovascular: RRR, no murmur, no edema Gastrointestinal (Abdomen): Inspection/Auscultation: abdomen normal to inspection; abdomen not distended Musculoskeletal: no cyanosis or clubbing, extremities motor strength 5/5 Skin: no rashes, warm and dry Neurologic: moves all extremities and awake Psychiatric: Orientation: alert, oriented to person and cooperative Results & Data Results & Data ([facility]) Vital Signs (Past 12 Hours) Vital Signs Temp Pulse Resp BP BP Pulse Ox O2 Del Method 06/12/22 08:07 36.9 C 89 20 129/83 93 Nasal Cannula 06/12/22 03:00 37.2 C 97 H 20 142/84 H 97 Room Air O2 Flow Rate 06/12/22 08:07 2 06/12/22 03:00 PG Care Time/CCT Total # of Minutes Spent Total Time Spent with Patient: Total time spent is greater than 50% in coordination of care (as documented) at patient's floor/unit and/or counseling patient: Coding Level of Care Code 38547 Subseq Hosp Care Lvl 2 Diagnoses Encephalopathy G93.40 Parkinson disease G20 REM sleep behavior disorder G47.52 Infection of prosthetic left knee joint T84.54XA Depression F32.9 Urinary incontinence R32 DVT prophylaxis Z29.9
[2022-06-13 06:35] LABS: Hematocrit (blood only) 39.6 % (40.1-51.0); Hemoglobin 12.9 g/dl (14.0-18.0); Mean Corpuscular Hemoglobin 30.3 pg (25.0-34.0); Mean Corpuscular Hgb Conc 32.6 g/dL (32.0-36.0); Mean Platelet Volume 9.6 fL (9.4-12.4); Platelet Count 227 K/uL (130-400); RDW Coefficient of Variation 13.5 % (11.5-14.5); RDW Standard Deviation 46.2 fL (36.4-46.3); Red Blood Count 4.26 M/uL (4.63-6.08); White Blood Count 5.86 K/ul (4.8-10.8)
[2022-06-13 06:37] LABS: Calcium 8.4 mg/dl (8.5-10.1); Creatinine Clr Calc Pharmacy 162.2 ml/min; Est GFR (African American) 127.7 ml/min; Est GFR (Non-African American) 110.2 ml/min; Magnesium 2.1 mg/dl (1.7-2.4); Potassium 3.6 mmol/L (3.5-5.1)
[2022-06-13 06:56] LABS: Marijuana Quant, GCMS Urine 13 ng/mL (<5)
[2022-06-13] MEDS: cefTRIAXone SODIUM 2,000 MG in DEXTROSE 5% 50 ML IV SCH (07:22)
[2022-06-13] MEDS: DOXYCYCLINE HYCLATE 100 MG CAP PO SCH ×2 (07:45→15:46)
[2022-06-13] MEDS: AMANTADINE HCL 100 MG CAPSULE PO SCH ×2 (07:45→10:38)
[2022-06-13] MEDS: CARBIDOPA/LEVODOPA 25/100MG TAB PO SCH ×4 (07:46→21:17)
[2022-06-13] MEDS: CARBIDOPA/LEVODOPA 50/200MG EXT REL TAB PO SCH ×4 (07:46→21:17)
[2022-06-13] MEDS: ENTACAPONE 200 MG TAB PO SCH ×4 (07:46→21:17)
[2022-06-13] MEDS: TOBRAMYCIN/DEXAMETHASONE OPH SUSP 2.5 ML BTL OPL SCH ×4 (08:05→21:18)
[2022-06-13] MEDS: DULoxetine HCL 30 MG CAP PO SCH (08:14)
[2022-06-13] MEDS: DULoxetine HCL 60 MG CAP PO SCH (08:14)
--- NOTE | 2022-06-13 13:16 | Hospitalist Progress Note ---
Date of Service June 13, 2022 Assessment & Plan (1) Encephalopathy: Plan: Metabolic encephalopathy in the setting of UTI. Presumed due to UTI as this is what reports previously. CXR on 06/11 was clear. No neck stiffness. Last occurrence was in 2019, and thought to be due to medication effects as well as possible UTI. EEG negative for seizure on 06/11. - Continue ceftriaxone - Follow urine and blood cxs - Can use Ativan and low-dose olanzapine PRN for agitation/restlessness - Improving today: alert and responding. Does not remember anything about his admission date. (2) Conjunctivitis: Plan: Left eye conjunctivitis, POA. had reported this has happened before. Cultured with no result yet. - Continue tobra-Dex drops. Improving substantially. (3) Parkinson disease: Plan: Diagnosed at 30 years old. Bilateral DBS implanted in 2009. - Continue home meds as able (4) REM sleep behavior disorder: Plan: Pre-dates his Parkinson's disease. With lots of movements, some shouting, and myoclonus during sleep. - Monitor (5) Infection of prosthetic left knee joint: Plan: Hx of. Follows with [facility] ID. - Continue home doxycycline (6) Depression: Plan: Follows with [facility] Psychiatry. - Continue amantadine & duloxetine (7) Urinary incontinence: Plan: Follows with PCP for this. - Continue solifenacin as able (8) DVT prophylaxis: Plan: SCDs - Low DVT risk per admission calculator FULL CODE - Per discussion with . Admission and Anticipated Discharge Date Admission Date: June 11, 2022 Subjective Better today. Speaks quickly, but improved. Reports no fevers/chills, chest pain, shortness of breath, abdominal pain, nausea, or vomiting. Physical Exam Constitutional: + acute distress and + ill appearing Eyes: + eyelid abnormality (Lower eyelid edema), + conjunctival abnormality (Scleral injection) and EOM intact bilaterally ENMT: external ear and nose normal, oropharynx normal Neck: trachea midline, no thyromegaly normal visual inspection Respiratory: normal respiratory effort, lungs clear to auscultation no respiratory distress Cardiovascular: RRR, no murmur, no edema Gastrointestinal (Abdomen): Inspection/Auscultation: abdomen normal to inspection; abdomen not distended Skin: no rashes, warm and dry Neurologic: moves all extremities and awake Psychiatric: Orientation: alert, oriented to person and cooperative Results & Data Results & Data ([facility]) Vital Signs (Past 12 Hours) Vital Signs Temp Pulse Pulse Resp BP Pulse Ox O2 Del Method 06/13/22 11:55 78 06/13/22 11:00 36.9 C 86 22 120/78 93 Room Air 06/13/22 11:17 36.9 C 86 22 120/78 93 Room Air 06/13/22 08:17 36.6 C 85 18 144/101 H 95 Room Air 06/13/22 03:25 36.6 C 82 22 131/84 92 Nasal Cannula O2 Flow Rate 06/13/22 11:55 06/13/22 11:00 06/13/22 11:17 06/13/22 08:17 06/13/22 03:25 2.0 PG Care Time/CCT Total # of Minutes Spent Total Time Spent with Patient: Total time spent is greater than 50% in coordination of care (as documented) at patient's floor/unit and/or counseling patient: Coding Level of Care Code 37964 Subseq Hosp Care Lvl 3 Diagnoses Encephalopathy G93.40 Conjunctivitis H10.32 Acute conjunctivitis type: bacterial Conjunctivitis type: acute Laterality: left Parkinson disease G20 REM sleep behavior disorder G47.52 Infection of prosthetic left knee joint T84.54XA Depression F32.9 Urinary incontinence R32 DVT prophylaxis Z29.9 (1) Conjunctivitis Acute conjunctivitis type: bacterial Conjunctivitis type: acute Laterality: left Qualified Code(s): H10.32 - Unspecified acute conjunctivitis, left eye
[2022-06-14] MEDS: cefTRIAXone SODIUM 2,000 MG in DEXTROSE 5% 50 ML IV SCH (05:42)
[2022-06-14] MEDS: AMANTADINE HCL 100 MG CAPSULE PO SCH ×2 (07:18→09:37)
[2022-06-14] MEDS: CARBIDOPA/LEVODOPA 50/200MG EXT REL TAB PO SCH ×4 (07:18→20:21)
[2022-06-14] MEDS: ENTACAPONE 200 MG TAB PO SCH ×4 (07:18→21:34)
[2022-06-14] MEDS: DOXYCYCLINE HYCLATE 100 MG CAP PO SCH ×2 (07:18→17:29)
[2022-06-14] MEDS: CARBIDOPA/LEVODOPA 25/100MG TAB PO SCH ×4 (07:19→21:35)
[2022-06-14 07:52] LABS: Hematocrit (blood only) 39.6 % (40.1-51.0); Hemoglobin 13.1 g/dl (14.0-18.0); Mean Corpuscular Hemoglobin 30.1 pg (25.0-34.0); Mean Corpuscular Hgb Conc 33.1 g/dL (32.0-36.0); Mean Platelet Volume 9.2 fL (9.4-12.4); Platelet Count 239 K/uL (130-400); RDW Coefficient of Variation 13.4 % (11.5-14.5); RDW Standard Deviation 44.7 fL (36.4-46.3); Red Blood Count 4.35 M/uL (4.63-6.08)
[2022-06-14 08:21] LABS: BUN Creatinine Ratio 19.1 (10-20); Calcium 8.6 mg/dl (8.5-10.1); Est GFR (African American) 123.7 ml/min; Est GFR (Non-African American) 106.8 ml/min; Magnesium 2.1 mg/dl (1.7-2.4); Potassium 3.6 mmol/L (3.5-5.1)
[2022-06-14] MEDS: DULoxetine HCL 30 MG CAP PO SCH (09:36)
[2022-06-14] MEDS: TOBRAMYCIN/DEXAMETHASONE OPH SUSP 2.5 ML BTL OPL SCH ×4 (09:36→20:20)
[2022-06-14] MEDS: DULoxetine HCL 60 MG CAP PO SCH (09:36)
--- NOTE | 2022-06-14 18:09 | Hospitalist Progress Note ---
Date of Service June 14, 2022 Assessment & Plan (1) Encephalopathy: Plan: Presumed due to UTI - CXR on 06/11 was clear. No neck stiffness. Last occurrence was in 2019, and thought to be due to medication effects as well as possible UTI. EEG negative for seizure on 06/11. - Continue ceftriaxone - Follow urine and blood cxs - Can use Ativan PRN for agitation/restlessness, however, we should try to avoid if possible since Ativan may worsen confusion (2) Conjunctivitis: Plan: Left eye conjunctivitis, POA. had reported this has happened before. Cultured growing staph - Continue tobra-Dex drops. Improving substantially. (3) Parkinson disease: Plan: Diagnosed at 30 years old. Bilateral DBS implanted in 2009. - Continue home meds as able (4) REM sleep behavior disorder: Plan: Pre-dates his Parkinson's disease. With lots of movements, some shouting, and myoclonus during sleep. - Monitor, can use Melatonin per neurology (5) Infection of prosthetic left knee joint: Plan: Hx of. Follows with [facility] ID. - Continue home doxycycline (6) Depression: Plan: Follows with [facility] Psychiatry. - Continue amantadine & duloxetine (7) Urinary incontinence: Plan: Follows with PCP for this. - Continue solifenacin as able (8) DVT prophylaxis: Plan: SCDs - Low DVT risk per admission calculator FULL CODE - Per discussion with . Admission and Anticipated Discharge Date Admission Date: June 11, 2022 Subjective patient seen and examined, appeared to be a bit confused and agitated Review of Systems Review of Systems: All systems reviewed are negative, apart from the ones contained in the history. Physical Exam Physical Exam: The patient is awake, alert and oriented 3, well developed and well nourished, normocephalic and atraumatic, lying in bed and in no acute distress. HEENT--PERRL, EOMI, mucous membranes and oropharynx mildly dry Neck--supple. No JVD. No bruits. Thyroid normal, trachea midline, no adenopathy. Heart--normal S1 and S2. No murmurs, rubs or gallops. Lungs--clear bilaterally, no respiratory distress, no accessory muscle use. Abdomen--normal bowel sounds and soft. Mild epigastric and left sided abdominal pain Extremities--no cyanosis or clubbing. No edema. Dermatologic--normal skin turgor, normal color, no abnormal lymph nodes, no fabienne h. Neurologic--cranial nerves II through XII grossly intact. Rheumatologic--normal range of motion. Psychiatric--normal affect. Results & Data Results & Data ([facility]) Vital Signs (Past 12 Hours) Vital Signs Temp Pulse Pulse Resp BP Pulse Ox O2 Del Method 06/14/22 08:30 Room Air 06/14/22 11:00 81 22 125/80 94 Room Air 06/14/22 11:00 81 06/14/22 08:48 98.4 F 79 20 136/75 PG Care Time/CCT Total # of Minutes Spent Total Time Spent with Patient: Total time spent is greater than 50% in coordination of care (as documented) at patient's floor/unit and/or counseling patient: Coding Level of Care Code 35851 Subseq Hosp Care Lvl 2 Diagnoses Encephalopathy G93.40 Conjunctivitis H10.32 Acute conjunctivitis type: bacterial Conjunctivitis type: acute Laterality: left Parkinson disease G20 REM sleep behavior disorder G47.52 Infection of prosthetic left knee joint T84.54XA Depression F32.9 Urinary incontinence R32 DVT prophylaxis Z29.9 Time Spent (min) 35 (1) Conjunctivitis Acute conjunctivitis type: bacterial Conjunctivitis type: acute Laterality: left Qualified Code(s): H10.32 - Unspecified acute conjunctivitis, left eye
[2022-06-15] MEDS: cefTRIAXone SODIUM 2,000 MG in DEXTROSE 5% 50 ML IV SCH (06:36)
[2022-06-15] MEDS: AMANTADINE HCL 100 MG CAPSULE PO SCH ×2 (07:17→11:08)
[2022-06-15] MEDS: DOXYCYCLINE HYCLATE 100 MG CAP PO SCH ×2 (07:17→16:37)
[2022-06-15] MEDS: CARBIDOPA/LEVODOPA 25/100MG TAB PO SCH ×4 (07:17→21:42)
[2022-06-15] MEDS: CARBIDOPA/LEVODOPA 50/200MG EXT REL TAB PO SCH ×4 (07:18→20:23)
[2022-06-15] MEDS: ENTACAPONE 200 MG TAB PO SCH ×4 (07:18→21:42)
[2022-06-15] MEDS: DULoxetine HCL 60 MG CAP PO SCH (09:12)
[2022-06-15] MEDS: TOBRAMYCIN/DEXAMETHASONE OPH SUSP 2.5 ML BTL OPL SCH ×4 (09:12→20:20)
[2022-06-15] MEDS: DULoxetine HCL 30 MG CAP PO SCH (09:12)
[2022-06-15] MEDS ORDERED: MELATONIN 3 MG TAB PO PRN (15:06)
--- NOTE | 2022-06-15 15:13 | Hospitalist Progress Note ---
Date of Service June 15, 2022 Assessment & Plan (1) Encephalopathy: Plan: Presumed due to UTI -Resolved, patient was able to communicate with me better today - CXR on 06/11 was clear. No neck stiffness. Last occurrence was in 2019, and thought to be due to medication effects as well as possible UTI. EEG negative for seizure on 06/11. - Continue ceftriaxone - Follow urine and blood cxs - Can use Ativan PRN for agitation/restlessness, however, we should try to avoid if possible since Ativan may worsen confusion (2) Conjunctivitis: Plan: Left eye conjunctivitis, POA. had reported this has happened before. Cultured growing staph - Continue tobra-Dex drops. Improving substantially. (3) Parkinson disease: Plan: Diagnosed at 30 years old. Bilateral DBS implanted in 2009. - Continue home meds as able (4) REM sleep behavior disorder: Plan: Pre-dates his Parkinson's disease. With lots of movements, some shouting, and myoclonus during sleep. - Monitor, can use Melatonin per neurology -I spoke to the and she said that Ativan made him sleep better and consequently more lucid and interactive in the morning -Will give a one time dose of Ativan at night to assess his function tomorrow morning (5) Infection of prosthetic left knee joint: Plan: Hx of. Follows with [facility] ID. - Continue home doxycycline (6) Depression: Plan: Follows with [facility] Psychiatry. - Continue amantadine & duloxetine (7) Urinary incontinence: Plan: Follows with PCP for this. - Continue solifenacin as able (8) DVT prophylaxis: Plan: SCDs - Low DVT risk per admission calculator FULL CODE - Per discussion with . Admission and Anticipated Discharge Date Admission Date: June 11, 2022 Subjective patient seen and examined,was able to communicate with me better today Review of Systems Review of Systems: All systems reviewed are negative, apart from the ones contained in the history. Physical Exam Physical Exam: The patient is awake, alert and oriented 3, well developed and well nourished, normocephalic and atraumatic, lying in bed and in no acute distress. HEENT--PERRL, EOMI, mucous membranes and oropharynx mildly dry Neck--supple. No JVD. No bruits. Thyroid normal, trachea midline, no adenopathy. Heart--normal S1 and S2. No murmurs, rubs or gallops. Lungs--clear bilaterally, no respiratory distress, no accessory muscle use. Abdomen--normal bowel sounds and soft. Mild epigastric and left sided abdominal pain Extremities--no cyanosis or clubbing. No edema. Dermatologic--normal skin turgor, normal color, no abnormal lymph nodes, no rash. Neurologic--cranial nerves II through XII grossly intact. Rheumatologic--normal range of motion. Psychiatric--normal affect. Results & Data Results & Data ([facility]) Vital Signs (Past 12 Hours) Vital Signs Temp Pulse Pulse Resp BP BP Pulse Ox 06/15/22 11:25 98.6 F 82 21 121/74 92 06/15/22 08:15 83 06/15/22 08:10 06/15/22 07:45 97.9 F 83 19 134/88 91 06/15/22 04:59 91 H 06/15/22 03:41 97.7 F 89 22 146/82 H 91 O2 Del Method 06/15/22 11:25 Room Air 06/15/22 08:15 06/15/22 08:10 Room Air 06/15/22 07:45 Room Air 06/15/22 04:59 06/15/22 03:41 Room Air PG Care Time/CCT Total # of Minutes Spent Total Time Spent with Patient: Total time spent is greater than 50% in coordination of care (as documented) at patient's floor/unit and/or counseling patient: Coding Level of Care Code 81914 Subseq Hosp Care Lvl 2 Diagnoses Encephalopathy G93.40 Conjunctivitis H10.32 Acute conjunctivitis type: bacterial Conjunctivitis type: acute Laterality: left Parkinson disease G20 REM sleep behavior disorder G47.52 Infection of prosthetic left knee joint T84.54XA Depression F32.9 Urinary incontinence R32 DVT prophylaxis Z29.9 Time Spent (min) 35 (1) Conjunctivitis Acute conjunctivitis type: bacterial Conjunctivitis type: acute Laterality: left Qualified Code(s): H10.32 - Unspecified acute conjunctivitis, left eye
[2022-06-15] MEDS ORDERED: LORazepam 2 MG in SYRINGE 1 ML IV ONE (21:05)
[2022-06-15] MEDS ORDERED: LORazepam 1 MG in SYRINGE 0.5 ML IV PRN (21:18)
--- NOTE | 2022-06-15 21:23 | Communication Note ---
Date of Service: June 15, 2022 Messaged about order for 1 time ativan 2mg order for sleep. I reviewed chart and will not be ordering for this indication. I have assessed patient; he is calm and conversation; does have pressured speech. I called patient's (w/ patient's permission) to update on the reason for not ordering the ativan. Her point of view was that patient has had chronic insomnia and mentation was notably improved after ativan provided earlier in this admission and improved sleep. She wanted to provide another dose of Ativan to trial if the sleep was h elping his mentation. I expressed that the Ativan may precipitate delirium (which can persist for prolonged period of time) and recommended against using it for sleep purposes. Patient's plans to follow up w/ sleep specialist as outpatient and asked if I had ideas. Given that patient has had polypharmacy concerns and Klonopin use in past (required tapering off of), recommended against benzo class and against non benzo class (Ambien type) sleep meds. Patient trialed trazodone in distant past, but would need to review if there are contraindications; polypharmacy concerns is still present. Recommended against long-term use of benadryl for sleep. I have placed a prn order for 1mg prn ativan for severe violent agitation. instructed nurse to message MD first for agitation if possible
[2022-06-16] MEDS: cefTRIAXone SODIUM 2,000 MG in DEXTROSE 5% 50 ML IV SCH (06:26)
[2022-06-16] MEDS: ENTACAPONE 200 MG TAB PO SCH ×4 (08:00→20:47)
[2022-06-16] MEDS: DOXYCYCLINE HYCLATE 100 MG CAP PO SCH ×2 (08:00→16:05)
[2022-06-16] MEDS: CARBIDOPA/LEVODOPA 50/200MG EXT REL TAB PO SCH ×4 (08:00→20:48)
[2022-06-16] MEDS: DULoxetine HCL 30 MG CAP PO SCH (08:00)
[2022-06-16] MEDS: AMANTADINE HCL 100 MG CAPSULE PO SCH ×2 (08:01→11:14)
[2022-06-16] MEDS: DULoxetine HCL 60 MG CAP PO SCH (08:02)
[2022-06-16] MEDS: TOBRAMYCIN/DEXAMETHASONE OPH SUSP 2.5 ML BTL OPL SCH ×4 (08:06→20:48)
[2022-06-16] MEDS: CARBIDOPA/LEVODOPA 25/100MG TAB PO SCH ×4 (08:06→20:47)
--- NOTE | 2022-06-16 15:31 | Hospitalist Progress Note ---
Date of Service June 16, 2022 Assessment & Plan (1) Encephalopathy: Plan: Presumed due to UTI -Resolved, patient was able to communicate with me better today - CXR on 06/11 was clear. No neck stiffness. Last occurrence was in 2019, and thought to be due to medication effects as well as possible UTI. EEG negative for seizure on 06/11. - Continue ceftriaxone - cultures negative so far - Can use Ativan PRN for agitation/restlessness, however, we should try to avoid if possible since Ativan may worsen confusion (2) Conjunctivitis: Plan: Left eye conjunctivitis, POA. had reported this has happened before. Cultured growing staph - Continue tobra-Dex drops. Improving substantially. (3) Parkinson disease: Plan: Diagnosed at 30 years old. Bilateral DBS implanted in 2009. - Continue home meds as able (4) REM sleep behavior disorder: Plan: Pre-dates his Parkinson's disease. With lots of movements, some shouting, and myoclonus during sleep. - Monitor, can use Melatonin per neurology -I spoke to the and she said that Ativan made him sleep better and consequently more lucid and interactive in the morning -I gave a one time dose of Ativan at night, but I adviced against routine use of benzo for sleep given its addictive tendency and also tendency for worsening confusion (5) Infection of prosthetic left knee joint: Plan: Hx of. Follows with [facility] ID. - Continue home doxycycline (6) Depression: Plan: Follows with [facility] Psychiatry. - Continue amantadine & duloxetine (7) Urinary incontinence: Plan: Follows with PCP for this. - Continue solifenacin as able (8) DVT prophylaxis: Plan: SCDs - Low DVT risk per admission calculator FULL CODE - Per discussion with . Plan d/c today Admission and Anticipated Discharge Date Admission Date: June 11, 2022 Subjective patient seen and examined,was able to communicate with me better today Review of Systems Review of Systems: All systems reviewed are negative, apart from the ones contained in the history. Physical Exam Physical Exam: The patient is awake, alert and oriented 3, well developed and well nourished, normocephalic and atraumatic, lying in bed and in no acute distress. HEENT--PERRL, EOMI, mucous membranes and oropharynx mildly dry Neck--supple. No JVD. No bruits. Thyroid normal, trachea midline, no adenopathy. Heart--normal S1 and S2. No murmurs, rubs or gallops. Lungs--clear bilaterally, no respiratory distress, no accessory muscle use. Abdomen--normal bowel sounds and soft. Mild epigastric and left sided abdominal pain Extremities--no cyanosis or clubbing. No edema. Dermatologic--normal skin turgor, normal color, no abnormal lymph nodes, no rash. Neurologic--cranial nerves II through XII grossly intact. Rheumatologic--normal range of motion. Psychiatric--normal affect. Results & Data Results & Data ([facility]) Vital Signs (Past 12 Hours) Vital Signs Temp Pulse Pulse Resp BP Pulse Ox O2 Del Method 06/16/22 12:15 98.6 F 93 H 20 154/97 H 93 Room Air 06/16/22 08:00 Room Air 06/16/22 08:00 94 H 06/16/22 07:54 98.2 F 77 20 154/96 H 92 Room Air 06/16/22 04:00 98.1 F 83 20 153/95 H 95 Room Air PG Care Time/CCT Total # of Minutes Spent Total Time Spent with Patient: Total time spent is greater than 50% in coordination of care (as documented) at patient's floor/unit and/or counseling patient: Coding Level of Care Code 60055 Subseq Hosp Care Lvl 2 Diagnoses Encephalopathy G93.40 Conjunctivitis H10.32 Acute conjunctivitis type: bacterial Conjunctivitis type: acute Laterality: left Parkinson disease G20 REM sleep behavior disorder G47.52 Infection of prosthetic left knee joint T84.54XA Depression F32.9 Urinary incontinence R32 DVT prophylaxis Z29.9 Time Spent (min) 35 (1) Conjunctivitis Acute conjunctivitis type: bacterial Conjunctivitis type: acute Laterality: left Qualified Code(s): H10.32 - Unspecified acute conjunctivitis, left eye
[2022-06-16] MEDS ORDERED: CARBIDOPA/LEVODOPA 25/100MG TAB PO SCH (16:00)
[2022-06-17] MEDS: cefTRIAXone SODIUM 2,000 MG in DEXTROSE 5% 50 ML IV SCH (05:44)
[2022-06-17] MEDS: CARBIDOPA/LEVODOPA 25/100MG TAB PO SCH ×4 (07:31→21:17)
[2022-06-17] MEDS: ENTACAPONE 200 MG TAB PO SCH ×4 (07:31→21:17)
[2022-06-17] MEDS: AMANTADINE HCL 100 MG CAPSULE PO SCH ×2 (07:32→10:45)
[2022-06-17] MEDS: CARBIDOPA/LEVODOPA 50/200MG EXT REL TAB PO SCH ×4 (07:32→21:17)
[2022-06-17] MEDS: DOXYCYCLINE HYCLATE 100 MG CAP PO SCH ×2 (07:32→16:31)
[2022-06-17] MEDS: DULoxetine HCL 60 MG CAP PO SCH (10:00)
[2022-06-17] MEDS: TOBRAMYCIN/DEXAMETHASONE OPH SUSP 2.5 ML BTL OPL SCH ×4 (10:00→21:18)
[2022-06-17] MEDS: DULoxetine HCL 30 MG CAP PO SCH (10:00)
--- NOTE | 2022-06-17 15:12 | Hospitalist Progress Note ---
Date of Service June 17, 2022 Assessment & Plan (1) Encephalopathy: Plan: Presumed due to UTI -Now Resolved, patient at baseline - CXR on 06/11 was clear. No neck stiffness. Last occurrence was in 2019, and thought to be due to medication effects as well as possible UTI. - EEG negative for seizure on 06/11. - Continue ceftriaxone - cultures negative so far - Can use Ativan PRN for agitation/restlessness, however, we should try to avoid if possible since Ativan may worsen confusion (2) Conjunctivitis: Plan: Left eye conjunctivitis, POA. had reported this has happened before. Cultur ed growing staph - Continue tobra-Dex drops. Improving substantially. (3) Parkinson disease: Plan: Diagnosed at 30 years old. Bilateral DBS implanted in 2009. - Continue home meds as able (4) REM sleep behavior disorder: Plan: Pre-dates his Parkinson's disease. With lots of movements, some shouting, and myoclonus during sleep. 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 Follows with [facility] ID. - Continue home doxycycline (6) Depression: Plan: Follows with [facility] Psychiatry. - Continue amantadine & duloxetine (7) Urinary incontinence: Plan: Follows with PCP for this. - Continue solifenacin as able (8) DVT prophylaxis: Plan: SCDs - Low DVT risk per admission calculator FULL CODE - Per discussion with . Plan SNF placement when accepted Admission and Anticipated Discharge Date Admission Date: June 11, 2022 Subjective patient seen and examined,no new complaints today Review of Systems Review of Systems: All systems reviewed are negative, apart from the ones contained in the history. Physical Exam Physical Exam: The patient is awake, alert and oriented 3, well developed and well nourished, normocephalic and atraumatic, lying in bed and in no acute distress. HEENT--PERRL, EOMI, mucous membranes and oropharynx mildly dry Neck--supple. No JVD. No bruits. Thyroid normal, trachea midline, no adenopathy. Heart--normal S1 and S2. No murmurs, rubs or gallops. Lungs--clear bilaterally, no respiratory distress, no accessory muscle use. Abdomen--normal bowel sounds and soft. Mild epigastric and left sided abdominal pain Extremities--no cyanosis or clubbing. No edema. Dermatologic--normal skin turgor, normal color, no abnormal lymph nodes, no rash. Neurologic--cranial nerves II through XII grossly intact. Rheumatologic--normal range of motion. Psychiatric--normal affect. Results & Data Results & Data ([facility]) Vital Signs (Past 12 Hours) Vital Signs Temp Pulse Resp BP Pulse Ox O2 Del Method 06/17/22 09:41 Room Air 06/17/22 08:39 97.7 F 75 20 118/76 93 Room Air 06/17/22 04:40 96.6 F L 83 19 127/64 96 Room Air PG Care Time/CCT Total # of Minutes Spent Total Time Spent with Patient: Total time spent is greater than 50% in coordination of care (as documented) at patient's floor/unit and/or counseling patient: Coding Level of Care Code 06489 Subseq Hosp Care Lvl 2 Diagnoses Encephalopathy G93.40 Conjunctivitis H10.32 Acute conjunctivitis type: bacterial Conjunctivitis type: acute Laterality: left Parkinson disease G20 REM sleep behavior disorder G47.52 Infection of prosthetic left knee joint T84.54XA Depression F32.9 Urinary incontinence R32 DVT prophylaxis Z29.9 Time Spent (min) 35 (1) Conjunctivitis Acute conjunctivitis type: bacterial Conjunctivitis type: acute Laterality: left Qualified Code(s): H10.32 - Unspecified acute conjunctivitis, left eye
[2022-06-18] MEDS: cefTRIAXone SODIUM 2,000 MG in DEXTROSE 5% 50 ML IV SCH (05:13)
[2022-06-18 06:11] LABS: Hematocrit (blood only) 41.8 % (40.1-51.0); Hemoglobin 13.7 g/dl (14.0-18.0); Mean Corpuscular Hemoglobin 29.7 pg (25.0-34.0); Mean Corpuscular Hgb Conc 32.8 g/dL (32.0-36.0); Mean Corpuscular Volume 90.7 fL (80.0-100.0); Mean Platelet Volume 9.5 fL (9.4-12.4); Platelet Count 243 K/uL (130-400); RDW Coefficient of Variation 13.2 % (11.5-14.5); RDW Standard Deviation 44.3 fL (36.4-46.3); Red Blood Count 4.61 M/uL (4.63-6.08); White Blood Count 4.94 K/ul (4.8-10.8)
[2022-06-18] MEDS: AMANTADINE HCL 100 MG CAPSULE PO SCH ×2 (08:12→11:36)
[2022-06-18] MEDS: CARBIDOPA/LEVODOPA 50/200MG EXT REL TAB PO SCH ×4 (08:12→20:51)
[2022-06-18] MEDS: ENTACAPONE 200 MG TAB PO SCH ×4 (08:12→20:52)
[2022-06-18] MEDS: DOXYCYCLINE HYCLATE 100 MG CAP PO SCH ×2 (08:13→16:19)
[2022-06-18] MEDS: CARBIDOPA/LEVODOPA 25/100MG TAB PO SCH ×4 (08:13→20:51)
[2022-06-18] MEDS: DULoxetine HCL 60 MG CAP PO SCH (08:13)
[2022-06-18] MEDS: DULoxetine HCL 30 MG CAP PO SCH (08:14)
[2022-06-18] MEDS: TOBRAMYCIN/DEXAMETHASONE OPH SUSP 2.5 ML BTL OPL SCH ×4 (08:16→20:52)
[2022-06-18] MEDS: CARBIDOPA/LEVODOPA 25/100MG TAB PO PRN ×2 (08:43→18:07)
--- NOTE | 2022-06-18 17:03 | Hospitalist Progress Note ---
Date of Service June 18, 2022 Assessment & Plan (1) Encephalopathy: Plan: Presumed due to UTI -Now Resolved, patient at baseline - CXR on 06/11 was clear. No neck stiffness. Last occurrence was in 2019, and thought to be due to medication effects as well as possible UTI. - EEG negative for seizure on 06/11. - Continue ceftriaxone - cultures negative so far - Can use Ativan PRN for agitation/restlessness, however, we should try to avoid if possible since Ativan may worsen confusion (2) Conjunctivitis: Plan: Left eye conjunctivitis, POA. had reported this has happened before. Cultur ed growing staph - Continue tobra-Dex drops. Improving substantially. (3) Parkinson disease: Plan: Diagnosed at 30 years old. Bilateral DBS implanted in 2009. - Continue home meds as able (4) REM sleep behavior disorder: Plan: Pre-dates his Parkinson's disease. With lots of movements, some shouting, and myoclonus during sleep. 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 Follows with [facility] ID. - Continue home doxycycline (6) Depression: Plan: Follows with [facility] Psychiatry. - Continue amantadine & duloxetine (7) Urinary incontinence: Plan: Follows with PCP for this. - Continue solifenacin as able (8) DVT prophylaxis: Plan: SCDs - Low DVT risk per admission calculator FULL CODE - Per discussion with . Plan SNF placement when accepted Admission and Anticipated Discharge Date Admission Date: June 11, 2022 Subjective patient seen and examined,no new complaints today, panda has been removed Review of Systems Review of Systems: All systems reviewed are negative, apart from the ones contained in the history. Physical Exam Physical Exam: The patient is awake, alert and oriented 3, well developed and well nourished, normocephalic and atraumatic, lying in bed and in no acute distress. HEENT--PERRL, EOMI, mucous membranes and oropharynx mildly dry Neck--supple. No JVD. No bruits. Thyroid normal, trachea midline, no adenopathy. Heart--normal S1 and S2. No murmurs, rubs or gallops. Lungs--clear bilaterally, no respiratory distress, no accessory muscle use. Abdomen--normal bowel sounds and soft. Mild epigastric and left sided abdominal pain Extremities--no cyanosis or clubbing. No edema. Dermatologic--normal skin turgor, normal color, no abnormal lymph nodes, no rash. Neurologic--cranial nerves II through XII grossly intact. Rheumatologic--normal range of motion. Psychiatric--normal affect. Results & Data Results & Data ([facility]) Vital Signs (Past 12 Hours) Vital Signs Temp Pulse Pulse Resp BP BP Pulse Ox 06/18/22 14:19 84 06/18/22 15:30 98.2 F 82 18 100/66 93 06/18/22 11:43 97.9 F 89 18 125/73 96 06/18/22 07:00 68 06/18/22 08:00 98.2 F 86 15 136/80 92 O2 Del Method 06/18/22 14:19 06/18/22 15:30 Room Air 06/18/22 11:43 Room Air 06/18/22 07:00 06/18/22 08:00 Room Air PG Care Time/CCT Total # of Minutes Spent Total Time Spent with Patient: Total time spent is greater than 50% in coordination of care (as documented) at patient's floor/unit and/or counseling patient: Coding Level of Care Code 78526 Subseq Hosp Care Lvl 2 Diagnoses Encephalopathy G93.40 Conjunctivitis H10.32 Acute conjunctivitis type: bacterial Conjunctivitis type: acute Laterality: left Parkinson disease G20 REM sleep behavior disorder G47.52 Infection of prosthetic left knee joint T84.54XA Depression F32.9 Urinary incontinence R32 DVT prophylaxis Z29.9 Time Spent (min) 35 (1) Conjunctivitis Acute conjunctivitis type: bacterial Conjunctivitis type: acute Laterality: left Qualified Code(s): H10.32 - Unspecified acute conjunctivitis, left eye
[2022-06-19] MEDS: cefTRIAXone SODIUM 2,000 MG in DEXTROSE 5% 50 ML IV SCH (06:17)
[2022-06-19] MEDS: AMANTADINE HCL 100 MG CAPSULE PO SCH ×2 (06:18→11:41)
[2022-06-19] MEDS: CARBIDOPA/LEVODOPA 50/200MG EXT REL TAB PO SCH ×4 (06:19→20:06)
[2022-06-19] MEDS: ENTACAPONE 200 MG TAB PO SCH ×4 (06:19→20:06)
[2022-06-19] MEDS: CARBIDOPA/LEVODOPA 25/100MG TAB PO SCH ×4 (06:19→20:06)
[2022-06-19] MEDS: DOXYCYCLINE HYCLATE 100 MG CAP PO SCH ×2 (06:19→17:17)
[2022-06-19] MEDS: DULoxetine HCL 60 MG CAP PO SCH (08:39)
[2022-06-19] MEDS: DULoxetine HCL 30 MG CAP PO SCH (08:39)
--- NOTE | 2022-06-19 15:22 | Hospitalist Progress Note ---
Date of Service June 19, 2022 Assessment & Plan (1) Encephalopathy: Plan: Presumed due to UTI -Now Resolved, patient at baseline - CXR on 06/11 was clear. No neck stiffness. Last occurrence was in 2019, and thought to be due to medication effects as well as possible UTI. - EEG negative for seizure on 06/11. - Continue ceftriaxone - cultures negative so far - Can use Ativan PRN for agitation/restlessness, however, we should try to avoid if possible since Ativan may worsen confusion (2) Conjunctivitis: Plan: Left eye conjunctivitis, POA. had reported this has happened before. Cultur ed growing staph - Continue tobra-Dex drops. Improving substantially. (3) Parkinson disease: Plan: Diagnosed at 30 years old. Bilateral DBS implanted in 2009. - Continue home meds as able (4) REM sleep behavior disorder: Plan: Pre-dates his Parkinson's disease. With lots of movements, some shouting, and myoclonus during sleep. 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 Follows with [facility] ID. - Continue home doxycycline (6) Depression: Plan: Follows with [facility] Psychiatry. - Continue amantadine & duloxetine (7) Urinary incontinence: Plan: Follows with PCP for this. - Continue solifenacin as able (8) DVT prophylaxis: Plan: SCDs - Low DVT risk per admission calculator FULL CODE - Per discussion with . Plan SNF placement when accepted Admission and Anticipated Discharge Date Admission Date: June 11, 2022 Subjective patient seen and examined,no new complaints today, panda has been removed, seems a little more agitated this morning Review of Systems Review of Systems: All systems reviewed are negative, apart from the ones contained in the history. Physical Exam Physical Exam: The patient is awake, alert and oriented 3, well developed and well nourished, normocephalic and atraumatic, lying in bed and in no acute distress. HEENT--PERRL, EOMI, mucous membranes and oropharynx mildly dry Neck--supple. No JVD. No bruits. Thyroid normal, trachea midline, no adenopathy. Heart--normal S1 and S2. No murmurs, rubs or gallops. Lungs--clear bilaterally, no respiratory distress, no accessory muscle use. Abdomen--normal bowel sounds and soft. Mild epigastric and left sided abdominal pain Extremities--no cyanosis or clubbing. No edema. Dermatologic--normal skin turgor, normal color, no abnormal lymph nodes, no rash. Neurologic--cranial nerves II through XII grossly intact. Rheumatologic--normal range of motion. Psychiatric--normal affect. Results & Data Results & Data ([facility]) Vital Signs (Past 12 Hours) Vital Signs Temp Pulse Resp BP BP Pulse Ox O2 Del Method 06/19/22 12:58 98.2 F 84 16 140/90 96 Room Air 06/19/22 08:00 Room Air 06/19/22 07:55 98.1 F 81 16 120/73 91 Room Air 06/19/22 03:26 98.6 F 81 16 129/77 96 Room Air PG Care Time/CCT Total # of Minutes Spent Total Time Spent with Patient: Total time spent is greater than 50% in coordination of care (as documented) at patient's floor/unit and/or counseling patient: Coding Level of Care Code 42753 Subseq Hosp Care Lvl 2 Diagnoses Encephalopathy G93.40 Conjunctivitis H10.32 Acute conjunctivitis type: bacterial Conjunctivitis type: acute Laterality: left Parkinson disease G20 REM sleep behavior disorder G47.52 Infection of prosthetic left knee joint T84.54XA Depression F32.9 Urinary incontinence R32 DVT prophylaxis Z29.9 Time Spent (min) 35 (1) Conjunctivitis Acute conjunctivitis type: bacterial Conjunctivitis type: acute Laterality: left Qualified Code(s): H10.32 - Unspecified acute conjunctivitis, left eye
[2022-06-20] MEDS: cefTRIAXone SODIUM 2,000 MG in DEXTROSE 5% 50 ML IV SCH (05:28)
[2022-06-20] MEDS: CARBIDOPA/LEVODOPA 25/100MG TAB PO SCH ×4 (08:55→21:05)
[2022-06-20] MEDS: CARBIDOPA/LEVODOPA 50/200MG EXT REL TAB PO SCH ×4 (08:55→21:04)
[2022-06-20] MEDS: ENTACAPONE 200 MG TAB PO SCH ×4 (08:56→21:04)
[2022-06-20] MEDS: AMANTADINE HCL 100 MG CAPSULE PO SCH ×2 (08:56→11:37)
[2022-06-20] MEDS: DOXYCYCLINE HYCLATE 100 MG CAP PO SCH ×2 (08:56→17:54)
[2022-06-20] MEDS: DULoxetine HCL 30 MG CAP PO SCH (08:57)
[2022-06-20] MEDS: DULoxetine HCL 60 MG CAP PO SCH (08:57)
--- NOTE | 2022-06-20 13:38 | Hospitalist Progress Note ---
Date of Service June 20, 2022 Assessment & Plan (1) Encephalopathy: Plan: Presumed due to UTI -Now Resolved, patient at baseline - CXR on 06/11 was clear. No neck stiffness. Last occurrence was in 2019, and thought to be due to medication effects as well as possible UTI. - EEG negative for seizure on 06/11. - Continue ceftriaxone - cultures negative so far - Can use Ativan PRN for agitation/restlessness, however, we should try to avoid if possible since Ativan may worsen confusion (2) Conjunctivitis: Plan: Left eye conjunctivitis, POA. had reported this has happened before. [facility] ed growing staph - Completed tobra-Dex drops. Clinically much improved (3) Parkinson disease: Plan: Diagnosed at 30 years old. Bilateral DBS implanted in 2009. - Continue home meds as able (4) REM sleep behavior disorder: Plan: Pre-dates his Parkinson's disease. With lots of movements, some shouting, and myoclonus during sleep. 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 Follows with [facility] ID. - Continue home doxycycline (6) Depression: Plan: Follows with [facility] Psychiatry. - Continue amantadine & duloxetine (7) Urinary incontinence: Plan: Follows with PCP for this. - Continue solifenacin as able (8) DVT prophylaxis: Plan: SCDs - Low DVT risk per admission calculator FULL CODE - Per discussion with . Plan SNF placement when accepted Admission and Anticipated Discharge Date Admission Date: June 11, 2022 Subjective patient seen and examined,no new complaints today, said he wanted his eye drops Review of Systems Review of Systems: All systems reviewed are negative, apart from the ones contained in the history. Physical Exam Physical Exam: The patient is awake, alert and oriented 3, well developed and well nourished, normocephalic and atraumatic, lying in bed and in no acute distress. HEENT--PERRL, EOMI, mucous membranes and oropharynx mildly dry Neck--supple. No JVD. No bruits. Thyroid normal, trachea midline, no adenopathy. Heart--normal S1 and S2. No murmurs, rubs or gallops. Lungs--clear bilaterally, no respiratory distress, no accessory muscle use. Abdomen--normal bowel sounds and soft. Mild epigastric and left sided abdominal pain Extremities--no cyanosis or clubbing. No edema. Dermatologic--normal skin turgor, normal color, no abnormal lymph nodes, no rash. Neurologic--cranial nerves II through XII grossly intact. Rheumatologic--normal range of motion. Psychiatric--normal affect. Results & Data Results & Data ([facility]) Vital Signs (Past 12 Hours) Vital Signs Temp Pulse Resp BP Pulse Ox O2 Del Method 06/20/22 08:37 98.4 F 83 20 137/81 95 Room Air PG Care Time/CCT Total # of Minutes Spent Total Time Spent with Patient: Total time spent is greater than 50% in coordination of care (as documented) at patient's floor/unit and/or counseling patient: Coding Level of Care Code 14375 Subseq Hosp Care Lvl 2 Diagnoses Encephalopathy G93.40 Conjunctivitis H10.32 Acute conjunctivitis type: bacterial Conjunctivitis type: acute Laterality: left Parkinson disease G20 REM sleep behavior disorder G47.52 Infection of prosthetic left knee joint T84.54XA Depression F32.9 Urinary incontinence R32 DVT prophylaxis Z29.9 Time Spent (min) 35 (1) Conjunctivitis Acute conjunctivitis type: bacterial Conjunctivitis type: acute Laterality: left Qualified Code(s): H10.32 - Unspecified acute conjunctivitis, left eye
[2022-06-21] MEDS: cefTRIAXone SODIUM 2,000 MG in DEXTROSE 5% 50 ML IV SCH (05:53)
[2022-06-21] MEDS: CARBIDOPA/LEVODOPA 50/200MG EXT REL TAB PO SCH ×3 (06:28→16:33)
[2022-06-21] MEDS: AMANTADINE HCL 100 MG CAPSULE PO SCH ×2 (06:28→10:46)
[2022-06-21] MEDS: DOXYCYCLINE HYCLATE 100 MG CAP PO SCH ×2 (06:28→16:33)
[2022-06-21] MEDS: CARBIDOPA/LEVODOPA 25/100MG TAB PO SCH ×3 (06:28→16:33)
[2022-06-21] MEDS: ENTACAPONE 200 MG TAB PO SCH ×3 (06:29→16:33)
[2022-06-21] MEDS: DULoxetine HCL 60 MG CAP PO SCH (08:22)
[2022-06-21] MEDS: DULoxetine HCL 30 MG CAP PO SCH (08:22)
[2022-06-21 09:06] LABS: Hematocrit (blood only) 41.2 % (40.1-51.0); Hemoglobin 13.6 g/dl (14.0-18.0); Mean Corpuscular Hemoglobin 29.6 pg (25.0-34.0); Mean Corpuscular Volume 89.6 fL (80.0-100.0); Mean Platelet Volume 9.8 fL (9.4-12.4); Platelet Count 251 K/uL (130-400); RDW Coefficient of Variation 13.3 % (11.5-14.5); RDW Standard Deviation 43.8 fL (36.4-46.3); White Blood Count 6.13 K/ul (4.8-10.8)
[2022-06-21 09:35] LABS: BUN Creatinine Ratio 26.5 (10-20); Calcium 8.5 mg/dl (8.5-10.1); Creatinine Clr Calc Pharmacy 131.6 ml/min; Est GFR (African American) 122.9 ml/min; Potassium 3.7 mmol/L (3.5-5.1)
[2022-06-21] MEDS: CARBIDOPA/LEVODOPA 25/100MG TAB PO PRN (10:04)
--- NOTE | 2022-06-21 12:07 | Discharge Summary ---
Date of Service June 21, 2022 Admission HPI Per Admitting Provider 56yo M w/ hx of Parkinson's disease s/p DBS in 2009 who presents with altered mental status. The patient's provides the full history as he cannot respond to my questions. He was very agitated in the ER and was given Ativan 4 mg IV. The patient's notes that he is usually in a fairly good baseline of health and is responsive, recognizes and converses with family, and is up to date with current events such as [employer] football. However, over the last 2 weeks, she reports increasing periods of unresponsiveness. First, she notes that it was fairly transient (ie only 20-30 minutes). He would be unarousable. He has REM sleep disorder, so he does have a lot of movement and myoclonus while sleeping. He would have some mild confusion afterward, but appear to be mostly himself. However, over the last 2 weeks, it seems like these episodes have been more frequent, and longer in duration (last now several hours). He has also been more verbal and agitated with sleep, to the point where he is waking up his [id number] (the patient's 's mother). He was moved to a different room in the house to avoid this, but has fallen out of bed several times now as the new bed does not have guardrails. Additionally, he has been acting more odd, like asking to lie down on the floor when he knows that this is not a usual behavior for him. His reports he has not had any fevers, chills, sweats, or dysuria at home. In 2019, he came to the ER with a similar issue. The reports he was intubated for agitation at that time and flown to [facility] where he was intubated for about 24 hours, then extubated and gradually returned to himself. Reviewing that note, it appears it was thought to be from Buspar as well as duloxetine, with possible UTI contributing. Principal Diagnosis UTI, acute encephalopathy Discharge Exam The patient is awake, alert and oriented 3, well developed and well nourished, normocephalic and atraumatic, lying in bed and in no acute distress. HEENT--PERRL, EOMI, mucous membranes and oropharynx mildly dry Neck--supple. No JVD. No bruits. Thyroid normal, trachea midline, no adenopathy. Heart--normal S1 and S2. No murmurs, rubs or gallops. Lungs--clear bilaterally, no respiratory distress, no accessory muscle use. Abdomen--normal bowel sounds and soft. Mild epigastric and left sided abdominal pain Extremities--no cyanosis or clubbing. No edema. Dermatologic--normal skin turgor, normal color, no abnormal lymph nodes, no rash. Neurologic--cranial nerves II through XII grossly intact. Rheumatologic--normal range of motion. Psychiatric--normal affect. Discharge Data Allergies Allergy/AdvReac Type Severity Reaction Status Date / Time morphine Allergy Mild Itching Verified 12/26/20 22:02 buspirone [From BuSpar] AdvReac Severe SCHIZOPHRENIA Verified 12/26/20 22:02 LIKE ACTIONS haloperidol [From Haldol] AdvReac Severe CONTRAINDICATED Verified 12/26/20 22:02 IN PARKINSON'S DISEASE pramipexole [From Mirapex] AdvReac Severe BECAME OCD Verified 12/26/20 22:02 FOR WEEKS quetiapine [From Seroquel] AdvReac Severe PT BECAME Verified 12/26/20 22:02 VIOLENT THEN DEEP SLEEP Consultations 06/11/22 06:05 ED Decision to Admit Stat 06/11/22 09:56 Consult Neurology Routine Ordered Studies 06/11/22 03:14 CT Brain [CT head/brain wo con] Urgent Hospital Course (1) Encephalopathy: Presumed due to UTI -Now Resolved, patient at baseline - CXR on 06/11 was clear. No neck stiffness. Last occurrence was in 2019, and thought to be due to medication effects as well as possible UTI. - EEG negative for seizure on 06/11. - Completed a course of IV ceftriaxone - cultures negative so far - Can use Ativan PRN for agitation/restlessness, however, we should try to avoid if possible since Ativan may worsen confusion (2) Conjunctivitis: Left eye conjunctivitis, POA. had reported this has happened before. Cultured growing staph - Completed tobra-Dex drops. Clinically much improved (3) Parkinson disease: Diagnosed at 30 years old. Bilateral DBS implanted in 2009. - Continue home meds as able (4) REM sleep behavior disorder: Pre-dates his Parkinson's disease. With lots of movements, some shouting, and myoclonus during sleep. - Monitor, can use Melatonin per neurology -I spoke to the and she said that Ativan made him sleep better and consequently more lucid and interactive in the morning - I adviced against routine use of benzo for sleep given its addictive tendency and also tendency for worsening confusion (5) Infection of prosthetic left knee joint: Hx of. Follows with [facility] ID. - Continue home doxycycline (6) Depression: Follows with [facility] Psychiatry. - Continue amantadine & duloxetine (7) Urinary incontinence: Follows with PCP for this. - Continue solifenacin as able (8) DVT prophylaxis: SCDs - Low DVT risk per admission calculator FULL CODE - Per discussion with . Plan SNF placement when accepted Total Time Total Time Spent Total Time Spent (In Minutes): 35 Discharge Plan Discharge Items Patient Disposition: Transfer Intermediate Fac Reason For Visit: ALTERED MENTAL STATUS Discharge Diagnosis: UTI Activity: Resume your previous activity Non-emergency contact: Primary Care Provider Call non-emergency contact if: you have any medication questions Follow-up/Referrals: Jose Martin DO [Primary Care Provider] - Diet: Regular Addtl Attending Provider Instructions: please make appointment to follow up with your regular PCP Pending Studies at Discharge: No Stand-Alone Forms: My [facility] [employer] Skilled Items Patient informed of condition?: Yes DNR: No Discharge Level of Care: Skilled Communicable Disease: No Discharge Prognosis: Stable Lines: None Urinary Catheter: No Medications and DC Order Prescriptions: Continued duloxetine 60 mg capsule,delayed release(DR/EC) 60 mg PO DAILY Qty: 30 2RF Rx Instructions: in addition to 30mg duloxetine 30 mg capsule,delayed release(DR/EC) 30 mg PO DAILY Qty: 30 2RF Rx Instructions: in addition to 60mg amantadine HCl 100 mg tablet 100 mg PO BID Rx Instructions: TAKES 0700 AND 1100 carbidopa-levodopa 25-100 mg tablet 1 tab PO QID Rx Instructions: patient takes at 0700,1000,1700,2200 carbidopa-levodopa 50-200 mg tablet extended release 1 tab PO QID Rx Instructions: TAKES AT 0700, 1100, 1600, 2100 entacapone [Comtan] 200 mg tablet 200 mg PO QID Rx Instructions: patient takes at 0700,1000,1700,2200 doxycycline hyclate 100 mg tablet 100 mg PO BID Rx Instructions: TAKES AT 0700 AND 1600 acetaminophen 500 mg tablet 1,000 mg PO BID PRN (Reason: Pain) Rx Instructions: ALTERNATES WITH IBUPROFEN SO THAT HAS AT LEAST 4 PAIN MEDS/DAY. melatonin 5 mg capsule 5 mg PO HS PRN (Reason: Sleep) ibuprofen [Advil] 200 mg tablet 200 mg PO Q6H PRN (Reason: Pain) Rx Instructions: ALTERNATES WITH TYLENOL TO HAVE PAIN MED AT LEAST 4 X DAY. carbidopa-levodopa 25-100 mg Tablet 1 tab PO QID PRN (Reason: PARKINSONS) Rx Instructions: PRN QID IN ADDITION TO REGULAR QID DOSAGE PER USUALLY TAKES ABOUT 1 HOUR PRIOR TO REG. DOSES IF WEARS OFF. solifenacin [Vesicare] 10 mg tablet 10 mg PO QAM melatonin 3 mg Tablet 6 - 9 mg PO HS PRN (Reason: Sleep) Discharge Orders: Discharge Order (Routine); Ordered 06/21/22 Ordered By: Alex Valencia Admission Data Admit Date/Time: 06/11/22 08:28 Attending Provider: Alex Valencia Admit Provider: Clifford Alvarado Primary Care Provider: Jose Martin Other Providers: Bert Morfin ; Jose Vasquez ; Khanh [facility] [place] Coding Level of Care Code D/C DAY MANAGEMENT >30 MINS Diagnoses Encephalopathy G93.40 Conjunctivitis H10.32 Acute conjunctivitis type: bacterial Conjunctivitis type: acute Laterality: left Parkinson disease G20 REM sleep behavior disorder G47.52 Infection of prosthetic left knee joint T84.54XA Depression F32.9 Urinary incontinence R32 DVT prophylaxis Z29.9 Time Spent (min) 35
== END 2022-06-21 18:18 | DRG 689 ==
LOC: ED 21:52 → SUATTDRO 06-11 08:28 → 4W 06-11 08:28

== ENCOUNTER 2022-08-09 18:09 | Inpatient (IN) ==
--- NOTE | 2022-08-09 19:08 | XRay Report ---
XR chest 1V portable CLINICAL HISTORY: Sepsis. COMPARISON STUDY: Chest radiograph June 11, 2022. Chest CT April 23, 2011. FINDINGS: Neural stimulators are incidentally noted. There are bilateral shoulder arthroplasties. No pneumothorax or pleural effusion is present. Cardiac size is normal. Mediastinal contours are normal. No consolidation or evidence for pulmonary edema. The appearance of the chest is unchanged. IMPRESSION: No acute cardiopulmonary findings. ACT 112: Negative or not required by law. Electronically signed by: Kendall Tello M.D. 08/09/2022 7:07 PM
--- NOTE | 2022-08-09 19:51 | Emergency Department Note ---
Impression & Plan Urinary tract infection, Weakness, History of Parkinson's disease ED Provider Note NAME: LEVON SAMANIEGO AGE: 57 SEX: M : 1965 ARRIVES VIA: Walk-In INFORMANT: Patient, ED PROVIDER(S): Chase Servin MD Patient is here due to concern for UTI related symptoms. Patient presents with at bedside who is concerned that he is having a recurrence of a UTI. The patient does have a known history of Parkinson's and has a history of urinary incontinence and occasionally does have UTIs. The patient was admitted recently in May went to a custodial and did have a recent ESBL that was treated with Macrobid and then had a recurrence of infection was seen in urgent care and completed a course of Keflex several days ago. Patient's states that typically it is more cognitive to where he has some issues with the patient been getting up and out of bed more frequently and is more restless. No recent falls or trauma. Unsure so that his appetite is decreased. No chest pains or shortness of breath no cough or fever. Patient has recently complained of some dysuria but no blood in the urine or stool. Chief Complaint: HPI: ROS: See HPI for pertinent positives and negatives. A total of 10 systems were reviewed and otherwise negative. Past medical history: See below Surgical history: See below Social history: See below Physical Exam: GENERAL: NAD, wearing a mask, non-toxic. Wearing glasses. Truncal movements noted EYE EXAM: Normal conjunctiva. PERRL, no anisocoria and EOM's grossly intact w/o pain. NECK: Supple, no nuchal rigidity, no adenopathy, non-tender. No signs of menin gismus. FROM of the neck with good chin to chest and neck extension. No stridor. LUNGS: Clear to auscultation. Normal chest wall mechanics. HEART: NSR, no MRG. ABDOMEN: Abdomen soft, non-tender, normo-active bowel sounds, no masses, no rebound or guarding. BACK: No CVA TTP. SKIN: No rashes and no bruising. : Circumcised, no erythema no crepitus and no masses. Bilateral testicles descended UPPER EXTREMITIES: Upper extremities are grossly normal. LOWER EXTREMITIES: Grossly normal, no edema. Left anterior knee incisional scar. Chronic venous stasis changes. NEURO EXAM: A&O x3, cranial nerves II-XII grossly intact, normal speech, moves all 4 extremities. Differential diagnoses: Infection, dehydration, metabolic abnormality, hypo/hyperglycemia, electrolyte disturbance, anemia, hypoxia, cardiac sources, intracerebral event, toxicologic, neurologic, as well as other pathologies. Course: Patient was seen and evaluated the bedside. Full history physical exam was performed. Imaging Studies: See Below Cardiac monitoring: An order was placed for continuous cardiac monitoring. The monitor shows a rate of 88 with which side rhythm. MDM: Patient was seen due to concern for possible UTI related symptoms. Blood work was obtained and the patient was ordered IV fluids. Patient did have blood cultures completed along with procalcitonin. Chest x-ray also obtained. Patient is a normal white count with hemoglobin 12.9. Platelet count is unremarkable. Kidney function unremarkable. Patient sodium 135. Patient is LFTs are unremarkable. Urinalysis does show concern for infection. COVID flu and RSV negative. I did order meropenem as the patient's had related that she thought he had an ESBL UTI recently. I did speak the on-call hospitalist as I thought that only IV antibiotics would be appropriate for this. Patient was admitted by Dr. Adams. Past Med/Surg History Medical History (Updated 08/10/22 @ 00:08 by Tj Nguyen MD) Acute UTI Anxiety Conjunctivitis Depression Hearing deficit STEBBINS left ear Osteoarthritis Parkinson disease s/p deep brain stimulator. Dr. Linda Back, [facility] Sleep apnea does not tolerate device Urinary incontinence Managed at primary care Venous stasis of both lower extremities Vitamin D deficiency Surgical History History of appendectomy History of carpal tunnel release History of colonoscopy History of foot surgery RECONSTRUCTION - RT History of left knee replacement History of revision of total knee arthroplasty LEFT History of shoulder surgery LEFT X 2; RT X 1 S/P deep brain stimulator placement (~2008) Family History Grandmother Family history of diabetes mellitus Father Hypertension Denies family history of Ovarian cancer Osteoporosis Myocardial infarction Breast cancer Colorectal cancer Cancer Social History Smoking Status: Never smoker Second Hand Exposure: No; Hx Alcohol Use: Yes Alcohol type: beer Hx Substance Use: No Preferred Language: Romansh Communication Ability: Unable Visual Impairment: No Limitations Hearing Ability: Normal 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 Beliefs That Will Affect Care: None marital status: Current Living Situation: Spouse and Family Feels Safe at Home: Yes Assistive Devices: Bedside Commode, Scooter/Electric Scooter and Walker Allergies Allergies Allergy/AdvReac Type Severity Reaction Status Date / Time morphine Allergy Mild Itching Verified 08/09/22 21:49 buspirone [From BuSpar] AdvReac Severe SCHIZOPHRENIA Verified 08/09/22 21:49 LIKE ACTIONS haloperidol [From Haldol] AdvReac Severe CONTRAINDICATED Verified 08/09/22 21:49 IN PARKINSON'S DISEASE pramipexole [From Mirapex] AdvReac Severe BECAME OCD Verified 08/09/22 21:49 FOR WEEKS quetiapine [From Seroquel] AdvReac Severe PT BECAME Verified 08/09/22 21:49 VIOLENT THEN DEEP SLEEP Home Meds Home Medications Medication Instructions Recorded Confirmed amantadine HCl 100 mg tablet 100 mg PO BID 06/30/19 08/09/22 carbidopa ER 50 mg-levodopa 200 mg 1 tab PO QID 06/30/19 08/09/22 tablet,extended release entacapone 200 mg tablet (Comtan) 200 mg PO QID 06/30/19 08/09/22 solifenacin 10 mg tablet (Vesicare) 10 mg PO QAM 08/28/19 08/09/22 acetaminophen 500 mg tablet 1,000 mg PO BID PRN Pain 04/29/20 08/09/22 doxycycline hyclate 100 mg tablet 100 mg PO BID 04/29/20 08/09/22 melatonin 5 mg capsule 5 mg PO HS PRN Sleep 04/29/20 08/09/22 melatonin 3 mg tablet 6 - 9 mg PO HS PRN Sleep 06/11/22 08/09/22 carbidopa 25 mg-levodopa 100 mg 1 tab PO .UD 08/09/22 08/09/22 disintegrating tablet lorazepam 0.5 mg tablet 0.75 mg PO .HS ONLY PRN Insomnia 08/09/22 08/09/22 Previous Rx's Medication Instructions Recorded duloxetine 30 mg capsule,delayed 30 mg PO DAILY #30 caps 03/29/21 release duloxetine 60 mg capsule,delayed 60 mg PO DAILY #30 caps 03/29/21 release Results & Data (ED) Vital Signs Vital Signs - 24 hr 08/09/22 18:19 08/09/22 19:15 08/09/22 19:21 Temperature 37.2 C Temperature Source Temporal Artery Scan Pulse Rate 101 H Pulse Rate [Apical] 85 Respiratory Rate 20 20 Respiratory Effort / Characteristics Non-Labored Respiratory Depth Normal Respiratory Pattern Regular Blood Pressure 130/74 Blood Pressure [Right Arm] 128/75 Blood Pressure Mean 92 Blood Pressure Mean [Right Arm] 92 Blood Pressure Position Sitting Pulse Oximetry 94 92 93 Oxygen Delivery Method Room Air Room Air Room Air Sepsis Recent Fever Within 48 Hours No Sepsis New/Unexplained Change in Mental Status No Sepsis Action Taken by Nursing No Action Required 08/09/22 19:44 08/09/22 20:30 08/09/22 21:10 Temperature Temperature Source Pulse Rate Pulse Rate [Apical] 95 H 94 H 94 H Respiratory Rate 22 22 18 Respiratory Effort / Characteristics Respiratory Depth Respiratory Pattern Blood Pressure Blood Pressure [Right Arm] 105/69 111/60 126/70 Blood Pressure Mean Blood Pressure Mean [Right Arm] 81 77 88 Blood Pressure Position Pulse Oximetry 92 92 96 Oxygen Delivery Method Room Air Room Air Room Air Sepsis Recent Fever Within 48 Hours Sepsis New/Unexplained Change in Mental Status Sepsis Action Taken by Nursing 08/09/22 22:10 08/09/22 21:30 08/09/22 22:33 Temperature Temperature Source Pulse Rate Pulse Rate [Apical] 97 H 95 H 94 H Respiratory Rate 18 18 22 Respiratory Effort / Characteristics Respiratory Depth Respiratory Pattern Blood Pressure Blood Pressure [Right Arm] 124/77 124/77 143/81 H Blood Pressure Mean Blood Pressure Mean [Right Arm] 92 92 101 Blood Pressure Position Pulse Oximetry 96 94 95 Oxygen Delivery Method Room Air Room Air Room Air Sepsis Recent Fever Within 48 Hours Sepsis New/Unexplained Change in Mental Status Sepsis Action Taken by Nursing 08/09/22 23:20 Temperature Temperature Source Pulse Rate Pulse Rate [Apical] 94 H Respiratory Rate 18 Respiratory Effort / Characteristics Respiratory Depth Respiratory Pattern Blood Pressure Blood Pressure [Right Arm] 147/91 H Blood Pressure Mean Blood Pressure Mean [Right Arm] 109 Blood Pressure Position Pulse Oximetry Oxygen Delivery Method Room Air Sepsis Recent Fever Within 48 Hours Sepsis New/Unexplained Change in Mental Status Sepsis Action Taken by [facility] Medications Current Medication List: was personally reviewed by me Laboratory Data Attestation: I reviewed the patient's lab results. Result diagrams: 08/09/22 19:10 08/09/22 19:10 Lab Results 08/09/22 08/09/22 08/09/22 Range/Units 19:10 19:10 19:10 WBC 8.55 (4.8-10.8) K/ul RBC 4.31 L (4.63-6.08) M/uL Hgb 12.9 L (14.0-18.0) g/dl Hct 38.4 L (40.1-51.0) % MCV 89.1 (80.0-100.0) fL MCH 29.9 (25.0-34.0) pg MCHC 33.6 (32.0-36.0) g/dL RDW Std Deviation 45.3 (36.4-46.3) fL RDW Coeff of Travis 13.8 (11.5-14.5) % Plt Count 232 (130-400) K/uL MPV 10.2 (9.4-12.4) fL Immature Gran % (Auto) 0.2 % Neut % (Auto) 82.4 % Lymph % (Auto) 7.5 % [place] % (Auto) 7.8 % Eos % (Auto) 1.4 % Baso % (Auto) 0.7 % Neut # (Auto) 7.04 H (1.4-6.5) K/uL Lymph # (Auto) 0.64 L (1.2-3.4) K/uL [place] # (Auto) 0.67 (0.24-0.82) K/uL Eos # (Auto) 0.12 (0-0.50) K/uL Baso # (Auto) 0.06 (0-0.2) K/uL Immature Gran # (Auto) 0.02 (0.00-0.02) K/uL PT 11.2 (9.0-12.0) Seconds INR 1.1 (0.9-1.1) APTT 30.4 (21.0-31.0) Seconds PTT Ratio 1.1 Sodium 135 L (136-145) mmol/L Potassium 3.8 (3.5-5.1) mmol/L Chloride 104 (98-107) mmol/L Carbon Dioxide 26 (21-32) mmol/L Anion Gap 5 (3-11) BUN 15 (6-23) mg/dl Creatinine 0.55 L (0.6-1.4) mg/dl Est Cr Clr Drug Dosing 181.6 ml/min Est GFR ( Amer) 134.1 ml/min Est GFR (Non-Af Amer) 115.7 ml/min BUN/Creatinine Ratio 27.3 H (10-20) Glucose 100 H (70-99(Fasting)) mg/dl Calcium 8.6 (8.5-10.1) mg/dl Magnesium 2.2 (1.7-2.4) mg/dl Total Bilirubin 0.6 (0.2-1.0) mg/dl AST 16 (13-39) U/L ALT < 3 L (7-52) U/L Alkaline Phosphatase 58 (34-104) U/L Total Protein 6.7 (6.0-8.3) gm/dl Albumin 3.8 (3.4-5.0) gm/dl Globulin 2.9 (2.5-4.0) gm/dl Albumin/Globulin Ratio 1.3 (0.9-2) Procalcitonin (0-0.5) ng/ml Urine Color Urine Appearance (Clear) Urine pH (4.5-7.5) Ur Specific [place] (1.000-1.030) Urine Protein (Negative) Urine Glucose (UA) (Negative) Urine Ketones (Negative) Urine Blood (Negative) Urine Nitrite (Negative) Urine Bilirubin (Negative) Urine Urobilinogen (Negative) Ur Leukocyte Esterase (Negative) Urine WBC (Auto) (0-5) /hpf Urine RBC (Auto) (0-4) /hpf U Hyaline Cast (Auto) (0-5) /lpf U Epithel Cells (Auto) (0-5) /lpf Urine Bacteria (Auto) (Negative) SARS-CoV-2 (PCR) (Negative) Influenza Type A (PCR) (Neg) Influenza Type B (PCR) (Neg) RSV (RT-PCR) (Neg) 08/09/22 08/09/22 08/09/22 Range/Units 19:10 19:45 19:45 WBC (4.8-10.8) K/ul RBC (4.63-6.08) M/uL Hgb (14.0-18.0) g/dl Hct (40.1-51.0) % MCV (80.0-100.0) fL MCH (25.0-34.0) pg MCHC (32.0-36.0) g/dL RDW Std Deviation (36.4-46.3) fL RDW Coeff of Travis (11.5-14.5) % Plt Count (130-400) K/uL MPV (9.4-12.4) fL Immature Gran % (Auto) % Neut % (Auto) % Lymph % (Auto) % [place] % (Auto) % Eos % (Auto) % Baso % (Auto) % Neut # (Auto) (1.4-6.5) K/uL Lymph # (Auto) (1.2-3.4) K/uL [place] # (Auto) (0.24-0.82) K/uL Eos # (Auto) (0-0.50) K/uL Baso # (Auto) (0-0.2) K/uL Immature Gran # (Auto) (0.00-0.02) K/uL PT (9.0-12.0) Seconds INR (0.9-1.1) APTT (21.0-31.0) Seconds PTT Ratio Sodium (136-145) mmol/L Potassium (3.5-5.1) mmol/L Chloride (98-107) mmol/L Carbon Dioxide (21-32) mmol/L Anion Gap (3-11) BUN (6-23) mg/dl Creatinine (0.6-1.4) mg/dl Est Cr Clr Drug Dosing ml/min Est GFR ( Amer) ml/min Est GFR (Non-Af Amer) ml/min BUN/Creatinine Ratio (10-20) Glucose (70-99(Fasting)) mg/dl Calcium (8.5-10.1) mg/dl Magnesium (1.7-2.4) mg/dl Total Bilirubin (0.2-1.0) mg/dl AST (13-39) U/L ALT (7-52) U/L Alkaline Phosphatase (34-104) U/L Total Protein (6.0-8.3) gm/dl Albumin (3.4-5.0) gm/dl Globulin (2.5-4.0) gm/dl Albumin/Globulin Ratio (0.9-2) Procalcitonin < 0.05 (0-0.5) ng/ml Urine Color Dark Yellow Urine Appearance Cloudy A (Clear) Urine pH 7.0 (4.5-7.5) Ur Specific [place] 1.026 (1.000-1.030) Urine Protein Trace H (Negative) Urine Glucose (UA) Negative (Negative) Urine Ketones 1+ H (Negative) Urine Blood Negative (Negative) Urine Nitrite Positive A (Negative) Urine Bilirubin Negative (Negative) Urine Urobilinogen Negative (Negative) Ur Leukocyte Esterase 1+ H (Negative) Urine WBC (Auto) 10-30 H (0-5) /hpf Urine RBC (Auto) 0-4 (0-4) /hpf U Hyaline Cast (Auto) 1-5 (0-5) /lpf U Epithel Cells (Auto) 0-5 (0-5) /lpf Urine Bacteria (Auto) 4+ H (Negative) SARS-CoV-2 (PCR) NEGATIVE (Negative) Influenza Type A (PCR) Negative (Neg) Influenza Type B (PCR) Negative (Neg) RSV (RT-PCR) Negative (Neg) Administered Medications Discontinued Medications Sodium Chloride (Nss 1000ml) 1,000 mls @ 999 mls/hr IV .[id number] ONE Stop: 08/09/22 21:30 Last Infusion: 08/09/22 21:32 Dose: 0 mls/hr Documented By: Admin: 08/09/22 20:32 Dose: 999 mls/hr Documented By: DEX Meropenem 500 mg/ Syringe 10 mls @ 2 mls/min IV NOW STA; Protocol Stop: 08/09/22 20:36 Last Admin: 08/09/22 20:50 Dose: 2 mls/min Documented By: DEX Ioversol (Optiray 320 500ml) 125 ml IV ONCE ONE Stop: 08/10/22 00:00 Last Admin: 08/10/22 00:00 Dose: 111 ml Documented By: CHRISTIE Lorazepam (Lorazepam 0.5 Mg Tab) 0.5 mg PO NOW STA Stop: 08/09/22 23:05 Last Admin: 08/09/22 23:18 Dose: 0.5 mg Documented By: DEX Imaging Data Radiologist's Impression: Chest X-Ray 11/17/22 18:23 XR chest 1V portable CLINICAL HISTORY: Sepsis. COMPARISON STUDY: Chest radiograph June 11, 2022. Chest CT April 23, 2011. FINDINGS: Neural stimulators are incidentally noted. There are bilateral shoulder arthroplasties. No pneumothorax or pleural effusion is present. Cardiac size is normal. Mediastinal contours are normal. No consolidation or evidence for pulmonary edema. The appearance of the chest is unchanged. IMPRESSION: No acute cardiopulmonary findings. ACT 112: Negative or not required by law. Electronically signed by: Kendall Tello M.D. 08/09/2022 7:07 PM Discharge Plan Visit Data Chief Complaint: Urinary Symptoms Stated Complaint: UTI,HAS ALTERED MENTAL STATUS, ESBL BEFORE ED Provider: Chase Servin Discharge Problem: Urinary tract infection, Weakness, History of Parkinson's disease Forms Stand Alone Forms: [facility] Prescriptions Prescriptions: No Action duloxetine 60 mg capsule,delayed release(DR/EC) 60 mg PO DAILY Qty: 30 2RF Rx Instructions: take with 30mg = 90mg daily duloxetine 30 mg capsule,delayed release(DR/EC) 30 mg PO DAILY Qty: 30 2RF Rx Instructions: take with 60mg = 90 mg daily amantadine HCl 100 mg tablet 100 mg PO BID carbidopa-levodopa 50-200 mg tablet extended release 1 tab PO QID Rx Instructions: TAKES AT 0700, 1100, 1600, 2100 entacapone [Comtan] 200 mg tablet 200 mg PO QID Rx Instructions: patient takes at 0700,1000,1700,2200 doxycycline hyclate 100 mg tablet 100 mg PO BID Rx Instructions: TAKES AT 0700 AND 1600 acetaminophen 500 mg tablet 1,000 mg PO BID PRN (Reason: Pain) melatonin 5 mg capsule 5 mg PO HS PRN (Reason: Sleep) Rx Instructions: may have 3-15mg melatonin at bedtime solifenacin [Vesicare] 10 mg tablet 10 mg PO QAM melatonin 3 mg Tablet 6 - 9 mg PO HS PRN (Reason: Sleep) Rx Instructions: may have 3-15mg melatonin at bedtime carbidopa-levodopa 25-100 mg tablet,disintegrating 1 tab PO .UD Rx Instructions: dissolve one tablet, by mouth, up to 8 times per day, as directed. lorazepam 0.5 mg Tablet 0.75 mg PO .HS ONLY PRN (Reason: Insomnia) Referrals Referrals: Shunk,Jose R., DO [Primary Care Provider] -
[2022-08-09 20:07] LABS: Basophils # (auto) 0.06 K/uL (0-0.2); Basophils % (auto) 0.7 %; Eosinophils # (auto) 0.12 K/uL (0-0.50); Eosinophils % (auto) 1.4 %; Hematocrit (blood only) 38.4 % (40.1-51.0); Hemoglobin 12.9 g/dl (14.0-18.0); Immature Granulocytes # (auto) 0.02 K/uL (0.00-0.02); Immature Granulocytes % (auto) 0.2 %; Lymphocytes # (auto) 0.64 K/uL (1.2-3.4); Lymphocytes % (auto) 7.5 %; Mean Corpuscular Hemoglobin 29.9 pg (25.0-34.0); Mean Corpuscular Hgb Conc 33.6 g/dL (32.0-36.0); Mean Corpuscular Volume 89.1 fL (80.0-100.0); Mean Platelet Volume 10.2 fL (9.4-12.4); Monocytes # (auto) 0.67 K/uL (0.24-0.82); Monocytes % (auto) 7.8 %; Neutrophils # (auto) 7.04 K/uL (1.4-6.5); Neutrophils % (auto) 82.4 %; Platelet Count 232 K/uL (130-400); RDW Coefficient of Variation 13.8 % (11.5-14.5); RDW Standard Deviation 45.3 fL (36.4-46.3); Red Blood Count 4.31 M/uL (4.63-6.08); White Blood Count 8.55 K/ul (4.8-10.8)
[2022-08-09 20:15] LABS: Appearance Urine Cloudy (Clear); Bacteria Urine Automated 4+ (Negative); Bilirubin Urine Negative (Negative); Blood Urine Negative (Negative); Color Urine Dark Yellow; Epithelial Cell Urine Auto 0-5 /lpf (0-5); Glucose Urine UA Negative (Negative); Ketones Urine 1+ (Negative); Leukocyte Esterase Urine 1+ (Negative); Nitrite Urine Positive (Negative); Protein Urine Trace (Negative); RBC Urine Automated 0-4 /hpf (0-4); Specific Gravity Urine 1.026 (1.000-1.030); Urobilinogen Urine Negative (Negative)
[2022-08-09 20:19] LABS: INR 1.1 (0.9-1.1); Partial Thromboplastin Ratio 1.1; Partial Thromboplastin Time 30.4 Seconds (21.0-31.0); Prothrombin Time 11.2 Seconds (9.0-12.0)
[2022-08-09 20:29] LABS: Anion Gap 5 (3-11); BUN Creatinine Ratio 27.3 (10-20); Blood Urea Nitrogen 15 mg/dl (6-23); Calcium 8.6 mg/dl (8.5-10.1); Carbon Dioxide 26 mmol/L (21-32); Chloride 104 mmol/L (98-107); Creatinine Clr Calc Pharmacy 181.6 ml/min; Est GFR (African American) 134.1 ml/min; Est GFR (Non-African American) 115.7 ml/min; Glucose 100 mg/dl (70-99(Fasting)); Potassium 3.8 mmol/L (3.5-5.1); Sodium 135 mmol/L (136-145)
[2022-08-09] MEDS ORDERED: SODIUM CHLORIDE 0.9% 1000ML 1,000 ML IV ONE (20:30)
[2022-08-09 20:31] LABS: Alanine Aminotransferase < 3 U/L (7-52); Albumin Globulin Ratio 1.3 (0.9-2); Albumin Level 3.8 gm/dl (3.4-5.0); Alkaline Phosphatase 58 U/L (34-104); Aspartate Aminotransferase 16 U/L (13-39); Bilirubin,Total 0.6 mg/dl (0.2-1.0); Globulin 2.9 gm/dl (2.5-4.0); Magnesium 2.2 mg/dl (1.7-2.4); Total Protein 6.7 gm/dl (6.0-8.3)
[2022-08-09] MEDS ORDERED: MEROPENEM 500 MG in SYRINGE 0 ML IV STA (20:32)
[2022-08-09 20:57] LABS: Influenza A virus by PCR Negative (Neg); Influenza B virus by PCR Negative (Neg); RSV by PCR Negative (Neg); SARS CoV2 RNA(COVID-19)Cepheid NEGATIVE (Negative)
--- NOTE | 2022-08-09 21:25 | History & Physical Report ---
Date of Service August 09, 2022 Assessment & Plan (1) Acute UTI: Plan: Persistent dysuria as well as behavioral disturbance/agitation (typical with previous UTIs), in context of dirty UA including positive nitrite --> suspect recurrent UTI. Patient also has recent history of ESBL UTI in 06/2020 in addition to recurrent UTI x4 over last several months. Not septic and afebrile. - Meropenem given in ED - will continue Meropenem 500mg IV Q8H pending urine cx results - trend urine/blood cx - s/p NSS 1L bolus in ED - continue with light IV hydration with LR @80cc/hr x2L (given decreased PO intake) - PRN Tylenol for pain/fever, PRN Zofran for N/V - trend CBC in AM (2) Parkinson disease: Plan: Chronic, diagnosed at age 30, s/p bilateral DBS stimulator placement in 2009. - continue home Carbidopa-Levodopa ER 50mg-200mg daily, and Carbidopa-Levodopa 25mg-100mg QID (doses and frequencies confirmed with patient's ) - continue home Entacapone and Amantadine (3) REM sleep behavior disorder: Plan: Chronic, pre-dates Parkinson's disease. Managed by Neurology. With only medication that works being Ativan 0.5-0.75mg PO nightly. 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 Chronic abx use does increase risk for resistant UTI - see plan above. - continue home Doxycycline ppx (5) Anxiety: Plan: Chronic, continue home Duloxetine. (6) Urinary incontinence: Plan: Chronic. Due to neurogenic bladder in context of advanced Parkisons. Likely leading to recurrent UTIs. - continue home Solifenacin (Vesicare) Plan FEN/GI: regular diet, LR @80cc/hr x2L DVT Prophylaxis: Lovenox SQ Code Status: full code Disposition: med/surg History of Present Illness Chief Complaint: urinary symptoms Primary Care Provider: Jose Martin DO Al Cazares is a 57yo male with PMHx significant for Parkinson's disease with associated urinary incontinence and h/o UTIs (s/p bilateral DBS implant in 2009), REM sleep behavior disorder, h/o prosthetic knee joint infection (on chronic Doxy ppx), SMITH, obesity, anxiety/depression and urinary incontinence who presented to [facility] on 08/09 for concern of resistent UTI. Of note patient has chronic incontinence and recurrent UTIs, with recent admission in 05/2022 for UTI that was treated with CTX, then reportedly had ESBL UTI that was recently treated with Macrobid ~1 month ago, as well as recurrent urinary symptoms treated with Keflex several days ago. However symptoms have persisted despite Keflex. Patient's symptoms with UTIs are largely behavioral, per patient's . He develops agitation and erratic behavior including the desire to "lie down on the floor". Also does complain of dysuria. Patient currently having all of these symptoms. Denies fever/chills or flank pain. Denies N/V but is having some decreased PO intake as of late. Of note patient reportedly had recurrent UTIs throughout [id number], and developed worsening agitation/aggression with all episodes. Of note patient has advanced Parkinson's disease with associated neurogenic bladder and chronic incontinence - chronically taking Vesicare but remains regularly incontinent. Patient is minimally conversive at baseline. 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 In the ED the patient was afebrile. HR up to 101, normotensive, and satting well on room air. Labs largely unremarkable: Hgb 12.9 (baseline), with no leukocytosis. Procalcitonin negative. Na 135, Cr WNL. CMP otherwise unremarkable. UA cloudy with +nitrite, 1+ LE, 10-30 WBCs, 4+ bacteria. Blood/urine cultures taken and pending. Patient was given NSS 1L bolus and Meropenem 500mg IV. Allergies Allergy/AdvReac Type Severity Reaction Status Date / Time morphine Allergy Mild Itching Verified 08/09/22 21:49 buspirone [From BuSpar] AdvReac Severe SCHIZOPHRENIA Verified 08/09/22 21:49 LIKE ACTIONS haloperidol [From Haldol] AdvReac Severe CONTRAINDICATED Verified 08/09/22 21:49 IN PARKINSON'S DISEASE pramipexole [From Mirapex] AdvReac Severe BECAME OCD Verified 08/09/22 21:49 FOR WEEKS quetiapine [From Seroquel] AdvReac Severe PT BECAME Verified 08/09/22 21:49 VIOLENT THEN DEEP SLEEP Home Medications Medication Instructions Recorded Confirmed Type amantadine HCl 100 mg tablet 100 mg PO BID 06/30/19 08/09/22 History carbidopa ER 50 mg-levodopa 200 mg 1 tab PO DAILY 06/30/19 08/10/22 History tablet,extended release entacapone 200 mg tablet (Comtan) 200 mg PO QID 06/30/19 08/09/22 History solifenacin 10 mg tablet (Vesicare) 10 mg PO QAM 08/28/19 08/09/22 History acetaminophen 500 mg tablet 1,000 mg PO BID PRN Pain 04/29/20 08/09/22 History doxycycline hyclate 100 mg tablet 100 mg PO BID 04/29/20 08/09/22 History melatonin 5 mg capsule 5 mg PO HS PRN Sleep 04/29/20 08/09/22 History duloxetine 30 mg capsule,delayed 30 mg PO DAILY #30 caps 03/29/21 08/09/22 Rx release duloxetine 60 mg capsule,delayed 60 mg PO DAILY #30 caps 03/29/21 08/09/22 Rx release melatonin 3 mg tablet 6 - 9 mg PO HS PRN Sleep 06/11/22 08/09/22 History carbidopa 25 mg-levodopa 100 mg 1 tab PO ,,,08/09/22 08/10/22 History disintegrating tablet lorazepam 0.5 mg tablet 0.75 mg PO .HS ONLY PRN Insomnia 08/09/22 08/09/22 History Past Med/Surg History Medical History (Updated 08/10/22 @ 17:52 by Gwen Ferrell MD) Acute UTI Anxiety Conjunctivitis Depression Hearing deficit [place] left ear Osteoarthritis Parkinson disease s/p deep brain stimulator. Dr. Linda Back, [facility] Sleep apnea does not tolerate device Urinary incontinence Managed at primary care Venous stasis of both lower extremities Vitamin D deficiency Surgical History History of appendectomy History of carpal tunnel release History of colonoscopy History of foot surgery RECONSTRUCTION - RT History of left knee replacement History of revision of total knee arthroplasty LEFT History of shoulder surgery LEFT X 2; RT X 1 S/P deep brain stimulator placement (~2008) Family History Grandmother Family history of diabetes mellitus Father Hypertension Denies family history of Ovarian cancer Osteoporosis Myocardial infarction Breast cancer Colorectal cancer Cancer Social History Smoking Status: Never smoker Second Hand Exposure: No; Hx Alcohol Use: Yes Alcohol type: beer Hx Substance Use: No Preferred Language: Comoran Communication Ability: Unable Visual Impairment: No Limitations Hearing Ability: Normal Religious Education Director Required: No Beliefs That Will Affect Care: None marital status: Current Living Situation: Spouse Feels Safe at Home: Yes Safety Concerns: Feels Safe At This Time Assistive Devices: Bedside Commode, Scooter/Electric Scooter and Walker Review of Systems Review of Systems: All systems reviewed & are unremarkable except as noted in HPI & below Physical Exam Physical Exam: General: A&O to self only (~baseline). NAD. Cooperative. HEENT: Atraumatic, normocephalic. Pulm: CTAB A&P. -wheezes, -rales, -rhonchi. Symmetrical chest rise. No increase work of breathing. No respiratory distress. Cardiac: RRR, -mrg. Radial pulses intact and symmetrical. No LE edema. Abdominal: soft, non-tender, non-distended, BS x 4 Back: No CVA tenderness Skin:warm, dry, no rash Results & Data Results & Data ([facility]) Vital Signs (Past 12 Hours) Vital Signs Temp Pulse Pulse Resp BP BP Pulse Ox 08/09/22 21:10 94 H 18 126/70 96 08/09/22 20:30 94 H 22 111/60 92 08/09/22 19:44 95 H 22 105/69 92 08/09/22 19:21 85 20 128/75 93 08/09/22 19:15 92 08/09/22 18:19 37.2 C 101 H 20 130/74 94 O2 Del Method 08/09/22 21:10 Room Air 08/09/22 20:30 Room Air 08/09/22 19:44 Room Air 08/09/22 19:21 Room Air 08/09/22 19:15 Room Air 08/09/22 18:19 Room Air Supervising Physician Co-Signing Physician Notes Patient seen and examined, chart reviewed, case discussed with Dr. Nguyen and I agree with the assessment and plan as above Resident Activity Tracking Resident Involvement: Resident Care Provided Care Provided: Adult Hospital Medicine
[2022-08-09] MEDS ORDERED: LORazepam 0.5 MG TAB PO STA (23:04)
[2022-08-09] MEDS ORDERED: OPTIRAY 320 500ml IV ONE (23:59)
[2022-08-10] MEDS ORDERED: ONDANSETRON INJ 2 MG/ML 2 ML VIAL IV PRN (01:16)
[2022-08-10] MEDS ORDERED: ENTACAPONE 200 MG TAB PO SCH (01:30)
[2022-08-10] MEDS ORDERED: CARBIDOPA/LEVODOPA 25/100MG TAB ODT PO SCH (01:30)
[2022-08-10] MEDS ORDERED: CARBIDOPA/LEVODOPA 25/100MG TAB PO PRN (01:33)
[2022-08-10] MEDS: LORazepam 0.5 MG TAB PO PRN ×2 (02:12→21:35)
[2022-08-10] MEDS: ACETAMINOPHEN 500 MG TAB PO PRN (02:13)
[2022-08-10] MEDS: ENTACAPONE 200 MG TAB PO SCH ×5 (02:14→21:34)
[2022-08-10] MEDS: AMANTADINE HCL 100 MG CAPSULE PO SCH ×3 (02:14→21:35)
[2022-08-10] MEDS: LACTATED RINGER'S 1,000 ML IV SCH ×2 (02:21→15:30)
[2022-08-10] MEDS: MEROPENEM 500 MG in SYRINGE 0 ML IV SCH ×3 (06:04→21:35)
[2022-08-10] MEDS: DOXYCYCLINE HYCLATE 100 MG CAP PO SCH ×2 (06:05→16:31)
[2022-08-10] MEDS: CARBIDOPA/LEVODOPA 50/200MG EXT REL TAB PO SCH (06:06)
[2022-08-10] MEDS: VESICARE~ORDER AWAITING ACTION SCH ×2 (07:31→15:26)
--- NOTE | 2022-08-10 08:00 | CT Scan Report ---
CT angio abdomen pelvis w con HISTORY: dysuria, ?pyelo TECHNIQUE: Multiaxial CT images of the abdomen and pelvis were performed following the intravenous mi nistration of 111 cc of Optiray 320. Maximum intensity projection images were also obtained. COMPARISON STUDY: None. FINDINGS: Questionable filling defect within a left lower lobe subsegmental pulmonary artery on image 46 which may represent motion artifact. Abdominal aorta and iliac arteries are normal and course and caliber with no evidence for dissection. The superior mesenteric, inferior mesenteric, and renal art eries are widely patent. No significant stenosis within the celiac artery or its major branches. Ther e is focal fusiform aneurysmal dilatation of the celiac artery measuring up to 15 mm in diameter best seen on image 161. Bibasilar linear densities consistent with subsegmental atelectasis. No pneumoperitoneum. No pneumato sis. There are healing right anterior fifth through eighth rib fractures. Small fat-containing right inguinal hernia. The unenhanced liver, gallbladder, spleen, pancreas, and adrenal glands are within n ormal limits. The kidneys enhance normally. No hydronephrosis. No bladder wall thickening. No retrope ritoneal lymphadenopathy. Within the left peripheral zone of the prostate gland there is a 1.8 cm enh ancing focus on image 475. There are few mildly enlarged left iliac lymph nodes with the largest on i mage 345 measuring 1.7 x 1.7 cm. Moderate well-formed stool within the colon. No bowel wall thickenin g or obstruction. Prior appendectomy. IMPRESSION: 1. Questionable filling defect within the left lower lobe subsegmental pulmonary artery. Follow-up de dicated chest CTA to evaluate for a pulmonary embolus is recommended for further evaluation. 2. 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 3. Healing right anterior fifth through eighth rib fractures. 4. A 1.8 cm enhancing focus within the left peripheral zone of the prostate gland. This may represent a prostate malignancy. Follow-up nonemergent urology consultation recommended. 5. A few mildly enlarged left iliac lymph nodes. These are nonspecific but could represent metastatic disease. . 6. This report was called/faxed to the ordering physician following dictation. ACT 112: Positive. There are findings on this exam that require communication between the performing entity and the patient following Patient Test Result Information Act ([place] Act 112) guidelines. Electronically signed by: Vikram Gutierrez M.D. 08/10/2022 7:59 AM
[2022-08-10 08:18] LABS: Basophils # (auto) 0.07 K/uL (0-0.2); Basophils % (auto) 0.9 %; Eosinophils # (auto) 0.15 K/uL (0-0.50); Eosinophils % (auto) 1.8 %; Hematocrit (blood only) 39.4 % (40.1-51.0); Hemoglobin 12.9 g/dl (14.0-18.0); Immature Granulocytes # (auto) 0.02 K/uL (0.00-0.02); Immature Granulocytes % (auto) 0.2 %; Lymphocytes # (auto) 0.82 K/uL (1.2-3.4); Mean Corpuscular Hemoglobin 29.6 pg (25.0-34.0); Mean Corpuscular Hgb Conc 32.7 g/dL (32.0-36.0); Mean Corpuscular Volume 90.4 fL (80.0-100.0); Mean Platelet Volume 10.3 fL (9.4-12.4); Monocytes # (auto) 0.64 K/uL (0.24-0.82); Monocytes % (auto) 7.8 %; Neutrophils # (auto) 6.47 K/uL (1.4-6.5); Neutrophils % (auto) 79.3 %; Platelet Count 237 K/uL (130-400); RDW Coefficient of Variation 13.7 % (11.5-14.5); RDW Standard Deviation 45.1 fL (36.4-46.3); Red Blood Count 4.36 M/uL (4.63-6.08); White Blood Count 8.17 K/ul (4.8-10.8)
[2022-08-10] MEDS: DULoxetine HCL 60 MG CAP PO SCH (08:19)
[2022-08-10] MEDS: CARBIDOPA/LEVODOPA 25/100MG TAB ODT PO PRN (08:19)
[2022-08-10] MEDS: DULoxetine HCL 30 MG CAP PO SCH (08:19)
[2022-08-10] MEDS: ENOXAPARIN INJ 40 MG/0.4 ML SYR SQ SCH (08:20)
[2022-08-10 08:39] LABS: BUN Creatinine Ratio 17.2 (10-20); Calcium 8.8 mg/dl (8.5-10.1); Creatinine Clr Calc Pharmacy 153.9 ml/min; Est GFR (Non-African American) 108.7 ml/min; Magnesium 2.2 mg/dl (1.7-2.4); Potassium 3.6 mmol/L (3.5-5.1)
[2022-08-10] MEDS ORDERED: FLUARIX QUADRIVALENT 0.5 ML SYR IM ONE (09:00)
[2022-08-10] MEDS ORDERED: Nursing to Pharmacy Communication SCH (10:45)
[2022-08-10] MEDS ORDERED: LACTATED RINGER'S 250 ML IV ONE (11:05)
[2022-08-10] MEDS ORDERED: Heparin IV Adult Wt-Based Standard WITH Bolus Protocol IV SCH (11:25)
[2022-08-10] MEDS ORDERED: HEPARIN SOD (PORCINE) 1000 UNIT/ML IV ONE (11:34)
[2022-08-10] MEDS ORDERED: HEPARIN SODIUM/DEXTROSE 25,000 UNITS/500 ML BAG IV SCH (11:45)
[2022-08-10] MEDS ORDERED: LORazepam 0.5 MG in SYRINGE 0 ML IV ONE (11:48)
[2022-08-10 12:24] LABS: Basophils # (auto) 0.07 K/uL (0-0.2); Basophils % (auto) 0.8 %; Eosinophils # (auto) 0.14 K/uL (0-0.50); Eosinophils % (auto) 1.7 %; Hematocrit (blood only) 38.5 % (40.1-51.0); Hemoglobin 12.8 g/dl (14.0-18.0); Immature Granulocytes # (auto) 0.02 K/uL (0.00-0.02); Immature Granulocytes % (auto) 0.2 %; Lymphocytes # (auto) 0.73 K/uL (1.2-3.4); Lymphocytes % (auto) 8.6 %; Mean Corpuscular Hemoglobin 30.3 pg (25.0-34.0); Mean Corpuscular Hgb Conc 33.2 g/dL (32.0-36.0); Mean Corpuscular Volume 91.2 fL (80.0-100.0); Mean Platelet Volume 9.6 fL (9.4-12.4); Monocytes # (auto) 0.65 K/uL (0.24-0.82); Monocytes % (auto) 7.7 %; Neutrophils # (auto) 6.86 K/uL (1.4-6.5); Platelet Count 223 K/uL (130-400); RDW Coefficient of Variation 13.8 % (11.5-14.5); RDW Standard Deviation 46.3 fL (36.4-46.3); Red Blood Count 4.22 M/uL (4.63-6.08); White Blood Count 8.47 K/ul (4.8-10.8)
[2022-08-10 12:42] LABS: INR 1.1 (0.9-1.1); Partial Thromboplastin Ratio 1.2; Partial Thromboplastin Time 32.5 Seconds (21.0-31.0); Prothrombin Time 11.3 Seconds (9.0-12.0)
[2022-08-10] MEDS ORDERED: OPTIRAY 320 500ml IV ONE (12:47)
--- NOTE | 2022-08-10 13:46 | CT Scan Report ---
CT ANGIOGRAPHY OF THE CHEST, PULMONARY EMBOLUS PROTOCOL CLINICAL HISTORY: Altered mental status. Possible pulmonary embolus on CTA of the abdomen. COMPARISON STUDY: Chest CT April 23, 2011 and chest radiograph August 09, 2022 TECHNIQUE: Following IV administration of 111 mL of Optiray, helical axial images of the chest were o btained utilizing the pulmonary embolus protocol. Maximal intensity projections and sagittal and cor onal reformats were viewed on an independent 3D workstation. IV contrast was administered without co mplication. Automated exposure control was utilized for the study. A dose lowering technique was ut ilized adhering to the principles of ALARA. CT DOSE: 674.04 mGy.cm FINDINGS: No central pulmonary emboli are identified. The remainder of the pulmonary arteries subopt imally assessed due to respiratory motion. The possible pulmonary embolus on CT of August 09, 2022 may have been artifactual. There is mild cardiomegaly. No pericardial effusion is present. Mildly enl arged mediastinal and bilateral hilar lymph nodes are similar to CT of April 23, 2011. Elevation of t he right hemidiaphragm is unchanged. There is no consolidation. Lungs are suboptimally assessed due t o respiratory motion. Subpleural ground glass opacities favor atelectasis. Bilateral shoulder arthrop lasties with degenerative changes of the shoulders are noted. There are bilateral stimulators. IMPRESSION: 1. No central pulmonary emboli. Remainder of pulmonary arteries suboptimally assessed due to respirat ory motion. Possible pulmonary embolus on CT of August 09, 2022 may be artifactual. 2. No consolidation to suggest pneumonia. 3. No significant change in appearance of the chest since CT of April 23, 2011. Stable mild mediastin al and bilateral hilar lymphadenopathy. ACT 112: Negative or not required by law. Electronically signed by: Kendall Tello M.D. 08/10/2022 1:45 PM
--- NOTE | 2022-08-10 15:31 | Hospitalist Progress Note ---
Date of Service August 10, 2022 Assessment & Plan (1) Acute UTI: Plan: Persistent dysuria as well as behavioral disturbance/agitation (typical with previous UTIs), in context of dirty UA including positive nitrite --> suspect recurrent UTI. Patient also has recent history of ESBL UTI in 06/2020 in addition to recurrent UTI x4 over last several months. Not septic and afebrile. - Meropenem given in ED - will continue Meropenem 500mg IV Q8H pending urine cx results - Urinalysis positive for gram negative bacili - s/p NSS 1L bolus in ED - continue with light IV hydration with LR @80cc/hr x2L (given decreased PO intake) - PRN Tylenol for pain/fever, PRN Zofran for N/V - trend CBC - Heparin started after CT of abdomen and pelvis; however, repeat CTA and venous doppler showed no evidence of DVT. Discontinued heparin (2) Parkinson disease: Plan: Chronic, diagnosed at age 30, s/p bilateral DBS stimulator placement in 2009. - continue home Carbidopa-Levodopa ER 50mg-200mg daily, and Carbidopa-Levodopa 25mg-100mg QID (doses and frequencies confirmed with patient's ) - continue home Entacapone and Amantadine (3) REM sleep behavior disorder: Plan: Chronic, pre-dates Parkinson's disease. Managed by Neurology. With only medication that works being Ativan 0.5-0.75mg PO nightly. 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 Chronic abx use does increase risk for resistant UTI - see plan above. - continue home Doxycycline ppx (5) Anxiety: Plan: Chronic, continue home Duloxetine. (6) Urinary incontinence: Plan: Chronic. Due to neurogenic bladder in context of advanced Parkisons. Likely leading to recurrent UTIs. - continue home Solifenacin (Vesicare) (7) Metabolic encephalopathy: Plan FEN/GI: regular diet, LR @80cc/hr x2L DVT Prophylaxis: Lovenox SQ Code Status: full code Disposition: med/surg Admission and Anticipated Discharge Date Admission Date: August 09, 2022 Supervising Physician Co-Signing Physician Notes Medical Student Supervision Note: I was personally present during medical student patient encounter and independently interviewed and examined the patient and verified the ignacio history and physical, reviewed labs and image studies, discussed the case with Elizabeth Bassett and agree with the findings and care plan. Metabolic encephalopathy sec to UTI - mentation back to baseline. treating UTI. UTI - h/o ESBL. getting treated with meropenam. follow cultures. Hypotension - ? sec to infection or chronic from parkinson. IVF and follow in am continue other home meds. Subjective Patient seen at bedside this morning. No acute events reported overnight. Patient is resting quietly in bed. Unfortunately, due to his Parkinson's, it was difficult to understand his speech. I understood approximately 50%. He was comfortable, although initially confused as to why he was in the hospital. He was sent for a CT later in the day and it was reported that he became very agitated during this time, but this was not witnessed. Visited patient later in the day. Patient was resting quietly. Patient reported waiting for his to arrive. He walks occasionally, always with a walker. He is feeling safe at home. He reported a sensation of tension in his upper epigastric region and stated that he had not had a bowel movement yet today. He did not report any pain. Review of Systems Review of Systems: Review of systems unobtainable due to communication difficulty. Physical Exam Physical Exam: Constitutional: A&O x 1 (Self). HEENT: Resting horizontal nystagmus Pulm: CTAB. No r/r/w. Cardio: RRR, no r/m/g. : Rajput catheter in place, clear urine Skin: Dry. Hyperpigmentation of the medial aspects of the lower legs, bilaterally. No lower extremity edema. 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 Results & Data Results & Data ([facility]) Vital Signs (Past 12 Hours) Vital Signs Temp Pulse Pulse Resp BP Pulse Ox O2 Del Method 08/10/22 09:00 Room Air 08/10/22 12:05 36.6 C 91 H 18 162/83 H 96 Room Air 08/10/22 11:05 37.3 C 91 H 22 134/66 95 Room Air 08/10/22 10:04 36.5 C 106 H 18 95/56 L 93 Room Air 08/10/22 07:35 37.2 C 107 H 22 119/58 L 94 Room Air Diagnostic Findings CT angio abdomen pelvis w con HISTORY: dysuria, ?pyelo TECHNIQUE: Multiaxial CT images of the abdomen and pelvis were performed following the intravenous ministration of 111 cc of Optiray 320. Maximum intensity projection images were also obtained. COMPARISON STUDY: None. FINDINGS: Questionable filling defect within a left lower lobe subsegmental pulmonary artery on image 46 which may represent motion artifact. Abdominal aorta and iliac arteries are normal and course and caliber with no evidence for dissection. The superior mesenteric, inferior mesenteric, and renal arteries are widely patent. No significant stenosis within the celiac artery or its major branches. There is focal fusiform aneurysmal dilatation of the celiac artery measuring up to 15 mm in diameter best seen on image 161. Bibasilar linear densities consistent with subsegmental atelectasis. No pneumoperitoneum. No pneumatosis. There are healing right anterior fifth through eighth rib fractures. Small fat-containing right inguinal hernia. The unenhanced liver, gallbladder, spleen, pancreas, and adrenal glands are within normal limits. The kidneys enhance normally. No hydronephrosis. No bladder wall thickening. No retroperitoneal lymphadenopathy. Within the left peripheral zone of the prostate gland there is a 1.8 cm enhancing focus on image 475. There are few mildly enlarged left iliac lymph nodes with the largest on image 345 measu ring 1.7 x 1.7 cm. Moderate well-formed stool within the colon. No bowel wall thickening or obstruction. Prior appendectomy. IMPRESSION: 1. Questionable filling defect within the left lower lobe subsegmental pulmonary artery. Follow-up dedicated chest CTA to evaluate for a pulmonary embolus is recommended for further evaluation. 2. 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 3. Healing right anterior fifth through eighth rib fractures. 4. A 1.8 cm enhancing focus within the left peripheral zone of the prostate gland. This may represent a prostate malignancy. Follow-up nonemergent urology consultation recommended. 5. A few mildly enlarged left iliac lymph nodes. These are nonspecific but could represent metastatic disease. . 6. This report was called/faxed to the ordering physician following dictation.
--- NOTE | 2022-08-10 15:52 | Ultrasound Report ---
US venous doppler LE BI CLINICAL HISTORY: R/o dvt TECHNIQUE: Bilateral lower extremity real-time compression venous ultrasound with Color Doppler imagi ng. Utilizing real-time ultrasonic imaging multiple real time high-resolution ultrasonic images with compression and noncompression maneuvers of the deep venous system in addition to color doppler imagi ng were performed from the common femoral vein through the proximal calf veins. COMPARISON: None available at the time of this dictation. FINDINGS: Currently there is normal compressibility of the deep venous system from the common femoral vein thro ugh the proximal calf veins. No superficial venous thrombosis is identified. Impression: No evidence of deep venous thrombus. ACT 112: Negative or not required by law. Electronically signed by: Jim Cox M.D. 08/10/2022 3:50 PM
[2022-08-10 19:21] LABS: Partial Thromboplastin Ratio 1.2; Partial Thromboplastin Time 32.8 Seconds (21.0-31.0)
[2022-08-10] MEDS: MELATONIN 3 MG TAB PO PRN (21:34)
[2022-08-11] MEDS: VESICARE~ORDER AWAITING ACTION SCH ×3 (00:11→16:26)
--- NOTE | 2022-08-11 00:35 | Billing Data ---
Date of Service August 09, 2022 Coding Level of Care Code 48289 Initial Inpt Care Lvl 2
[2022-08-11] MEDS: CARBIDOPA/LEVODOPA 50/200MG EXT REL TAB PO SCH (06:28)
[2022-08-11] MEDS: DOXYCYCLINE HYCLATE 100 MG CAP PO SCH ×2 (06:28→16:26)
[2022-08-11] MEDS: ENTACAPONE 200 MG TAB PO SCH ×4 (06:28→22:03)
[2022-08-11] MEDS: MEROPENEM 500 MG in SYRINGE 0 ML IV SCH ×3 (06:28→22:03)
[2022-08-11] MEDS: ENOXAPARIN INJ 40 MG/0.4 ML SYR SQ SCH (08:41)
[2022-08-11] MEDS: DULoxetine HCL 30 MG CAP PO SCH (08:41)
[2022-08-11] MEDS: AMANTADINE HCL 100 MG CAPSULE PO SCH ×2 (08:41→22:02)
[2022-08-11] MEDS: DULoxetine HCL 60 MG CAP PO SCH (08:41)
[2022-08-11 09:09] LABS: Partial Thromboplastin Ratio 1.1
[2022-08-11 09:27] LABS: BUN Creatinine Ratio 13.3 (10-20); Calcium 8.9 mg/dl (8.5-10.1); Creatinine Clr Calc Pharmacy 164.1 ml/min; Est GFR (African American) 129.4 ml/min; Est GFR (Non-African American) 111.6 ml/min; Potassium 3.7 mmol/L (3.5-5.1)
--- NOTE | 2022-08-11 17:59 | Hospitalist Progress Note ---
Date of Service August 11, 2022 Assessment & Plan (1) Acute UTI: Plan: Persistent dysuria as well as behavioral disturbance/agitation (typical with previous UTIs), in context of dirty UA including positive nitrite --> suspect recurrent UTI. Patient also has recent history of ESBL UTI in 06/2020 in addition to recurrent UTI x4 over last several months. Not septic and afebrile. - Meropenem given in ED - will continue Meropenem 500mg IV Q8H pending urine cx results - trend urine/blood cx - PRN Tylenol for pain/fever, PRN Zofran for N/V - trend CBC in AM (2) Parkinson disease: Plan: Chronic, diagnosed at age 30, s/p bilateral DBS stimulator placement in 2009. - continue home Carbidopa-Levodopa ER 50mg-200mg daily, and Carbidopa-Levodopa 25mg-100mg QID (doses and frequencies confirmed with patient's ) - continue home Entacapone and Amantadine (3) REM sleep behavior disorder: Plan: Chronic, pre-dates Parkinson's disease. Managed by Neurology. With only medication that works being Ativan 0.5-0.75mg PO nightly. 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 Chronic abx use does increase risk for resistant UTI - see plan above. - continue home Doxycycline ppx (5) Anxiety: Plan: Chronic, continue home Duloxetine. (6) Urinary incontinence: Plan: Chronic. Due to neurogenic bladder in context of advanced Parkisons. Likely leading to recurrent UTIs. - continue home Solifenacin (Vesicare) Plan FEN/GI: regular diet, LR @80cc/hr x2L DVT Prophylaxis: Lovenox SQ Code Status: full code Disposition: med/surg. discharge planning per case management due to home con flict. Admission and Anticipated Discharge Date Admission Date: August 09, 2022 Supervising Physician Co-Signing Physician Notes Resident Physician Supervision Note: I independently interviewed and examined the patient and verified the ignacio history and physical, reviewed labs and image studies and agree with resident findings and care plan. Subjective No acute events overnight. Patient asleep upon arrival this morning. Patient is verbal but unintelligible. Review of Systems Review of Systems: All systems reviewed & are unremarkable except as noted in HPI & below Physical Exam Physical Exam: General: No acute distress. HEENT: Normocephalic, atraumatic. EOM intact. Good conjugate gaze. Nares patent. Moist mucosal membranes. Neck: Supple. No lymphadenopathy. Normal ROM. CV: Regular rate and rhythm. Normal S1 and S2. No murmurs gallops or rubs. Respiratory: Normal respiratory effort. Lungs clear to auscultation bilaterally. No crackles, rhonchi, or wheezes. Abdomen: Soft, nondistended abdomen. No bruits heard on auscultation. No tenderness to deep palpation. Extremities: Capillary refill <2 sec. 2+ dp equal bilaterally. No pedal edema. Neuro: Alert and oriented x3. Skin: Clean, dry, and intact. No rashes, bruises, or erythema. Results & Data Results & Data ([facility]) Vital Signs (Past 12 Hours) Vital Signs Temp Pulse Resp BP Pulse Ox O2 Del Method 08/11/22 17:00 37 C 95 H 20 185/111 H 96 Room Air 08/11/22 07:35 37.1 C 86 20 144/90 H 96 Room Air Resident Activity Tracking Resident Involvement: Resident Care Provided Care Provided: Adult Hospital Medicine
[2022-08-11] MEDS: LORazepam 0.5 MG TAB PO PRN (22:02)
[2022-08-11] MEDS: MELATONIN 3 MG TAB PO PRN (22:02)
[2022-08-12] MEDS: VESICARE~ORDER AWAITING ACTION SCH ×3 (00:12→16:21)
[2022-08-12] MEDS: ENTACAPONE 200 MG TAB PO SCH ×4 (06:19→20:41)
[2022-08-12] MEDS: DOXYCYCLINE HYCLATE 100 MG CAP PO SCH ×2 (06:19→16:20)
[2022-08-12] MEDS: CARBIDOPA/LEVODOPA 50/200MG EXT REL TAB PO SCH (06:19)
[2022-08-12] MEDS: MEROPENEM 500 MG in SYRINGE 0 ML IV SCH ×3 (06:19→20:41)
[2022-08-12] MEDS: CARBIDOPA/LEVODOPA 25/100MG TAB ODT PO PRN (08:10)
[2022-08-12] MEDS: ENOXAPARIN INJ 40 MG/0.4 ML SYR SQ SCH (08:11)
[2022-08-12] MEDS: DULoxetine HCL 30 MG CAP PO SCH (08:11)
[2022-08-12] MEDS: DULoxetine HCL 60 MG CAP PO SCH (08:11)
[2022-08-12] MEDS: AMANTADINE HCL 100 MG CAPSULE PO SCH ×2 (08:11→20:41)
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
[2022-08-12 09:36] LABS: Basophils # (auto) 0.09 K/uL (0-0.2); Basophils % (auto) 1.3 %; Eosinophils # (auto) 0.44 K/uL (0-0.50); Eosinophils % (auto) 6.2 %; Hematocrit (blood only) 41.6 % (40.1-51.0); Hemoglobin 13.8 g/dl (14.0-18.0); Immature Granulocytes # (auto) 0.02 K/uL (0.00-0.02); Immature Granulocytes % (auto) 0.3 %; Lymphocytes % (auto) 11.3 %; Mean Corpuscular Hgb Conc 33.2 g/dL (32.0-36.0); Mean Corpuscular Volume 90.4 fL (80.0-100.0); Mean Platelet Volume 9.6 fL (9.4-12.4); Monocytes # (auto) 0.61 K/uL (0.24-0.82); Monocytes % (auto) 8.6 %; Neutrophils # (auto) 5.11 K/uL (1.4-6.5); Neutrophils % (auto) 72.3 %; Platelet Count 256 K/uL (130-400); RDW Coefficient of Variation 13.4 % (11.5-14.5); White Blood Count 7.07 K/ul (4.8-10.8)
[2022-08-12 09:58] LABS: BUN Creatinine Ratio 17.2 (10-20); Calcium 8.9 mg/dl (8.5-10.1); Creatinine Clr Calc Pharmacy 169.8 ml/min; Est GFR (African American) 131.2 ml/min; Est GFR (Non-African American) 113.2 ml/min; Potassium 3.8 mmol/L (3.5-5.1)
[2022-08-12 10:08] LABS: Partial Thromboplastin Ratio 1.1; Partial Thromboplastin Time 31.3 Seconds (21.0-31.0)
[2022-08-12] MEDS: LORazepam 0.5 MG TAB PO PRN (20:41)
[2022-08-12] MEDS: MELATONIN 3 MG TAB PO PRN (20:41)
[2022-08-13] MEDS: VESICARE~ORDER AWAITING ACTION SCH ×3 (00:14→17:12)
[2022-08-13] MEDS: CARBIDOPA/LEVODOPA 25/100MG TAB ODT PO PRN (06:25)
[2022-08-13] MEDS: ENTACAPONE 200 MG TAB PO SCH ×4 (06:25→22:04)
[2022-08-13] MEDS: CARBIDOPA/LEVODOPA 50/200MG EXT REL TAB PO SCH (06:25)
[2022-08-13] MEDS: MEROPENEM 500 MG in SYRINGE 0 ML IV SCH (06:25)
[2022-08-13] MEDS: DOXYCYCLINE HYCLATE 100 MG CAP PO SCH ×2 (06:25→17:12)
[2022-08-13] MEDS: AMANTADINE HCL 100 MG CAPSULE PO SCH ×2 (08:23→22:04)
[2022-08-13] MEDS: ENOXAPARIN INJ 40 MG/0.4 ML SYR SQ SCH (08:24)
[2022-08-13] MEDS: DULoxetine HCL 30 MG CAP PO SCH (08:24)
[2022-08-13] MEDS: DULoxetine HCL 60 MG CAP PO SCH (08:24)
[2022-08-13 08:52] LABS: Partial Thromboplastin Ratio 1.1
[2022-08-13 09:00] LABS: Calcium 8.9 mg/dl (8.5-10.1); Creatinine Clr Calc Pharmacy 131.3 ml/min; Est GFR (Non-African American) 101.8 ml/min; Potassium 3.7 mmol/L (3.5-5.1)
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
[2022-08-13] MEDS: CEFDINIR 300 MG CAP PO SCH ×2 (13:10→22:04)
[2022-08-13] MEDS ORDERED: ONDANSETRON 4 MG OD TAB PO PRN (18:13)
--- NOTE | 2022-08-13 19:40 | Billing Data ---
Date of Service August 13, 2022 Coding Level of Care Code 08859 Subseq Hosp Care Lvl 3
[2022-08-13] MEDS: MELATONIN 3 MG TAB PO PRN (22:04)
[2022-08-13] MEDS: LORazepam 0.5 MG TAB PO PRN (22:05)
[2022-08-14] MEDS: CARBIDOPA/LEVODOPA 25/100MG TAB ODT PO PRN (00:05)
[2022-08-14] MEDS: VESICARE~ORDER AWAITING ACTION SCH ×3 (00:20→15:49)
[2022-08-14] MEDS: ACETAMINOPHEN 500 MG TAB PO PRN (00:48)
[2022-08-14] MEDS: CARBIDOPA/LEVODOPA 50/200MG EXT REL TAB PO SCH (06:26)
[2022-08-14] MEDS: ENTACAPONE 200 MG TAB PO SCH ×4 (06:26→22:37)
[2022-08-14] MEDS: DOXYCYCLINE HYCLATE 100 MG CAP PO SCH ×2 (06:26→15:30)
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
[2022-08-14] MEDS: DULoxetine HCL 30 MG CAP PO SCH (09:34)
[2022-08-14] MEDS: ENOXAPARIN INJ 40 MG/0.4 ML SYR SQ SCH (09:34)
[2022-08-14] MEDS: AMANTADINE HCL 100 MG CAPSULE PO SCH ×2 (09:34→22:38)
[2022-08-14] MEDS: DULoxetine HCL 60 MG CAP PO SCH (09:34)
[2022-08-14] MEDS: CEFDINIR 300 MG CAP PO SCH ×2 (09:34→22:37)
--- NOTE | 2022-08-14 18:53 | Billing Data ---
Date of Service August 14, 2022 Coding Level of Care Code 05900 Subseq Hosp Care Lvl 1
[2022-08-14] MEDS: LORazepam 0.5 MG TAB PO PRN (22:40)
[2022-08-14] MEDS: MELATONIN 3 MG TAB PO PRN (22:40)
[2022-08-15] MEDS: VESICARE~ORDER AWAITING ACTION SCH ×2 (01:41→08:02)
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
[2022-08-15] MEDS: DOXYCYCLINE HYCLATE 100 MG CAP PO SCH ×2 (07:28→16:07)
[2022-08-15] MEDS: ENTACAPONE 200 MG TAB PO SCH ×4 (07:28→20:49)
[2022-08-15] MEDS: CARBIDOPA/LEVODOPA 50/200MG EXT REL TAB PO SCH (07:29)
[2022-08-15] MEDS: AMANTADINE HCL 100 MG CAPSULE PO SCH ×2 (08:02→20:48)
[2022-08-15] MEDS: CEFDINIR 300 MG CAP PO SCH ×2 (08:02→20:49)
[2022-08-15] MEDS: DULoxetine HCL 30 MG CAP PO SCH (08:02)
[2022-08-15] MEDS: ENOXAPARIN INJ 40 MG/0.4 ML SYR SQ SCH (08:02)
[2022-08-15] MEDS: DULoxetine HCL 60 MG CAP PO SCH (08:02)
--- NOTE | 2022-08-15 19:00 | Billing Data ---
Date of Service August 15, 2022 Coding Level of Care Code 50545 Subseq Hosp Care Lvl 1
[2022-08-15] MEDS: LORazepam 0.5 MG TAB PO PRN (20:48)
[2022-08-15] MEDS: MELATONIN 3 MG TAB PO PRN (20:48)
[2022-08-16] MEDS: ENTACAPONE 200 MG TAB PO SCH ×4 (06:33→20:22)
[2022-08-16] MEDS: DOXYCYCLINE HYCLATE 100 MG CAP PO SCH ×2 (06:33→16:58)
[2022-08-16] MEDS: CARBIDOPA/LEVODOPA 50/200MG EXT REL TAB PO SCH (06:33)
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
[2022-08-16] MEDS: DULoxetine HCL 60 MG CAP PO SCH (09:17)
[2022-08-16] MEDS: CARBIDOPA/LEVODOPA 25/100MG TAB ODT PO PRN (09:17)
[2022-08-16] MEDS: CEFDINIR 300 MG CAP PO SCH ×2 (09:17→20:22)
[2022-08-16] MEDS: DULoxetine HCL 30 MG CAP PO SCH (09:18)
[2022-08-16] MEDS: AMANTADINE HCL 100 MG CAPSULE PO SCH ×2 (09:18→20:22)
[2022-08-16] MEDS: ENOXAPARIN INJ 40 MG/0.4 ML SYR SQ SCH (09:19)
[2022-08-16] MEDS: MELATONIN 3 MG TAB PO PRN (20:22)
--- NOTE | 2022-08-17 00:30 | Billing Data ---
Date of Service August 16, 2022 Coding Level of Care Code 05340 Subseq Hosp Care Lvl 2
[2022-08-17] MEDS: ENTACAPONE 200 MG TAB PO SCH ×4 (06:24→20:15)
[2022-08-17] MEDS: DOXYCYCLINE HYCLATE 100 MG CAP PO SCH ×2 (06:24→16:45)
[2022-08-17] MEDS: CARBIDOPA/LEVODOPA 50/200MG EXT REL TAB PO SCH (06:24)
[2022-08-17 07:24] LABS: Basophils # (auto) 0.09 K/uL (0-0.2); Basophils % (auto) 1.4 %; Eosinophils # (auto) 0.31 K/uL (0-0.50); Eosinophils % (auto) 4.8 %; Hematocrit (blood only) 43.2 % (40.1-51.0); Hemoglobin 13.9 g/dl (14.0-18.0); Immature Granulocytes # (auto) 0.02 K/uL (0.00-0.02); Immature Granulocytes % (auto) 0.3 %; Lymphocytes % (auto) 15.4 %; Mean Corpuscular Hemoglobin 29.1 pg (25.0-34.0); Mean Corpuscular Hgb Conc 32.2 g/dL (32.0-36.0); Mean Corpuscular Volume 90.6 fL (80.0-100.0); Mean Platelet Volume 9.2 fL (9.4-12.4); Monocytes # (auto) 0.54 K/uL (0.24-0.82); Monocytes % (auto) 8.3 %; Neutrophils # (auto) 4.54 K/uL (1.4-6.5); Neutrophils % (auto) 69.8 %; Platelet Count 276 K/uL (130-400); RDW Coefficient of Variation 13.3 % (11.5-14.5); RDW Standard Deviation 44.9 fL (36.4-46.3); Red Blood Count 4.77 M/uL (4.63-6.08)
[2022-08-17 07:48] LABS: BUN Creatinine Ratio 33.3 (10-20); Calcium 8.7 mg/dl (8.5-10.1); Creatinine Clr Calc Pharmacy 149.2 ml/min; Est GFR (African American) 124.4 ml/min; Est GFR (Non-African American) 107.3 ml/min; Potassium 3.8 mmol/L (3.5-5.1)
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
[2022-08-17] MEDS: DULoxetine HCL 60 MG CAP PO SCH (08:58)
[2022-08-17] MEDS: DULoxetine HCL 30 MG CAP PO SCH (08:58)
[2022-08-17] MEDS: CEFDINIR 300 MG CAP PO SCH ×2 (08:58→20:15)
[2022-08-17] MEDS: AMANTADINE HCL 100 MG CAPSULE PO SCH ×2 (08:58→20:16)
[2022-08-17] MEDS: ENOXAPARIN INJ 40 MG/0.4 ML SYR SQ SCH (08:58)
[2022-08-17] MEDS ORDERED: CARBIDOPA/LEVODOPA 25/100MG TAB PO PRN (17:34)
[2022-08-17] MEDS: MELATONIN 3 MG TAB PO SCH (20:15)
[2022-08-17] MEDS: ACETAMINOPHEN 500 MG TAB PO PRN (20:31)
[2022-08-17] MEDS ORDERED: CARBIDOPA/LEVODOPA 50/200MG EXT REL TAB PO SCH (21:00)
[2022-08-17] MEDS ORDERED: Nursing to Pharmacy Communication SCH (21:45)
--- NOTE | 2022-08-17 23:58 | Billing Data ---
Date of Service August 17, 2022 Coding Level of Care Code 36022 Subseq Hosp Care Lvl 3
[2022-08-18] MEDS: CARBIDOPA/LEVODOPA 25/100MG TAB PO SCH ×4 (06:26→20:26)
[2022-08-18] MEDS: AMANTADINE HCL 100 MG CAPSULE PO SCH ×2 (06:26→11:24)
[2022-08-18] MEDS: CARBIDOPA/LEVODOPA 50/200MG EXT REL TAB PO SCH ×4 (06:27→20:26)
[2022-08-18] MEDS: DOXYCYCLINE HYCLATE 100 MG CAP PO SCH ×2 (06:27→15:12)
[2022-08-18] MEDS: ENTACAPONE 200 MG TAB PO SCH ×4 (06:27→20:26)
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
[2022-08-18 07:19] LABS: Basophils % (auto) 1.9 %; Eosinophils # (auto) 0.37 K/uL (0-0.50); Eosinophils % (auto) 6.9 %; Hematocrit (blood only) 40.8 % (40.1-51.0); Hemoglobin 13.4 g/dl (14.0-18.0); Immature Granulocytes # (auto) 0.01 K/uL (0.00-0.02); Immature Granulocytes % (auto) 0.2 %; Lymphocytes # (auto) 0.82 K/uL (1.2-3.4); Lymphocytes % (auto) 15.2 %; Mean Corpuscular Hemoglobin 29.8 pg (25.0-34.0); Mean Corpuscular Hgb Conc 32.8 g/dL (32.0-36.0); Mean Corpuscular Volume 90.9 fL (80.0-100.0); Monocytes # (auto) 0.49 K/uL (0.24-0.82); Monocytes % (auto) 9.1 %; Neutrophils # (auto) 3.59 K/uL (1.4-6.5); Neutrophils % (auto) 66.7 %; Platelet Count 259 K/uL (130-400); RDW Coefficient of Variation 13.4 % (11.5-14.5); RDW Standard Deviation 45.1 fL (36.4-46.3); Red Blood Count 4.49 M/uL (4.63-6.08); White Blood Count 5.38 K/ul (4.8-10.8)
[2022-08-18] MEDS: DULoxetine HCL 60 MG CAP PO SCH (07:56)
[2022-08-18] MEDS: CEFDINIR 300 MG CAP PO SCH (07:56)
[2022-08-18] MEDS: ENOXAPARIN INJ 40 MG/0.4 ML SYR SQ SCH (07:56)
[2022-08-18] MEDS: DULoxetine HCL 30 MG CAP PO SCH (07:57)
[2022-08-18] MEDS ORDERED: CARBIDOPA/LEVODOPA 25-250 1 EA TAB PO SCH (09:00)
[2022-08-18] MEDS ORDERED: OPTIRAY 350 100ml IV ONE (11:03)
--- NOTE | 2022-08-18 11:29 | CT Scan Report ---
CT SCAN OF THE FACIAL BONES WITH IV CONTRAST CLINICAL HISTORY: Left eye pain and swelling. Cellulitis. COMPARISON STUDY: CT of the brain dated 06/11/2022. TECHNIQUE: High-resolution CT scan of the facial bones is performed following the IV administration of 89 cc of Optiray 350. Images are reviewed in the axial, sagittal, and coronal planes. IV contrast was administered without complication. A dose lowering technique was utilized adhering to the princi ples of ALARA. CT DOSE: 181.98 mGy.cm FINDINGS: The skeletal structures are well mineralized. There is no evidence of facial bone fracture. There is left periorbital soft tissue edema. There is an indeterminate crescentic pocket of inferior subpalpebral fluid seen on image #86. This measures up to 3 mm in thickness. There is minimal infilt ration of the medial intraorbital extraconal fat on the left. The appearances The ligaments are intac t. Right orbital contents are normal in appearance. The zygomatic arches, nasal bones, and pterygoid plates are preserved. The maxilla and mandible are intact. There are no layering blood products withi n the paranasal sinuses. There is mild mucosal thickening within the left maxillary antrum. Remaining paranasal sinuses are clear. The mastoid air cells are well pneumatized. The visualized calvarium an d upper cervical spine are maintained. Bilateral intracranial stimulator leads are in place. Partiall y imaged brain parenchyma is otherwise within normal limits. There are scattered dental caries. IMPRESSION: 1. No acute facial bone abnormality is identified. 2. There is evidence of left periorbital cellulitis. 3. There is an indeterminant crescentic pocket of inferior subpalpebral fluid on the left. A tiny abs cess is not excluded. 4. There is mild infiltration of the medial intraorbital extraconal fat seen on the left. Mild/develo ping orbital cellulitis is not excluded. ACT 112: Negative or not required by law. Electronically signed by: Mamadou Hung M.D. 08/18/2022 11:26 AM
[2022-08-18] MEDS ORDERED: VANCOMYCIN CONSULT ACTIVE PRN (11:48)
[2022-08-18] MEDS ORDERED: VANCOMYCIN HCL 1,000 MG in SODIUM CHLORIDE 0.9% 250 ML IV STA (12:03)
[2022-08-18] MEDS ORDERED: VANCOMYCIN HCL 2,000 MG in SODIUM CHLORIDE 0.9% 500 ML IV STA (12:07)
--- NOTE | 2022-08-18 14:47 | Pharmacy Report ---
Pharmacy PK ABX Note - Date of Service August 18, 2022 - Assessment and Plan Assessment * 57 year old M receiving vancomycin, cefdinir, and doxycycline for periorbital cellulitis, UTI, and chronic PJI. Discussed possibly changing cefdinir to ceftriaxone and considering empiric anaerobic therapy with Dr. Escalante. Transfer is also possible. Plan Vancomycin * Loading dose: 2000 mg IV x 1 * Maintenance dose: 1250 mg IV every 12 hours * Regimen is predicted to achieve target AUC/ELISEO of 400-600 mg/L.hr * Random level ordered for: 08/20 Pharmacy will continue to follow and will adjust dose/frequency as necessary. Thank you. Pharmacy has transitioned to AUC monitoring for vancomycin. AUC/ELISEO is the preferred PK/PD target and is associated with decreased risk of nephrotoxicity compared to traditional trough targets.
[2022-08-18] MEDS: cefTRIAXone SODIUM 2,000 MG in DEXTROSE 5% 50 ML IV SCH (16:54)
[2022-08-18] MEDS: metroNIDAZOLE 500 MG/100 ML BAG IV SCH (16:54)
--- NOTE | 2022-08-18 18:29 | Billing Data ---
Date of Service August 18, 2022 Coding Level of Care Code 40027 Subseq Hosp Care Lvl 3
[2022-08-18] MEDS: MELATONIN 3 MG TAB PO SCH (20:26)
[2022-08-18] MEDS: VANCOMYCIN HCL 1,250 MG in SODIUM CHLORIDE 0.9% 250 ML IV SCH (22:18)
[2022-08-19] MEDS: metroNIDAZOLE 500 MG/100 ML BAG IV SCH ×3 (00:21→15:45)
[2022-08-19] MEDS: ACETAMINOPHEN 500 MG TAB PO PRN (00:21)
[2022-08-19] MEDS: cefTRIAXone SODIUM 2,000 MG in DEXTROSE 5% 50 ML IV SCH ×2 (03:49→15:49)
[2022-08-19] MEDS: AMANTADINE HCL 100 MG CAPSULE PO SCH ×2 (05:43→10:29)
[2022-08-19] MEDS: CARBIDOPA/LEVODOPA 50/200MG EXT REL TAB PO SCH ×4 (05:43→21:11)
[2022-08-19] MEDS: CARBIDOPA/LEVODOPA 25/100MG TAB PO SCH ×4 (05:43→21:11)
[2022-08-19] MEDS: ENTACAPONE 200 MG TAB PO SCH ×4 (05:43→21:11)
[2022-08-19 07:23] LABS: Basophils # (auto) 0.08 K/uL (0-0.2); Basophils % (auto) 1.5 %; Eosinophils # (auto) 0.43 K/uL (0-0.50); Eosinophils % (auto) 7.8 %; Hematocrit (blood only) 39.1 % (40.1-51.0); Hemoglobin 12.6 g/dl (14.0-18.0); Immature Granulocytes # (auto) 0.02 K/uL (0.00-0.02); Immature Granulocytes % (auto) 0.4 %; Lymphocytes # (auto) 0.91 K/uL (1.2-3.4); Lymphocytes % (auto) 16.5 %; Mean Corpuscular Hemoglobin 29.2 pg (25.0-34.0); Mean Corpuscular Hgb Conc 32.2 g/dL (32.0-36.0); Mean Corpuscular Volume 90.5 fL (80.0-100.0); Mean Platelet Volume 9.9 fL (9.4-12.4); Monocytes # (auto) 0.34 K/uL (0.24-0.82); Monocytes % (auto) 6.2 %; Neutrophils # (auto) 3.72 K/uL (1.4-6.5); Neutrophils % (auto) 67.6 %; Platelet Count 255 K/uL (130-400); RDW Coefficient of Variation 13.5 % (11.5-14.5); Red Blood Count 4.32 M/uL (4.63-6.08)
[2022-08-19 07:50] LABS: BUN Creatinine Ratio 34.5 (10-20); C Reactive Protein 0.71 mg/dl (0-0.5); Calcium 8.3 mg/dl (8.5-10.1); Est GFR (African American) 134.1 ml/min; Est GFR (Non-African American) 115.7 ml/min; Potassium 3.5 mmol/L (3.5-5.1)
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
[2022-08-19] MEDS: ENOXAPARIN INJ 40 MG/0.4 ML SYR SQ SCH (08:45)
[2022-08-19] MEDS: DULoxetine HCL 60 MG CAP PO SCH (08:46)
[2022-08-19] MEDS: DULoxetine HCL 30 MG CAP PO SCH (08:46)
[2022-08-19] MEDS: VANCOMYCIN HCL 1,250 MG in SODIUM CHLORIDE 0.9% 250 ML IV SCH ×2 (10:28→21:12)
--- NOTE | 2022-08-19 19:16 | Billing Data ---
Date of Service August 19, 2022 Coding Level of Care Code 16934 Subseq Hosp Care Lvl 3
--- NOTE | 2022-08-19 19:16 | Billing Data ---
Date of Service August 19, 2022 Coding Level of Care Code 07962 Subseq Hosp Care Lvl 3
[2022-08-19] MEDS: MELATONIN 3 MG TAB PO SCH (21:11)
[2022-08-19] MEDS ORDERED: POLYETHYLENE (MIRALAX) 17 GM PACK PO SCH (21:30)
[2022-08-19] MEDS: POLYETHYLENE (MIRALAX) 17 GM PACK PO SCH (22:23)
[2022-08-19] MEDS: LORazepam 0.5 MG TAB PO PRN (23:09)
[2022-08-20] MEDS: metroNIDAZOLE 500 MG/100 ML BAG IV SCH ×4 (00:22→23:49)
[2022-08-20] MEDS: cefTRIAXone SODIUM 2,000 MG in DEXTROSE 5% 50 ML IV SCH ×2 (04:17→16:22)
[2022-08-20] MEDS: CARBIDOPA/LEVODOPA 50/200MG EXT REL TAB PO SCH ×4 (05:39→20:18)
[2022-08-20] MEDS: AMANTADINE HCL 100 MG CAPSULE PO SCH ×2 (05:39→10:51)
[2022-08-20] MEDS: ENTACAPONE 200 MG TAB PO SCH ×4 (05:39→20:20)
[2022-08-20] MEDS: CARBIDOPA/LEVODOPA 25/100MG TAB PO SCH ×4 (05:39→20:19)
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
[2022-08-20] MEDS: ENOXAPARIN INJ 40 MG/0.4 ML SYR SQ SCH (07:53)
[2022-08-20] MEDS: DULoxetine HCL 30 MG CAP PO SCH (07:53)
[2022-08-20] MEDS: DULoxetine HCL 60 MG CAP PO SCH (07:53)
[2022-08-20] MEDS: POLYETHYLENE (MIRALAX) 17 GM PACK PO SCH ×3 (07:53→20:38)
[2022-08-20] MEDS ORDERED: VANCOMYCIN LEVEL ONE (09:30)
[2022-08-20] MEDS: VANCOMYCIN HCL 1,250 MG in SODIUM CHLORIDE 0.9% 250 ML IV SCH ×2 (10:50→18:14)
[2022-08-20 10:54] LABS: Basophils # (auto) 0.09 K/uL (0-0.2); Basophils % (auto) 1.2 %; Eosinophils # (auto) 0.33 K/uL (0-0.50); Eosinophils % (auto) 4.4 %; Hematocrit (blood only) 40.9 % (40.1-51.0); Hemoglobin 13.5 g/dl (14.0-18.0); Immature Granulocytes # (auto) 0.02 K/uL (0.00-0.02); Immature Granulocytes % (auto) 0.3 %; Lymphocytes # (auto) 0.79 K/uL (1.2-3.4); Lymphocytes % (auto) 10.6 %; Mean Corpuscular Hemoglobin 29.5 pg (25.0-34.0); Mean Corpuscular Volume 89.3 fL (80.0-100.0); Mean Platelet Volume 9.4 fL (9.4-12.4); Monocytes # (auto) 0.35 K/uL (0.24-0.82); Monocytes % (auto) 4.7 %; Neutrophils # (auto) 5.89 K/uL (1.4-6.5); Neutrophils % (auto) 78.8 %; Platelet Count 279 K/uL (130-400); RDW Coefficient of Variation 13.3 % (11.5-14.5); RDW Standard Deviation 43.8 fL (36.4-46.3); Red Blood Count 4.58 M/uL (4.63-6.08); White Blood Count 7.47 K/ul (4.8-10.8)
[2022-08-20 11:28] LABS: BUN Creatinine Ratio 19.4 (10-20); Calcium 8.8 mg/dl (8.5-10.1); Creatinine Clr Calc Pharmacy 136.8 ml/min; Est GFR (Non-African American) 103.6 ml/min; Potassium 3.3 mmol/L (3.5-5.1)
[2022-08-20] MEDS ORDERED: POTASSIUM CHLORIDE CRTAB 20 MEQ TABCR PO STA (13:23)
--- NOTE | 2022-08-20 14:17 | Pharmacy Report ---
Pharmacy Vanc AUC Short Note - Date of Service August 20, 2022 - Assessment & Plan Assessment 57 year old M receiving vancomycin, flagyl and ceftriaxone for Periorbital edema of left eye/UTI. Urine culture with proteus species -sensitive to ceftriaxone Day # 3 of antimicrobial therapy. Plan Vancomycin * AUC/ELISEO is the preferred PK/PD target for vancomycin * AUC guided dosing is effective and associated with decreased risk of nephrotoxicity compared to traditional trough targets * Level this morning came back at ~7 mcg/ml - this is associated with AUC/ELISEO <400 therefore will increase vancomycin dosing to 1250 mg iv q 8 hrs * This dosing is estimated to produce a trough level of ~15 and target AUC/ELISEO of 400-600 mg/L.hr and may be associated with a 11 % risk of nephrotoxicity * Will plan to recheck level in next 24-48 hours if continued Pharmacy will continue to follow and will adjust dose/frequency as necessary. Thank you.
--- NOTE | 2022-08-20 18:36 | Consultation Report ---
DATE OF CONSULTATION: 08/20/2022. REASON FOR CONSULTATION: Left lid periorbital cellulitis, possible orbital cellulitis. I was consulted by the service with two questions. One was to review his CAT scan results to see if there is any surgical intervention needed. The CAT scan report seems to indicate just soft tissue involvement. No mention of a subperiosteal abscess. In that setting, as long as he is medically improving or improved, as per my conversation with Dr. Escalante, no surgical intervention would be required as there is no subperiosteal abscess. Question two was how long does he need to be on IV antibiotics. As long as he is improved, then he can be switched to oral antibiotics for a full 10-day course of antibiotics. However, he has a complex infection history and I am unsure of what the appropriate oral antibiotic would be for him and recommended to Dr. Escalante that they ask infectious disease what will be the best oral antibiotics to treat both his UTI and his cellulitis. If you have any other further questions, do not hesitate to contact me. Job ID: [id number] [facility]ALTH SYSTEMDavin
[2022-08-20] MEDS: MELATONIN 3 MG TAB PO SCH (20:26)
[2022-08-21] MEDS: VANCOMYCIN HCL 1,250 MG in SODIUM CHLORIDE 0.9% 250 ML IV SCH ×3 (01:23→17:23)
[2022-08-21] MEDS: cefTRIAXone SODIUM 2,000 MG in DEXTROSE 5% 50 ML IV SCH ×2 (03:00→19:06)
[2022-08-21] MEDS: CARBIDOPA/LEVODOPA 25/100MG TAB PO SCH ×4 (05:28→21:14)
[2022-08-21] MEDS: ENTACAPONE 200 MG TAB PO SCH ×4 (05:29→21:13)
[2022-08-21] MEDS: CARBIDOPA/LEVODOPA 50/200MG EXT REL TAB PO SCH ×4 (05:29→21:13)
[2022-08-21] MEDS: AMANTADINE HCL 100 MG CAPSULE PO SCH ×2 (05:30→11:50)
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
[2022-08-21] MEDS: metroNIDAZOLE 500 MG/100 ML BAG IV SCH ×2 (08:43→17:02)
[2022-08-21] MEDS: DULoxetine HCL 60 MG CAP PO SCH (08:50)
[2022-08-21] MEDS: ENOXAPARIN INJ 40 MG/0.4 ML SYR SQ SCH (08:50)
[2022-08-21] MEDS: DULoxetine HCL 30 MG CAP PO SCH (08:50)
[2022-08-21] MEDS: POLYETHYLENE (MIRALAX) 17 GM PACK PO SCH ×2 (08:55→21:15)
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
[2022-08-21 11:42] LABS: Basophils # (auto) 0.08 K/uL (0-0.2); Basophils % (auto) 1.1 %; Eosinophils # (auto) 0.32 K/uL (0-0.50); Eosinophils % (auto) 4.3 %; Hematocrit (blood only) 39.8 % (40.1-51.0); Hemoglobin 13.1 g/dl (14.0-18.0); Immature Granulocytes # (auto) 0.02 K/uL (0.00-0.02); Immature Granulocytes % (auto) 0.3 %; Lymphocytes # (auto) 1.03 K/uL (1.2-3.4); Lymphocytes % (auto) 13.9 %; Mean Corpuscular Hemoglobin 29.8 pg (25.0-34.0); Mean Corpuscular Hgb Conc 32.9 g/dL (32.0-36.0); Mean Corpuscular Volume 90.5 fL (80.0-100.0); Mean Platelet Volume 9.5 fL (9.4-12.4); Monocytes # (auto) 0.53 K/uL (0.24-0.82); Monocytes % (auto) 7.2 %; Neutrophils # (auto) 5.43 K/uL (1.4-6.5); Neutrophils % (auto) 73.2 %; Platelet Count 246 K/uL (130-400); RDW Coefficient of Variation 13.5 % (11.5-14.5); White Blood Count 7.41 K/ul (4.8-10.8)
[2022-08-21] MEDS: ACETAMINOPHEN 500 MG TAB PO PRN (12:09)
[2022-08-21 12:25] LABS: Calcium 8.6 mg/dl (8.5-10.1); Creatinine Clr Calc Pharmacy 156.3 ml/min; Est GFR (African American) 126.8 ml/min; Est GFR (Non-African American) 109.4 ml/min; Potassium 4.2 mmol/L (3.5-5.1)
[2022-08-21] MEDS: MELATONIN 3 MG TAB PO SCH (21:14)
[2022-08-22] MEDS: VANCOMYCIN HCL 1,250 MG in SODIUM CHLORIDE 0.9% 250 ML IV SCH ×3 (01:42→18:45)
[2022-08-22] MEDS: cefTRIAXone SODIUM 2,000 MG in DEXTROSE 5% 50 ML IV SCH ×2 (03:01→16:56)
[2022-08-22] MEDS: CARBIDOPA/LEVODOPA 50/200MG EXT REL TAB PO SCH ×4 (04:45→20:43)
[2022-08-22] MEDS: ENTACAPONE 200 MG TAB PO SCH ×4 (04:45→20:43)
[2022-08-22] MEDS: CARBIDOPA/LEVODOPA 25/100MG TAB PO SCH ×4 (04:46→20:43)
[2022-08-22] MEDS: AMANTADINE HCL 100 MG CAPSULE PO SCH ×2 (04:46→10:23)
[2022-08-22 05:59] LABS: Basophils # (auto) 0.07 K/uL (0-0.2); Eosinophils # (auto) 0.34 K/uL (0-0.50); Eosinophils % (auto) 4.8 %; Hematocrit (blood only) 40.6 % (40.1-51.0); Hemoglobin 13.6 g/dl (14.0-18.0); Immature Granulocytes # (auto) 0.01 K/uL (0.00-0.02); Immature Granulocytes % (auto) 0.1 %; Lymphocytes # (auto) 0.84 K/uL (1.2-3.4); Lymphocytes % (auto) 11.8 %; Mean Corpuscular Hemoglobin 29.8 pg (25.0-34.0); Mean Corpuscular Hgb Conc 33.5 g/dL (32.0-36.0); Mean Corpuscular Volume 88.8 fL (80.0-100.0); Mean Platelet Volume 9.3 fL (9.4-12.4); Monocytes # (auto) 0.49 K/uL (0.24-0.82); Monocytes % (auto) 6.9 %; Neutrophils # (auto) 5.34 K/uL (1.4-6.5); Neutrophils % (auto) 75.4 %; Platelet Count 258 K/uL (130-400); RDW Coefficient of Variation 13.6 % (11.5-14.5); RDW Standard Deviation 44.1 fL (36.4-46.3); Red Blood Count 4.57 M/uL (4.63-6.08); White Blood Count 7.09 K/ul (4.8-10.8)
[2022-08-22 06:41] LABS: Calcium 8.7 mg/dl (8.5-10.1); Creatinine Clr Calc Pharmacy 151.5 ml/min; Est GFR (African American) 125.2 ml/min; Potassium 3.9 mmol/L (3.5-5.1)
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
[2022-08-22] MEDS: ACETAMINOPHEN 500 MG TAB PO PRN ×2 (08:13→20:41)
[2022-08-22] MEDS: DULoxetine HCL 60 MG CAP PO SCH (08:13)
[2022-08-22] MEDS: ENOXAPARIN INJ 40 MG/0.4 ML SYR SQ SCH (08:13)
[2022-08-22] MEDS: DULoxetine HCL 30 MG CAP PO SCH (08:13)
[2022-08-22] MEDS: POLYETHYLENE (MIRALAX) 17 GM PACK PO SCH ×2 (08:13→20:44)
--- NOTE | 2022-08-22 08:26 | Pharmacy Report ---
Pharmacy PK ABX Note - Date of Service August 22, 2022 - Assessment and Plan Assessment * 57 year old M receiving vancomycin and Ceftriaxone for periorbital cellulitis. Blood cultures negative. Renal function stable. ID plans to continue Vanco x10 days. Random level today is 20.6 mcg/ml - 4.5 hr level. Predicted steady state AUC/ELISEO is 504 mg/L.hr - therapeutic * Day number 5 of therapy Plan Vancomycin * Maintenance dose: 1250 mg IV every 8 hours - Continue Vancomycin dose * Monitor renal function * Re-check level in 48 - 72 hrs Pharmacy will continue to follow and will adjust dose/frequency as necessary. Thank you. Pharmacy has transitioned to AUC monitoring for vancomycin. AUC/ELISEO is the preferred PK/PD target and is associated with decreased risk of nephrotoxicity compared to traditional trough targets.
--- NOTE | 2022-08-22 09:28 | Infectious Disease Progress Nt ---
Date of Service August 22, 2022 Assessment & Plan (1) Periorbital edema of left eye: (2) Infection of prosthetic left knee joint: (3) Acute UTI: Plan 57yo male with PMHx significant for Parkinson's disease with associated urinary incontinence and h/o UTIs (s/p bilateral DBS implant in 2009), REM sleep behavior disorder, h/o prosthetic knee joint infection (on chronic Doxycycline), SMITH, obesity, anxiety/depression who was admitted to [facility] on 08/09 for UTI. Infectious diseases consulted for left orbital cellulitis. VSS and Labs essentially unremarkable with normal WBC and Procalcitonin. UA cloudy with +nitrite, 1+ LE, 10-30 WBCs, 4+ bacteria. 08/09 Blood cultures NGTD , Ucx Proteus mirabilis R to Amp, Bactrim> 100,000 cfu/mL. CT A/P A 1.8 cm enhancing focus within the left peripheral zone of the prostate gland. This may represent a prostate malignancy. Also few mildly enlarged left iliac lymph nodes. Patient initially on Meropenem transitioned to Cefdinir for UTI. MRSA nares positive Patient L eye swelling suddenly on 08/18, antibiotics changed to Vancomycin, Ceftriaxone and flagyl.. Facial CT showed left periorbital soft tissue edema and mild mucosal thickening within the left maxillary antrum with an indeterminate crescentic pocket of inferior subpalpebral fluid ~3mm Optho evaluated patient and reviewed imaging. Per d/w primary team, Dr. Escalante, they did not feel there was involvement of orbital area and swelling limited to periorbital area. Exam shows normal L size without edema, There was mucopurulent discharge on initial exam but this has resolved. PERRL, EOM are intact and no conjunctivitis Discussion: Patient diagnosed and treated for UTI prior to ID consult. ID consulted for L eye cristi-orbital cellulitis. Exam shows no edema, EOMi and some eye discharge without conjunctivitis. CT imaging is not consistent with exam findings. Per d/w primary team he improved significantly o/n. MRSA nasal swab is positive. Suspect this is MRSA related. Unfortunately unable to use Linezolid d/t multiple drug interaction. He has improved on Vanc/Ceftriaxone. Recommend -Coverage with Vancomycin x 10 days therapy total, start date 08/18- through 08/28/22 -Can change Ceftriaxone to Cefdinir on discharge through 08/28/22 -Can dc flagyl as no significant role for anaerobes -Once Vancomycin dcd please restart prophylactic doxycycline for chronic suppressive therapy for prior L knee PJI. I spoke with Dr. Escalante regarding these recommendations. Thank you for allowing me to participate in the care of your patient. ID will s/o at this time. Elizabeth Flores MD [facility], [facility] Admission and Anticipated Discharge Date Admission Date: August 09, 2022 Subjective Subsequent visit was provided via telemedicine using two-way real-time interactive telecommunication between the patient and the telemedicine provider. For the duration of the visit, the provider was performing the assessment from a different facility than the patient. This includesuse of bluetooth stethoscope forauscultationperformed by the telepresenter that the telemedicine provider can hear if described in the physical exam. Machinery Engineer contact information: Please call [facility] Call Center [phone]. (Phone Number For Physician Use Only) After establishing a telemedicine visit, patient was: Patient was verified with two unique identifiers, Patient/authorized rep acknowledged consent and understanding and Gave permission to continue telehealth session Subsequent Time Spent w Inpatient: 25 minutes 24 hours: EITAN Afebrile, VSS S: Patient denies eye pain, pain with eye movement or vision changes. No complaints of facial pressure or pain. Physical Exam Constitutional: WD/WN, vitals as above Eyes: PERRL, conjunctivae normal, anicteric sclerae discharge resolved, erythema on lids significantly improved EOMi ENMT: No maxillary pain on palpation Skin: no rashes, warm and dry Results & Data ([facility]) Vital Signs (Past 12 Hours) Vital Signs Temp Pulse Resp BP Pulse Ox O2 Del Method 08/22/22 07:29 36.4 C L 84 16 103/67 92 Room Air 08/22/22 00:34 36.6 C 86 22 129/77 95 Room Air Laboratory Results Short CBC 08/21/22 08/22/22 Range/Units 11:28 05:45 WBC 7.41 7.09 (4.8-10.8) K/ul Hgb 13.1 L 13.6 L (14.0-18.0) g/dl Hct 39.8 L 40.6 (40.1-51.0) % Plt Count 246 258 (130-400) K/uL BMP 08/21/22 08/22/22 11:28 05:45 Sodium 141 138 Potassium 4.2 D 3.9 Chloride 109 H 106 Carbon Dioxide 28 27 BUN 12 13 Creatinine 0.63 0.65 Glucose 95 83 Calcium 8.6 8.7 Microbiology 08/09/22 19:10 Blood Aerobic Blood Culture - Final No growth in Aerobic bottle after 5 days. 08/09/22 19:10 Blood Anaerobic Blood Culture - Final No growth in Anaerobic bottle after 5 days. 08/09/22 19:10 Blood Aerobic Blood Culture - Final No growth in Aerobic bottle after 5 days. 08/09/22 19:10 Blood Anaerobic Blood Culture - Final No growth in Anaerobic bottle after 5 days. 08/09/22 19:45 Urine,Clean Catch Urine Culture - Final Proteus mirabilis
[2022-08-22] MEDS: DICLOFENAC SOD 1% GEL 100 GM TUBE EXT SCH ×2 (11:54→18:44)
[2022-08-22] MEDS: LORazepam 0.5 MG TAB PO PRN (18:45)
[2022-08-22] MEDS: MELATONIN 3 MG TAB PO SCH (20:44)
[2022-08-23] MEDS: DICLOFENAC SOD 1% GEL 100 GM TUBE EXT SCH ×5 (00:49→23:16)
[2022-08-23] MEDS: VANCOMYCIN HCL 1,250 MG in SODIUM CHLORIDE 0.9% 250 ML IV SCH ×3 (02:43→17:34)
[2022-08-23] MEDS: cefTRIAXone SODIUM 2,000 MG in DEXTROSE 5% 50 ML IV SCH ×2 (04:18→16:13)
[2022-08-23] MEDS: CARBIDOPA/LEVODOPA 50/200MG EXT REL TAB PO SCH ×4 (05:56→22:36)
[2022-08-23] MEDS: CARBIDOPA/LEVODOPA 25/100MG TAB PO SCH ×4 (05:57→22:36)
[2022-08-23] MEDS: ENTACAPONE 200 MG TAB PO SCH ×4 (05:57→22:35)
[2022-08-23] MEDS: AMANTADINE HCL 100 MG CAPSULE PO SCH ×2 (05:57→10:17)
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
[2022-08-23] MEDS: ENOXAPARIN INJ 40 MG/0.4 ML SYR SQ SCH (08:59)
[2022-08-23] MEDS: DULoxetine HCL 60 MG CAP PO SCH (09:00)
[2022-08-23] MEDS: DULoxetine HCL 30 MG CAP PO SCH (09:01)
[2022-08-23] MEDS: POLYETHYLENE (MIRALAX) 17 GM PACK PO SCH (09:01)
[2022-08-23] MEDS: LORazepam 0.5 MG TAB PO PRN (18:27)
[2022-08-23] MEDS: MELATONIN 3 MG TAB PO SCH (22:35)
[2022-08-24] MEDS: POLYETHYLENE (MIRALAX) 17 GM PACK PO SCH ×3 (00:28→19:44)
[2022-08-24] MEDS: VANCOMYCIN HCL 1,250 MG in SODIUM CHLORIDE 0.9% 250 ML IV SCH ×3 (01:11→18:09)
[2022-08-24] MEDS: cefTRIAXone SODIUM 2,000 MG in DEXTROSE 5% 50 ML IV SCH ×2 (03:35→17:23)
[2022-08-24] MEDS: DICLOFENAC SOD 1% GEL 100 GM TUBE EXT SCH ×3 (05:27→17:17)
[2022-08-24] MEDS: ENTACAPONE 200 MG TAB PO SCH ×4 (05:27→19:45)
[2022-08-24] MEDS: AMANTADINE HCL 100 MG CAPSULE PO SCH ×2 (05:27→11:03)
[2022-08-24] MEDS: CARBIDOPA/LEVODOPA 50/200MG EXT REL TAB PO SCH ×4 (05:28→19:45)
[2022-08-24] MEDS: CARBIDOPA/LEVODOPA 25/100MG TAB PO SCH ×4 (05:28→19:46)
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
[2022-08-24] MEDS: DULoxetine HCL 60 MG CAP PO SCH (10:14)
[2022-08-24] MEDS: DULoxetine HCL 30 MG CAP PO SCH (10:14)
[2022-08-24] MEDS: ENOXAPARIN INJ 40 MG/0.4 ML SYR SQ SCH (10:14)
[2022-08-24] MEDS: MELATONIN 3 MG TAB PO SCH (19:46)
[2022-08-25] MEDS: DICLOFENAC SOD 1% GEL 100 GM TUBE EXT SCH ×4 (01:03→18:22)
[2022-08-25] MEDS: VANCOMYCIN HCL 1,250 MG in SODIUM CHLORIDE 0.9% 250 ML IV SCH ×3 (02:36→18:22)
[2022-08-25] MEDS: cefTRIAXone SODIUM 2,000 MG in DEXTROSE 5% 50 ML IV SCH ×2 (03:58→16:38)
[2022-08-25] MEDS: ENTACAPONE 200 MG TAB PO SCH ×4 (05:34→20:01)
[2022-08-25] MEDS: CARBIDOPA/LEVODOPA 25/100MG TAB PO SCH ×4 (05:34→20:01)
[2022-08-25] MEDS: AMANTADINE HCL 100 MG CAPSULE PO SCH ×2 (05:34→11:40)
[2022-08-25] MEDS: CARBIDOPA/LEVODOPA 50/200MG EXT REL TAB PO SCH ×4 (05:34→20:01)
[2022-08-25 07:57] LABS: BUN Creatinine Ratio 20.3 (10-20); Calcium 8.5 mg/dl (8.5-10.1); Creatinine Clr Calc Pharmacy 153.9 ml/min; Est GFR (Non-African American) 108.7 ml/min; Potassium 3.6 mmol/L (3.5-5.1)
[2022-08-25] MEDS ORDERED: VANCOMYCIN LEVEL ONE (09:30)
[2022-08-25] MEDS: DULoxetine HCL 60 MG CAP PO SCH (09:36)
[2022-08-25] MEDS: POLYETHYLENE (MIRALAX) 17 GM PACK PO SCH ×3 (09:37→20:00)
[2022-08-25] MEDS: ENOXAPARIN INJ 40 MG/0.4 ML SYR SQ SCH (09:37)
[2022-08-25] MEDS: DULoxetine HCL 30 MG CAP PO SCH (09:37)
--- NOTE | 2022-08-25 11:08 | Pharmacy Report ---
Pharmacy PK ABX Note - Date of Service August 25, 2022 - Assessment and Plan Assessment * 57 year old M receiving Vancomycin and Ceftriaxone for periorbital cellulitis. Blood cultures negative. Renal function stable. ID plans to continue Vanco x10 days. Stop date is 08/28/22. * Day #7 of therapy. Plan Vancomycin * Current regimen: 1250 mg IV every 8 hours * Trough level obtained 08/25/22 resulted as 14.6 mcg/mL. This is predicted to achieve target AUC/ELISEO of 400-600 mg/L.hr * Predicted AUC at steady state: 495 mg/L.hr * Continue 1250 mg IV every 8 hours * No repeat level necessary prior to stop date. Pharmacy will continue to follow and will adjust dose/frequency as necessary. Thank you. Pharmacy has transitioned to AUC monitoring for vancomycin. AUC/ELISEO is the preferred PK/PD target and is associated with decreased risk of nephrotoxicity compared to traditional trough targets.
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
[2022-08-25] MEDS: MELATONIN 3 MG TAB PO SCH (20:01)
[2022-08-25] MEDS: LORazepam 0.5 MG TAB PO PRN (20:01)
[2022-08-25] MEDS: ACETAMINOPHEN 500 MG TAB PO PRN (21:29)
[2022-08-26] MEDS: DICLOFENAC SOD 1% GEL 100 GM TUBE EXT SCH ×4 (00:34→17:06)
[2022-08-26] MEDS: VANCOMYCIN HCL 1,250 MG in SODIUM CHLORIDE 0.9% 250 ML IV SCH ×3 (02:16→17:58)
[2022-08-26] MEDS: cefTRIAXone SODIUM 2,000 MG in DEXTROSE 5% 50 ML IV SCH ×2 (05:05→17:17)
[2022-08-26] MEDS: ENTACAPONE 200 MG TAB PO SCH ×4 (06:25→20:07)
[2022-08-26] MEDS: CARBIDOPA/LEVODOPA 25/100MG TAB PO SCH ×4 (06:26→20:07)
[2022-08-26] MEDS: AMANTADINE HCL 100 MG CAPSULE PO SCH ×2 (06:26→10:00)
[2022-08-26] MEDS: CARBIDOPA/LEVODOPA 50/200MG EXT REL TAB PO SCH ×4 (06:26→20:06)
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
[2022-08-26] MEDS: DULoxetine HCL 30 MG CAP PO SCH (09:59)
[2022-08-26] MEDS: DULoxetine HCL 60 MG CAP PO SCH (10:00)
[2022-08-26] MEDS: ENOXAPARIN INJ 40 MG/0.4 ML SYR SQ SCH (10:00)
[2022-08-26] MEDS: POLYETHYLENE (MIRALAX) 17 GM PACK PO SCH ×3 (10:01→20:07)
[2022-08-26] MEDS: MELATONIN 3 MG TAB PO SCH (20:07)
[2022-08-26] MEDS: LORazepam 0.5 MG TAB PO PRN (20:07)
[2022-08-27] MEDS: DICLOFENAC SOD 1% GEL 100 GM TUBE EXT SCH ×4 (01:15→17:39)
[2022-08-27] MEDS: VANCOMYCIN HCL 1,250 MG in SODIUM CHLORIDE 0.9% 250 ML IV SCH ×3 (01:16→17:44)
[2022-08-27] MEDS: cefTRIAXone SODIUM 2,000 MG in DEXTROSE 5% 50 ML IV SCH (03:53)
[2022-08-27] MEDS: ENTACAPONE 200 MG TAB PO SCH ×4 (05:05→21:38)
[2022-08-27] MEDS: CARBIDOPA/LEVODOPA 25/100MG TAB PO SCH ×4 (05:05→21:38)
[2022-08-27] MEDS: AMANTADINE HCL 100 MG CAPSULE PO SCH ×2 (05:05→11:05)
[2022-08-27] MEDS: CARBIDOPA/LEVODOPA 50/200MG EXT REL TAB PO SCH ×4 (05:05→21:38)
[2022-08-27 08:51] LABS: BUN Creatinine Ratio 20.3 (10-20); Calcium 8.8 mg/dl (8.5-10.1); Creatinine Clr Calc Pharmacy 153.9 ml/min; Est GFR (Non-African American) 108.7 ml/min; Potassium 3.6 mmol/L (3.5-5.1)
[2022-08-27] MEDS: POLYETHYLENE (MIRALAX) 17 GM PACK PO SCH ×2 (09:19→21:38)
[2022-08-27] MEDS: DULoxetine HCL 60 MG CAP PO SCH (09:19)
[2022-08-27] MEDS: DULoxetine HCL 30 MG CAP PO SCH (09:20)
[2022-08-27] MEDS: ENOXAPARIN INJ 40 MG/0.4 ML SYR SQ SCH (09:22)
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
[2022-08-27] MEDS: LORazepam 0.5 MG TAB PO PRN (19:37)
--- NOTE | 2022-08-27 20:05 | Billing Data ---
Date of Service August 27, 2022 Coding Level of Care Code 25675 Subseq Hosp Care Lvl 1
[2022-08-27] MEDS: MELATONIN 3 MG TAB PO SCH (21:38)
[2022-08-28] MEDS: DICLOFENAC SOD 1% GEL 100 GM TUBE EXT SCH ×4 (02:24→17:38)
[2022-08-28] MEDS: VANCOMYCIN HCL 1,250 MG in SODIUM CHLORIDE 0.9% 250 ML IV SCH ×3 (02:25→17:38)
[2022-08-28] MEDS ORDERED: cefTRIAXone SODIUM 2,000 MG in DEXTROSE 5% 50 ML IV SCH (04:00)
[2022-08-28] MEDS: AMANTADINE HCL 100 MG CAPSULE PO SCH ×2 (05:47→10:42)
[2022-08-28] MEDS: CARBIDOPA/LEVODOPA 25/100MG TAB PO SCH ×4 (05:48→21:03)
[2022-08-28] MEDS: CARBIDOPA/LEVODOPA 50/200MG EXT REL TAB PO SCH ×4 (05:48→21:04)
[2022-08-28] MEDS: ENTACAPONE 200 MG TAB PO SCH ×4 (05:49→21:03)
[2022-08-28] MEDS: DULoxetine HCL 60 MG CAP PO SCH (08:57)
[2022-08-28] MEDS: DULoxetine HCL 30 MG CAP PO SCH (08:57)
[2022-08-28] MEDS: ENOXAPARIN INJ 40 MG/0.4 ML SYR SQ SCH (08:57)
[2022-08-28] MEDS: POLYETHYLENE (MIRALAX) 17 GM PACK PO SCH ×2 (08:58→21:04)
--- NOTE | 2022-08-28 19:39 | Billing Data ---
Date of Service August 28, 2022 Coding Level of Care Code 14472 Subseq Hosp Care Lvl 2
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
[2022-08-28] MEDS: MELATONIN 3 MG TAB PO SCH (21:02)
[2022-08-28] MEDS: LORazepam 0.5 MG TAB PO PRN (21:02)
[2022-08-29] MEDS: DICLOFENAC SOD 1% GEL 100 GM TUBE EXT SCH ×3 (02:31→10:59)
[2022-08-29] MEDS: CARBIDOPA/LEVODOPA 50/200MG EXT REL TAB PO SCH ×3 (05:57→16:02)
[2022-08-29] MEDS: CARBIDOPA/LEVODOPA 25/100MG TAB PO SCH ×3 (05:57→16:03)
[2022-08-29] MEDS: AMANTADINE HCL 100 MG CAPSULE PO SCH ×2 (05:57→10:57)
[2022-08-29] MEDS: ENTACAPONE 200 MG TAB PO SCH ×3 (05:59→16:01)
[2022-08-29] MEDS: DULoxetine HCL 30 MG CAP PO SCH (07:50)
[2022-08-29] MEDS: POLYETHYLENE (MIRALAX) 17 GM PACK PO SCH (07:50)
[2022-08-29] MEDS: DULoxetine HCL 60 MG CAP PO SCH (07:50)
[2022-08-29] MEDS: ENOXAPARIN INJ 40 MG/0.4 ML SYR SQ SCH (07:51)
[2022-08-29 09:15] LABS: BUN Creatinine Ratio 24.1 (10-20); Calcium 9.3 mg/dl (8.5-10.1); Creatinine Clr Calc Pharmacy 124.6 ml/min; Est GFR (African American) 115.5 ml/min; Est GFR (Non-African American) 99.7 ml/min
[2022-08-29] MEDS: DOXYCYCLINE HYCLATE 100 MG CAP PO SCH (16:01)
--- NOTE | 2022-08-29 18:21 | Billing Data ---
Date of Service August 29, 2022 Coding Level of Care Code D/C DAY MANAGEMENT <30 MINS
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
== END 2022-08-29 17:35 | disposition home health service (06) | DRG 689 ==
LOC: ED 18:09 → 3W 23:18 → SUATTDRO 23:18 → 3W 08-10 00:51

== ENCOUNTER 2022-09-26 11:32 | Inpatient (IN) ==
[2022-09-26 12:52] LABS: Basophils # (auto) 0.09 K/uL (0-0.2); Basophils % (auto) 1.3 %; Eosinophils # (auto) 0.19 K/uL (0-0.50); Eosinophils % (auto) 2.7 %; Hematocrit (blood only) 43.7 % (40.1-51.0); Hemoglobin 14.3 g/dl (14.0-18.0); Immature Granulocytes # (auto) 0.01 K/uL (0.00-0.02); Immature Granulocytes % (auto) 0.1 %; Lymphocytes # (auto) 0.56 K/uL (1.2-3.4); Lymphocytes % (auto) 7.9 %; Mean Corpuscular Hemoglobin 30.1 pg (25.0-34.0); Mean Corpuscular Hgb Conc 32.7 g/dL (32.0-36.0); Mean Platelet Volume 9.9 fL (9.4-12.4); Monocytes # (auto) 0.37 K/uL (0.24-0.82); Monocytes % (auto) 5.2 %; Neutrophils # (auto) 5.83 K/uL (1.4-6.5); Neutrophils % (auto) 82.8 %; Platelet Count 236 K/uL (130-400); RDW Coefficient of Variation 13.8 % (11.5-14.5); RDW Standard Deviation 46.9 fL (36.4-46.3); Red Blood Count 4.75 M/uL (4.63-6.08); White Blood Count 7.05 K/ul (4.8-10.8)
[2022-09-26 13:06] LABS: INR 1.1 (0.9-1.1); Partial Thromboplastin Time 28.2 Seconds (21.0-31.0); Prothrombin Time 11.2 Seconds (9.0-12.0)
[2022-09-26 13:29] LABS: Alanine Aminotransferase 4 U/L (7-52); Albumin Globulin Ratio 1.3 (0.9-2); Albumin Level 3.9 gm/dl (3.4-5.0); Alkaline Phosphatase 76 U/L (34-104); Anion Gap 8 (3-11); Aspartate Aminotransferase 14 U/L (13-39); BUN Creatinine Ratio 23.9 (10-20); Bilirubin,Total 0.7 mg/dl (0.2-1.0); Blood Urea Nitrogen 17 mg/dl (6-23); Calcium 9.3 mg/dl (8.5-10.1); Carbon Dioxide 25 mmol/L (21-32); Chloride 109 mmol/L (98-107); Est GFR (African American) 120.7 ml/min; Est GFR (Non-African American) 104.2 ml/min; Globulin 3.1 gm/dl (2.5-4.0); Glucose 96 mg/dl (70-99(Fasting)); Magnesium 2.3 mg/dl (1.7-2.4); Potassium 3.5 mmol/L (3.5-5.1); Sodium 142 mmol/L (136-145)
[2022-09-26 13:35] LABS: Troponin I High Sensitivity 5.4 pg/ml (0-20)
[2022-09-26] MEDS ORDERED: OPTIRAY 350 100ml IV ONE (14:21)
--- NOTE | 2022-09-26 14:32 | CT Scan Report ---
CT head/brain wo con CLINICAL HISTORY: eye swelling Technique: Contiguous axial CT images of the head were acquired from the base of the skull to the asc[place] without intravenous contrast administration. Images were viewed in brain, subdural and bone [facility]. Automated dose lowering techniques and/or adjustment according to patient size were utilized for this exam. Comparison: Comparison is made to CT head 09/23/2022 Findings: Areas of decreased attenuation are present in the periventricular and subcortical white matter bilate rally consistent with small vessel ischemic disease. Generalized cerebral atrophy with commensurate e nlargement of the ventricles, sulci, and cisterns is also present. There is no acute intracranial hem orrhage or evidence of acute territorial infarction. No shift of the midline structures, mass effect, or extra-axial abnormalities are shown. Atherosclerotic calcifications are present in the intracran ial segments of the internal carotid arteries. Deep brain stimulator leads are noted. Imaged portions of the paranasal sinuses and mastoid air cells are clear. Partial visualization of m ild soft tissue swelling is seen about the left periorbital tissues. There are no acute fractures of the calvaria or scalp swelling. Impression: No acute intracranial hemorrhage, no evidence of acute territorial infarction or other acute intracra nial disease process. Deep brain stimulator leads are seen. Please see CT facial bones performed same day for evaluation of left periorbital swelling. ACT 112: Negative or not required by law. Electronically signed by: Jim Cox M.D. 09/26/2022 2:30 PM
--- NOTE | 2022-09-26 14:34 | CT Scan Report ---
CT SCAN OF THE FACIAL BONES WITH IV CONTRAST CLINICAL HISTORY: Left eye pain and swelling. Infection COMPARISON STUDY: CT of the facial bones dated 08/18/2022. TECHNIQUE: High-resolution CT scan of the facial bones is performed following the IV administration of 90 cc of Optiray 350. Images are reviewed in the axial, sagittal, and coronal planes. IV contrast was administered without complication. A dose lowering technique was utilized adhering to the princi ples of ALA. CT DOSE: 948.06 mGy.cm FINDINGS: The skeletal structures are well mineralized. There is no evidence of facial bone fracture. There is left periorbital soft tissue edema typical for cellulitis. Trace inferior subpalpebral flui d is again suggested on the left. The bony orbits are intact. Orbital contents are normal as visualiz ed. The zygomatic arches, nasal bones, and pterygoid plates are preserved. The maxilla and mandible a re intact. There are no layering blood products within the paranasal sinuses. There is mild mucosal t hickening within the left maxillary antrum. Remaining paranasal sinuses are clear. The mastoid air ce lls are well pneumatized. The visualized calvarium and upper cervical spine are maintained. Bilateral intracranial stimulator leads are in place. Partially imaged brain parenchyma is otherwise within no rmal limits. There are scattered dental caries. IMPRESSION: 1. No acute facial bone abnormality is identified. 2. Left periorbital cellulitis. 3.. Trace inferior subpalpebral fluid is again suggested on the left. Clinical correlation will be re quired. 4. Intraorbital contents are normal in appearance. ACT 112: Negative or not required by law. Electronically signed by: Mamadou Hung M.D. 09/26/2022 2:33 PM
[2022-09-26] MEDS ORDERED: AMOXICILLIN/CLAVULANATE 875 MG TAB PO ONE (15:07)
[2022-09-26] MEDS ORDERED: SULFAMETHOXAZOLE/TRIMETHOPRIM DS 800/160MG TAB PO ONE (15:07)
--- NOTE | 2022-09-26 15:13 | Emergency Department Note ---
Impression & Plan AMS (altered mental status), Preseptal cellulitis of left upper eyelid ED Provider Note HISTORY OF PRESENT ILLNESS: Patient is a 57-year-old male presenting with eye swelling. provides most of history. Reports that today the patient woke up and had redness and swelling to his left eye. Denies any changes in vision in the eye. Denies any recent trauma to the eye. He does not wear any contacts. reports that they put erythromycin ointment in the eye and give the patient a oral Benadryl this morning and the swelling has improved. Patient has a history of neurost imulator's in his brain. Reports that the patient has been having some visual hallucinations over the last few days and she is worried that the patient might have a urinary tract infection. Reports the patient has episodes of transient confusion. No reported fevers. Patient denies any pain with extraocular movements. ROS: Constitutional: No fever, chills, or weakness Skin: No rash or diaphoresis HENT: No headaches or congestion +eye swelling Eyes: No vision changes Cardio: No chest pain, palpitations or leg swelling Respiratory: No cough, wheezing or shortness of breath GI: No nausea, vomiting, diarrhea, constipation : No dysuria, polyuria MSK: No joint or back pain Neuro: No loss of sensation, focal deficits, numbness, tingling +hallucinations; +confusion Psychiatric: No mood changes PHYSICAL EXAM: Constitutional: Patient appears in no acute distress. HENT: Head: Normocephalic and atraumatic. Eyes: EOMI, PERRL. Left upper eyelid is erythematous and swollen compared to right. Patient able to distinguish fingers in all visual gillis. Yellow- colored discharge from the left eye. Mouth/Throat: Mucous membranes moist. Neck: Trachea midline. Neck supple. Cardiovascular: RRR, No murmurs, rubs or gallops. Intact distal pulses. Pulmonary/Chest: No respiratory distress. Breath sounds clear and equal bilaterally. No wheezes or rales. Abdominal: BS +. Abdomen soft, no tenderness, rebound or guarding. Back: No midline spinal tenderness, no paraspinal tenderness, no CVA tenderness. Musculoskeletal: No edema, tenderness or deformity noted. Skin: Warm and dry. No rash, erythema, pallor or cyanosis Psychiatric: Appropriate mood and affect for situation. Neurological: Alert to person and place. CN II-XII grossly intact, moving all extremities equally and fully. MDM: - Vitals signs stable. - Patient presents with confusion and left eye swelling. reports that patient has had intermittent episodes of confusion and hallucinations over the last few days. She reports that today the patient woke up with swelling of his left eye. Patient denies any visual changes. Reports that he has had some yellow-colored discharge from the. Denies any trauma to the eye. He does not wear any contacts. - IV established and patient placed on monitor. - Chronic medical conditions affecting medical care: recurrent UTIs; depression; Parkinson's disease (s/p deep brain stimulator); sleep apnea; venous stasis - External medical record reviewed. Patient has required multiple inpatient admissions for altered mental status secondary to UTIs. Noted to have been admitted in July 2022. - EKG reviewed by myself showed normal sinus rhythm. HR 81 bpm with short HI interval. No acute ischemic changes. - Laboratory workup showed normal WBC; stable electrolytes; normal troponin; normal lactate; normal procalcitonin - UA ordered. - CT head wo contrast negative for acute intracranial pathology. Noted to have neurostimulator is intact. - CT facial wo contrast showed left pre-septal celllulitis. - Initially ordered PO augmentin and bactrim for cellulitis. However, reported patient has allergy to sulfa drugs. Discussed attempt at discharge with outpatient antibiotics, but is concerned about patient's confusion and would like to be admitted. Patient was given oral clindamycin for preseptal cellulitis coverage. - Hospitalist consulted for admission. - Patient admitted to inpatient [facility] hospitalist service for further evaluation and management. ASSESSMENT AND PLAN: Diagnosis: altered mental status; pre-septal cellulitis Plan: discharge Stable at discharge Past Med/Surg History Medical History Acute UTI Anxiety Conjunctivitis Depression Hearing deficit KASAAN left ear Osteoarthritis Parkinson disease s/p deep brain stimulator. Dr. Linda Back, [facility] Sleep apnea does not tolerate device Urinary incontinence Managed at primary care Venous stasis of both lower extremities Vitamin D deficiency Surgical History History of appendectomy History of carpal tunnel release History of colonoscopy History of foot surgery RECONSTRUCTION - RT History of left knee replacement History of revision of total knee arthroplasty LEFT History of shoulder surgery LEFT X 2; RT X 1 S/P deep brain stimulator placement (~2008) Family History Grandmother Family history of diabetes mellitus Father Hypertension Denies family history of Ovarian cancer Osteoporosis Myocardial infarction Breast cancer Colorectal cancer Cancer Social History Smoking Status: Never smoker Second Hand Exposure: No; Hx Alcohol Use: Yes Alcohol type: beer Hx Substance Use: No Preferred Language: Mongolian Communication Ability: Impaired Visual Impairment: No Limitations Hearing Ability: Normal Instrument Panel Assembler Required: No Beliefs That Will Affect Care: None marital status: Current Living Situation: Spouse How many Children do You have: 2 Feels Safe at Home: Yes Assistive Devices: Wheelchair Allergies Allergies Allergy/AdvReac Type Severity Reaction Status Date / Time morphine Allergy Mild Itching Verified 09/23/22 18:04 buspirone [From BuSpar] AdvReac Severe SCHIZOPHRENIA Verified 09/23/22 18:04 LIKE ACTIONS haloperidol [From Haldol] AdvReac Severe CONTRAINDICATED Verified 09/23/22 18:04 IN PARKINSON'S DISEASE pramipexole [From Mirapex] AdvReac Severe BECAME OCD Verified 09/23/22 18:04 FOR WEEKS quetiapine [From Seroquel] AdvReac Severe PT BECAME Verified 09/23/22 18:04 VIOLENT THEN DEEP SLEEP Home Meds Home Medications Medication Instructions Recorded Confirmed amantadine HCl 100 mg tablet 100 mg PO BID 06/30/19 09/23/22 carbidopa ER 50 mg-levodopa 200 mg 1 tab PO QID 06/30/19 09/23/22 tablet,extended release entacapone 200 mg tablet (Comtan) 200 mg PO QID 06/30/19 09/23/22 acetaminophen 500 mg tablet 1,000 mg PO BID PRN Pain 04/29/20 09/23/22 doxycycline hyclate 100 mg tablet 100 mg PO BID 04/29/20 09/23/22 melatonin 3 mg tablet 6 - 9 mg PO HS PRN Sleep 06/11/22 09/23/22 carbidopa 25 mg-levodopa 100 mg 1 tab PO ,,,08/09/22 09/23/22 disintegrating tablet lorazepam 1 mg tablet 1.5 mg PO HS PRN Sleep 09/23/22 09/23/22 Previous Rx's Medication Instructions Recorded duloxetine 60 mg capsule,delayed 60 mg PO DAILY #30 caps 03/29/21 release duloxetine 30 mg capsule,delayed 30 mg PO DAILY #30 caps 09/13/22 release Results & Data (ED) Vital Signs Vital Signs - 24 hr 09/26/22 11:42 09/26/22 13:03 09/26/22 15:00 Temperature 36.2 C L Temperature Source Temporal Artery Scan Pulse Rate 83 Pulse Rate [Apical] 96 H 80 Pulse Rhythm Regular Pulse Strength Normal Respiratory Rate 20 17 18 Respiratory Effort / Characteristics Non-Labored Spontaneous Respiratory Depth Normal Respiratory Pattern Regular Blood Pressure 116/73 Blood Pressure [Left Arm] 105/68 126/76 Blood Pressure Mean 87 Blood Pressure Mean [Left Arm] 80 92 Blood Pressure Position Sitting Pulse Oximetry 95 96 99 Oxygen Delivery Method Room Air Room Air Room Air Sepsis Recent Fever Within 48 Hours No Sepsis New/Unexplained Change in Mental Status No Sepsis Action Taken by Nursing No Action Required 09/26/22 17:00 Temperature Temperature Source Pulse Rate Pulse Rate [Apical] 82 Pulse Rhythm Pulse Strength Respiratory Rate 18 Respiratory Effort / Characteristics Respiratory Depth Respiratory Pattern Blood Pressure Blood Pressure [Left Arm] 141/83 H Blood Pressure Mean Blood Pressure Mean [Left Arm] 102 Blood Pressure Position Pulse Oximetry 96 Oxygen Delivery Method Room Air Sepsis Recent Fever Within 48 Hours Sepsis New/Unexplained Change in Mental Status Sepsis Action Taken by Nursing Laboratory Data 09/26/22 12:20 09/26/22 12:20 Lab Results 09/26/22 09/26/22 09/26/22 Range/Units 12:20 12:20 12:20 WBC 7.05 (4.8-10.8) K/ul RBC 4.75 (4.63-6.08) M/uL Hgb 14.3 (14.0-18.0) g/dl Hct 43.7 (40.1-51.0) % MCV 92.0 (80.0-100.0) fL MCH 30.1 (25.0-34.0) pg MCHC 32.7 (32.0-36.0) g/dL RDW Std Deviation 46.9 H (36.4-46.3) fL RDW Coeff of Travis 13.8 (11.5-14.5) % Plt Count 236 (130-400) K/uL MPV 9.9 (9.4-12.4) fL Immature Gran % (Auto) 0.1 % Neut % (Auto) 82.8 % Lymph % (Auto) 7.9 % Starr % (Auto) 5.2 % Eos % (Auto) 2.7 % Baso % (Auto) 1.3 % Neut # (Auto) 5.83 (1.4-6.5) K/uL Lymph # (Auto) 0.56 L (1.2-3.4) K/uL Starr # (Auto) 0.37 (0.24-0.82) K/uL Eos # (Auto) 0.19 (0-0.50) K/uL Baso # (Auto) 0.09 (0-0.2) K/uL Immature Gran # (Auto) 0.01 (0.00-0.02) K/uL PT 11.2 (9.0-12.0) Seconds INR 1.1 (0.9-1.1) APTT 28.2 (21.0-31.0) Seconds PTT Ratio 1.0 Sodium 142 (136-145) mmol/L Potassium 3.5 (3.5-5.1) mmol/L Chloride 109 H (98-107) mmol/L Carbon Dioxide 25 (21-32) mmol/L Anion Gap 8 (3-11) BUN 17 (6-23) mg/dl Creatinine 0.71 (0.6-1.4) mg/dl Est Cr Clr Drug Dosing Not Reportable Est GFR ( Amer) 120.7 ml/min Est GFR (Non-Af Amer) 104.2 ml/min BUN/Creatinine Ratio 23.9 H (10-20) Glucose 96 (70-99(Fasting)) mg/dl Lactate (0.4-2.0) mmol/L Calcium 9.3 (8.5-10.1) mg/dl Magnesium 2.3 (1.7-2.4) mg/dl Total Bilirubin 0.7 (0.2-1.0) mg/dl AST 14 (13-39) U/L ALT 4 L (7-52) U/L Alkaline Phosphatase 76 (34-104) U/L Troponin I High Sens 5.4 (0-20) pg/ml Total Protein 7.0 (6.0-8.3) gm/dl Albumin 3.9 (3.4-5.0) gm/dl Globulin 3.1 (2.5-4.0) gm/dl Albumin/Globulin Ratio 1.3 (0.9-2) Procalcitonin (0-0.5) ng/ml Urine Color Urine Appearance (Clear) Urine pH (4.5-7.5) Ur Specific Comstock (1.000-1.030) Urine Protein (Negative) Urine Glucose (UA) (Negative) Urine Ketones (Negative) Urine Blood (Negative) Urine Nitrite (Negative) Urine Bilirubin (Negative) Urine Urobilinogen (Negative) Ur Leukocyte Esterase (Negative) 09/26/22 09/26/22 09/26/22 Range/Units 12:20 15:53 17:35 WBC (4.8-10.8) K/ul RBC (4.63-6.08) M/uL Hgb (14.0-18.0) g/dl Hct (40.1-51.0) % MCV (80.0-100.0) fL MCH (25.0-34.0) pg MCHC (32.0-36.0) g/dL RDW Std Deviation (36.4-46.3) fL RDW Coeff of Travis (11.5-14.5) % Plt Count (130-400) K/uL MPV (9.4-12.4) fL Immature Gran % (Auto) % Neut % (Auto) % Lymph % (Auto) % Starr % (Auto) % Eos % (Auto) % Baso % (Auto) % Neut # (Auto) (1.4-6.5) K/uL Lymph # (Auto) (1.2-3.4) K/uL Starr # (Auto) (0.24-0.82) K/uL Eos # (Auto) (0-0.50) K/uL Baso # (Auto) (0-0.2) K/uL Immature Gran # (Auto) (0.00-0.02) K/uL PT (9.0-12.0) Seconds INR (0.9-1.1) APTT (21.0-31.0) Seconds PTT Ratio Sodium (136-145) mmol/L Potassium (3.5-5.1) mmol/L Chloride (98-107) mmol/L Carbon Dioxide (21-32) mmol/L Anion Gap (3-11) BUN (6-23) mg/dl Creatinine (0.6-1.4) mg/dl Est Cr Clr Drug Dosing Est GFR ( Amer) ml/min Est GFR (Non-Af Amer) ml/min BUN/Creatinine Ratio (10-20) Glucose (70-99(Fasting)) mg/dl Lactate 1.2 (0.4-2.0) mmol/L Calcium (8.5-10.1) mg/dl Magnesium (1.7-2.4) mg/dl Total Bilirubin (0.2-1.0) mg/dl AST (13-39) U/L ALT (7-52) U/L Alkaline Phosphatase (34-104) U/L Troponin I High Sens (0-20) pg/ml Total Protein (6.0-8.3) gm/dl Albumin (3.4-5.0) gm/dl Globulin (2.5-4.0) gm/dl Albumin/Globulin Ratio (0.9-2) Procalcitonin < 0.05 (0-0.5) ng/ml Urine Color Dark Yellow Urine Appearance Clear (Clear) Urine pH 5.5 (4.5-7.5) Ur Specific Comstock > 1.045 H (1.000-1.030) Urine Protein Negative (Negative) Urine Glucose (UA) Negative (Negative) Urine Ketones Trace H (Negative) Urine Blood Negative (Negative) Urine Nitrite Negative (Negative) Urine Bilirubin Negative (Negative) Urine Urobilinogen Negative (Negative) Ur Leukocyte Esterase Negative (Negative) Administered Medications Discontinued Medications Ioversol (Optiray 350 100ml) 90 ml IV ONCE ONE Stop: 09/26/22 14:22 Last Admin: 09/26/22 14:21 Dose: 90 ml Documented By: ERVIN Imaging Data Radiologist's Impression: Head CT 09/26/22 11:48 CT head/brain wo con CLINICAL HISTORY: eye swelling Technique: Contiguous axial CT images of the head were acquired from the base of the skull to the vertex without intravenous contrast administration. Images were viewed in brain, subdural and bone windows. Automated dose lowering techniques and/or adjustment according to patient size were utilized for this exam. Comparison: Comparison is made to CT head 09/23/2022 Findings: Areas of decreased attenuation are present in the periventricular and subcortical white matter bilaterally consistent with small vessel ischemic disease. Generalized cerebral atrophy with commensurate enlargement of the ventricles, sulci, and cisterns is also present. There is no acute intracranial hemorrhage or evidence of acute territorial infarction. No shift of the midline structures, mass effect, or extra-axial abnormalities are shown. Atherosclerotic calcifications are present in the intracranial segments of the internal carotid arteries. Deep brain stimulator leads are noted. Imaged portions of the paranasal sinuses and mastoid air cells are clear. Partial visualization of mild soft tissue swelling is seen about the left periorbital tissues. There are no acute fractures of the calvaria or scalp swelling. Impression: No acute intracranial hemorrhage, no evidence of acute territorial infarction or other acute intracranial disease process. Deep brain stimulator leads are seen. Please see CT facial bones performed same day for evaluation of left periorbital swelling. ACT 112: Negative or not required by law. Electronically signed by: Jim Cox M.D. 09/26/2022 2:[address] 09/26/22 11:49 CT SCAN OF THE FACIAL BONES WITH IV CONTRAST CLINICAL HISTORY: Left eye pain and swelling. Infection COMPARISON STUDY: CT of the facial bones dated 08/18/2022. TECHNIQUE: High-resolution CT scan of the facial bones is performed following the IV administration of 90 cc of Optiray 350. Images are reviewed in the axial, sagittal, and coronal planes. IV contrast was administered without complication. A dose lowering technique was utilized adhering to the principles of ALARA. CT DOSE: 948.06 mGy.cm FINDINGS: The skeletal structures are well mineralized. There is no evidence of facial bone fracture. There is left periorbital soft tissue edema typical for c ellulitis. Trace inferior subpalpebral fluid is again suggested on the left. The bony orbits are intact. Orbital contents are normal as visualized. The zygomatic arches, nasal bones, and pterygoid plates are preserved. The maxilla and mandible are intact. There are no layering blood products within the paranasal sinuses. There is mild mucosal thickening within the left maxillary antrum. Remaining paranasal sinuses are clear. The mastoid air cells are well pneumatized. The visualized calvarium and upper cervical spine are maintained. Bilateral intracranial stimulator leads are in place. Partially imaged brain parenchyma is otherwise within normal limits. There are scattered dental caries. IMPRESSION: 1. No acute facial bone abnormality is identified. 2. Left periorbital cellulitis. 3.. Trace inferior subpalpebral fluid is again suggested on the left. Clinical correlation will be required. 4. Intraorbital contents are normal in appearance. ACT 112: Negative or not required by law. Electronically signed by: Mamadou Hung M.D. 09/26/2022 2:33 PM Discharge Plan Visit Data Chief Complaint: Eye Problems Stated Complaint: EYE SWOLLEN ED Provider: Michelle Neely Discharge Problem: AMS (altered mental status), Preseptal cellulitis of left upper eyelid Patient Disposition: Admitted As Inpatient Forms Stand Alone Forms: [facility] Prescriptions Prescriptions: No Action duloxetine 60 mg capsule,delayed release(DR/EC) 60 mg PO DAILY Qty: 30 2RF Rx Instructions: take with 30mg = 90mg daily duloxetine 30 mg capsule,delayed release(DR/EC) 30 mg PO DAILY Qty: 30 2RF Rx Instructions: take with 60mg = 90 mg daily amantadine HCl 100 mg tablet 100 mg PO BID Rx Instructions: at 0700 and 1100 AM carbidopa-levodopa 50-200 mg tablet extended release 1 tab PO QID entacapone [Comtan] 200 mg tablet 200 mg PO QID Rx Instructions: patient takes at 0700,1100,1600,2100 doxycycline hyclate 100 mg tablet 100 mg PO BID Rx Instructions: TAKES AT 0700 AND 1600 acetaminophen 500 mg tablet 1,000 mg PO BID PRN (Reason: Pain) lorazepam 1 mg tablet 1.5 mg PO HS PRN (Reason: Sleep) melatonin 3 mg Tablet 6 - 9 mg PO HS PRN (Reason: Sleep) Rx Instructions: may have 3-15mg melatonin at bedtime carbidopa-levodopa 25-100 mg tablet,disintegrating 1 tab PO 07,11,17,21 Rx Instructions: & qid PRN as needed for tremors Referrals Referrals: Jose Martin DO [Primary Care Provider] -
--- NOTE | 2022-09-26 15:21 | Electrocardiogram Report ---
Test Reason : Blood Pressure : / mmHG Vent. Rate : 081 BPM Atrial Rate : 081 BPM P-R Int : 108 ms QRS Dur : 104 ms QT Int : 400 ms P-R-T Axes : -01 051 degrees QTc Int : 464 ms Poor data quality, interpretation may be adversely affected Sinus rhythm with short MO Otherwise normal ECG When compared with ECG of 23-SEP-2022 16:23, T wave inversion no longer evident in Inferior leads Confirmed by Brad Oh ([id number]) on 09/26/2022 3:21:14 PM Referred By: Confirmed By:Brad Oh
[2022-09-26] MEDS ORDERED: CLINDAMYCIN HCL 150 MG CAP PO ONE (16:01)
[2022-09-26 17:45] LABS: Appearance Urine Clear (Clear); Bilirubin Urine Negative (Negative); Blood Urine Negative (Negative); Color Urine Dark Yellow; Glucose Urine UA Negative (Negative); Ketones Urine Trace (Negative); Leukocyte Esterase Urine Negative (Negative); Nitrite Urine Negative (Negative); Protein Urine Negative (Negative); Specific Gravity Urine > 1.045 (1.000-1.030); Urobilinogen Urine Negative (Negative); pH Urine 5.5 (4.5-7.5)
--- NOTE | 2022-09-26 18:03 | History & Physical Report ---
Date of Service September 26, 2022 Assessment & Plan (1) Periorbital cellulitis of left eye: Plan: - 1 day of seemingly random erythema and edema to left eye without prior injury o - Face CT: Left periorbital cellulitis. - Will treat with initial course of IV vancomycin and Rocephin, prefer initial IV over PO antibiotics give concern for recurrent MRSA infection, possibility of seedin/infection to brain stimulator, left knee hardware. (2) Infection of prosthetic left knee joint: Plan: - Chronic, Follows with [facility] ID. - Recommend ID consult tomorrow for history of MRSA infections, concern for s eeding/ infection to knee hardware and/or brain stimulator. - Patient with broken roosevelt in knee, per he is not to work with PT. Non- weight bearing on left leg. (3) AMS (altered mental status): Plan: - Patient's he has had visual hallucinations of the past couple days, infectious work-up negative except for his periorbital cellulitis. - No UTI, electrolytes are within normal limits. Head CT shows deep brain stimulator leads. No hemorrhage/infarction, mass, or midline shift. - We will continue to monitor for improvement with treatment of cellulitis. (4) Parkinson disease: Plan: - Continue Sinemet, amantadine, entacapone. Patient very sensitive to timing of Sinemet: * carbidopa/levodopa ER 50/200 QID 0700, 1100, 1600, 2100 before meals * carbidopa/levodopa ODT 25/200 QID 0700, 1100, 1600, 2100 before meals * has additional ODT doses available QID as needed for breakthrough/"rescue symptoms" * (5) Depression: Plan: - Continue Cymbalta. (6) REM sleep behavior disorder: Plan: - Chronic, follows w/ neurology. Only medication that hsa been useful is Ativan. - Continue Ativan 1.5 mg p.o. at night,scheduled and melatonin at night scheduled. Plan - Admit to [facility]. - SCDs for VTE ppx. - Full Code. History of Present Illness Chief Complaint: Left eye redness, swelling x1 day Primary Care Provider: Jose Martin DO Al Knox is a 57-year-old male with a past medical history significant for Parkinson's, sleep apnea, depression, and anxiety is presenting today with his for concerns of facial swelling and hallucinations. He woke up today and noted his left eye to be red and swollen, very different from how it appeared when he went to bed last night. He has not had any recent trauma or injury to the eye, no open wounds. He is not having any photophobia or pain with eye movements. He is not a contact lens wearer. Benadryl and erythromycin ointment at home have helped. In addition to this, he has had intermittent visual issues over the past. On presentation, his vital signs been within normal limits and stable. Labs largely unremarkable, without elevated WBC, elevated procalcitonin, or elevated lactate. UA appears normal without any evidence of infection. No electrolyte or normalities, renal and hepatic function normal at baseline. Face CT shows left periorbital cellulitis. Head CT shows deep brain stimulators, otherwise no evidence of intracranial hemorrhage, territorial infarction, or other acute intracranial disease process. Allergies Allergy/AdvReac Type Severity Reaction Status Date / Time morphine Allergy Mild Itching Verified 09/26/22 20:59 buspirone [From BuSpar] AdvReac Severe SCHIZOPHRENIA Verified 09/26/22 20:59 LIKE ACTIONS haloperidol [From Haldol] AdvReac Severe CONTRAINDICATED Verified 09/26/22 20:59 IN PARKINSON'S DISEASE pramipexole [From Mirapex] AdvReac Severe BECAME OCD Verified 09/26/22 20:59 FOR WEEKS quetiapine [From Seroquel] AdvReac Severe PT BECAME Verified 09/26/22 20:59 VIOLENT THEN DEEP SLEEP Home Medications Medication Instructions Recorded Confirmed Type amantadine HCl 100 mg tablet 100 mg PO BID 06/30/19 09/26/22 History carbidopa ER 50 mg-levodopa 200 mg 1 tab PO QID 06/30/19 09/26/22 History tablet,extended release entacapone 200 mg tablet (Comtan) 200 mg PO QID 06/30/19 09/26/22 History acetaminophen 500 mg tablet 1,000 mg PO BID PRN Pain 04/29/20 09/26/22 History doxycycline hyclate 100 mg tablet 100 mg PO BID 04/29/20 09/26/22 History duloxetine 60 mg capsule,delayed 60 mg PO DAILY #30 caps 03/29/21 09/26/22 Rx release melatonin 3 mg tablet 6 - 9 mg PO HS PRN Sleep 06/11/22 09/26/22 History carbidopa 25 mg-levodopa 100 mg 1 tab PO 07,,17,21 08/09/22 09/26/22 History disintegrating tablet duloxetine 30 mg capsule,delayed 30 mg PO DAILY #30 caps 09/13/22 09/26/22 Rx release lorazepam 1 mg tablet 1.5 mg PO HS PRN Sleep 09/23/22 09/26/22 History Past Med/Surg History Medical History Acute UTI Anxiety Conjunctivitis Depression Hearing deficit [place] left ear Osteoarthritis Parkinson disease s/p deep brain stimulator. Dr. Linda Back, [facility] Sleep apnea does not tolerate device Urinary incontinence Managed at primary care Venous stasis of both lower extremities Vitamin D deficiency Surgical History History of appendectomy History of carpal tunnel release History of colonoscopy History of foot surgery RECONSTRUCTION - RT History of left knee replacement History of revision of total knee arthroplasty LEFT History of shoulder surgery LEFT X 2; RT X 1 S/P deep brain stimulator placement (~2008) Family History Grandmother Family history of diabetes mellitus Father Hypertension Denies family history of Ovarian cancer Osteoporosis Myocardial infarction Breast cancer Colorectal cancer Cancer Social History Smoking Status: Never smoker Second Hand Exposure: No; Do You Dip or Chew Tobacco: No; Hx Alcohol Use: No Hx Substance Use: No Preferred Language: Bengali Communication Ability: Impaired Visual Impairment: No Limitations Hearing Ability: Normal Geoint Analyst Required: No Beliefs That Will Affect Care: None marital status: Current Living Situation: Spouse How many Children do You have: 2 Feels Safe at Home: Yes Safety Concerns: Feels Safe At This Time Assistive Devices: Glasses and Wheelchair Review of Systems Review of Systems: Constitutional: No fever/chills, weakness, fatigue, myalgias, anorexia, night sweats Eyes: No diplopia, no worsening or blurred vision ENT: redness and swelling of left eye x 1 day without vison loss, painful eye movements, light sensitivity; normal hearing, no trouble swallowing Respiratory: No cough, sputum, dyspnea at rest or on exertion Cardiovascular: No chest pain, tightness or palpitations Abdomen: No pain, nausea, vomiting, diarrhea or constipation : Denies dysuria, hematuria, increased urgency/frequency, urinary retention Musculoskeletal: No joint pain, calf pain, swelling Neurologic: No weakness, numbness/tingling, or balance problems Psychiatric: No anxiety or depression Skin: No rash or itch Physical Exam Physical Exam: General: awake, alert, no apparent distress Head: Normocephalic, atraumatic ENT: left eye erythematous and edematous; PERRL, EOMI, no photophobia; no pharyngeal exudate, mucous membranes moist Chest: Clear to auscultation, on room air, no adventitious breath sounds Cardiac: Regular rate and rhythm, no murmur, no JVD, normal peripheral pulses, good capillary refill Abdominal: NABS x 4 quadrants, soft, nontender to palpation, no rebound, guarding or tenderness Extremities: Normal inspection, no peripheral edema or erythema, calfs nontender to palpation Psych: Normal mood and affect Neuro: AAO x 3, strength intact bilaterally and rated 5/5, no motor deficits, speech is clear, no peripheral sensory deficits Skin: no rash or erythema Results & Data Results & Data ([facility]) Vital Signs (Past 12 Hours) Vital Signs Temp Pulse Pulse Resp BP BP Pulse Ox 09/26/22 17:00 82 18 141/83 H 96 09/26/22 15:00 80 18 126/76 99 09/26/22 13:03 96 H 17 105/68 96 09/26/22 11:42 36.2 C L 83 20 116/73 95 O2 Del Method 09/26/22 17:00 Room Air 09/26/22 15:00 Room Air 09/26/22 13:03 Room Air 09/26/22 11:42 Room Air Laboratory Results Abnormal lab results 09/26/22 09/26/22 09/26/22 Range/Units 12:20 12:20 17:35 RDW Std Deviation 46.9 H (36.4-46.3) fL Lymph # (Auto) 0.56 L (1.2-3.4) K/uL Chloride 109 H (98-107) mmol/L BUN/Creatinine Ratio 23.9 H (10-20) ALT 4 L (7-52) U/L Ur Specific [place] > 1.045 H (1.000-1.030) Urine Ketones Trace H (Negative) Diagnostic Findings Head CT 09/26/22 11:48 CT head/brain wo con CLINICAL HISTORY: eye swelling Technique: Contiguous axial CT images of the head were acquired from the base of the skull to the vertex without intravenous contrast administration. Images were viewed in brain, subdural and bone windows. Automated dose lowering techniques and/or adjustment according to patient size were utilized for this exam. Comparison: Comparison is made to CT head 09/23/2022 Findings: Areas of decreased attenuation are present in the periventricular and subcortical white matter bilaterally consistent with small vessel ischemic disease. Generalized cerebral atrophy with commensurate enlargement of the ventricles, sulci, and cisterns is also present. There is no acute intracranial hemorrhage or evidence of acute territorial infarction. No shift of the midline structures, mass effect, or extra-axial abnormalities are shown. Atherosclerotic calcifications are present in the intracranial segments of the internal carotid arteries. Deep brain stimulator leads are noted. Imaged portions of the paranasal sinuses and mastoid air cells are clear. Partial visualization of mild soft tissue swelling is seen about the left periorbital tissues. There are no acute fractures of the calvaria or scalp swelling. Impression: No acute intracranial hemorrhage, no evidence of acute territorial infarction or other acute intracranial disease process. Deep brain stimulator leads are seen. Please see CT facial bones performed same day for evaluation of left periorbital swelling. ACT 112: Negative or not required by law. Electronically signed by: Jim Cox M.D. 09/26/2022 2:[address] 09/26/22 11:49 CT SCAN OF THE FACIAL BONES WITH IV CONTRAST CLINICAL HISTORY: Left eye pain and swelling. Infection COMPARISON STUDY: CT of the facial bones dated 08/18/2022. TECHNIQUE: High-resolution CT scan of the facial bones is performed following the IV administration of 90 cc of Optiray 350. Images are reviewed in the axial, sagittal, and coronal planes. IV contrast was administered without complication. A dose lowering technique was utilized adhering to the principles of ALARA. CT DOSE: 948.06 mGy.cm FINDINGS: The skeletal structures are well mineralized. There is no evidence of facial bone fracture. There is left periorbital soft tissue edema typical for cellulitis. Trace inferior subpalpebral fluid is again suggested on the left. The bony orbits are intact. Orbital contents are normal as visualized. The zygomatic arches, nasal bones, and pterygoid plates are preserved. The maxilla and mandible are intact. There are no layering blood products within the paranasal sinuses. There is mild mucosal thickening within the left maxillary antrum. Remaining paranasal sinuses are clear. The mastoid air cells are well pneumatized. The visualized calvarium and upper cervical spine are maintained. Bilateral intracranial stimulator leads are in place. Partially imaged brain parenchyma is otherwise within normal limits. There are scattered dental caries. IMPRESSION: 1. No acute facial bone abnormality is identified. 2. Left periorbital cellulitis. 3.. Trace inferior subpalpebral fluid is again suggested on the left. Clinical correlation will be required. 4. Intraorbital contents are normal in appearance. ACT 112: Negative or not required by law. Electronically signed by: Mamadou Hung M.D. 09/26/2022 2:33 PM ECG Additional Comments: Poor data quality, interpretation may be adversely affected Sinus rhythm with short OK Otherwise normal ECG When compared with ECG of 23-SEP-2022 16:23, T wave inversion no longer evident in Inferior leads Confirmed by Brad Oh ([id number]) on 09/26/2022 3:21:14 PM Code Status & VTE Plan Code Status Full Code. Supervising Physician Co-Signing Physician Notes Patient seen and examined, chart reviewed, case discussed with Melissa Trejo PA-C and I agree with the assessment and plan as above except as otherwise noted Labs and images reviewed 57-year-old male with a past medical history of Parkinson's, SMITH, depression, anxiety who presents with presents with altered mental status, some hallucinations, and evidence of periorbital cellulitis on evaluation. Woke up day of admission with left eye redness and increased swelling much different from slight swelling that was present in the evening prior. EOMs are intact without pain, no sensitivity to light. No history of brackish water exposure or contact lens use. No heavy machinery use. CT is consistent with periorbital cellulitis with no orbital involvement. He has no leukocytosis, renal function is normal at baseline admitting creatinine 0.71, and is hemodynamically stable on admission. Patient and family seen at bedside, significant worsening of the ER overnight now starting to slightly improved. No fever/chills/sweats. Does continue on Parkinson's medications, at baseline is appropriately oriented and can have normal discussions. Patient is sensitive to the timing of his m edications, per family request will discuss with pharmacy to time appropriately to his home regimen. He is also on home doxycycline 1 mg twice daily, suppressive therapy with history of MRSA infections, has not missed any doses of this but has still developed his eye infection. On assessment left eye is with significant swelling and erythema, EOMs are intact without pain, no photosensitivity. Skin is warm and dry. Breathing is unlabored. Periorbital cellulitis. CTface/head: Left periorbital cellulitis, trace of palpebral fluid, intraorbital contents normal in appearance. Continue empiric coverage with Rocephin/vancomycin, clinically narrow once improving. If clinically improving reasonable to consider conversion to Augmentin/third-degree cephalosporin with Bactrim at that time. Patient is not sure if he has a Bactrim allergy or not, should be observed carefully with initial dosing if this is chosen as a oral conversion. Patient also with a intramedullary lateral roosevelt of his left leg which has fractured, has an intact medial intramedullary roosevelt. Is pending follow-up to [facility] for surgical revision, however this is not anticipated for several weeks/months and until he has had a improved baseline. Has been working with PT in the meantime, his outpatient orthopedist is aware of this. He is at increased risk should he have seeding of infection either to his stimulator or left leg hardware. Would favor a more aggressive approach to IV antibiotics and continue Vanco/Rocephin at this time Parkinson's: Continue home medications as noted. Depression/anxiety, continue home medications PG Care Time/CCT Total # of Minutes Spent Total Time Spent with Patient: Total time spent is greater than 50% in coordination of care (as documented) at patient's floor/unit and/or counseling patient: Coding Level of Care Code 79331 INT INP/OBS CARE 375MIN Diagnoses Periorbital cellulitis of left eye L03.213 Infection of prosthetic left knee joint T84.54XA AMS (altered mental status) R41.82 Parkinson disease G20 Depression F32.9 REM sleep behavior disorder G47.52
[2022-09-26] MEDS ORDERED: CARBIDOPA/LEVODOPA 25/100MG TAB ODT PO STA (19:47)
[2022-09-26] MEDS ORDERED: CARBIDOPA/LEVODOPA 50/200MG EXT REL TAB PO STA (19:48)
[2022-09-26] MEDS ORDERED: ONDANSETRON INJ 2 MG/ML 2 ML VIAL IV PRN (21:40)
[2022-09-26] MEDS ORDERED: MELATONIN 3 MG TAB PO PRN (21:40)
[2022-09-26] MEDS ORDERED: cefTRIAXone SODIUM 1,000 MG in DEXTROSE 5% AD-VAN 50 ML IV SCH (21:40)
[2022-09-26] MEDS ORDERED: POLYETHYLENE (MIRALAX) 17 GM PACK PO PRN (21:40)
[2022-09-26] MEDS ORDERED: LORazepam 0.5 MG TAB PO SCH (21:40)
[2022-09-26] MEDS ORDERED: ALUMINUM/MAGNESIUM SUSP 30 ML UDC PO PRN (21:40)
[2022-09-26] MEDS ORDERED: ACETAMINOPHEN 500 MG TAB PO PRN (21:40)
[2022-09-26] MEDS ORDERED: VANCOMYCIN CONSULT ACTIVE PRN (21:40)
[2022-09-26] MEDS ORDERED: VANCOMYCIN HCL 2,250 MG in SODIUM CHLORIDE 0.9% 500 ML IV ONE (23:00)
[2022-09-26] MEDS ORDERED: cefTRIAXone SODIUM 2,000 MG in DEXTROSE 5% 50 ML IV SCH (23:00)
[2022-09-26] MEDS: ENTACAPONE 200 MG TAB PO SCH (23:21)
[2022-09-26] MEDS: AMANTADINE HCL 100 MG CAPSULE PO SCH (23:21)
--- NOTE | 2022-09-27 02:56 | Pharmacy Report ---
Pharmacy PK ABX Note - Date of Service September 27, 2022 - Assessment and Plan Assessment 57 year old M receiving Vancomycin + Rocephin for treatment of periorbital cellulitis. Pertinent microbiologic data includes: blood culture x 2 pending. Plan Vancomycin * Loading dose: 2250 mg IV x 1 * Maintenance dose: 1500 mg IV every 12 hours * Regimen is predicted to achieve target AUC/ELISEO of 400-600 mg/L.hr * Random level will be checked at [facility]. Pharmacy will continue to follow and will adjust dose/frequency as necessary. Thank you. Pharmacy has transitioned to AUC monitoring for vancomycin. AUC/ELISEO is the preferred PK/PD target and is associated with decreased risk of nephrotoxicity compared to traditional trough targets.
[2022-09-27] MEDS: ENTACAPONE 200 MG TAB PO SCH ×3 (06:00→17:09)
[2022-09-27] MEDS: AMANTADINE HCL 100 MG CAPSULE PO SCH ×2 (06:00→11:15)
[2022-09-27] MEDS: CARBIDOPA/LEVODOPA 25/100MG TAB ODT PO SCH ×3 (06:00→17:06)
[2022-09-27] MEDS: CARBIDOPA/LEVODOPA 50/200MG EXT REL TAB PO SCH ×3 (07:39→17:09)
[2022-09-27] MEDS ORDERED: VANCOMYCIN HCL 1,500 MG in SODIUM CHLORIDE 0.9% 500 ML IV SCH (08:00)
[2022-09-27] MEDS ORDERED: DULoxetine HCL 30 MG CAP PO SCH (09:00)
[2022-09-27] MEDS ORDERED: DULoxetine HCL 60 MG CAP PO SCH (09:00)
[2022-09-27] MEDS ORDERED: CARBIDOPA/LEVODOPA 50/200MG EXT REL TAB PO SCH (09:00)
[2022-09-27 09:39] LABS: Basophils # (auto) 0.06 K/uL (0-0.2); Basophils % (auto) 1.2 %; Eosinophils # (auto) 0.31 K/uL (0-0.50); Eosinophils % (auto) 6.2 %; Hematocrit (blood only) 37.7 % (40.1-51.0); Hemoglobin 12.4 g/dl (14.0-18.0); Immature Granulocytes # (auto) 0.01 K/uL (0.00-0.02); Immature Granulocytes % (auto) 0.2 %; Lymphocytes # (auto) 0.73 K/uL (1.2-3.4); Lymphocytes % (auto) 14.6 %; Mean Corpuscular Hemoglobin 29.8 pg (25.0-34.0); Mean Corpuscular Hgb Conc 32.9 g/dL (32.0-36.0); Mean Corpuscular Volume 90.6 fL (80.0-100.0); Monocytes # (auto) 0.29 K/uL (0.24-0.82); Monocytes % (auto) 5.8 %; Platelet Count 223 K/uL (130-400); RDW Standard Deviation 46.5 fL (36.4-46.3); Red Blood Count 4.16 M/uL (4.63-6.08)
--- NOTE | 2022-09-27 09:40 | Hospitalist Progress Note ---
Date of Service September 27, 2022 Assessment & Plan (1) Periorbital cellulitis of left eye: Plan: - 1 day of seemingly random erythema and edema to left eye without prior injury o - Face CT: Left periorbital cellulitis. - Will treat with initial course of IV vancomycin and Rocephin, prefer initial IV over PO antibiotics give concern for recurrent MRSA infection, possibility of seedin/infection to brain stimulator, left knee hardware. (2) Infection of prosthetic left knee joint: Plan: - Chronic, Follows with [facility] ID. - Recommend ID consult tomorrow for history of MRSA infections, concern for s eeding/ infection to knee hardware and/or brain stimulator. - Patient with broken roosevelt in knee, per he is not to work with PT. Non- weight bearing on left leg. (3) AMS (altered mental status): Plan: - Patient's he has had visual hallucinations of the past couple days, infectious work-up negative except for his periorbital cellulitis. - No UTI, electrolytes are within normal limits. Head CT shows deep brain stimulator leads. No hemorrhage/infarction, mass, or midline shift. - We will continue to monitor for improvement with treatment of cellulitis. (4) Parkinson disease: Plan: - Continue Sinemet, amantadine, entacapone. Patient very sensitive to timing of Sinemet: * carbidopa/levodopa ER 50/200 QID 0700, 1100, 1600, 2100 before meals * carbidopa/levodopa ODT 25/200 QID 0700, 1100, 1600, 2100 before meals * has additional ODT doses available QID as needed for breakthrough/"rescue symptoms" * (5) Depression: Plan: - Continue Cymbalta. (6) REM sleep behavior disorder: Plan: - Chronic, follows w/ neurology. Only medication that hsa been useful is Ativan. - Continue Ativan 1.5 mg p.o. at night,scheduled and melatonin at night scheduled. Plan - Admit to [facility]. - SCDs for VTE ppx. - Full Code. Admission and Anticipated Discharge Date Admission Date: September 26, 2022 Results & Data Results & Data ([facility]) Vital Signs (Past 12 Hours) Vital Signs Temp Pulse Pulse Pulse Resp BP Pulse Ox 09/27/22 08:19 36.7 C 80 16 143/95 H 92 09/26/22 23:00 09/26/22 22:50 36.3 C L 80 18 177/92 H 92 09/26/22 22:05 84 24 145/99 H 95 O2 Del Method 09/27/22 08:19 Room Air 09/26/22 23:00 Room Air 09/26/22 22:50 Room Air 09/26/22 22:05 Room Air PG Care Time/CCT Total # of Minutes Spent Total Time Spent with Patient: Total time spent is greater than 50% in coordination of care (as documented) at patient's floor/unit and/or counseling patient: Coding Diagnoses Periorbital cellulitis of left eye L03.213 Infection of prosthetic left knee joint T84.54XA AMS (altered mental status) R41.82 Parkinson disease G20 Depression F32.9 REM sleep behavior disorder G47.52
[2022-09-27 10:01] LABS: BUN Creatinine Ratio 19.7 (10-20); Calcium 8.3 mg/dl (8.5-10.1); Creatinine Clr Calc Pharmacy 150.7 ml/min; Est GFR (African American) 124.4 ml/min; Est GFR (Non-African American) 107.3 ml/min; Potassium 3.4 mmol/L (3.5-5.1)
--- NOTE | 2022-09-27 10:04 | Infectious Disease Consult ---
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 Vitals and labs were unremarkable (no leukocytosis, no elevated procalcitonin), and CT head/face showed L periorbital soft tissue edema, trace inferior subpalpebral fluid on L, and mild mucosal thickening within L maxillary antrum. Extraocular movements are without pain. He was started on vancomycin and ceftriaxone. By the time of my evaluation on 15 AM, there is no longer any L eye edema/erythema, no conjunctival injection. Such rapid improvement raises the question of whether he truly had periorbital cellulitis. It seems that he has similar presentations with his L eye in the past. He complains primarily of chronic L dry eye and chronic crusting around his eye. Recurrent periorbital cellulitis is rare--can be associated with sinusitis (does have some mild mucosal thickening in L maxillary antrum on CT face, and endorsed some rhinorrhea/cough in the prior few days), or perhaps this may be related to blepharitis and crusting, requiring routine cleaning of the eyelids. 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 Uncertain whether he truly has periorbital cellulitis, given the complete resolution of symptoms in 1 day. However, can transition to TMP/SMX 1 DS tab PO BID and amoxicillin/clavulanate 875 mg PO BID to complete a 5-7 day course for empiric treatment of mild periorbital cellulitis -Can hold home doxycycline while on vancomycin here, and while on above TMP/SMX. Can restart home doxycycline after completing above course. -Would encourage routine cleaning of his eyelids with warm compresses, diluted baby shampoo -Should see an operator automated process for his recurrent L eye issues (dry eye, cellulitis/conjunctivitis), and evaluate for alternative causes and predisposing etiologies Will sign off. Please page [facility] Call Center with further qu estions Consultation Information Consultation was provided via telemedicine using two-way real-time interactive telecommunication between the patient and the telemedicine provider. For the duration of the visit, the provider was performing the assessment from a different facility than the patient. This includesuse of bluetooth stethoscope forauscultationperformed by the telepresenter that the telemedicine provider can hear if described in the physical exam. Order Selector contact information: Please call [facility] [phone]. (Phone Number For Physician Use Only) After establishing a telemedicine visit, patient was: Patient was verified with two unique identifiers, Patient/authorized rep acknowledged consent and understanding and Gave permission to continue telehealth session Time Spent w Inpatient: 40 minutes History of Present Illness Reason for Consultation: periorbital cellulitis Requesting Physician: Dr. 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 Upon waking the day of admission, his L eye was noted to be red and swollen. Denied recent trauma to the eye, no photophobia or pain with extraocular movements. Does not wear contacts. He endorsed rhinorrhea and cough starting about 1-2 days prior to onset of his L eye symptoms, although these symptoms have now resolved. He states he chronically deals with L eye dryness, and has had recurrent L eye infections. He often has crusting around his L eye, but avoids touching the area or removing the crust in order to avoid precipitating eye infections. He does not clean the area. Has not seen an operator automated process for his recurrent L eye issues. On presentation, he was afebrile, VSS. Labs showed no leukocytosis, no left shift, procalcitonin < 0.05, lactate 1.2, UA negative, COVID-[address] head/face showed L periorbital soft tissue edema, trace inferior subpalpebral fluid on the L, mild mucosal thickening within L maxillary antrum. BCx were collected and he was started on vanc and ceftriaxone. Of note, he presented to the ED on 09/23 for evaluation of intermittent confusion where he is "seeing things", which occurs when he has an infection. At that time, labs were unremarkable, CXR negative, UA without WBCs, RVP negative, CT head negative. He was given IVF and discharged home. On review of notes, during his hospitalization in 05/2022, he was noted to have L lower eyelid edema and scleral injection, treated for conjunctivitis with tobradex drops. A L eye culture was obtained on 06/12/22 and grew coag neg Staph and Alexia albicans/dubliniensis. Pt states he follows with Dr. Pemberton of infectious disease. Allergies Allergy/AdvReac Type Severity Reaction Status Date / Time morphine Allergy Mild Itching Verified 09/26/22 20:59 buspirone [From BuSpar] AdvReac Severe SCHIZOPHRENIA Verified 09/26/22 20:59 LIKE ACTIONS haloperidol [From Haldol] AdvReac Severe CONTRAINDICATED Verified 09/26/22 20:59 IN PARKINSON'S DISEASE pramipexole [From Mirapex] AdvReac Severe BECAME OCD Verified 09/26/22 20:59 FOR WEEKS quetiapine [From Seroquel] AdvReac Severe PT BECAME Verified 09/26/22 20:59 VIOLENT THEN DEEP SLEEP Home Medications Medication Instructions Recorded Confirmed Type amantadine HCl 100 mg tablet 100 mg PO BID 06/30/19 09/26/22 History carbidopa ER 50 mg-levodopa 200 mg 1 tab PO QID 06/30/19 09/26/22 History tablet,extended release entacapone 200 mg tablet (Comtan) 200 mg PO QID 06/30/19 09/26/22 History acetaminophen 500 mg tablet 1,000 mg PO BID PRN Pain 04/29/20 09/26/22 History doxycycline hyclate 100 mg tablet 100 mg PO BID 04/29/20 09/26/22 History duloxetine 60 mg capsule,delayed 60 mg PO DAILY #30 caps 03/29/21 09/26/22 Rx release melatonin 3 mg tablet 6 - 9 mg PO HS PRN Sleep 06/11/22 09/26/22 History carbidopa 25 mg-levodopa 100 mg 1 tab PO ,,,08/09/22 09/26/22 History disintegrating tablet duloxetine 30 mg capsule,delayed 30 mg PO DAILY #30 caps 09/13/22 09/26/22 Rx release lorazepam 1 mg tablet 1.5 mg PO HS PRN Sleep 09/23/22 09/26/22 History Patient History Medical History Acute UTI Anxiety Conjunctivitis Depression Hearing deficit [facility] left ear Osteoarthritis Parkinson disease s/p deep brain stimulator. Dr. Linda Back, [facility] Sleep apnea does not tolerate device Urinary incontinence Managed at primary care Venous stasis of both lower extremities Vitamin D deficiency Surgical History History of appendectomy History of carpal tunnel release History of colonoscopy History of foot surgery RECONSTRUCTION - RT History of left knee replacement History of revision of total knee arthroplasty LEFT History of shoulder surgery LEFT X 2; RT X 1 S/P deep brain stimulator placement (~2008) Family History Grandmother Family history of diabetes mellitus Father Hypertension Denies family history of Ovarian cancer Osteoporosis Myocardial infarction Breast cancer Colorectal cancer Cancer Social History Smoking Status: Never smoker Second Hand Exposure: No; Do You Dip or Chew Tobacco: No; Hx Alcohol Use: No Hx Substance Use: No Preferred Language: Maltese Communication Ability: Impaired Visual Impairment: No Limitations Hearing Ability: Normal Gas Controller Required: No Beliefs That Will Affect Care: None marital status: Current Living Situation: Spouse How many Children do You have: 2 Feels Safe at Home: Yes Safety Concerns: Feels Safe At This Time Assistive Devices: Glasses and Wheelchair Review of System A complete ROS was performed and is negative except as mentioned in the HPI. Physical Exam Physical Exam: GEN: Well-appearing, in NAD. HEENT: Normocephalic, atraumatic. DBS leads without surrounding swelling or erythema. EOMI without associated pain. L eye with surrounding dry crust, no active discharge, no conjunctival injection. No periorbital edema or erythema. RESP: No increased work of breathing EXT: L knee without warmth or erythema. SKIN: L knee incision well-healed without erythema or drainage. NEURO: Alert and oriented PSYCH: Normal mood, affect appropriate. Results & Data ([facility]) Vital Signs (Past 12 Hours) Vital Signs Temp Pulse Pulse Pulse Resp BP Pulse Ox 09/27/22 08:19 36.7 C 80 16 143/95 H 92 09/26/22 23:00 09/26/22 22:50 36.3 C L 80 18 177/92 H 92 09/26/22 22:05 84 24 145/99 H 95 O2 Del Method 09/27/22 08:19 Room Air 09/26/22 23:00 Room Air 09/26/22 22:50 Room Air 09/26/22 22:05 Room Air Laboratory Results Short CBC 09/26/22 09/27/22 Range/Units 12:20 09:03 WBC 7.05 5.00 (4.8-10.8) K/ul Hgb 14.3 12.4 L (14.0-18.0) g/dl Hct 43.7 37.7 L (40.1-51.0) % Plt Count 236 223 (130-400) K/uL BMP 09/26/22 09/27/22 12:20 09:03 Sodium 142 139 Potassium 3.5 3.4 L Chloride 109 H 106 Carbon Dioxide 25 28 BUN 17 13 Creatinine 0.71 0.66 Glucose 96 118 H Calcium 9.3 8.3 L Liver Function 09/26/22 Range/Units 12:20 Total Bilirubin 0.7 (0.2-1.0) mg/dl AST 14 (13-39) U/L ALT 4 L (7-52) U/L Alkaline Phosphatase 76 (34-104) U/L Albumin 3.9 (3.4-5.0) gm/dl Urine 09/26/22 Range/Units 17:35 Urine Color Dark Yellow Urine Appearance Clear (Clear) Urine pH 5.5 (4.5-7.5) Ur Specific Orange > 1.045 H (1.000-1.030) Urine Protein Negative (Negative) Urine Glucose (UA) Negative (Negative) Diagnostic Findings Head CT 09/26/22 11:48 CT head/brain wo con CLINICAL HISTORY: eye swelling Technique: Contiguous axial CT images of the head were acquired from the base of the skull to the vertex without intravenous contrast administration. Images were viewed in brain, subdural and bone windows. Automated dose lowering techniques and/or adjustment according to patient size were utilized for this exam. Comparison: Comparison is made to CT head 09/23/2022 Findings: Areas of decreased attenuation are present in the periventricular and subcortical white matter bilaterally consistent with small vessel ischemic disease. Generalized cerebral atrophy with commensurate enlargement of the ventricles, sulci, and cisterns is also present. There is no acute intracranial hemorrhage or evidence of acute territorial infarction. No shift of the midline structures, mass effect, or extra-axial abnormalities are shown. Atherosclerotic calcifications are present in the intracranial segments of the internal carotid arteries. Deep brain stimulator leads are noted. Imaged portions of the paranasal sinuses and mastoid air cells are clear. Partial visualization of mild soft tissue swelling is seen about the left periorbital tissues. There are no acute fractures of the calvaria or scalp swelling. Impression: No acute intracranial hemorrhage, no evidence of acute territorial infarction or other acute intracranial disease process. Deep brain stimulator leads are seen. Please see CT facial bones performed same day for evaluation of left periorbital swelling. ACT 112: Negative or not required by law. Electronically signed by: Jim Cox M.D. 09/26/2022 2:[address] 09/26/22 11:49 CT SCAN OF THE FACIAL BONES WITH IV CONTRAST CLINICAL HISTORY: Left eye pain and swelling. Infection COMPARISON STUDY: CT of the facial bones dated 08/18/2022. TECHNIQUE: High-resolution CT scan of the facial bones is performed following the IV administration of 90 cc of Optiray 350. Images are reviewed in the axial, sagittal, and coronal planes. IV contrast was administered without complication. A dose lowering technique was utilized adhering to the principles of ALARA. CT DOSE: 948.06 mGy.cm FINDINGS: The skeletal structures are well mineralized. There is no evidence of facial bone fracture. There is left periorbital soft tissue edema typical for cellulitis. Trace inferior subpalpebral fluid is again suggested on the left. The bony orbits are intact. Orbital contents are normal as visualized. The zygomatic arches, nasal bones, and pterygoid plates are preserved. The maxilla and mandible are intact. There are no layering blood products within the paranasal sinuses. There is mild mucosal thickening within the left maxillary antrum. Remaining paranasal sinuses are clear. The mastoid air cells are well pneumatized. The visualized calvarium and upper cervical spine are maintained. Bilateral intracranial stimulator leads are in place. Partially imaged brain parenchyma is otherwise within normal limits. There are scattered dental caries. IMPRESSION: 1. No acute facial bone abnormality is identified. 2. Left periorbital cellulitis. 3.. Trace inferior subpalpebral fluid is again suggested on the left. Clinical correlation will be required. 4. Intraorbital contents are normal in appearance. Microbiology: 09/26 BCx x2: NGTD Medications Administered Current Inpatient Medications Acetaminophen (Acetaminophen 500 Mg Tab) 1,000 mg PO BID PRN PRN Reason: Pain Stop: 10/26/22 21:39 Last Admin: 09/26/22 23:28 Dose: 1,000 mg Al Hydrox/Mg Hydrox/Simethicone (Aluminum/Magnesium Susp 30 Ml Udc) 15 ml PO Q4H PRN PRN Reason: Dyspepsia Stop: 10/26/22 21:39 Amantadine HCl (Amantadine Hcl 100 Mg Capsule) 100 mg PO BID@0700,1100 RENAN Stop: 10/26/22 21:39 Last Admin: 09/27/22 06:00 Dose: 100 mg Carbidopa/Levodopa (Carbidopa/Levodopa 25/100mg Tab Odt) 1 tab PO 07,11,17,21 RENAN Stop: 10/27/22 06:59 Last Admin: 09/27/22 06:00 Dose: 1 tab Carbidopa/Levodopa (Carbidopa/Levodopa 25/100mg Tab Odt) 1 tab PO QID PRN PRN Reason: TREMORS Stop: 10/26/22 22:04 Carbidopa/Levodopa (Carbidopa/Levodopa 50/200mg Ext Rel Tab) 1 tab PO 0700,1100,1700,2100 RENAN; Protocol Stop: 10/27/22 07:29 Last Admin: 09/27/22 07:39 Dose: 1 tab Duloxetine HCl (Duloxetine Hcl 30 Mg Cap) 30 mg PO DAILY [facility] Stop: 10/27/22 08:59 Last Admin: 09/27/22 08:47 Dose: 30 mg Duloxetine HCl (Duloxetine Hcl 60 Mg Cap) 60 mg PO DAILY [facility] Stop: 10/27/22 08:59 Last Admin: 09/27/22 08:47 Dose: 60 mg Entacapone (Entacapone 200 Mg Tab) 200 mg PO QID@0700,1100,1600,2100 [facility] Stop: 10/26/22 21:39 Last Admin: 09/27/22 06:00 Dose: 200 mg Vancomycin HCl 1,500 mg/ (Sodium Chloride) 530 mls @ 200 mls/hr IV Q12H [facility] Stop: 10/07/22 07:59 Last Admin: 09/27/22 08:46 Dose: 200 mls/hr Ceftriaxone Sodium 2,000 mg/ (Dextrose) 70 mls @ 140 mls/hr IV Q24H [facility] Stop: 10/06/22 22:59 Last Infusion: 09/26/22 23:46 Dose: Infused Lorazepam (Lorazepam 0.5 Mg Tab) 1.5 mg PO HS [facility] Stop: 10/26/22 21:39 Last Admin: 09/27/22 04:34 Dose: Not Given Melatonin (Melatonin 3 Mg Tab) 6 mg PO HS PRN PRN Reason: Sleep Stop: 10/26/22 21:39 Last Admin: 09/26/22 23:21 Dose: 6 mg Miscellaneous Information (Vancomycin Consult Active) 1 each N/A UD PRN PRN Reason: Consult Stop: 10/26/22 21:39 Ondansetron HCl (Ondansetron Inj 2 Mg/Ml 2 Ml Vial) 4 mg IV Q6H PRN PRN Reason: Nausea Stop: 10/26/22 21:39 Polyethylene Glycol (Polyethylene (Miralax) 17 Gm Pack) 17 gm PO DAILY PRN PRN Reason: Constipation Stop: 10/26/22 21:39
--- NOTE | 2022-09-27 10:22 | Hospitalist Progress Note ---
Date of Service September 27, 2022 Assessment & Plan (1) Periorbital cellulitis of left eye: Plan: - 1 day of acute onset left edema, erythema without pain on extraocular movements - Face CT: Left periorbital cellulitis. -Continued on IV vancomycin and Rocephin, given history of recurrent MRSA and risk of seeding with both left leg hardware and Parkinson's stimulator will defer narrowing pending ID recommendations. Clinically improving 09/27, with vastly improved erythema and edema. patient was on doxycycline 100 mg twice daily suppressive therapy prior to admission while he developed cellulitis No leukocytosis 09/27 (2) Infection of prosthetic left knee joint: Plan: - Chronic, Follows with [facility] ID. -ID consult pending given history of MRSA infections, concern for seeding/ infection to knee hardware and/or brain stimulator. - Patient with broken roosevelt in knee, per wifehe is not to work with PT. Non- weight bearing on left leg. Patient has scheduled follow-up for this with orthopedics, however surgical intervention is not anticipated for several months (3) AMS (altered mental status): Plan: - Patient's he has had visual hallucinations of the past couple days, infectious work-up negative except for his periorbital cellulitis. - No UTI, electrolytes are within normal limits. Head CT shows deep brain stimulator leads. No hemorrhage/infarction, mass, or midline shift. -Cellulitis improving Denies hallucinations, vision change, confusion overnight. Is alert and appropriate 09/27 (4) Parkinson disease: Plan: - Continue Sinemet, amantadine, entacapone. Patient very sensitive to timing of Sinemet: * carbidopa/levodopa ER 50/200 QID 0700, 1100, 1600, 2100 before meals * carbidopa/levodopa ODT 25/200 QID 0700, 1100, 1600, 2100 before meals * has additional ODT doses available QID as needed for breakthrough/"rescue symptoms" * (5) Depression: Plan: - Continue Cymbalta. (6) REM sleep behavior disorder: Plan: - Chronic, follows w/ neurology. Only medication that hsa been useful is Ativan. - Continue Ativan 1.5 mg p.o. at night,scheduled and melatonin at night scheduled. Plan PT/OT consulted with nonweightbearing of left lower extremity, case management consulted Admission and Anticipated Discharge Date Admission Date: September 26, 2022 Subjective Srikanth is seen at the bedside this morning. Reports he feels well and had no fever, chills, sweats, or eye pain overnight. He reports his left eye is itchy and feels dry, which she wonders if this will heal or persist. He is alert and oriented to name, date, and place and answers questions appropriately. He has not yet had ID consultation. He is not having lower leg pain Review of Systems Review of Systems: All systems reviewed & are unremarkable except as noted in Subjective Physical Exam Physical Exam: General: A&Ox3. NAD. Cooperative. HEENT: Left eye remains with mild swelling, vastly improved erythema/swelling. Minimal residual scleral injection. EOMs intact without pain. Vision intact without field cuts. Pupils equal and reactive to light, no photosensitivity on exam. Pulm: CTAB A&P. -wheezes, -rales, -rhonchi. Symmetrical chest rise. No increase in work of breathing. No respiratory distress. Cardiac: RRR, -mrg. Radial pulses intact and symmetrical. Abdominal: Nontender, nondistended, soft. BS present. Results & Data Results & Data ([facility]) Vital Signs (Past 12 Hours) Vital Signs Temp Pulse Pulse Resp BP Pulse Ox O2 Del Method 09/27/22 08:19 36.7 C 80 16 143/95 H 92 Room Air 09/26/22 23:00 Room Air 09/26/22 22:50 36.3 C L 80 18 177/92 H 92 Room Air PG Care Time/CCT Total # of Minutes Spent Total Time Spent with Patient: Total time spent is greater than 50% in coordination of care (as documented) at patient's floor/unit and/or counseling patient: Coding Level of Care Code 41605 SUB INP/OBS CARE 2/35MIN Diagnoses Periorbital cellulitis of left eye L03.213 Infection of prosthetic left knee joint T84.54XA AMS (altered mental status) R41.82 Parkinson disease G20 Depression F32.9 REM sleep behavior disorder G47.52
[2022-09-27] MEDS ORDERED: POTASSIUM CHLORIDE CRTAB 20 MEQ TABCR PO STA (10:27)
[2022-09-27] MEDS: CARBIDOPA/LEVODOPA 25/100MG TAB ODT PO PRN ×2 (12:44→17:09)
[2022-09-27] MEDS ORDERED: SULFAMETHOXAZOLE/TRIMETHOPRIM DS 800/160MG TAB PO SCH ×2 (14:20→21:00)
[2022-09-27] MEDS ORDERED: SULFAMETHOXAZOLE/TRIMETHOPRIM DS 800/160MG TAB PO STA (14:33)
--- NOTE | 2022-09-27 16:17 | Discharge Summary ---
Date of Service September 27, 2022 Admission HPI Per Admitting Provider Al Knox is a 57-year-old male with a past medical history significant for Parkinson's, sleep apnea, depression, and anxiety is presenting today with his for concerns of facial swelling and hallucinations. He woke up today and noted his left eye to be red and swollen, very different from how it appeared when he went to bed last night. He has not had any recent trauma or injury to the eye, no open wounds. He is not having any photophobia or pain with eye movements. He is not a contact lens wearer. Benadryl and erythromycin ointment at home have helped. In addition to this, he has had intermittent visual issues over the past. On presentation, his vital signs been within normal limits and stable. Labs largely unremarkable, without elevated WBC, elevated procalcitonin, or elevated lactate. UA appears normal without any evidence of infection. No electrolyte or normalities, renal and hepatic function normal at baseline. Face CT shows left periorbital cellulitis. Head CT shows deep brain stimulators, otherwise no evidence of intracranial hemorrhage, territorial infarction, or other acute intracranial disease process. Principal Diagnosis Periorbital cellulitis Discharge Exam General: A&Ox3. NAD. Cooperative. HEENT: Left eye remains with mild swelling, vastly improved erythema/swelling. Minimal residual scleral injection. EOMs intact without pain. Vision intact without field cuts. Pupils equal and reactive to light, no photosensitivity on exam. Pulm: CTAB A&P. -wheezes, -rales, -rhonchi. Symmetrical chest rise. No increase in work of breathing. No respiratory distress. Cardiac: RRR, -mrg. Radial pulses intact and symmetrical. Abdominal: Nontender, nondistended, soft. BS present. Discharge Data Allergies Allergy/AdvReac Type Severity Reaction Status Date / Time morphine Allergy Mild Itching Verified 09/26/22 20:59 buspirone [From BuSpar] AdvReac Severe SCHIZOPHRENIA Verified 09/26/22 20:59 LIKE ACTIONS haloperidol [From Haldol] AdvReac Severe CONTRAINDICATED Verified 09/26/22 20:59 IN PARKINSON'S DISEASE pramipexole [From Mirapex] AdvReac Severe BECAME OCD Verified 09/26/22 20:59 FOR WEEKS quetiapine [From Seroquel] AdvReac Severe PT BECAME Verified 09/26/22 20:59 VIOLENT THEN DEEP SLEEP Consultations 09/27/22 09:26 Consult Infectious Diseases Routine Ordered Studies 09/26/22 11:48 CT head/brain wo con Stat 09/26/22 11:49 CT face [CT facial bones w con] Stat Hospital Course (1) Periorbital cellulitis of left eye: There is a 57-year-old male with past medical history of Parkinson's with stimulator, 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 Clinical exam was without pain on EOMs or photosensitivity. Patient was treated with Rocephin and vancomycin on arrival with rapid clinical improvement. Given complex history infectious disease was consulted. Patient's rapid improvement gives some question of if this was true periorbital cellulitis, however given imaging and clinical exam initially recommend treatment for 5 days with antibiotics. Patient was converted to Augmentin and Bactrim per ID recommendations. Patient was not sure if he had ever had a reaction to Bactrim, thinks he may have had a rash but does not have a documented allergy to it and was not sure. Due to this patient was observed for several hours following initial administration of Bactrim. He tolerated this well with no signs of allergy. Return precautions were given and he was discharged home following review of case with patient and family. To do as outpatient: 1. Complete 5 days of Bactrim DS twice daily and Augmentin 875-125 mg twice daily treatment for periorbital cellulitis 2. Hold home doxycycline while on Bactrim. Once Bactrim complete may resume doxycycline. 3. Should have a repeat BMP to check kidney function and potassium especially while on Bactrim within 1 week performed by PCP this was discussed with patient and family, appointment was being scheduled at time of discharge 4. Keep outpatient appointments with orthopedics for broken hardware in left leg, intervention on this is not expected for several months. 5. Referral to ophthalmology. Referral to Dr. Zambrano per family request placed on discharge Periorbital cellulitis - 1 day of acute onset left edema, erythema without pain on extraocular movements - Face CT: Left periorbital cellulitis. -Continued on IV vancomycin and Rocephin, given history of recurrent MRSA and risk of seeding with both left leg hardware and Parkinson's stimulator will defer narrowing pending ID recommendations. Clinically improving /, with vastly improved erythema and edema. patient was on doxycycline 100 mg twice daily suppressive therapy prior to admission while he developed cellulitis No leukocytosis /5 Converted to Bactrim/Augmentin as noted above and discharged to complete 5 days of therapy (2) Infection of prosthetic left knee joint: - Chronic, Follows with [facility] ID. -ID consult pending given history of MRSA infections, concern for seeding/ infection to knee hardware and/or brain stimulator. - Patient with broken roosevelt in knee, per wifehe is not to work with PT. Non- weight bearing on left leg. Patient has scheduled follow-up for this with orthopedics, however surgical intervention is not anticipated for several months (3) AMS (altered mental status): - Patient's he has had visual hallucinations of the past couple days, infectious work-up negative except for his periorbital cellulitis. - No UTI, electrolytes are within normal limits. Head CT shows deep brain stimulator leads. No hemorrhage/infarction, mass, or midline shift. -Cellulitis improving Denies hallucinations, vision change, confusion overnight. Is alert and appropriate 09/27 (4) Parkinson disease: - Continue Sinemet, amantadine, entacapone. Patient very sensitive to timing of Sinemet: * carbidopa/levodopa ER 50/200 QID 0700, 1100, 1600, 2100 before meals * carbidopa/levodopa ODT 25/200 QID 0700, 1100, 1600, 2100 before meals * has additional ODT doses available QID as needed for breakthrough/"rescue symptoms" * (5) Depression: - Continue Cymbalta. (6) REM sleep behavior disorder: - Chronic, follows w/ neurology. Only medication that hsa been useful is Ativan. - Continue Ativan 1.5 mg p.o. at night,scheduled and melatonin at night scheduled. Plan PT/OT consulted with nonweightbearing of left lower extremity, case management consulted Total Time Total Time Spent Total Time Spent (In Minutes): * Time spend day of discharge 75 minutes including direct patient care, documentation, review of labs and images, and coordination of care. Discharge Plan Discharge Items Patient Disposition: Home - Home Health Services Reason For Visit: PERIORBITAL CELLULITIS Discharge Diagnosis: Periorbital cellulitis Activity: Resume your previous activity Activity Comment: Nonweightbearing to left lower extremity Non-emergency contact: Primary Care Provider and Specialist Call non-emergency contact if: you have any medication questions, your symptoms worsen and you have a fever Follow-up/Referrals: Rupesh Martinez MD [Physician] - Jose Martin DO [Primary Care Provider] - 10/04/22 11:30 am Diet: Regular Addtl Attending Provider Instructions: You were seen in the hospital for suspected infection of the soft tissue around the eye called periorbital cellulitis. You had rapid clinical improvement following treatment with IV antibiotics. The case was reviewed with infectious disease given concern for potential seeding to her stimulator and hardware of your leg. Given the extremely rapid improvement was suspected that this could have been an irritation versus allergy, however based on the CT findings and initial clinical exam it was recommended to continue treatment for 5 to 7 days with antibiotics for periorbital cellulitis. You were narrowed to Augmentin and Bactrim as below. Your white blood cell count was normal at time of discharge. You are not sure if you would had a reaction to Bactrim in the past, you were given a dose of Bactrim in the hospital and observed for several hours prior to discharge. He tolerated this well without any evidence of allergy. If you develop any rash, wheezing, lip or tongue swelling, difficulty breathing, or other signs of allergy please call 911 for reevaluation and treatment. Used to have blood work performed by her primary care provider within 1 week, and appointment with Dr. Martin is being scheduled for you. If you do not receive a call to confirm this appointment within 2 days please call his office at the number above. You have been prescribed an antibiotic, Bactrim. Please take Bactrim DS twice daily for 5 days. Side effect of Bactrim includes the potential for a life- threatening reaction or allergy, kidney dysfunction, or changes in your potassium level. You should have blood work drawn by your PCP within 1 week, and if you develop any lightheadedness, dizziness, worsening weakness, rash, difficulty breathing, wheezing or other new/concerning symptoms please seek prompt medical reevaluation. You have been prescribed a second antibiotic, Augmentin. Please take Augmentin 875-125 mg twice daily for 5 days. This is a penicillin-based antibiotic. Please do not take doxycycline at this time, Bactrim treats MRSA which doxycycline is also used to treat. Once you complete your course of Bactrim you may resume taking doxycycline twice daily Is recommended that you follow-up with an speeder hand for an eye exam. A referral has been made to Dr. Martinez as above. Did not show any evidence of infection in your blood and were clinically improving at time of discharge. Please keep your outpatient appointments for reevaluation of the broken hardware in your left leg. No changes to this were observed during admission. If you develop any new or worsening symptoms including fever, chills, sweats, chest pain, chest pressure, difficulty breathing, uncontrolled nausea/vomiting, rash, wheezing, passing out or nearly passing out, bleeding, black/bloody bowel movements, or other new or concerning symptoms please call your primary care physician, or call 911 for re-evaluation in the emergency department if you are very concerned. Pending Studies at Discharge: Yes (Repeat BMP within 1 week by PCP) Stand-Alone Forms: My [employer], Smoking Cessation Medications and DC Order Prescriptions: New sulfamethoxazole-trimethoprim [Bactrim DS] 800-160 mg Tablet 1 tab PO Q12 5 Days Qty: 10 0RF amoxicillin-pot clavulanate 875-125 mg Tablet 1 tab PO BIDM 5 Days Qty: 10 0RF Continued duloxetine 60 mg capsule,delayed release(DR/EC) 60 mg PO DAILY Qty: 30 2RF Rx Instructions: take with 30mg = 90mg daily duloxetine 30 mg capsule,delayed release(DR/EC) 30 mg PO DAILY Qty: 30 2RF Rx Instructions: take with 60mg = 90 mg daily amantadine HCl 100 mg tablet 100 mg PO BID Rx Instructions: at 0700 and 1100 AM carbidopa-levodopa 50-200 mg tablet extended release 1 tab PO QID entacapone [Comtan] 200 mg tablet 200 mg PO QID Rx Instructions: patient takes at 0700,1100,1600,2100 acetaminophen 500 mg tablet 1,000 mg PO BID PRN (Reason: Pain) lorazepam 1 mg tablet 1.5 mg PO HS PRN (Reason: Sleep) melatonin 3 mg Tablet 6 - 9 mg PO HS PRN (Reason: Sleep) Rx Instructions: may have 3-15mg melatonin at bedtime carbidopa-levodopa 25-100 mg tablet,disintegrating 1 tab PO 07,11,17,21 Rx Instructions: & qid PRN as needed for tremors Discontinued doxycycline hyclate 100 mg tablet 100 mg PO BID Rx Instructions: TAKES AT 0700 AND 1600 Discharge Orders: Discharge Order (Routine); Ordered 09/27/22 Ordered By: Caleb Talbot Admission Data Admit Date/Time: 09/26/22 18:07 Attending Provider: Caleb Talbot Admit Provider: Caleb Talbot Primary Care Provider: Jose Martin Other Providers: Caleb Talbot ; Shruthi Sky ; Tawanda Raymond ; Augusta Chawla ; Jesus Beard ; Digna Maier ; Elizabeth Flores ; Tanya Davidson ; He Anderson ; Josie Jackson Other Interventions: Discharge Summary Assessment (RN) Last Done: 09/27/22 17:24 Coding Level of Care Code HOSP INP/OBS DISCH >30 MIN Diagnoses Periorbital cellulitis of left eye L03.213 Infection of prosthetic left knee joint T84.54XA AMS (altered mental status) R41.82 Parkinson disease G20 Depression F32.9 REM sleep behavior disorder G47.52
[2022-09-27] MEDS ORDERED: AMOXICILLIN/CLAVULANATE 875 MG TAB PO SCH (21:00)
[2022-09-28] MEDS ORDERED: VANCOMYCIN LEVEL ONE (07:30)
[2022-09-28] MEDS ORDERED: SULFAMETHOXAZOLE/TRIMETHOPRIM DS 800/160MG TAB PO SCH (09:00)
== END 2022-09-27 20:53 | disposition home health service (06) | DRG 603 ==
LOC: ED 11:32 → EDINP 18:07 → SUATTDRO 18:07 → 3W 21:15

== ENCOUNTER 2023-10-21 18:21 | Observation (INO) ==
--- NOTE | 2023-10-21 18:44 | Emergency Department Note ---
Impression & Plan Hallucinations, Parkinson disease ED Provider Note ED Provider Note NAME: LEVON SAMANIEGO AGE:58 SEX: Male : 1965 ARRIVES VIA: EMS INFORMANT: Patient ED PROVIDER(s): Ladan Murillo DO CHIEF COMPLAINT: Hallucinations, sleep deprivation HPI: This is a 58-year-old male presents emergency department due to concern for hallucinations. Patient states he has not slept well over the last 4 days. He states that sometimes has contributed to hallucinations previously. He is more concerned for possible underlying infection as he does have a history of prior UTIs. Patient with history of significant Parkinson's disease. He states his medications were recently increased although no new medications were added. He denies any recent URI symptoms. He denies chest pain, shortness of breath, abdominal pain. He denies any change in bowel movements. He denies any trauma or change in activity. PAST MEDICAL HISTORY:See Below PAST SURGICAL HISTORY:See Below FAMILY HISTORY:See Below SOCIAL HISTORY:See Below HOME MEDICATIONS:See Below ALLERGIES:See Below VITALS:See Below PHYSICAL EXAMINATION: GENERAL: alert, well appearing, well nourished, no distress, non-toxic EYE EXAM: normal conjunctiva, PERRL and EOM's grossly intact OROPHARYNX: no exudate, no erythema, lips, buccal mucosa, and tongue normal and mucous membranes are moist NECK: supple, no nuchal rigidity, no adenopathy, non-tender LUNGS: Clear to auscultation. Normal chest wall mechanics, no w/r/r HEART: no murmurs, S1 normal and S2 normal ABDOMEN: abdomen soft, non-tender, normo-active bowel sounds, no masses, no rebound or guarding. BACK: Back is symmetrical on inspection and there is no deformity, no midline tenderness, no CVA tenderness. SKIN: no rashes, petechiae, orbruising UPPER EXTREMITIES: upper extremities are grossly normal. FROM, nml pulses b/l. LOWER EXTREMITIES: No pitting edema. FROM, nml pulses b/l. NEURO EXAM: Normal sensorium, cranial nerves II-XII grossly intact, normal speech, no facial droop,nogross weakness of arms, no gross weakness of legs. Gross sensation intact. No ataxia. Vital Signs: reviewed and remarkable Differential Diagnosis: CVA, ICH, viral syndrome, UTI, dehydration, electrolyte abnormality, medication ADR, dysrhythmia, seizure, as well as others were considered MEDICAL DECISION MAKING: This is a 58-year-old male with a long history of significant Parkinson's disease and several complications from this who presents due to concern for hallucinations and agitation. Patient afebrile and vital signs stable. He has had prior similar episodes due to sleep deprivation and UTI. Labs drawn and sent, IV established, EKG and chest x-ray performed bedside interpreted by me and patient monitored on telemetry. He was sent for CT of the head additionally which was reassuring. Patient with no new neurologic deficits as he is otherwise wheelchair-bound and unable to bear weight on his left leg chronically. Patient's labs and imaging reassuring including urine that was obtained by straight catheterization. CT of the head and chest x-ray unremarkable. Patient's nasal swab negative for acute viral syndrome. After discussion with who presented to bedside, case was discussed with the hospitalist team for additional evaluation and management. Patient was given additional lorazepam after this discussion. Consultation(s): 2110: Discussed with Dr. Adams, [facility] hospitalist, for additional evaluation and management. ER Treatment Provided: See below Diagnostics Interpreted By Me: -ECG: Normal sinus at 93, normal axis, normal intervals, nonspecific ST/T wave changes, baseline artifact noted -Cardiac Monitoring: An order was placed for continuous cardiac monitoring. The monitor shows a rate of 96 with normal sinus rhythm. -Laboratory studies: As stated above and show below. -Imaging studies: X-ray Chest: A single view study of the chest was reviewed and was negative for cardiomegaly, focal infiltrate, effusion, pulmonary edema, or wide mediastinum. Triage Nursing Note Reviewed Prior/Outside Records Reviewed -prior discharge summary reviewed Past Med/Surg History Medical History Conjunctivitis Acute UTI Vitamin D deficiency Osteoarthritis Urinary incontinence Managed at primary care Venous stasis of both lower extremities Hearing deficit COWLITZ left ear Depression Anxiety Parkinson disease s/p deep brain stimulator. Dr. Linda Back, [facility] Sleep apnea does not tolerate device Surgical History History of carpal tunnel release History of revision of total knee arthroplasty LEFT History of foot surgery RECONSTRUCTION - RT History of left knee replacement History of shoulder surgery LEFT X 2; RT X 1 History of appendectomy History of colonoscopy S/P deep brain stimulator placement (~2008) Family History Grandmother Family history of diabetes mellitus Father Hypertension Denies family history of Ovarian cancer Osteoporosis Myocardial infarction Breast cancer Colorectal cancer Cancer Social History Smoking Status: Never smoker Second Hand Exposure: No; Do You Dip or Chew Tobacco: No; Hx Alcohol Use: No Hx Substance Use: No Preferred Language: Citizen Of [place] Communication Ability: Effective Visual Impairment: No Limitations Hearing Ability: Normal Chlorine Cell Tender Required: No Beliefs That Will Affect Care: None marital status: Current Living Situation: Spouse Current Living Situation Comment: lives at home with How many Children do You have: 2 Other Information That Helps Us Care for You: No Feels Safe at Home: Yes Safety Concerns: Feels Safe At This Time Assistive Devices: Walker and Wheelchair Allergies Allergies Allergy/AdvReac Type Severity Reaction Status Date / Time morphine Allergy Mild Itching Verified 06/11/23 15:46 buspirone [From BuSpar] AdvReac Severe SCHIZOPHRENIA Verified 06/11/23 15:46 LIKE ACTIONS haloperidol [From Haldol] AdvReac Severe CONTRAINDICATED Verified 06/11/23 15:46 IN PARKINSON'S DISEASE pramipexole [From Mirapex] AdvReac Severe BECAME OCD Verified 06/11/23 15:46 FOR WEEKS quetiapine [From Seroquel] AdvReac Severe PT BECAME Verified 06/11/23 15:46 VIOLENT THEN DEEP SLEEP Home Meds Home Medications Medication Instructions Recorded Confirmed amantadine HCl 100 mg tablet 100 mg PO BID 06/30/19 10/21/23 carbidopa ER 50 mg-levodopa 200 mg 1 tab PO QID 06/30/19 10/21/23 tablet,extended release entacapone 200 mg tablet (Comtan) 200 mg PO QID 06/30/19 10/21/23 acetaminophen 500 mg tablet 1,000 mg PO BID PRN Pain 04/29/20 10/21/23 carbidopa 25 mg-levodopa 100 mg 1 tab PO QID PRN DISCOMFORT AND 10/04/22 10/21/23 disintegrating tablet RIGIDITY diclofenac sodium 1 % topical gel 2 g topical QID PRN Pain 10/04/22 10/21/23 cbd gummie 25 mg PO DAILY PRN ANXIETY/SLEEP 03/27/23 10/21/23 carbidopa 25 mg-levodopa 100 mg 1 tab PO QID 10/21/23 10/21/23 tablet doxycycline hyclate 100 mg tablet 100 mg PO AMHS 10/21/23 10/21/23 duloxetine 60 mg capsule,delayed 60 mg PO QAM 10/21/23 10/21/23 release hydroxyzine HCl 10 mg tablet 10 mg PO BID PRN ANXIETY/SLEEP 10/21/23 10/21/23 lorazepam 1 mg tablet 1 mg PO BID PRN Anxiety 10/21/23 10/21/23 melatonin 2.5 mg chewable tablet 7.5 mg PO HS 10/21/23 10/21/23 Results & Data (ED) Vital Signs Vital Signs - 24 hr 10/21/23 18:29 10/21/23 18:45 10/21/23 19:00 Temperature 36.7 C Temperature Source Oral Pulse Rate 94 H 82 Pulse Rate [Apical] Pulse Rate from SpO2 Sensor Pulse Rhythm [Apical] Pulse Strength [Apical] Respiratory Rate 22 Respiratory Effort / Characteristics Respiratory Depth Respiratory Pattern Blood Pressure 125/75 Blood Pressure [Right Arm] Blood Pressure Mean 91 Blood Pressure Mean [Right Arm] Blood Pressure Position [Right Arm] Pulse Oximetry 95 95 Oxygen Delivery Method Room Air Room Air Sepsis Recent Fever Within 48 Hours No Sepsis New/Unexplained Change in Mental Status No Sepsis Action Taken by Nursing No Action Required 10/21/23 19:00 10/21/23 19:04 10/21/23 19:04 Temperature Temperature Source Pulse Rate 83 Pulse Rate [Apical] 86 Pulse Rate from SpO2 Sensor Pulse Rhythm [Apical] Regular Pulse Strength [Apical] Normal Respiratory Rate 26 H 20 Respiratory Effort / Characteristics Non-Labored Spontaneous Respiratory Depth Normal Respiratory Pattern Regular Blood Pressure 124/69 Blood Pressure [Right Arm] 124/69 Blood Pressure Mean 92 Blood Pressure Mean [Right Arm] 87 Blood Pressure Position [Right Arm] Semi-fowlers Pulse Oximetry 97 Oxygen Delivery Method Room Air Sepsis Recent Fever Within 48 Hours Sepsis New/Unexplained Change in Mental Status Sepsis Action Taken by Nursing 10/21/23 19:04 10/21/23 19:10 10/21/23 19:20 Temperature Temperature Source Pulse Rate 84 82 86 Pulse Rate [Apical] Pulse Rate from SpO2 Sensor 83 82 89 Pulse Rhythm [Apical] Pulse Strength [Apical] Respiratory Rate 26 H 17 29 H Respiratory Effort / Characteristics Respiratory Depth Respiratory Pattern Blood Pressure Blood Pressure [Right Arm] Blood Pressure Mean Blood Pressure Mean [Right Arm] Blood Pressure Position [Right Arm] Pulse Oximetry 95 93 95 Oxygen Delivery Method Sepsis Recent Fever Within 48 Hours Sepsis New/Unexplained Change in Mental Status Sepsis Action Taken by Nursing 10/21/23 19:35 10/21/23 19:40 10/21/23 19:50 Temperature Temperature Source Pulse Rate 78 85 81 Pulse Rate [Apical] Pulse Rate from SpO2 Sensor 85 84 Pulse Rhythm [Apical] Pulse Strength [Apical] Respiratory Rate 10 L 28 H 19 Respiratory Effort / Characteristics Respiratory Depth Respiratory Pattern Blood Pressure Blood Pressure [Right Arm] Blood Pressure Mean Blood Pressure Mean [Right Arm] Blood Pressure Position [Right Arm] Pulse Oximetry 98 96 Oxygen Delivery Method Sepsis Recent Fever Within 48 Hours Sepsis New/Unexplained Change in Mental Status Sepsis Action Taken by Nursing 10/21/23 20:00 10/21/23 20:00 10/21/23 20:10 Temperature Temperature Source Pulse Rate 77 76 Pulse Rate [Apical] Pulse Rate from SpO2 Sensor 77 76 Pulse Rhythm [Apical] Pulse Strength [Apical] Respiratory Rate 16 13 Respiratory Effort / Characteristics Respiratory Depth Respiratory Pattern Blood Pressure 140/77 Blood Pressure [Right Arm] Blood Pressure Mean 89 Blood Pressure Mean [Right Arm] Blood Pressure Position [Right Arm] Pulse Oximetry 98 97 Oxygen Delivery Method Sepsis Recent Fever Within 48 Hours Sepsis New/Unexplained Change in Mental Status Sepsis Action Taken by Nursing 10/21/23 20:20 10/21/23 20:30 10/21/23 20:30 Temperature Temperature Source Pulse Rate 88 76 Pulse Rate [Apical] Pulse Rate from SpO2 Sensor Pulse Rhythm [Apical] Pulse Strength [Apical] Respiratory Rate 24 14 Respiratory Effort / Characteristics Respiratory Depth Respiratory Pattern Blood Pressure 133/79 Blood Pressure [Right Arm] Blood Pressure Mean 93 Blood Pressure Mean [Right Arm] Blood Pressure Position [Right Arm] Pulse Oximetry Oxygen Delivery Method Sepsis Recent Fever Within 48 Hours Sepsis New/Unexplained Change in Mental Status Sepsis Action Taken by Nursing 10/21/23 20:40 10/21/23 20:50 10/21/23 21:00 Temperature Temperature Source Pulse Rate 75 82 Pulse Rate [Apical] 86 Pulse Rate from SpO2 Sensor 77 82 Pulse Rhythm [Apical] Regular Pulse Strength [Apical] Normal Respiratory Rate 16 17 18 Respiratory Effort / Characteristics Non-Labored Spontaneous Respiratory Depth Normal Respiratory Pattern Regular Blood Pressure Blood Pressure [Right Arm] 186/91 H Blood Pressure Mean Blood Pressure Mean [Right Arm] 122 Blood Pressure Position [Right Arm] Semi-fowlers Pulse Oximetry 94 95 97 Oxygen Delivery Method Room Air Sepsis Recent Fever Within 48 Hours Sepsis New/Unexplained Change in Mental Status Sepsis Action Taken by Nursing 10/21/23 21:00 10/21/23 21:01 10/21/23 21:01 Temperature Temperature Source Pulse Rate Pulse Rate [Apical] Pulse Rate from SpO2 Sensor 81 Pulse Rhythm [Apical] Pulse Strength [Apical] Respiratory Rate Respiratory Effort / Characteristics Respiratory Depth Respiratory Pattern Blood Pressure 186/91 H Blood Pressure [Right Arm] Blood Pressure Mean 127 Blood Pressure Mean [Right Arm] Blood Pressure Position [Right Arm] Pulse Oximetry 86 L 86 L Oxygen Delivery Method Sepsis Recent Fever Within 48 Hours Sepsis New/Unexplained Change in Mental Status Sepsis Action Taken by Nursing 10/21/23 21:10 10/21/23 21:20 10/21/23 21:30 Temperature Temperature Source Pulse Rate 83 82 86 Pulse Rate [Apical] Pulse Rate from SpO2 Sensor 82 84 85 Pulse Rhythm [Apical] Pulse Strength [Apical] Respiratory Rate 19 19 20 Respiratory Effort / Characteristics Respiratory Depth Respiratory Pattern Blood Pressure Blood Pressure [Right Arm] Blood Pressure Mean Blood Pressure Mean [Right Arm] Blood Pressure Position [Right Arm] Pulse Oximetry 98 97 96 Oxygen Delivery Method Sepsis Recent Fever Within 48 Hours Sepsis New/Unexplained Change in Mental Status Sepsis Action Taken by Nursing 10/21/23 21:30 10/21/23 21:40 10/21/23 21:50 Temperature Temperature Source Pulse Rate 80 86 Pulse Rate [Apical] Pulse Rate from SpO2 Sensor 81 86 Pulse Rhythm [Apical] Pulse Strength [Apical] Respiratory Rate 4 L 9 L Respiratory Effort / Characteristics Respiratory Depth Respiratory Pattern Blood Pressure 182/83 H Blood Pressure [Right Arm] Blood Pressure Mean 127 Blood Pressure Mean [Right Arm] Blood Pressure Position [Right Arm] Pulse Oximetry 98 96 Oxygen Delivery Method Sepsis Recent Fever Within 48 Hours Sepsis New/Unexplained Change in Mental Status Sepsis Action Taken by Nursing 10/21/23 22:00 10/21/23 22:01 10/21/23 22:01 Temperature Temperature Source Pulse Rate 91 H 88 Pulse Rate [Apical] Pulse Rate from SpO2 Sensor 92 H 87 Pulse Rhythm [Apical] Pulse Strength [Apical] Respiratory Rate 20 31 H Respiratory Effort / Characteristics Respiratory Depth Respiratory Pattern Blood Pressure 186/97 H Blood Pressure [Right Arm] Blood Pressure Mean 114 Blood Pressure Mean [Right Arm] Blood Pressure Position [Right Arm] Pulse Oximetry 96 98 Oxygen Delivery Method Sepsis Recent Fever Within 48 Hours Sepsis New/Unexplained Change in Mental Status Sepsis Action Taken by Nursing Laboratory Data 10/21/23 18:38 10/21/23 18:38 Lab Results 10/21/23 10/21/23 Range/Units 18:38 18:49 WBC 7.81 (4.8-10.8) K/ul RBC 4.43 L (4.70-6.10) M/uL Hgb 13.7 L (14.0-18.0) g/dl Hct 40.8 L (42.0-52.0) % MCV 92.1 (80.0-100.0) fL MCH 30.9 (25.0-34.0) pg MCHC 33.6 (32.0-36.0) g/dL RDW Std Deviation 43.0 (36.4-46.3) fL RDW Coeff of [place] 12.6 (11.5-14.5) % Plt Count 197 (130-400) K/uL MPV 9.9 (9.4-12.4) fL Immature Gran % (Auto) 0.3 % Neut % (Auto) 79.5 % Lymph % (Auto) 11.7 % [place] % (Auto) 5.5 % Eos % (Auto) 2.2 % Baso % (Auto) 0.8 % Neut # (Auto) 6.22 (1.40-6.50) K/uL Lymph # (Auto) 0.91 L (1.20-3.40) K/uL [place] # (Auto) 0.43 (0.11-0.59) K/uL Eos # (Auto) 0.17 (0.00-0.50) K/uL Baso # (Auto) 0.06 (0.00-0.20) K/uL Immature Gran # (Auto) 0.02 (0.01-0.20) K/uL Sodium 138 (136-145) mmol/L Potassium 3.7 (3.5-5.1) mmol/L Chloride 106 (98-107) mmol/L Carbon Dioxide 25 (21-32) mmol/L Anion Gap 7 (3-11) BUN 19 (6-23) mg/dl Creatinine 0.67 (0.6-1.4) mg/dl Est Cr Clr Drug Dosing 148.0 ml/min Est GFR ( Amer) 122.8 ml/min Est GFR (Non-Af Amer) 105.9 ml/min BUN/Creatinine Ratio 28.4 H (10-20) Glucose 96 (70-99(Fasting)) mg/dl Lactate 1.0 (0.4-2.0) mmol/L Calcium 8.7 (8.6-10.3) mg/dl Magnesium 2.1 (1.7-2.4) mg/dl Total Bilirubin 0.7 (0.2-1.0) mg/dl Direct Bilirubin 0.0 (0-0.2) mg/dl AST 14 (13-39) U/L ALT 3 L (7-52) U/L Alkaline Phosphatase 55 (34-104) U/L Troponin I High Sens 4.1 (0-20) pg/ml Total Protein 6.8 (6.0-8.3) gm/dl Albumin 4.0 (3.4-5.0) gm/dl Procalcitonin < 0.05 (0-0.5) ng/ml Urine Color Dark Yellow Urine Appearance Clear (Clear) Urine pH 5.5 (4.5-7.5) Ur Specific [place] 1.019 (1.000-1.030) Urine Protein Negative (Negative) Urine Glucose (UA) Negative (Negative) Urine Ketones Trace H (Negative) Urine Blood Negative (Negative) Urine Nitrite Negative (Negative) Urine Bilirubin Negative (Negative) Urine Urobilinogen Negative (Negative) Ur Leukocyte Esterase Negative (Negative) Administered Medications Sodium Chloride (Nss) 1,000 mls @ 125 mls/hr IV .Q8H RENAN Stop: 11/20/23 18:44 Last Admin: 10/21/23 19:13 Dose: 125 mls/hr Documented By: RYLAN Discontinued Medications Lorazepam (Lorazepam 1 Mg Tab) 1 mg PO NOW STA Stop: 10/21/23 22:04 Last Admin: 10/22/23 01:28 Dose: 1 mg Documented By: TANNER Lorazepam (Lorazepam 1 Mg/1 Ml Syr Ed Inj Use) 1 mg IV ONE STA Stop: 10/21/23 22:19 Last Admin: 10/21/23 22:46 Dose: 1 mg Documented By: RYLAN Imaging Data Radiologist's Impression: Chest X-Ray 10/21/23 18:39 SINGLE VIEW CHEST CLINICAL HISTORY: Sepsis FINDINGS: An AP, portable, upright chest radiograph is compared to study dated 05/31/2023 and correlated with chest CT dated 08/10/2022. The examination is degraded by portable technique and apical lordotic positioning. Electronic devices partially obscure the upper chest bilaterally with leads extending to the neck. The cardiomediastinal silhouette is top normal for projection. Chronic interstitial thickening is similar to previous. There is mild bibasilar scarring/atelectasis. The lungs and pleural spaces are otherwise clear. No pneumothorax is seen. The skeletal structures are osteopenic. The bony thorax is grossly intact. There are bilateral shoulder arthroplasties. IMPRESSION: No active disease in the chest. ACT 112: Negative or not required by law. Electronically signed by: Mamadou Hung M.D. 10/21/2023 7:[address] 10/21/23 18:39 Exam(s): CT HEAD Without Contrast EXAM: CT Head Without Intravenous Contrast CLINICAL HISTORY: Reason for exam: ams. TECHNIQUE: Axial computed tomography images of the head/brain without intravenous contrast. CTDI is 35.51 mGy and DLP is 624.41 mGy-cm. Automated exposure control was utilized for the study. A dose lowering technique was utilized adhering to the principles of ALARA. COMPARISON: No relevant prior studies available. FINDINGS: No acute intracranial hemorrhage. No midline shift or mass effect. The territorial gutierrez-white matter differentiation is maintained throughout. Bilateral deep brain stimulator leads. Age-related cerebral volume loss. Periventricular and subcortical white matter hypoattenuation, consistent with chronic microangiopathy. The visualized orbits appear grossly unremarkable. The calvarium is intact. The visualized paranasal sinuses and mastoid air cells are grossly clear. IMPRESSION: No acute intracranial hemorrhage, midline shift, or mass effect. Bilateral deep brain stimulator leads. Electronically signed by: Randy Tamayo MD 10/21/23 20:13 PM Discharge Plan Visit Data Chief Complaint: Urinary Symptoms Stated Complaint: ALTERED MENTAL STATUS ED Provider: Ladan Murillo Discharge Problem: Hallucinations, Parkinson disease Patient Disposition: Admitted As Inpatient Discharge Instructions Interventions: ED Discharge Assessment Last Done: 10/21/23 23:18
[2023-10-21 18:57] LABS: Appearance Urine Clear (Clear); Bilirubin Urine Negative (Negative); Blood Urine Negative (Negative); Color Urine Dark Yellow; Glucose Urine UA Negative (Negative); Ketones Urine Trace (Negative); Leukocyte Esterase Urine Negative (Negative); Nitrite Urine Negative (Negative); Protein Urine Negative (Negative); Specific Gravity Urine 1.019 (1.000-1.030); Urobilinogen Urine Negative (Negative); pH Urine 5.5 (4.5-7.5)
[2023-10-21 18:58] LABS: Basophils # (auto) 0.06 K/uL (0.00-0.20); Basophils % (auto) 0.8 %; Eosinophils # (auto) 0.17 K/uL (0.00-0.50); Eosinophils % (auto) 2.2 %; Hematocrit (blood only) 40.8 % (42.0-52.0); Hemoglobin 13.7 g/dl (14.0-18.0); Immature Granulocytes # (auto) 0.02 K/uL (0.01-0.20); Immature Granulocytes % (auto) 0.3 %; Lymphocytes # (auto) 0.91 K/uL (1.20-3.40); Lymphocytes % (auto) 11.7 %; Mean Corpuscular Hemoglobin 30.9 pg (25.0-34.0); Mean Corpuscular Hgb Conc 33.6 g/dL (32.0-36.0); Mean Corpuscular Volume 92.1 fL (80.0-100.0); Mean Platelet Volume 9.9 fL (9.4-12.4); Monocytes # (auto) 0.43 K/uL (0.11-0.59); Monocytes % (auto) 5.5 %; Neutrophils # (auto) 6.22 K/uL (1.40-6.50); Neutrophils % (auto) 79.5 %; Platelet Count 197 K/uL (130-400); RDW Coefficient of Variation 12.6 % (11.5-14.5); Red Blood Count 4.43 M/uL (4.70-6.10); White Blood Count 7.81 K/ul (4.8-10.8)
[2023-10-21] MEDS: SODIUM CHLORIDE 0.9% 1,000 ML IV SCH (19:13)
[2023-10-21 19:22] LABS: Troponin I High Sensitivity 4.1 pg/ml (0-20)
--- NOTE | 2023-10-21 19:23 | XRay Report ---
SINGLE VIEW CHEST CLINICAL HISTORY: Sepsis FINDINGS: An AP, portable, upright chest radiograph is compared to study dated 05/31/2023 and correlate d with chest CT dated 08/10/2022. The examination is degraded by portable technique and apical lordot ic positioning. Electronic devices partially obscure the upper chest bilaterally with leads extending to the neck. The cardiomediastinal silhouette is top normal for projection. Chronic interstitial thi ckening is similar to previous. There is mild bibasilar scarring/atelectasis. The lungs and pleural s paces are otherwise clear. No pneumothorax is seen. The skeletal structures are osteopenic. The bony thorax is grossly intact. There are bilateral shoulder arthroplasties. IMPRESSION: No active disease in the chest. ACT 112: Negative or not required by law. Electronically signed by: Mamadou Hung M.D. 10/21/2023 7:22 PM
[2023-10-21 20:07] LABS: Bilirubin,Total 0.7 mg/dl (0.2-1.0); Calcium 8.7 mg/dl (8.6-10.3); Magnesium 2.1 mg/dl (1.7-2.4); Potassium 3.7 mmol/L (3.5-5.1)
[2023-10-21 20:13] LABS: BUN Creatinine Ratio 28.4 (10-20); Est GFR (African American) 122.8 ml/min; Est GFR (Non-African American) 105.9 ml/min; Total Protein 6.8 gm/dl (6.0-8.3)
--- NOTE | 2023-10-21 20:14 | CT Scan Report ---
Exam(s): CT HEAD Without Contrast EXAM: CT Head Without Intravenous Contrast CLINICAL HISTORY: Reason for exam: ams. TECHNIQUE: Axial computed tomography images of the head/brain without intravenous contrast. CTDI is 35.51 mGy and DLP is 624.41 mGy-cm. Automated exposure control was utilized for the study. A dose lowering technique was utilized adhering to the principles of ALARA. COMPARISON: No relevant prior studies available. FINDINGS: No acute intracranial hemorrhage. No midline shift or mass effect. The territorial gutierrez-white matter differentiation is maintained throughout. Bilateral deep brain stimulator leads. Age-related cerebral volume loss. Periventricular and subcortical white matter hypoattenuation, consistent with chronic microangiopathy. The visualized orbits appear grossly unremarkable. The calvarium is intact. The visualized paranasal sinuses and mastoid air cells are grossly clear. IMPRESSION: No acute intracranial hemorrhage, midline shift, or mass effect. Bilateral deep brain stimulator leads. Electronically signed by: Randy Tamayo MD 10/21/23 20:13 PM
--- NOTE | 2023-10-21 22:04 | History & Physical Report ---
Date of Service October 21, 2023 Assessment & Plan (1) Hallucinations: Plan: -Suspect hallucinations are driven by inadequate sleep -Per , pt's Parkinson's medication doses have been stable for ~20 years. It is unlikely these hallucinations are due to dopaminergic excess -No medication changes made on admission aside from discontinuation of home PRN hydroxyzine (which is metabolized into Zyrtec) -Will continue Ativan 1 mg BID PO PRN for sleep, one dose given on admission -Deferring any additional anti-insomnia medication on admission (2) Altered mental status: Plan: -As above, likely due to inadequate sleep -Infectious source not suspected at present -Ativan 1 mg IV PRN for acute agitation (3) Recurrent UTI: Plan: -Noted history of such -UA on admission does not suggest infection. Urine culture ordered -Deferring antibiotics for now, though should be considered if there is little improvement in hallucinations despite improved sleep (4) Parkinson disease: Plan: -Continue current medications at same doses (5) Infection of prosthetic left knee joint: Plan: -Continue daily suppressive doxycycline (6) Anxiety: Plan: -Continue duloxetine -Continue home Ativan PRN (7) Depression: Plan: -Continue duloxetine Plan FENGI: Regular Code status: Full DVT prophylaxis: Lovenox Isolation: None Unit: Medical/surgical Disposition planning: Anticipate home History of Present Illness Chief Complaint: Hallucinations Primary Care Provider: Jose Martin, DO 58 yo M with H Parkinson's disease s/p deep brain stimulator placement, depression, anxiety, recurrent UTI, prosthetic knee joint MRSA infection now on suppressive doxycycline since 2019 presenting with hallucinations. History primarily given by at bedside. Pt was started on Atarax 10 mg PRN for anxiety/sleep by his [facility] psychiatrist Sid Osman several months ago. This initially helped with anxiety and sleep but medication's efficacy has waned over the past month. She did contact psychiatrist again who recommended increasing dose to 20 mg which briefly improved sleep. However over the past week, pt has been experiencing multiple visual hallucinations and reacting to them. Alternating Atarax and Ativan (1 mg BID PRN for sleep/anxiety, preceding his Atarax prescription) have not helped much with sleep over past week. He has also been more lethargic at home and eating less. These hallucinations have progressed in frequency until today at which point his brought him to ER. Pt arrived to ER hemodynamically stable. Initial evaluation w/ unremarkable CBC, BMP, lactate, UA, head CT. At present, pt reports feeling well and not seeing anything bizarre. at bedside states that his symptoms of lethargy and reduced appetite usually indicate UTI and he never has urinary symptoms such as dysuria or increased frequency. Pt has not had fever/chills. During previous hospitalizations, Ativan has been more useful for controlling agitation than any other PRN agent. Allergies Allergy/AdvReac Type Severity Reaction Status Date / Time morphine Allergy Mild Itching Verified 06/11/23 15:46 buspirone [From BuSpar] AdvReac Severe SCHIZOPHRENIA Verified 06/11/23 15:46 LIKE ACTIONS haloperidol [From Haldol] AdvReac Severe CONTRAINDICATED Verified 06/11/23 15:46 IN PARKINSON'S DISEASE pramipexole [From Mirapex] AdvReac Severe BECAME OCD Verified 06/11/23 15:46 FOR WEEKS quetiapine [From Seroquel] AdvReac Severe PT BECAME Verified 06/11/23 15:46 VIOLENT THEN DEEP SLEEP Home Medications Medication Instructions Recorded Confirmed Type amantadine HCl 100 mg tablet 100 mg PO BID 06/30/19 10/21/23 History carbidopa ER 50 mg-levodopa 200 mg 1 tab PO QID 06/30/19 10/21/23 History tablet,extended release entacapone 200 mg tablet (Comtan) 200 mg PO QID 06/30/19 10/21/23 History acetaminophen 500 mg tablet 1,000 mg PO BID PRN Pain 04/29/20 10/21/23 History carbidopa 25 mg-levodopa 100 mg 1 tab PO QID PRN DISCOMFORT AND 10/04/22 10/21/23 History disintegrating tablet RIGIDITY diclofenac sodium 1 % topical gel 2 g topical QID PRN Pain 10/04/22 10/21/23 History cbd gummie 25 mg PO DAILY PRN ANXIETY/SLEEP 03/27/23 10/21/23 History carbidopa 25 mg-levodopa 100 mg 1 tab PO QID 10/21/23 10/21/23 History tablet doxycycline hyclate 100 mg tablet 100 mg PO AMHS 10/21/23 10/21/23 History duloxetine 60 mg capsule,delayed 60 mg PO QAM 10/21/23 10/21/23 History release hydroxyzine HCl 10 mg tablet 10 mg PO BID PRN ANXIETY/SLEEP 10/21/23 10/21/23 History lorazepam 1 mg tablet 1 mg PO BID PRN Anxiety 10/21/23 10/21/23 History melatonin 2.5 mg chewable tablet 7.5 mg PO HS 10/21/23 10/21/23 History Past Med/Surg History Medical History Conjunctivitis Acute UTI Vitamin D deficiency Osteoarthritis Urinary incontinence Managed at primary care Venous stasis of both lower extremities Hearing deficit [place] left ear Depression Anxiety Parkinson disease s/p deep brain stimulator. Dr. Linda Back, [facility] Sleep apnea does not tolerate device Surgical History History of carpal tunnel release History of revision of total knee arthroplasty LEFT History of foot surgery RECONSTRUCTION - RT History of left knee replacement History of shoulder surgery LEFT X 2; RT X 1 History of appendectomy History of colonoscopy S/P deep brain stimulator placement (~2008) Family History Grandmother Family history of diabetes mellitus Father Hypertension Denies family history of Ovarian cancer Osteoporosis Myocardial infarction Breast cancer Colorectal cancer Cancer Social History Smoking Status: Never smoker Second Hand Exposure: No; Do You Dip or Chew Tobacco: No; Hx Alcohol Use: No Hx Substance Use: No Preferred Language: [place] Communication Ability: Impaired Visual Impairment: No Limitations Hearing Ability: Normal Maintenance Porter Required: No Beliefs That Will Affect Care: None marital status: Current Living Situation: Spouse Current Living Situation Comment: lives at home with How many Children do You have: 2 Other Information That Helps Us Care for You: No Feels Safe at Home: Yes Safety Concerns: Feels Safe At This Time Assistive Devices: Walker and Wheelchair Review of Systems Review of Systems: Per HPI/Subjective Physical Exam Physical Exam: General: well-appearing, no acute distress, intermittent mild tremor of b/l feet and hands noted HEENT: PERRL, conjunctivae clear without injection, anicteric sclerae, moist mucous membranes, clear oropharynx without exudate or erythema Neck: supple, trachea midline, no thyromegaly, no JVD, no cervical lymphaden opathy CV: RRR, normal S1 and S2, no murmurs Resp: CTAB, no increased work of breathing, no crackles or wheezes Abd: Soft, nontender (including suprapubic + CVA), nondistended, no guarding or rebound, no hepatosplenomegaly MSK: Normal bulk of all four extremities Neuro: Alert and oriented to person and place, tremor as above, no acute cogwheeling rigidity of extremities at time of exam Skin: no rashes or lesions, warm and dry Ext: no LE peripheral edema or erythema, capillary refill <2s in all four extremities, 2+ LE peripheral pulses b/l Psych: normal mood, blunted affect, no current AVH, no SI Results & Data Results & Data Vital Signs (Past 12 Hours) Vital Signs Temp Pulse Pulse Resp BP BP Pulse Ox 10/21/23 19:04 86 20 124/69 97 10/21/23 19:00 82 10/21/23 18:45 95 10/21/23 18:29 36.7 C 94 H 22 125/75 95 O2 Del Method 10/21/23 19:04 Room Air 10/21/23 19:00 10/21/23 18:45 Room Air 10/21/23 18:29 Room Air Supervising Physician Co-Signing Physician Notes Patient seen and examine, chart reviewed, case discussed with Dr. Calle and I agree with the assessment and plan as above. In brief, patient is a 58yo male with history of PD presenting with worsening hallucinations, poor sleep for the last several days. No recent adjustments to his Parkinson's drugs. He has been taking Hydroxyzine PRN which is a relatively new medication. is concerned about possible UTI as well. Patient with deep brain stimulator in place. Chronic prosthetic knee infection on suppressive Doxycycline. On exam, patient is afebrile, HD stable, garbled speech, mild tremor MMM, Neck supple +S1/S2, regular, no m/r/g Lungs CTA, no rales/rhonchi Abd - +BS, soft, NT/ND Ext - warm, well perfused Labs and images reviewed Assessment/Plan - Hallucinations in patient with PD. Possibly progression of disease? More likely secondary to medication effects - Atarax? -Will treat with Ativan PRN agitation Avoid Zyprexa for now as it is not ideal in patients with PD Avoid further use of Atarax Resume home medications at times specified by patient's Follow urine culture Remainder as above Resident Activity Tracking Resident Involvement: Resident Care Provided Care Provided: Adult Hospital Medicine (2) Altered mental status Altered mental status type: delirium Qualified Code(s): R41.0 - Disorientation, unspecified
[2023-10-21] MEDS: LORazepam 1 MG/1 ML SYR ED Inj Use IV STA (22:46)
[2023-10-21] MEDS ORDERED: LORazepam 1 MG TAB PO PRN (23:46)
[2023-10-21] MEDS ORDERED: LORazepam 2 MG in SYRINGE 0.5 ML IV PRN (23:46)
[2023-10-22] MEDS: LORazepam 1 MG TAB PO STA (01:28)
[2023-10-22] MEDS: LORazepam 2 MG in SYRINGE 1 ML IV STA (02:58)
[2023-10-22] MEDS: CARBIDOPA/LEVODOPA 50/200MG EXT REL TAB PO STA (03:20)
[2023-10-22] MEDS: CARBIDOPA/LEVODOPA 25/100MG TAB PO STA (03:20)
[2023-10-22] MEDS: ENTACAPONE 200 MG TAB PO STA (03:20)
[2023-10-22] MEDS: AMANTADINE HCL 100 MG CAPSULE PO SCH (06:09)
--- NOTE | 2023-10-22 06:59 | Billing Data ---
Date of Service October 21, 2023 Coding Level of Care Code 90436 INT INP/OBS CARE
[2023-10-22] MEDS: CARBIDOPA/LEVODOPA 50/200MG EXT REL TAB PO SCH (09:00)
[2023-10-22] MEDS: CARBIDOPA/LEVODOPA 25/100MG TAB PO SCH (09:01)
[2023-10-22] MEDS: ENTACAPONE 200 MG TAB PO SCH (09:02)
[2023-10-22] MEDS: DULoxetine HCL 60 MG CAP PO SCH (09:03)
[2023-10-22] MEDS: DULoxetine HCL 30 MG CAP PO SCH (09:03)
[2023-10-22] MEDS: DOXYCYCLINE HYCLATE 100 MG CAP PO SCH (09:04)
[2023-10-22] MEDS: ENOXAPARIN INJ 40 MG/0.4 ML SYR SQ SCH (09:07)
--- NOTE | 2023-10-22 12:00 | Hospitalist Progress Note ---
Date of Service October 22, 2023 Assessment & Plan (1) Hallucinations: Plan: -Etiology of the recent worsening and hallucination is uncertain. According to the her Parkinson has been under good control for more than 20 years, more especially after his deep brain stimulator. -The thinks it could be due to infection although there is no evidence of that. -Per , pt's Parkinson's medication doses have been stable for ~20 years. It is unlikely these hallucinations are due to dopaminergic excess -No medication changes made on admission aside from discontinuation of home PRN hydroxyzine (which is metabolized into Zyrtec) -Will continue Ativan 1 mg BID PO PRN for sleep, one dose given on admission -Deferring any additional anti-insomnia medication on admission (2) Altered mental status: Plan: -As above, likely due to inadequate sleep -Infectious source not suspected at present -Ativan 1 mg IV PRN for acute agitation (3) Recurrent UTI: Plan: -Noted history of such -UA on admission does not suggest infection. Urine culture ordered -According to the , with whom I spoke at length, she said most times nothing shows up in the urine but antibiotics usually ends up clearing his confusion -Will empirically start him on IV ceftriaxone and see how he does (4) Parkinson disease: Plan: -Continue current medications at same doses (5) Infection of prosthetic left knee joint: Plan: -Continue daily suppressive doxycycline (6) Anxiety: Plan: -Continue duloxetine -Continue home Ativan PRN (7) Depression: Plan: -Continue duloxetine Plan FENGI: Regular Code status: Full DVT prophylaxis: Lovenox Isolation: None Unit: Medical/surgical Disposition planning: Anticipate home Admission and Anticipated Discharge Date Admission Date: October 21, 2023 Subjective Patient seen and examined, very groggy and very confused, was unable to obtain any coherent history Review of Systems Review of Systems: Unreliable due to confusion Physical Exam Physical Exam: The patient is awake, groggy and confused HEENT--PERRL, EOMI, mucous membranes and oropharynx mildly dry Neck--supple. No JVD. No bruits. Thyroid normal, trachea midline, no adenopathy. Heart--normal S1 and S2. No murmurs, rubs or gallops. Lungs--clear bilaterally, no respiratory distress, no accessory muscle use. Abdomen--normal bowel sounds and soft. Mild epigastric and left sided abdominal pain Extremities--no cyanosis or clubbing. No edema. Dermatologic--normal skin turgor, normal color, no abnormal lymph nodes, no rash. Neurologic--cranial nerves II through XII grossly intact. Rheumatologic--normal range of motion. Psychiatric--normal affect. Results & Data Results & Data Vital Signs (Past 12 Hours) Vital Signs Temp Pulse Resp BP Pulse Ox O2 Del Method 10/22/23 09:19 97.5 F L 88 16 108/78 92 Room Air PG Care Time/CCT Total # of Minutes Spent Total Time Spent with Patient: Total time spent is greater than 50% in coordination of care (as documented) at patient's floor/unit and/or counseling patient: Coding Level of Care Code 23650 SUB INP/OBS CARE 2/35MIN Diagnoses Hallucinations R44.3 Altered mental status R41.0 Altered mental status type: delirium Recurrent UTI N39.0 Parkinson disease G20 Infection of prosthetic left knee joint T84.54XA Anxiety F41.9 Depression F32.9 Time Spent (min) 35 (2) Altered mental status Altered mental status type: delirium Qualified Code(s): R41.0 - Disorientation, unspecified
--- NOTE | 2023-10-22 12:09 | Electrocardiogram Report ---
Test Reason : Blood Pressure : / mmHG Vent. Rate : 093 BPM Atrial Rate : 093 BPM P-R Int : 116 ms QRS Dur : 088 ms QT Int : 376 ms P-R-T Axes : 004 -02 054 degrees QTc Int : 467 ms Normal sinus rhythm Left atrial enlargement Otherwise Normal ECG When compared with ECG of 31-MAY-2023 17:43, No significant change Confirmed by Brad Oh ([id number]) on 10/22/2023 12:09:13 PM Referred By: REFERRED SELF Confirmed By:Brad Oh
[2023-10-22] MEDS: cefTRIAXone SODIUM 2,000 MG in DEXTROSE 5 % MINI-B 50 ML IV SCH (12:31)
[2023-10-22 12:43] LABS: Allen Test Pos (Pos)
[2023-10-22 12:44] LABS: Base Excess ABG 1.3 mEq/L (-9-1.8); HCO3 ABG 25 mmol/L (19-24); Oxygen Saturation ABG 97.9 % (90-95); PCO2 ABG 36 mmHg (35-46); PO2 ABG 81 mmHg (80-95); pH ABG 7.45 (7.35-7.45)
[2023-10-22 12:53] LABS: Hematocrit (blood only) 38.2 % (42.0-52.0); Mean Corpuscular Hemoglobin 31.1 pg (25.0-34.0); Mean Corpuscular Volume 91.4 fL (80.0-100.0); Mean Platelet Volume 10.1 fL (9.4-12.4); Platelet Count 200 K/uL (130-400); RDW Coefficient of Variation 12.8 % (11.5-14.5); RDW Standard Deviation 42.8 fL (36.4-46.3); Red Blood Count 4.18 M/uL (4.70-6.10); White Blood Count 5.48 K/ul (4.8-10.8)
[2023-10-22 13:08] LABS: BUN Creatinine Ratio 22.4 (10-20); Calcium 8.5 mg/dl (8.6-10.3); Creatinine Clr Calc Pharmacy 166.9 ml/min; Est GFR (African American) 130.3 ml/min; Est GFR (Non-African American) 112.4 ml/min; Potassium 3.9 mmol/L (3.5-5.1)
--- NOTE | 2023-10-23 11:52 | Hospitalist Progress Note ---
Date of Service October 23, 2023 Assessment & Plan (1) Hallucinations: Plan: -Suspect hallucinations are driven by inadequate sleep -No more hallucinations in the past 24 hours -Per , pt's Parkinson's medication doses have been stable for ~20 years. It is unlikely these hallucinations are due to dopaminergic excess -No medication changes made on admission aside from discontinuation of home PRN hydroxyzine (which is metabolized into Zyrtec) -According to the , patient takes Ativan 1.5 mg at night, will reinstitute (2) Altered mental status: Plan: -As above, likely due to inadequate sleep -Infectious source not suspected at present -Ativan 1 mg IV PRN for acute agitation (3) Recurrent UTI: Plan: -Noted history of such -UA on admission does not suggest infection. Urine culture ordered -Deferring antibiotics for now, though should be considered if there is little improvement in hallucinations despite improved sleep (4) Parkinson disease: Plan: -Continue current medications at same doses (5) Infection of prosthetic left knee joint: Plan: -Continue daily suppressive doxycycline (6) Anxiety: Plan: -Continue duloxetine -Continue home Ativan PRN (7) Depression: Plan: -Continue duloxetine Plan FENGI: Regular Code status: Full DVT prophylaxis: Lovenox Isolation: None Unit: Medical/surgical Disposition planning: Anticipate home discharge tomorrow Admission and Anticipated Discharge Date Admission Date: October 21, 2023 Subjective Patient seen and examined, now more awake and alert, tolerating breakfast diet Review of Systems Review of Systems: All systems reviewed are negative, apart from the ones contained in the history. Physical Exam Physical Exam: The patient is awake, HEENT--PERRL, EOMI, mucous membranes and oropharynx mildly dry Neck--supple. No JVD. No bruits. Thyroid normal, trachea midline, no adenopathy. Heart--normal S1 and S2. No murmurs, rubs or gallops. Lungs--clear bilaterally, no respiratory distress, no accessory muscle use. Abdomen--normal bowel sounds and soft. Mild epigastric and left sided abdominal pain Extremities--no cyanosis or clubbing. No edema. Dermatologic--normal skin turgor, normal color, no abnormal lymph nodes, no rash. Neurologic--cranial nerves II through XII grossly intact. Rheumatologic--normal range of motion. Psychiatric--normal affect. Results & Data Results & Data Vital Signs (Past 12 Hours) Vital Signs Temp Pulse Resp BP Pulse Ox O2 Del Method 10/23/23 07:04 97.9 F 80 20 170/97 H 93 Room Air PG Care Time/CCT Total # of Minutes Spent Total Time Spent with Patient: Total time spent is greater than 50% in coordination of care (as documented) at patient's floor/unit and/or counseling patient: Coding Level of Care Code 68365 SUB INP/OBS CARE 2/35MIN Diagnoses Hallucinations R44.3 Altered mental status R41.0 Altered mental status type: delirium Recurrent UTI N39.0 Parkinson disease G20 Infection of prosthetic left knee joint T84.54XA Anxiety F41.9 Depression F32.9 Time Spent (min) 35 (2) Altered mental status Altered mental status type: delirium Qualified Code(s): R41.0 - Disorientation, unspecified
[2023-10-23] MEDS: CARBIDOPA/LEVODOPA 25/100MG TAB PO PRN (14:08)
[2023-10-23] MEDS: LORazepam 0.5 MG TAB PO SCH (21:13)
--- NOTE | 2023-10-24 10:31 | Discharge Summary ---
Date of Service October 24, 2023 Admission HPI Per Admitting Provider 58 yo M with PMH Parkinson's disease s/p deep brain stimulator placement, depression, anxiety, recurrent UTI, prosthetic knee joint MRSA infection now on suppressive doxycycline since 2019 presenting with hallucinations. History primarily given by at bedside. Pt was started on Atarax 10 mg PRN for anxiety/sleep by his [facility] psychiatrist Sid Osman several months ago. This initially helped with anxiety and sleep but medication's efficacy has waned over the past month. She did contact psychiatrist again who recommended increasing dose to 20 mg which briefly improved sleep. However over the past week, pt has been experiencing multiple visual hallucinations and reacting to them. Alternating Atarax and Ativan (1 mg BID PRN for sleep/anxiety, preceding his Atarax prescription) have not helped much with sleep over past week. He has also been more lethargic at home and eating less. These hallucinations have progressed in frequency until today at which point his brought him to ER. Pt arrived to ER hemodynamically stable. Initial evaluation w/ unremarkable CBC, BMP, lactate, UA, head CT. At present, pt reports feeling well and not seeing anything bizarre. at bedside states that his symptoms of lethargy and reduced appetite usually indicate UTI and he never has urinary symptoms such as dysuria or increased frequency. Pt has not had fever/chills. During previous hospitalizations, Ativan has been more useful for controlling agitation than any other PRN agent. Principal Diagnosis acute encephalopathy Discharge Exam The patient is awake, HEENT--PERRL, EOMI, mucous membranes and oropharynx mildly dry Neck--supple. No JVD. No bruits. Thyroid normal, trachea midline, no adenopathy. Heart--normal S1 and S2. No murmurs, rubs or gallops. Lungs--clear bilaterally, no respiratory distress, no accessory muscle use. Abdomen--normal bowel sounds and soft. Mild epigastric and left sided abdominal pain Extremities--no cyanosis or clubbing. No edema. Dermatologic--normal skin turgor, normal color, no abnormal lymph nodes, no rash. Neurologic--cranial nerves II through XII grossly intact. Rheumatologic--normal range of motion. Psychiatric--normal affect. Discharge Data Allergies Allergy/AdvReac Type Severity Reaction Status Date / Time morphine Allergy Mild Itching Verified 06/11/23 15:46 buspirone [From BuSpar] AdvReac Severe SCHIZOPHRENIA Verified 06/11/23 15:46 LIKE ACTIONS haloperidol [From Haldol] AdvReac Severe CONTRAINDICATED Verified 06/11/23 15:46 IN PARKINSON'S DISEASE pramipexole [From Mirapex] AdvReac Severe BECAME OCD Verified 06/11/23 15:46 FOR WEEKS quetiapine [From Seroquel] AdvReac Severe PT BECAME Verified 06/11/23 15:46 VIOLENT THEN DEEP SLEEP Consultations 10/21/23 21:11 ED Decision to Admit Stat Ordered Studies 10/21/23 18:39 CT head/brain wo con Stat Hospital Course (1) Hallucinations: -Now resolved -Suspect hallucinations are driven by inadequate sleep -No more hallucinations in the past 24 hours -Per , pt's Parkinson's medication doses have been stable for ~20 years. It is unlikely these hallucinations are due to dopaminergic excess -No medication changes made on admission aside from discontinuation of home PRN hydroxyzine (which is metabolized into Zyrtec) -According to the , patient takes Ativan 1.5 mg at night, will reinstitute (2) Altered mental status: -As above, likely due to inadequate sleep -Infectious source not suspected at present -Ativan 1 mg IV PRN for acute agitation (3) Recurrent UTI: -Noted history of such -UA on admission does not suggest infection. Urine culture ordered -Deferring antibiotics for now, though should be considered if there is little improvement in hallucinations despite improved sleep (4) Parkinson disease: -Continue current medications at same doses (5) Infection of prosthetic left knee joint: -Continue daily suppressive doxycycline (6) Anxiety: -Continue duloxetine -Continue home Ativan PRN (7) Depression: -Continue duloxetine Plan FENGI: Regular Code status: Full DVT prophylaxis: Lovenox Isolation: None Unit: Medical/surgical Disposition Total Time Total Time Spent Total Time Spent (In Minutes): 35 Discharge Plan Discharge Items Patient Disposition: Home - Self-Care Reason For Visit: HALLUCINATIONS Discharge Diagnosis: acute encephalopathy Activity: Resume your previous activity Non-emergency contact: Primary Care Provider Call non-emergency contact if: you have any medication questions Follow-up/Referrals: Jose Martin DO [Primary Care Provider] - Diet: Regular Addtl Attending Provider Instructions: please follow up with your regular PCP Pending Studies at Discharge: No Stand-Alone Forms: My [facility], Smoking Cessation Medications and DC Order Prescriptions: New cefdinir 300 mg capsule 300 mg PO BID 3 Days Qty: 6 0RF Continued amantadine HCl 100 mg tablet 100 mg PO BID Rx Instructions: at 0700 and 1100 AM carbidopa-levodopa 50-200 mg tablet extended release 1 tab PO QID Rx Instructions: 0700,1100,1600,2200 MUST HAVE ON TIME entacapone [Comtan] 200 mg tablet 200 mg PO QID Rx Instructions: patient takes at 0700,1100,1600,2200 MUST GIVE ON TIME acetaminophen 500 mg tablet 1,000 mg PO BID PRN (Reason: Pain) diclofenac sodium 1 % gel 2 g topical QID PRN (Reason: Pain) Rx Instructions: apply to single elbow, wrist or hand; for hand includes palm/fingers/back of hand cbd gummie 25 mg PO DAILY PRN (Reason: ANXIETY/SLEEP) carbidopa-levodopa 25-100 mg tablet 1 tab PO QID Rx Instructions: 0700,1100,1600,2200 MUST BE GIVEN ON TIME doxycycline hyclate 100 mg tablet 100 mg PO AMHS duloxetine 60 mg capsule,delayed release(DR/EC) 60 mg PO QAM melatonin 2.5 mg Tablet,Chewable 7.5 mg PO HS lorazepam 1 mg tablet 1 mg PO BID PRN (Reason: Anxiety) Rx Instructions: DO NOT GIVE WITH ATARAX hydroxyzine HCl 10 mg tablet 10 mg PO BID PRN (Reason: ANXIETY/SLEEP) carbidopa-levodopa 25-100 mg tablet,disintegrating 1 tab PO QID PRN (Reason: DISCOMFORT AND RIGIDITY) Rx Instructions: RESCUE DOSE...UP TO 4 TIMES A DAY PRIOR TO NEXT ROUTINE DOSE PER PATIENTS REQUEST Discharge Orders: Discharge Order (Routine); Ordered 10/24/23 Ordered By: Alex Valencia Admission Data Admit Date/Time: 10/21/23 22:03 Attending Provider: Alex Valencia Admit Provider: Justice Calle Primary Care Provider: Jose Martin Other Providers: Angi Aadms Coding Level of Care Code 05184 INP/OBS DISCH >30 MIN Diagnoses Hallucinations R44.3 Altered mental status R41.0 Altered mental status type: delirium Recurrent UTI N39.0 Parkinson disease G20 Infection of prosthetic left knee joint T84.54XA Anxiety F41.9 Depression F32.9 Time Spent (min) 35
== END 2023-10-24 17:29 | disposition home or self-care (01) | DRG 71 ==
LOC: ED 18:21 → INTOOBSV 22:03 → 3W 22:03 → SUATTDRO 22:03 → 3W 23:18

== ENCOUNTER 2024-07-15 21:17 | Observation (INO) ==
[2024-07-15 21:54] LABS: Basophils # (auto) 0.07 K/uL (0.00-0.20); Basophils % (auto) 1.1 %; Eosinophils % (auto) 3.2 %; Hematocrit (blood only) 43.6 % (42.0-52.0); Hemoglobin 14.9 g/dl (14.0-18.0); Immature Granulocytes # (auto) 0.01 K/uL (0.01-0.20); Immature Granulocytes % (auto) 0.2 %; Lymphocytes # (auto) 0.84 K/uL (1.20-3.40); Lymphocytes % (auto) 13.3 %; Mean Corpuscular Hgb Conc 34.2 g/dL (32.0-36.0); Mean Corpuscular Volume 93.8 fL (80.0-100.0); Mean Platelet Volume 9.7 fL (9.4-12.4); Monocytes # (auto) 0.51 K/uL (0.11-0.59); Monocytes % (auto) 8.1 %; Neutrophils % (auto) 74.1 %; Platelet Count 212 K/uL (130-400); RDW Coefficient of Variation 12.1 % (11.5-14.5); RDW Standard Deviation 42.1 fL (36.4-46.3); Red Blood Count 4.65 M/uL (4.70-6.10); White Blood Count 6.33 K/ul (4.8-10.8)
[2024-07-15 22:11] LABS: Albumin Globulin Ratio 1.4 (0.9-2); Albumin Level 4.2 gm/dl (3.4-5.0); Bilirubin,Total 0.8 mg/dl (0.2-1.0); Calcium 9.4 mg/dl (8.6-10.3); Creatinine Clr Calc Pharmacy 90.7 ml/min; Globulin 2.9 gm/dl (2.5-4.0); Total Protein 7.1 gm/dl (6.0-8.3)
[2024-07-15 22:19] LABS: Magnesium 2.2 mg/dl (1.7-2.4)
[2024-07-15 22:25] LABS: Partial Thromboplastin Time 26 Seconds (21-31); Prothrombin Time 10.7 Seconds (9.0-12.0)
[2024-07-15 22:26] LABS: Troponin I High Sensitivity 11.6 pg/ml (0-20)
[2024-07-15] MEDS: OPTIRAY 320 125ml IV ONE (22:38)
[2024-07-15 23:30] LABS: Appearance Urine Clear (Clear); Bacteria Urine Automated None Seen (None Seen); Bilirubin Urine Negative (Negative); Blood Urine Negative (Negative); Color Urine Dark Yellow; Epithelial Cell Urine Auto 0-2 /hpf (0-2); Glucose Urine UA Negative (Negative); Ketones Urine Trace (Negative); Leukocyte Esterase Urine Negative (Negative); Nitrite Urine Negative (Negative); Protein Urine Trace (Negative); Specific Gravity Urine > 1.045 (1.000-1.030); Urobilinogen Urine Negative (Negative); WBC Urine Automated 0-5 /hpf (0-5); pH Urine 5.5 (4.5-7.5)
--- NOTE | 2024-07-15 23:32 | Emergency Department Note ---
History of Present Illness General Chief complaint: Altered Mental Status Stated complaint: AMS Time Seen by Provider: 07/15/24 21:47 History of Present Illness This is a 59-year-old male presenting to the ER via EMS from home. History is somewhat limited as patient has slurred speech and confusion. History is primarily provided by the via telephone. Patient has extensive medical history including Parkinson's disease for an extended period of time. He has several episodes recently of hallucinations, and was speaking about persons that were outside the home tonight that were not there. Patient has had symptoms like this with previous infections, and he is prone to UTIs. Patient has significant ambulatory dysfunction due to orthopedic surgery and his underlying Parkinson's. He typically uses a wheelchair, but essentially has refused to sit in his wheelchair, laying himself on the ground and crawling around the home. There is no report of significant trauma. Family does have caregiver in the home to help with the patient, and caregiver also believes that the patient is worse than normal baseline. He does not have any recent medication changes. No known fevers or chills. Home Medications Medication Instructions Recorded Confirmed Type amantadine HCl 100 mg tablet 100 mg PO BID 06/30/19 07/09/24 History carbidopa ER 50 mg-levodopa 200 mg 1 tab PO QID 06/30/19 07/09/24 History tablet,extended release entacapone 200 mg tablet (Comtan) 200 mg PO QID 06/30/19 07/09/24 History acetaminophen 500 mg tablet 1,000 mg PO BID PRN Pain 04/29/20 07/09/24 History carbidopa 25 mg-levodopa 100 mg 1 tab PO QID PRN DISCOMFORT AND 10/04/22 07/09/24 History disintegrating tablet RIGIDITY diclofenac sodium 1 % topical gel 2 g topical QID PRN Pain 10/04/22 07/09/24 History carbidopa 25 mg-levodopa 100 mg 1 tab PO QID 10/21/23 07/09/24 History tablet doxycycline hyclate 100 mg tablet 100 mg PO AMHS 10/21/23 07/09/24 History duloxetine 60 mg capsule,delayed 60 mg PO QAM 10/21/23 07/09/24 History release hydroxyzine HCl 10 mg tablet 10 mg PO BID PRN ANXIETY/SLEEP 10/21/23 07/09/24 History lorazepam 1 mg tablet 1 mg PO BID PRN Anxiety 10/21/23 07/09/24 History vibegron 75 mg tablet (Gemtesa) 75 mg PO DAILY #90 tabs 12/10/23 07/09/24 Rx ascorbic acid (vitamin C) 500 mg 500 mg PO BID 07/09/24 07/09/24 History tablet Allergies Allergy/AdvReac Type Severity Reaction Status Date / Time morphine Allergy Mild Itching Verified 07/09/24 09:28 buspirone [From BuSpar] AdvReac Severe SCHIZOPHRENIA Verified 07/09/24 09:28 LIKE ACTIONS haloperidol [From Haldol] AdvReac Severe CONTRAINDICATED Verified 07/09/24 09:28 IN PARKINSON'S DISEASE pramipexole [From Mirapex] AdvReac Severe BECAME OCD Verified 07/09/24 09:28 FOR WEEKS quetiapine [From Seroquel] AdvReac Severe PT BECAME Verified 07/09/24 09:28 VIOLENT THEN DEEP SLEEP Past Med/Surg History Problem List (Updated 07/17/24 @ 01:49 by Bala Aponte PA-C) Delirium due to general medical condition (Acute) Altered mental status (Acute) Pulmonary nodules/lesions, multiple Parkinson disease (Acute) s/p deep brain stimulator. Dr. Linda Back, [facility] REM sleep behavior disorder Sleep apnea does not tolerate device Infection of prosthetic left knee joint [facility], Infectious Disease Anxiety (Acute) Depression Counseling with [facility]. Urinary incontinence Managed at primary care Recurrent UTI Medical History Hallucinations Hematuria, microscopic Conjunctivitis Vitamin D deficiency Osteoarthritis Venous stasis of both lower extremities Hearing deficit APACHE left ear Depression Surgical History History of carpal tunnel release History of revision of total knee arthroplasty LEFT History of foot surgery RECONSTRUCTION - RT History of left knee replacement History of shoulder surgery LEFT X 2; RT X 1 History of appendectomy History of colonoscopy S/P deep brain stimulator placement (~2008) Family History Grandmother Family history of diabetes mellitus Father Hypertension Denies family history of Ovarian cancer Osteoporosis Myocardial infarction Breast cancer Colorectal cancer Cancer Social History Smoking Status: Never smoker Second Hand Exposure: No; Do You Dip or Chew Tobacco: No; Hx Alcohol Use: No Hx Substance Use: No Preferred Language: Sinhala Communication Ability: Impaired Visual Impairment: No Limitations Hearing Ability: Normal Branch Chief Required: No Beliefs That Will Affect Care: None marital status: Current Living Situation: Spouse Current Living Situation Comment: lives at home with How many Children do You have: 2 Feels Safe at Home: Yes Safety Concerns: Feels Safe At This Time Assistive Devices: None, Hospital Bed, Scooter/Electric Scooter, Walker and Wheelchair Review of Systems A total of 10 systems reviewed and were otherwise negative Physical Exam Vital Signs Vital Signs - 24 hr 07/15/24 21:28 07/15/24 21:38 07/15/24 21:55 Temperature 37.3 C Temperature Source Oral Pulse Rate 84 81 Pulse Rate [Finger] 86 Respiratory Rate 14 16 Blood Pressure 139/102 H Blood Pressure Mean 114 Pulse Oximetry 96 96 Oxygen Delivery Method Room Air Room Air Sepsis Recent Fever Within 48 Hours No Sepsis New/Unexplained Change in Mental Status No Sepsis Action Taken by Nursing No Action Required 07/15/24 23:00 Temperature Temperature Source Pulse Rate 88 Pulse Rate [Finger] Respiratory Rate 12 Blood Pressure 143/93 H Blood Pressure Mean 109 Pulse Oximetry Oxygen Delivery Method Sepsis Recent Fever Within 48 Hours Sepsis New/Unexplained Change in Mental Status Sepsis Action Taken by Nursing VITALS: Vitals are noted on the nurse's note and reviewed by myself. Vital signs stable. GENERAL: White male who is resting comfortably in the bed. Speech is hurried and slurred. He seems to attempt to answer questions appropriately. HEAD: Normocephalic atraumatic. HEART: Regular rate and rhythm without murmurs gallops or rubs. LUNGS: Clear to auscultation bilaterally without wheezes, rales or rhonchi. No retractions or accessory muscle use. ABDOMEN: Positive normal bowel sounds x 4. Soft, nontender, without masses or organomegaly. No guarding or rebound tenderness. MUSCULOSKELETAL: No muscle atrophy, erythema, or edema noted. NEURO: Patient was alert and oriented to person place and time. Course Administered Medications Amantadine HCl (Amantadine Hcl 100 Mg Capsule) 100 mg PO BID@0700,1100 RENAN Stop: 08/15/24 06:59 Last Admin: 07/16/24 12:03 Dose: 100 mg Documented By: Admin: 07/16/24 07:57 Dose: 100 mg Documented By: CHASE Ascorbic Acid (Ascorbic Acid 500 Mg Tab) 500 mg PO BID [facility] Stop: 08/15/24 08:59 Last Admin: 07/16/24 21:01 Dose: 500 mg Documented By: Admin: 07/16/24 07:56 Dose: 500 mg Documented By: CHASE Carbidopa/Levodopa (Carbidopa/Levodopa 50/200mg Ext Rel Tab) 1 tab PO QID@0700,1100,1600,2200 [facility] Stop: 08/15/24 06:59 Last Admin: 07/16/24 22:04 Dose: 1 tab Documented By: Admin: 07/16/24 17:00 Dose: 1 tab Documented By: Admin: 07/16/24 12:03 Dose: 1 tab Documented By: Admin: 07/16/24 07:56 Dose: 1 tab Documented By: CHASE Carbidopa/Levodopa (Carbidopa/Levodopa 25/100mg Tab) 1 tab PO QID@0700,1100,1600,2200 [facility] Stop: 08/15/24 06:59 Last Admin: 07/16/24 22:03 Dose: 1 tab Documented By: Admin: 07/16/24 17:00 Dose: 1 tab Documented By: Admin: 07/16/24 12:02 Dose: 1 tab Documented By: Admin: 07/16/24 07:56 Dose: 1 tab Documented By: CHASE Doxycycline Hyclate (Doxycycline Hyclate 100 Mg Cap) 100 mg PO AMHS RENAN Stop: 08/15/24 08:59 Last Admin: 07/16/24 21:01 Dose: 100 mg Documented By: Admin: 07/16/24 07:55 Dose: 100 mg Documented By: CHASE Duloxetine HCl (Duloxetine Hcl 60 Mg Cap) 60 mg PO QAM RENAN Stop: 08/15/24 08:59 Last Admin: 07/16/24 07:56 Dose: 60 mg Documented By: CHASE Entacapone (Entacapone 200 Mg Tab) 200 mg PO QID@0700,1100,1600,2200 [facility] Stop: 08/15/24 06:59 Last Admin: 07/16/24 22:03 Dose: 200 mg Documented By: Admin: 07/16/24 17:00 Dose: 200 mg Documented By: Admin: 07/16/24 12:03 Dose: 200 mg Documented By: Admin: 07/16/24 07:55 Dose: 200 mg Documented By: RB Hydroxyzine HCl (Hydroxyzine Hcl 10 Mg Tab) 10 mg PO BID PRN PRN Reason: ANXIETY/SLEEP Stop: 08/15/24 06:00 Last Admin: 07/16/24 22:03 Dose: 10 mg Documented By: Admin: 07/16/24 07:55 Dose: 10 mg Documented By: CHASE Vibegron (Vibegron 75 Mg Tab) 75 mg PO DAILY RENAN Stop: 08/15/24 08:59 Last Admin: 07/16/24 07:56 Dose: 75 mg Documented By: CHASE Discontinued Medications Carbidopa/Levodopa (Carbidopa/Levodopa 25/100mg Tab) 1 tab PO NOW STA Stop: 07/16/24 02:50 Last Admin: 07/16/24 03:34 Dose: 1 tab Documented By: KAUSHAL Carbidopa/Levodopa (Carbidopa/Levodopa 50/200mg Ext Rel Tab) 1 tab PO NOW STA Stop: 07/16/24 02:54 Last Admin: 07/16/24 03:33 Dose: 1 tab Documented By: KAUSHAL Hydroxyzine HCl (Hydroxyzine Hcl 10 Mg Tab) 10 mg PO NOW STA Stop: 07/16/24 02:50 Last Admin: 07/16/24 03:33 Dose: 10 mg Documented By: KAUSHAL Sodium Chloride (Nss) 1,000 mls @ 999 mls/hr IV .Q1H1M ONE Stop: 07/16/24 03:47 Last Infusion: 07/16/24 04:59 Dose: Infused Documented By: Admin: 07/16/24 03:34 Dose: 999 mls/hr Documented By: KAUSHAL Influenza Virus Vacc Triv Types A&B (Influenza Vacc [id number](6m+)/Pf (Iiv3) 0.5ml Syr) 0.5 ml IM .ONCE ONE Stop: 07/16/24 06:16 Last Admin: 07/16/24 14:04 Dose: 0.5 ml Documented By: CHASE Ioversol (Optiray 320 125ml) 117 ml IV ONCE ONE Stop: 07/15/24 22:39 Last Admin: 07/15/24 22:38 Dose: 117 ml Documented By: JB Ioversol (Optiray 320 100ml) 94 ml IV ONCE ONE Stop: 07/16/24 13:35 Last Admin: 07/16/24 13:36 Dose: 94 ml Documented By: JB Medical Decision Making Differential Diagnosis Differential diagnosis: Etiologies such as stroke, infection, benign positional vertigo, labrynthitis, dehydration, hypovolemia, anemia, tumor, infection, hypoglycemia, electrolyte abnormalities, cardiac sources, toxicological sources, central neurologic process, as well as others were entertained. Laboratory Data 07/15/24 21:40 07/15/24 21:40 Lab Results 07/15/24 07/15/24 Range/Units 21:40 23:05 WBC 6.33 (4.8-10.8) K/ul RBC 4.65 L (4.70-6.10) M/uL Hgb 14.9 (14.0-18.0) g/dl Hct 43.6 (42.0-52.0) % MCV 93.8 (80.0-100.0) fL MCH 32.0 (25.0-34.0) pg MCHC 34.2 (32.0-36.0) g/dL RDW Std Deviation 42.1 (36.4-46.3) fL RDW Coeff of Travis 12.1 (11.5-14.5) % Plt Count 212 (130-400) K/uL MPV 9.7 (9.4-12.4) fL Immature Gran % (Auto) 0.2 % Neut % (Auto) 74.1 % Lymph % (Auto) 13.3 % [place] % (Auto) 8.1 % Eos % (Auto) 3.2 % Baso % (Auto) 1.1 % Neut # (Auto) 4.70 (1.40-6.50) K/uL Lymph # (Auto) 0.84 L (1.20-3.40) K/uL [place] # (Auto) 0.51 (0.11-0.59) K/uL Eos # (Auto) 0.20 (0.00-0.50) K/uL Baso # (Auto) 0.07 (0.00-0.20) K/uL Immature Gran # (Auto) 0.01 (0.01-0.20) K/uL PT 10.7 (9.0-12.0) Seconds INR 1.0 (0.9-1.1) APTT 26 (21-31) Seconds PTT Ratio 1.0 Sodium 139 (136-145) mmol/L Potassium 4.0 (3.5-5.1) mmol/L Chloride 106 (98-107) mmol/L Carbon Dioxide 26 (21-32) mmol/L Anion Gap 7 (3-11) BUN 23 (6-23) mg/dl Creatinine 0.82 (0.6-1.4) mg/dl Est Cr Clr Drug Dosing 90.7 ml/min eGFR 101.19 BUN/Creatinine Ratio 28.0 H (10-20) Glucose 96 (70-99(Fasting)) mg/dl Calcium 9.4 (8.6-10.3) mg/dl Magnesium 2.2 (1.7-2.4) mg/dl Total Bilirubin 0.8 (0.2-1.0) mg/dl AST 10 L (13-39) U/L ALT 4 L (7-52) U/L Alkaline Phosphatase 51 (34-104) U/L Troponin I High Sens 11.6 (0-20) pg/ml Total Protein 7.1 (6.0-8.3) gm/dl Albumin 4.2 (3.4-5.0) gm/dl Globulin 2.9 (2.5-4.0) gm/dl Albumin/Globulin Ratio 1.4 (0.9-2) Urine Color Dark Yellow Urine Appearance Clear (Clear) Urine pH 5.5 (4.5-7.5) Ur Specific [place] > 1.045 H (1.000-1.030) Urine Protein Trace H (Negative) Urine Glucose (UA) Negative (Negative) Urine Ketones Trace H (Negative) Urine Blood Negative (Negative) Urine Nitrite Negative (Negative) Urine Bilirubin Negative (Negative) Urine Urobilinogen Negative (Negative) Ur Leukocyte Esterase Negative (Negative) Urine WBC (Auto) 0-5 (0-5) /hpf Urine RBC (Auto) 3-5 H (0-2) /hpf U Hyaline Cast (Auto) 3-5 H (0-2) /lpf U Epithel Cells (Auto) 0-2 (0-2) /hpf Urine Bacteria (Auto) None Seen (None Seen) Imaging Data Radiologist's Impression: Head CT 07/15/24 21:52 Exam(s): CT HEAD Without Contrast EXAM: CT Head Without Intravenous Contrast CLINICAL HISTORY: Reason for exam: AMS. TECHNIQUE: Axial computed tomography images of the head/brain without intravenous contrast. CTDI is 30.68 mGy and DLP is 568.42 mGy-cm. Automated exposure control was utilized for the study. A dose lowering technique was utilized adhering to the principles of ALARA. COMPARISON: CT Head dated 10/21/23 FINDINGS: Brain: Volume loss with prominent ventricles and sulci. Mild periventricular white matter hypoattenuation likely reflects chronic small vessel disease. No hemorrhage. Ventricles: See above. Bones/joints: Unremarkable. No acute fracture. Soft tissues: Unremarkable. Sinuses: Unremarkable as visualized. No acute sinusitis. Mastoid air cells: Unremarkable as visualized. No mastoid effusion. Tubes, lines and devices: Bilateral deep brain stimulator leads, as on the prior. IMPRESSION: No acute findings in the head/brain. Electronically signed by: Nancy Kauffman M.D. 07/16/24 00:14 AM Head CTA 07/15/24 21:52 CR Exam(s): CTA HEAD With Contrast IV Amt: 117ml optiray 320 EXAM: CT Angiography Head and Neck With Intravenous Contrast CLINICAL HISTORY: Reason for exam: AMS. TECHNIQUE: [place] [facility] [place]/head and neck CT angiography protocol performed with intravenous contrast. CTDI is 30.68 mGy and DLP is 568.42 mGy-cm. Automated exposure control was utilized for the study. A dose lowering technique was utilized adhering to the principles of ALARA. MIP reconstructed images were created and reviewed. CONTRAST: Patient received 117ml optiray 320 of IV contrast COMPARISON: Head CT today 07/15/2024, 10/21/2023 FINDINGS: Limitations: Some artifact from deep brain stimulators and suboptimal patient positioning. HEAD: Right anterior cerebral artery: Unremarkable. No occlusion or significant stenosis. Anterior communicating artery is present. No aneurysm. Right middle cerebral artery: Unremarkable. No occlusion or significant stenosis. No aneurysm. Right posterior cerebral artery: Unremarkable. No occlusion or significant stenosis. No aneurysm. Right intracranial internal carotid artery: Unremarkable. No significant stenosis. No dissection or occlusion. Right intracranial vertebral artery: Unremarkable. No significant stenosis. No dissection or occlusion. Left anterior cerebral artery: Unremarkable. No occlusion or significant stenosis. No aneurysm. Left middle cerebral artery: Query mild asymmetry of the smaller left MCA M3 branches compared to the right. Limited evaluation. No large vessel occlusion or significant stenosis. No aneurysm. Left posterior cerebral artery: Unremarkable. No occlusion or significant stenosis. No aneurysm. Left intracranial internal carotid artery: Unremarkable. No significant stenosis. No dissection or occlusion. Left intracranial vertebral artery: Unremarkable. No significant stenosis. No dissection or occlusion. Basilar artery: Unremarkable. No occlusion or significant stenosis. No aneurysm. Other vasculature: No vascular malformation. NECK: Right common carotid artery: Unremarkable. No significant stenosis. No dissection or occlusion. Right extracranial internal carotid artery: Unremarkable. No significant stenosis. No dissection or occlusion. Right external carotid artery: Unremarkable. No occlusion. Right extracranial vertebral artery: Unremarkable. No significant stenosis. No dissection or occlusion. Left common carotid artery: Unremarkable. No significant stenosis. No dissection or occlusion. Left extracranial internal carotid artery: Unremarkable. No significant stenosis. No dissection or occlusion. Left external carotid artery: Unremarkable. No occlusion. Left extracranial vertebral artery: Focal short segment narrowed appearance of the left cervical vertebral artery, at the C4-5 level. Series 6 image 226. Nonspecific. Lung apices: Unremarkable as visualized. Mediastinum: Multiple small and mildly enlarged mediastinal and hilar nodes, some calcified. May be granulomatous. Correlate. HEAD and NECK: Bones/joints: Unremarkable. No discrete lytic or blastic abnormalities. Soft tissues: Unremarkable. Tubes, lines and devices: Bilateral deep brain stimulators. CAROTID STENOSIS REFERENCE USING NASCET CRITERIA: % ICA stenosis = (1 - narrowest ICA diameter/diameter of distal cervical ICA) x 100. Mild - <50% stenosis. Moderate - 50-69% stenosis. Severe - 70-94% stenosis. Near occlusion - 95-99% stenosis. Occluded - 100% stenosis. IMPRESSION: 1. CTA head: No large vessel occlusion or severe stenosis. No aneurysm. 2. Query mild asymmetry of the smaller left MCA M3 branches compared to the right. Limited evaluation. Correlate and could consider MRI. 3. CTA neck: No occlusion or severe stenosis. 4. Focal short segment narrowed appearance of the left cervical vertebral artery, at the C4-5 level. Series 6 image 226. Nonspecific. 5. Multiple small and mildly enlarged mediastinal and hilar nodes, some calcified. May be granulomatous. Correlate. Communications: Call Doctor Above results Electronically signed by: Nancy Kauffman M.D. 07/16/24 00:51 AM Neck CTA 07/15/24 21:52 Exam(s): CTA NECK With Contrast IV Amt: 117ml optiray 320 EXAM: CT Angiography Head and Neck With Intravenous Contrast CLINICAL HISTORY: Reason for exam: AMS. TECHNIQUE: [place] [facility]/head and neck CT angiography protocol performed with intravenous contrast. CTDI is 30.68 mGy and DLP is 568.42 mGy-cm. Automated exposure control was utilized for the study. A dose lowering technique was utilized adhering to the principles of ALARA. MIP reconstructed images were created and reviewed. CONTRAST: Patient received 117ml optiray 320 of IV contrast COMPARISON: Head CT today 07/15/2024, 10/21/2023 FINDINGS: Limitations: Some artifact from deep brain stimulators and suboptimal patient positioning. HEAD: Right anterior cerebral artery: Unremarkable. No occlusion or significant stenosis. Anterior communicating artery is present. No aneurysm. Right middle cerebral artery: Unremarkable. No occlusion or significant stenosis. No aneurysm. Right posterior cerebral artery: Unremarkable. No occlusion or significant stenosis. No aneurysm. Right intracranial internal carotid artery: Unremarkable. No significant stenosis. No dissection or occlusion. Right intracranial vertebral artery: Unremarkable. No significant stenosis. No dissection or occlusion. Left anterior cerebral artery: Unremarkable. No occlusion or significant stenosis. No aneurysm. Left middle cerebral artery: Query mild asymmetry of the smaller left MCA M3 branches compared to the right. Limited evaluation. No large vessel occlusion or significant stenosis. No aneurysm. Left posterior cerebral artery: Unremarkable. No occlusion or significant stenosis. No aneurysm. Left intracranial internal carotid artery: Unremarkable. No significant stenosis. No dissection or occlusion. Left intracranial vertebral artery: Unremarkable. No significant stenosis. No dissection or occlusion. Basilar artery: Unremarkable. No occlusion or significant stenosis. No aneurysm. Other vasculature: No vascular malformation. NECK: Right common carotid artery: Unremarkable. No significant stenosis. No dissection or occlusion. Right extracranial internal carotid artery: Unremarkable. No significant stenosis. No dissection or occlusion. Right external carotid artery: Unremarkable. No occlusion. Right extracranial vertebral artery: Unremarkable. No significant stenosis. No dissection or occlusion. Left common carotid artery: Unremarkable. No significant stenosis. No dissection or occlusion. Left extracranial internal carotid artery: Unremarkable. No significant stenosis. No dissection or occlusion. Left external carotid artery: Unremarkable. No occlusion. Left extracranial vertebral artery: Focal short segment narrowed appearance of the left cervical vertebral artery, at the C4-5 level. Series 6 image 226. Nonspecific. Lung apices: Unremarkable as visualized. Mediastinum: Multiple small and mildly enlarged mediastinal and hilar nodes, some calcified. May be granulomatous. Correlate. HEAD and NECK: Bones/joints: Unremarkable. No discrete lytic or blastic abnormalities. Soft tissues: Unremarkable. Tubes, lines and devices: Bilateral deep brain stimulators. CAROTID STENOSIS REFERENCE USING NASCET CRITERIA: % ICA stenosis = (1 - narrowest ICA diameter/diameter of distal cervical ICA) x 100. Mild - <50% stenosis. Moderate - 50-69% stenosis. Severe - 70-94% stenosis. Near occlusion - 95-99% stenosis. Occluded - 100% stenosis. IMPRESSION: 1. CTA head: No large vessel occlusion or severe stenosis. No aneurysm. 2. Query mild asymmetry of the smaller left MCA M3 branches compared to the right. Limited evaluation. Correlate and could consider MRI. 3. CTA neck: No occlusion or severe stenosis. 4. Focal short segment narrowed appearance of the left cervical vertebral artery, at the C4-5 level. Series 6 image 226. Nonspecific. 5. Multiple small and mildly enlarged mediastinal and hilar nodes, some calcified. May be granulomatous. Correlate. Electronically signed by: Nancy Kauffman M.D. 07/16/24 01:12 AM MDM Narrative Physical exam and history were performed. Nursing notes, EMR, and Medication List were personally reviewed. No social concerns were identified as barriers to patients care. Patient appears to have altered mental status bringing him to the ER. Much of the history is provided by patient's , and he seems far from his baseline. IV access was established and labs were obtained. CT scan of the head and neck was performed. Patient's blood work is as above and was reviewed. He does not have a significantly elevated white blood cell count, gross anemia, bandemia, or significant electrolyte imbalance. Transaminases are not diagnostic. Troponin is negative. Urine without distinct evidence of infection. CT scans were independently reviewed by myself and radiology showing no acute process to distinctly explain the patient's symptoms. Patient was reevaluated multiple times over the course of his stay. Family is at bedside and are concerned as patient has had symptoms like this with previous infections. He certainly does not seem stable for discharge home and escalation of care is felt to be necessary. Case was discussed with the on-call hospitalist team who agreed to evaluate the patient here in the ER. Please see their dictation for further patient course, plan, disposition. The chart was completed utilizing [employer] Speech Voice Recognition Software. Grammatical errors, random word insertions, pronoun errors, and incomplete sentences are an occasional consequence of this system due to software limitations, ambient noise, and hardware issues. Any formal questions or concerns about the content, text, or information contained within the body of this dictation should be directly addressed to the provider for clarification. Impression & Plan Altered mental status, Delirium due to general medical condition Discharge Plan Visit Data Chief Complaint: Altered Mental Status Stated Complaint: AMS ED Provider: Brad Vargas ED Midlevel Provider: Bala Aponte Discharge Problem: Altered mental status, Delirium due to general medical condition Patient Disposition: Admitted As Inpatient Discharge Instructions Interventions: ED Discharge Assessment Last Done: 07/16/24 05:15
--- NOTE | 2024-07-16 00:15 | CT Scan Report ---
Exam(s): CT HEAD Without Contrast EXAM: CT Head Without Intravenous Contrast CLINICAL HISTORY: Reason for exam: AMS. TECHNIQUE: Axial computed tomography images of the head/brain without intravenous contrast. CTDI is 30.68 mGy and DLP is 568.42 mGy-cm. Automated exposure control was utilized for the study. A dose lowering technique was utilized adhering to the principles of ALARA. COMPARISON: CT Head dated 10/21/23 FINDINGS: Brain: Volume loss with prominent ventricles and sulci. Mild periventricular white matter hypoattenuation likely reflects chronic small vessel disease. No hemorrhage. Ventricles: See above. Bones/joints: Unremarkable. No acute fracture. Soft tissues: Unremarkable. Sinuses: Unremarkable as visualized. No acute sinusitis. Mastoid air cells: Unremarkable as visualized. No mastoid effusion. Tubes, lines and devices: Bilateral deep brain stimulator leads, as on the prior. IMPRESSION: No acute findings in the head/brain. Electronically signed by: Nancy Kauffman M.D. 07/16/24 00:14 AM
--- NOTE | 2024-07-16 00:52 | CT Scan Report ---
Exam(s): CTA HEAD With Contrast IV Amt: 117ml optiray 320 EXAM: CT Angiography Head and Neck With Intravenous Contrast CLINICAL HISTORY: Reason for exam: AMS. TECHNIQUE: [place] of Cat/head and neck CT angiography protocol performed with intravenous contrast. CTDI is 30.68 mGy and DLP is 568.42 mGy-cm. Automated exposure control was utilized for the study. A dose lowering technique was utilized adhering to the principles of ALARA. MIP reconstructed images were created and reviewed. CONTRAST: Patient received 117ml optiray 320 of IV contrast COMPARISON: Head CT today 07/15/2024, 10/21/2023 FINDINGS: Limitations: Some artifact from deep brain stimulators and suboptimal patient positioning. HEAD: Right anterior cerebral artery: Unremarkable. No occlusion or significant stenosis. Anterior communicating artery is present. No aneurysm. Right middle cerebral artery: Unremarkable. No occlusion or significant stenosis. No aneurysm. Right posterior cerebral artery: Unremarkable. No occlusion or significant stenosis. No aneurysm. Right intracranial internal carotid artery: Unremarkable. No significant stenosis. No dissection or occlusion. Right intracranial vertebral artery: Unremarkable. No significant stenosis. No dissection or occlusion. Left anterior cerebral artery: Unremarkable. No occlusion or significant stenosis. No aneurysm. Left middle cerebral artery: Query mild asymmetry of the smaller left MCA M3 branches compared to the right. Limited evaluation. No large vessel occlusion or significant stenosis. No aneurysm. Left posterior cerebral artery: Unremarkable. No occlusion or significant stenosis. No aneurysm. Left intracranial internal carotid artery: Unremarkable. No significant stenosis. No dissection or occlusion. Left intracranial vertebral artery: Unremarkable. No significant stenosis. No dissection or occlusion. Basilar artery: Unremarkable. No occlusion or significant stenosis. No aneurysm. Other vasculature: No vascular malformation. NECK: Right common carotid artery: Unremarkable. No significant stenosis. No dissection or occlusion. Right extracranial internal carotid artery: Unremarkable. No significant stenosis. No dissection or occlusion. Right external carotid artery: Unremarkable. No occlusion. Right extracranial vertebral artery: Unremarkable. No significant stenosis. No dissection or occlusion. Left common carotid artery: Unremarkable. No significant stenosis. No dissection or occlusion. Left extracranial internal carotid artery: Unremarkable. No significant stenosis. No dissection or occlusion. Left external carotid artery: Unremarkable. No occlusion. Left extracranial vertebral artery: Focal short segment narrowed appearance of the left cervical vertebral artery, at the C4-5 level. Series 6 image 226. Nonspecific. Lung apices: Unremarkable as visualized. Mediastinum: Multiple small and mildly enlarged mediastinal and hilar nodes, some calcified. May be granulomatous. Correlate. HEAD and NECK: Bones/joints: Unremarkable. No discrete lytic or blastic abnormalities. Soft tissues: Unremarkable. Tubes, lines and devices: Bilateral deep brain stimulators. CAROTID STENOSIS REFERENCE USING NASCET CRITERIA: % ICA stenosis = (1 - narrowest ICA diameter/diameter of distal cervical ICA) x 100. Mild - <50% stenosis. Moderate - 50-69% stenosis. Severe - 70-94% stenosis. Near occlusion - 95-99% stenosis. Occluded - 100% stenosis. IMPRESSION: 1. CTA head: No large vessel occlusion or severe stenosis. No aneurysm. 2. Query mild asymmetry of the smaller left MCA M3 branches compared to the right. Limited evaluation. Correlate and could consider MRI. 3. CTA neck: No occlusion or severe stenosis. 4. Focal short segment narrowed appearance of the left cervical vertebral artery, at the C4-5 level. Series 6 image 226. Nonspecific. 5. Multiple small and mildly enlarged mediastinal and hilar nodes, some calcified. May be granulomatous. Correlate. Communications: Call Doctor Above results Electronically signed by: Nancy Kauffman M.D. 07/16/24 00:51 AM
--- NOTE | 2024-07-16 01:13 | CT Scan Report ---
Exam(s): CTA NECK With Contrast IV Amt: 117ml optiray 320 EXAM: CT Angiography Head and Neck With Intravenous Contrast CLINICAL HISTORY: Reason for exam: AMS. TECHNIQUE: [place] of Cat/head and neck CT angiography protocol performed with intravenous contrast. CTDI is 30.68 mGy and DLP is 568.42 mGy-cm. Automated exposure control was utilized for the study. A dose lowering technique was utilized adhering to the principles of ALARA. MIP reconstructed images were created and reviewed. CONTRAST: Patient received 117ml optiray 320 of IV contrast COMPARISON: Head CT today 07/15/2024, 10/21/2023 FINDINGS: Limitations: Some artifact from deep brain stimulators and suboptimal patient positioning. HEAD: Right anterior cerebral artery: Unremarkable. No occlusion or significant stenosis. Anterior communicating artery is present. No aneurysm. Right middle cerebral artery: Unremarkable. No occlusion or significant stenosis. No aneurysm. Right posterior cerebral artery: Unremarkable. No occlusion or significant stenosis. No aneurysm. Right intracranial internal carotid artery: Unremarkable. No significant stenosis. No dissection or occlusion. Right intracranial vertebral artery: Unremarkable. No significant stenosis. No dissection or occlusion. Left anterior cerebral artery: Unremarkable. No occlusion or significant stenosis. No aneurysm. Left middle cerebral artery: Query mild asymmetry of the smaller left MCA M3 branches compared to the right. Limited evaluation. No large vessel occlusion or significant stenosis. No aneurysm. Left posterior cerebral artery: Unremarkable. No occlusion or significant stenosis. No aneurysm. Left intracranial internal carotid artery: Unremarkable. No significant stenosis. No dissection or occlusion. Left intracranial vertebral artery: Unremarkable. No significant stenosis. No dissection or occlusion. Basilar artery: Unremarkable. No occlusion or significant stenosis. No aneurysm. Other vasculature: No vascular malformation. NECK: Right common carotid artery: Unremarkable. No significant stenosis. No dissection or occlusion. Right extracranial internal carotid artery: Unremarkable. No significant stenosis. No dissection or occlusion. Right external carotid artery: Unremarkable. No occlusion. Right extracranial vertebral artery: Unremarkable. No significant stenosis. No dissection or occlusion. Left common carotid artery: Unremarkable. No significant stenosis. No dissection or occlusion. Left extracranial internal carotid artery: Unremarkable. No significant stenosis. No dissection or occlusion. Left external carotid artery: Unremarkable. No occlusion. Left extracranial vertebral artery: Focal short segment narrowed appearance of the left cervical vertebral artery, at the C4-5 level. Series 6 image 226. Nonspecific. Lung apices: Unremarkable as visualized. Mediastinum: Multiple small and mildly enlarged mediastinal and hilar nodes, some calcified. May be granulomatous. Correlate. HEAD and NECK: Bones/joints: Unremarkable. No discrete lytic or blastic abnormalities. Soft tissues: Unremarkable. Tubes, lines and devices: Bilateral deep brain stimulators. CAROTID STENOSIS REFERENCE USING NASCET CRITERIA: % ICA stenosis = (1 - narrowest ICA diameter/diameter of distal cervical ICA) x 100. Mild - <50% stenosis. Moderate - 50-69% stenosis. Severe - 70-94% stenosis. Near occlusion - 95-99% stenosis. Occluded - 100% stenosis. IMPRESSION: 1. CTA head: No large vessel occlusion or severe stenosis. No aneurysm. 2. Query mild asymmetry of the smaller left MCA M3 branches compared to the right. Limited evaluation. Correlate and could consider MRI. 3. CTA neck: No occlusion or severe stenosis. 4. Focal short segment narrowed appearance of the left cervical vertebral artery, at the C4-5 level. Series 6 image 226. Nonspecific. 5. Multiple small and mildly enlarged mediastinal and hilar nodes, some calcified. May be granulomatous. Correlate. Electronically signed by: Nancy Kauffman M.D. 07/16/24 01:12 AM
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
[2024-07-16] MEDS: CARBIDOPA/LEVODOPA 50/200MG EXT REL TAB PO STA (03:33)
[2024-07-16] MEDS: hydrOXYzine HCl 10 MG TAB PO STA (03:33)
[2024-07-16] MEDS: CARBIDOPA/LEVODOPA 25/100MG TAB PO STA (03:34)
[2024-07-16] MEDS: SODIUM CHLORIDE 0.9% 1,000 ML IV ONE (03:34)
[2024-07-16] MEDS ORDERED: LORazepam 1 MG TAB PO PRN (06:01)
[2024-07-16] MEDS ORDERED: ONDANSETRON INJ 2 MG/ML 2 ML VIAL IV PRN (06:01)
[2024-07-16] MEDS ORDERED: CARBIDOPA/LEVODOPA 25/100MG TAB PO PRN (06:13)
--- NOTE | 2024-07-16 07:41 | XRay Report ---
XR chest 1V portable CLINICAL HISTORY: mediastinal and hilar nodes on CTA neck TECHNIQUE: Single frontal radiograph of the chest was obtained. Comparison: Comparison is made to chest radiograph 10/21/2023 FINDINGS: Lines and tubes are stable. The cardiomediastinal silhouette is normal. The lungs are clear. No evide nce of pleural effusion or pneumothorax. IMPRESSION: No acute abnormalities and in particular no radiographic evidence of pneumonia. ACT 112: Negative or not required by law. Electronically signed by: Jim Cox M.D. 07/16/2024 7:40 AM
[2024-07-16] MEDS: hydrOXYzine HCl 10 MG TAB PO PRN (07:55)
[2024-07-16] MEDS: DOXYCYCLINE HYCLATE 100 MG CAP PO SCH (07:55)
[2024-07-16] MEDS: ENTACAPONE 200 MG TAB PO SCH (07:55)
[2024-07-16] MEDS: VIBEGRON 75 MG TAB PO SCH (07:56)
[2024-07-16] MEDS: ASCORBIC ACID 500 MG TAB PO SCH (07:56)
[2024-07-16] MEDS: CARBIDOPA/LEVODOPA 25/100MG TAB PO SCH (07:56)
[2024-07-16] MEDS: CARBIDOPA/LEVODOPA 50/200MG EXT REL TAB PO SCH (07:56)
[2024-07-16] MEDS: DULoxetine HCL 60 MG CAP PO SCH (07:56)
[2024-07-16] MEDS: AMANTADINE HCL 100 MG CAPSULE PO SCH (07:57)
[2024-07-16] MEDS: OPTIRAY 320 100ml IV ONE (13:36)
[2024-07-16] MEDS: INFLUENZA VACC TS2024-25(6m+)/PF (IIV3) 0.5mL Syr IM ONE (14:04)
--- NOTE | 2024-07-16 15:02 | CT Scan Report ---
CT chest diagnostic w con CLINICAL HISTORY: Enlarged mediastinal and hilar nodes TECHNIQUE: Multidetector row helical CT of the chest was performed with intravenous contrast. Coronal and sagittal reformations were obtained. Automated dose lowering techniques and/or adjustment accord ing to patient size were utilized for this exam. CT DOSE: 2432. mGy.cm Comparison: Comparison is made to CT chest 08/10/2022 FINDINGS: Lungs and pleura: Atelectasis versus scarring is seen in the dependent portions of the lungs. Heart and pericardium: Heart size is normal. No pericardial effusion. Vessels: Unremarkable. Mediastinum and sam: Scattered partially calcified lymph nodes are seen. These measure up to 15 mm. Chest wall and lower neck: Unremarkable. Abdomen: Unremarkable. Bones: Unremarkable. IMPRESSION: Partially calcified nodes are seen in the mediastinal and bilateral sam which are compatible with pr ior granulomatous disease. ACT 112: Negative or not required by law. Electronically signed by: Jim Cox M.D. 07/16/2024 2:59 PM
--- NOTE | 2024-07-16 16:26 | CT Scan Report ---
CT SCAN OF THE ABDOMEN AND PELVIS WITH IV CONTRAST CLINICAL HISTORY: Lymphadenopathy. COMPARISON STUDY: Abdominal CT scan dated 05/31/2023 08/09/2022. TECHNIQUE: Following the IV administration of 94 cc of Optiray 320, CT scan of the abdomen and pelvi s is performed from the lung bases to the proximal femora. Images are reviewed in the axial, sagittal , and coronal planes. IV contrast was administered without complication. A dose lowering technique wa s utilized adhering to the principles of ALARA. There is streak artifact from the arms which could no t be elevated above the abdomen. FINDINGS: Lung bases: Electronic devices are noted in the anterior chest wall bilaterally. Calcified mediastina l and subcarinal nodes are partially imaged. The heart is normal in size and without pericardial effu john. The lung bases are clear noting dependent atelectasis. Liver: The contrast-enhanced liver is normal in size, contour, and attenuation. There is no intrahepa tic biliary ductal dilatation. The hepatic veins and portal veins are patent. Gallbladder: Unremarkable. Spleen: Normal in size and attenuation. Pancreas: Unremarkable. Adrenal glands: Unremarkable. Kidneys: The contrast enhanced kidneys are normal in size and without hydronephrosis. The kidneys enh ance symmetrically. Abdominal vasculature: The abdominal aorta is normal in course and caliber. 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 Bowel: There is retrosigmoid fecal retention and moderate constipation. No bowel obstruction is seen. Colonic interposition is incidentally noted. Findings suggest prior appendectomy. Peritoneum: There is no intraperitoneal free air or abdominal ascites. There is asymmetric atrophy of the left iliopsoas musculature as compared to the right. Lymphadenopathy: A calcification containing left iliac chain node on image #294 measures 2.8 x 1.4 cm . This is unchanged from, as is a second 1.5 cm calcified left iliac chain node on image #309. There are small calcified left inguinal lymph nodes. No additional enlarged or calcified lymph nodes are se en in the abdomen or pelvis. Pelvic viscera: The bladder is filled with excreted IV contrast and grossly unremarkable. The prostat e and seminal vesicles unremarkable as imaged. There are bilateral fat-containing groin hernias. The right inguinal hernia contains a small segment of bowel. Skeletal structures: No lytic or blastic lesions are seen. IMPRESSION: 1. No acute infectious or inflammatory findings are identified in the abdomen or pelvis. 2. Calcification containing left iliac chain and inguinal lymph nodes have not significantly changed dating back to 08/09/2022. These are similar in appearance to the calcified mediastinal nodes seen on the chest CT scan. These are pathological indeterminate and clinical correlation will be required. 3. 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 4. Rectosigmoid fecal retention and moderate constipation. 5. Bilateral inguinal hernias as above, with small bowel noted in the hernia on the right. 6 per Additional findings as above. ACT 112: Negative or not required by law. Electronically signed by: Mamadou Hung M.D. 07/16/2024 4:24 PM
--- NOTE | 2024-07-16 16:45 | Hospitalist Progress Note ---
Date of Service July 16, 2024 Assessment & Plan (1) Altered mental status: Plan: Altered mental status- attributes this to recent stressor of a family member having a car accident yesterday He does have a history of recurrent UTIs, however, urine looks clean Lung exam is mildly abnormal, and mediastinal and hilar nodes noted on CTA neck. - follow up CXR: no abnormalities, no PNA - Chest/A&P CT: no acute infectious or inflammatory changes. Calcified nodes in chest - compatible with prior granulomatous disease. Stable left iliac chain and inguinal lymph nodes. Moderate constipation Severe Parkinson's/REM sleep behavior disorder- Continue amantadine, carbidopa levodopa short acting and extended release, and as needed short acting Anxiety and depression- Continue duloxetine, lorazepam as needed, and reports hydroxyzine as needed, in particular works before bedtime Urinary incontinence- Continue vibegron (2) Parkinson disease: (3) REM sleep behavior disorder: (4) Sleep apnea: (5) Anxiety: (6) Depression: (7) Pulmonary nodules/lesions, multiple: Plan Dispo: continued inpatient stay, awaiting for collateral from . Attempted to call twice. VM left Admission and Anticipated Discharge Date Admission Date: July 16, 2024 Subjective Patient seen lying in bed, multiple family members present at bedside (sister, mom and dad). Srikanth reports that he was able to get some sleep and is feeling better. His speech is difficult to understand, but between myself and family and clarifying questions we are able to understand him. Does report being very worried about his daughter who was in a car accident yesterday. he denied hallucinations. We discussed medication changes here vs with his outpatient psych and he was indecisive regarding this - thinks he met with psych recently but is unsure when. seems to be the better decision maker in this decison. Patient seems better - unclear if fully back to baseline. family at bedside have not seen him too much recently VM left for his Review of Systems Review of Systems: All systems reviewed & are unremarkable except as noted in Subjective Physical Exam Physical Exam: General: NAD, vitals as above, lying in bed Pulm: breathing unlabored CV: well perfused extremities: moves all extremities neuro: A&O x3, able to express needs and communicate, speech is garbled. denies hallucinations Results & Data Results & Data Vital Signs (Past 12 Hours) Vital Signs Temp Pulse Pulse Resp BP Pulse Ox O2 Del Method 07/16/24 14:20 98.2 F 69 18 123/75 97 Room Air 07/16/24 06:03 Room Air 07/16/24 06:03 97.5 F L 84 18 136/81 97 Room Air 07/16/24 05:06 86 07/16/24 04:40 92 H 19 110/69 95 PG Care Time/CCT Total # of Minutes Spent Total Time Spent with Patient: Total time spent is greater than 50% in coordination of care (as documented) at patient's floor/unit and/or counseling patient: Coding Level of Care Code None Diagnoses Altered mental status R41.0 Altered mental status type: delirium Parkinson disease G20 REM sleep behavior disorder G47.52 Sleep apnea G47.30 Anxiety F41.9 Depression F32.9 Pulmonary nodules/lesions, multiple R91.8 (1) Altered mental status Altered mental status type: delirium Qualified Code(s): R41.0 - Disorientation, unspecified
[2024-07-17 08:11] LABS: Basophils # (auto) 0.08 K/uL (0.00-0.20); Basophils % (auto) 1.4 %; Eosinophils # (auto) 0.33 K/uL (0.00-0.50); Eosinophils % (auto) 5.7 %; Hematocrit (blood only) 39.9 % (42.0-52.0); Hemoglobin 13.7 g/dl (14.0-18.0); Immature Granulocytes # (auto) 0.01 K/uL (0.01-0.20); Immature Granulocytes % (auto) 0.2 %; Lymphocytes # (auto) 0.92 K/uL (1.20-3.40); Lymphocytes % (auto) 15.9 %; Mean Corpuscular Hgb Conc 34.3 g/dL (32.0-36.0); Mean Corpuscular Volume 93.2 fL (80.0-100.0); Mean Platelet Volume 10.2 fL (9.4-12.4); Monocytes # (auto) 0.55 K/uL (0.11-0.59); Monocytes % (auto) 9.5 %; Neutrophils # (auto) 3.88 K/uL (1.40-6.50); Neutrophils % (auto) 67.3 %; Platelet Count 205 K/uL (130-400); RDW Coefficient of Variation 12.1 % (11.5-14.5); RDW Standard Deviation 41.6 fL (36.4-46.3); Red Blood Count 4.28 M/uL (4.70-6.10); White Blood Count 5.77 K/ul (4.8-10.8)
[2024-07-17 08:23] VITALS: BP 138/85; PULSE 80; RESP 20; TEMP 98.3; O2SAT 92
[2024-07-17 08:29] LABS: Anion Gap 5 (3-11); BUN Creatinine Ratio 20.3 (10-20); Blood Urea Nitrogen 15 mg/dl (6-23); Calcium 8.5 mg/dl (8.6-10.3); Carbon Dioxide 26 mmol/L (21-32); Chloride 108 mmol/L (98-107); Creatinine Clr Calc Pharmacy 117.6 ml/min; Glucose 81 mg/dl (70-99(Fasting)); Potassium 3.7 mmol/L (3.5-5.1); Sodium 139 mmol/L (136-145)
[2024-07-17 08:31] LABS: Alanine Aminotransferase < 3 U/L (7-52); Albumin Globulin Ratio 1.7 (0.9-2); Albumin Level 4.1 gm/dl (3.4-5.0); Alkaline Phosphatase 47 U/L (34-104); Aspartate Aminotransferase 13 U/L (13-39); Bilirubin,Total 0.8 mg/dl (0.2-1.0); Globulin 2.4 gm/dl (2.5-4.0); Magnesium 2.2 mg/dl (1.7-2.4); Total Protein 6.5 gm/dl (6.0-8.3)
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
[2024-07-17] MEDS: ACETAMINOPHEN 500 MG TAB PO PRN (15:04)
--- NOTE | 2024-07-18 00:54 | Electrocardiogram Report ---
Test Reason : Blood Pressure : */* mmHG Vent. Rate : 79 BPM Atrial Rate : 79 BPM P-R Int : 130 ms QRS Dur : 96 ms QT Int : 364 ms P-R-T Axes : 20 -6 27 degrees QTcB Int : 417 ms Poor data quality, interpretation may be adversely affected Normal sinus rhythm Left atrial enlargement Possible Inferior infarct , age undetermined Abnormal ECG When compared with ECG of 21-Oct-2023 18:34, No significant change Confirmed by Omer Jackman ([id number]) on 07/18/2024 12:53:52 AM Referred By: REFERRED SELF Confirmed By: Omer Jackman
== END 2024-07-17 18:48 | disposition home or self-care (01) ==
LOC: 3W 21:17 → ED 21:17 → SUATTDRO 07-16 02:59 → 3W 07-16 05:15
DX: Z87.440 Personal history of urinary (tract) infections; Z23 Encounter for immunization; G47.52 REM sleep behavior disorder; Z88.6 Allergy status to analgesic agent; G20.A1 Parkinson's disease without dyskinesia, without mention of fluctuations; R32 Unspecified urinary incontinence; Z96.652 Presence of left artificial knee joint; F41.8 Other specified anxiety disorders; Z79.899 Other long term (current) drug therapy; R41.0 Disorientation, unspecified; Z88.8 Allergy status to other drugs, medicaments and biological substances; G47.30 Sleep apnea, unspecified; R91.8 Other nonspecific abnormal finding of lung field